=== PATIENT | male | born 1945 | race African-American/Black ===

== ENCOUNTER 2017-09-28 21:26 | Inpatient (IN) | payer MEDICARE, OTHER ==
[~2017-09-28] VITALS: Ht 193 cm; Wt 150.1 kg
[2017-09-28] MEDS ORDERED: Cefepime HCl 1 GM in NS 55 ML IV SCH (21:30)
[2017-09-28] MEDS ORDERED: Vancomycin 1.5gm/D5W 250ml 250 ML IVPB ONE (21:30)
[2017-09-28 21:35] VITALS: BP 224/117
--- NOTE | 2017-09-28 21:35 | Emergency Room Report ---
History of Present Illness General Chief Complaint: Edema Source: Patient, EMS Present Illness HPI This a 71-year-old male who is a [place] . He has a history of diabetes and high blood pressure for which he has not taking any medication for years. He also smokes marijuana mixed with cocaine. He presents with chief complaint of left leg pain and swelling for last 2 weeks. Sexually longer but he said he really noticed it 2 weeks ago. Also been draining. He's also very swollen on the way up to his abdomen. Denies any fever chills but denies any nausea vomiting. Worse with movement or exertion. Better with rest. Denies any chest pain. Allergies: Coded Allergies: No Known Allergies (Unverified , 09/28/17) Patient History Past Medical History: see triage record, old chart reviewed, DM, HTN Past Surgical History: other Pertinent Family History: none Social History: Reports: smoking, drug use - cocaine Immunizations: other Reviewed Nursing Documentation: PMH: Agreed; PSxH: Agreed Nursing Documentation-PMH Hx Hypertension: Yes Hx Diabetes: Yes Review of Systems Eye: Denies: eye pain, blurred vision ENT: Denies: ear pain, nose congestion, throat swelling Respiratory: Denies: cough, shortness of breath Cardiovascular: Denies: chest pain, palpitations Gastrointestinal: Denies: abdominal pain, diarrhea, nausea, vomiting Musculoskeletal: Reports: joint pain, muscle pain, muscle stiffness; Denies: back pain Skin: Denies: rash Neurological: Denies: headache, numbness Endocrine: Denies: increased thirst, increased urine Hematologic/Lymphatic: Denies: easy bruising All Other Systems: negative except mentioned in HPI Physical Exam Vital Signs Date Time Temp Pulse Resp B/P (MAP) Pulse Ox O2 Delivery O2 Flow Rate FiO2 09/28/17 21:21 98.2 97 14 231/134 96 Room Air 98.2 vitals with severe hypertension Sp02 EP Interpretation: reviewed, normal General Appearance: well appearing, no apparent distress, alert, obese Head: normocephalic, atraumatic Eyes: bilateral eye PERRL, bilateral eye EOMI ENT: hearing grossly normal, normal pharynx Neck: full range of motion, supple, no meningismus Respiratory: chest non-tender, decreased breath sounds, rhonchi Cardiovascular #1: regular rate, rhythm, no murmur Gastrointestinal: normal bowel sounds, non tender, no mass, no organomegaly, no bruit, non-distended Genitourinary: other - Scrotal and penile edema Musculoskeletal: back normal, other - He has diffuse 4+ edema to the lower extremities all the way up to the lower abdomen area. Left tib-fib area with large ulceration and weeping purulent drainage. The ulceration extends from foot to the proximal tibia area. There are maggots in his wound. Unable to palpate a pulse. Tender to palpation. Neurologic: alert, oriented x3 Psychiatric: mood/affect normal Skin: warm/dry Procedures Critical Care Time Critical Care Time Critical care is mandated in this patient who presented with malignant hypertension and gangrenous left leg. Patient require my urgent intervention to attenuate the risks of metabolic collapse and possible limb which may lead to cardiovascular collapse and . Critical care time is 35 minutes excluding any reportable procedure. Critical care time included evaluation, multiple reevaluation, looking at old charts, interpreting laboratory and diagnostic data, discussing case with patient and family and consultants, and charting. Medical Decision Making Diagnostic Impression: Primary Impression: Gangrene of lower extremity Additional Impressions: CHF exacerbation Qualified Codes: I50.9 - Heart failure, unspecified Malignant hypertension Anasarca CKD (chronic kidney disease) Qualified Codes: N18.9 - Chronic kidney disease, unspecified Hyperglycemia due to type 2 diabetes mellitus Qualified Codes: E11.65 - Type 2 diabetes mellitus with hyperglycemia Cocaine abuse Noncompliance Obesity (BMI 30.0-34.9) ACS (acute coronary syndrome) ER Course Patient presents with multiple issues. All of this is secondary to noncompliance with his diet in medication. Also secondary to drug abuse. He has uncontrolled hypertension. Blood pressure slowly coming down with IV and oral meds. He also has gangrene of his lower extremity obvious from a diabetic ulcer. Most likely will need a BKA versus in AKA. We'll get surgical/ orthopedic consultation. IV antibiotic started. He has anasarca always from uncontrolled CHF from his high blood pressure. Lasix given without much success. Will admit versus transfer to the CT for admission. Patient will be admitted here. I discussed the case with Dr. Moore who will be admitting and Dr. Gipson for orders. Lab Results Impression labs with elevated glucose, creatinine, BNP. EKG Diagnostic Results Rate: normal Rhythm: NSR ST Segments: other - NSST changes Rhythm Strip Diag. Results Rhythm Strip Time: 22:38 EP Interpretation: yes Rate: 80 Rhythm: NSR, no PVC's, no ectopy Chest X-Ray Diagnostic Results Chest X-Ray Diagnostic Results : Chest X-Ray Ordered: Yes # of Views/Limited/Complete: 1 View Indication: Shortness of Breath EP Interpretation: Yes Interpretation: no pneumothorax, other - pleural effusion with vasc congestion Impression: Other - chf and pleural effusion Other X-Ray Diagnostic Results Other X-Ray Diagnostic Results : X-Ray ordered: Left Tib/fib xrays Indication: Pain EP Interpretation: Yes Interpretation: no dislocation, no fractures, other - STS. gas in soft tissue Impression: Other - Soft tissue gas Electronically Signed by: Cullen Magaña MD Last Vital Signs Date Time Temp Pulse Resp B/P (MAP) Pulse Ox O2 Delivery O2 Flow Rate FiO2 09/28/17 21:21 98.2 97 14 231/134 96 Room Air 98.2 Status: improved Disposition: ADMITTED INPATIENT Condition: Serious Scripts No Active Prescriptions or Reported Meds CULLEN MAGAÑA M.D. September 28, 2017 21:35
[2017-09-28 21:59] LABS: BASOPHILS % (AUTO) 1.3 % (0.0-2.0); HEMATOCRIT 43.9 % (42.0-52.0); HEMOGLOBIN 13.4 G/DL (14.2-18.0); LYMPHOCYTES % (AUTO) 12.7 % (20.0-45.0); MEAN CORPUSCULAR VOLUME 88 FL (80-99); MONOCYTES % (AUTO) 8.9 % (1.0-10.0); NEUTROPHILS % (AUTO) 76.1 % (45.0-75.0); PLATELET COUNT 159 K/UL (150-450); RED BLOOD COUNT 4.97 M/UL (4.70-6.10); RED CELL DISTRIBUTION WIDTH 14.8 % (11.6-14.8); WHITE BLOOD COUNT 7.8 K/UL (4.8-10.8)
[2017-09-28 22:09] LABS: ANION GAP 5 mmol/L (5-15); BLOOD UREA NITROGEN 18 mg/dL (7-18); CALCIUM 8.1 MG/DL (8.5-10.1); CARBON DIOXIDE 31 MMOL/L (21-32); CHLORIDE 104 MMOL/L (98-107); CREATININE 1.7 MG/DL (0.55-1.30); POTASSIUM 3.9 MMOL/L (3.5-5.1); SODIUM 140 MMOL/L (136-145)
[2017-09-28 22:11] LABS: INR 1.2 (0.9-1.1)
[2017-09-28 22:22] LABS: ALANINE AMINOTRANSFERASE 18 U/L (12-78); ALBUMIN 2.3 G/DL (3.4-5.0); ALBUMIN/GLOBULIN RATIO 0.4 (1.0-2.7); ALKALINE PHOSPHATASE 70 U/L (46-116); ASPARTATE AMINO TRANSFERASE 15 U/L (15-37); BILIRUBIN,TOTAL 0.6 MG/DL (0.2-1.0); CKMB 1.1 NG/ML (0.0-3.6); CREATINE KINASE 47 U/L (26-308)
--- NOTE | 2017-09-28 22:22 | Diagnostic Imaging Report ---
EXAM: XR Chest, 1 View CLINICAL HISTORY: PAIN TECHNIQUE: Frontal view of the chest. COMPARISON: No relevant prior studies available. FINDINGS: Lungs: See below. Pleural space: Right pleural effusion with adjacent consolidation. No pneumothorax. Heart: Unremarkable. No cardiomegaly. Mediastinum: Unremarkable. Bones/joints: Unremarkable. IMPRESSION: Right pleural effusion with adjacent consolidation.
--- NOTE | 2017-09-28 22:25 | Diagnostic Imaging Report ---
EXAM: XR Left Tibia and Fibula, 2 Views CLINICAL HISTORY: PAIN TECHNIQUE: Frontal and lateral views of the left tibia and fibula. COMPARISON: No relevant prior studies available. FINDINGS: Bones/joints: Unremarkable. No acute fracture. No dislocation. Soft tissues: There is gas in the soft tissues. No radiopaque foreign body. IMPRESSION: There is gas in the soft tissues. This can be traumatic, iatrogenic, or infectious. No acute fracture or suspicious osseous erosions.
[2017-09-28] MEDS ORDERED: Enoxaparin 60mg Inj SUBQ ONE (22:30)
[2017-09-28] MEDS ORDERED: Enoxaparin 120 mg inj SUBQ ONE (22:30)
[2017-09-28 22:40] VITALS: BP 200/90
[2017-09-28 22:46] LABS: APPEARANCE,URINE SLIGHTLY CLOUDY; BILIRUBIN, URINE NEGATIVE (NEGATIVE); GLUCOSE, URINE (UA) 1+ (NEGATIVE); KETONES,URINE NEGATIVE (NEGATIVE); LEUKOCYTE ESTERASE ,URINE 1+ (NEGATIVE); NITRITE,URINE NEGATIVE (NEGATIVE); PH,URINE 6 (4.5-8.0); PROTEIN,URINE 3+ (NEGATIVE); UROBILINOGEN,URINE 1 MG/DL (0.0-1.0)
[2017-09-28 22:56] LABS: COLOR,URINE YELLOW
[2017-09-28 23:40] VITALS: BP 190/97
[2017-09-28] MEDS ORDERED: Albuterol/Ipratropium 3ml neb HHN PRN (23:45)
[2017-09-28] MEDS ORDERED: Miralax 17gm pkt ORAL PRN (23:45)
[2017-09-28] MEDS ORDERED: Nitroglycerin Subl 0.4mg tab SL PRN (23:45)
[2017-09-28] MEDS ORDERED: Labetalol 5mg/ml 20ml vial IV PRN (23:45)
[2017-09-28] MEDS ORDERED: Enalaprilat 2.5mg/2ml Inj IV PRN (23:45)
[2017-09-29 00:40] VITALS: BP 158/87
[2017-09-29] MEDS: Cefepime HCl 2 GM in D5W 110 ML IV SCH ×2 (03:47→15:25)
[2017-09-29 04:00] VITALS: BP 173/90
[2017-09-29] MEDS: NovoLOG Insulin Flexpen SUBQ SCH ×5 (07:22→21:00)
[2017-09-29 08:00] VITALS: BP 153/83
[2017-09-29] MEDS: Heparin 5000 units/ml inj SUBQ SCH ×2 (09:14→22:29)
[2017-09-29 09:27] LABS: HEMATOCRIT 40.9 % (42.0-52.0); HEMOGLOBIN 12.6 G/DL (14.2-18.0); MEAN CORPUSCULAR VOLUME 89 FL (80-99); PLATELET COUNT 145 K/UL (150-450); RED BLOOD COUNT 4.61 M/UL (4.70-6.10); RED CELL DISTRIBUTION WIDTH 14.8 % (11.6-14.8); WHITE BLOOD COUNT 10.9 K/UL (4.8-10.8)
[2017-09-29 09:58] LABS: ALANINE AMINOTRANSFERASE 18 U/L (12-78); ALBUMIN 2.2 G/DL (3.4-5.0); ALBUMIN/GLOBULIN RATIO 0.4 (1.0-2.7); ALKALINE PHOSPHATASE 64 U/L (46-116); ANION GAP 4 mmol/L (5-15); ASPARTATE AMINO TRANSFERASE 13 U/L (15-37); BLOOD UREA NITROGEN 19 mg/dL (7-18); CALCIUM 8.1 MG/DL (8.5-10.1); CARBON DIOXIDE 30 MMOL/L (21-32); CHLORIDE 104 MMOL/L (98-107); CREATININE 1.5 MG/DL (0.55-1.30); POTASSIUM 3.7 MMOL/L (3.5-5.1); SODIUM 138 MMOL/L (136-145)
--- NOTE | 2017-09-29 10:06 | Consultation ---
Consult Note Consult Note asked to eval for high Cr This a 71-year-old male who is a [place] . He has a history of diabetes and high blood pressure for which he has not taking any medication for years. He also smokes marijuana mixed with cocaine. He presents with chief complaint of left leg pain and swelling for last 2 weeks. Sexually longer but he said he really noticed it 2 weeks ago. Also been draining. He's also very swollen on the way up to his abdomen. Denies any fever chills but denies any nausea vomiting. Worse with movement or exertion. Better with rest. Denies any chest pain. Social History: Reports: smoking, drug use - cocaine Hx Hypertension: Yes Hx Diabetes: Yes data reviewed- Examined- Assessment/Plan Diabetic Nephropathy Gangrene of lower extremity CHF exacerbation Malignant hypertension Cocaine abuse Obesity (BMI 30.0-34.9) ACS (acute coronary syndrome) Adjust BP meds- PRNs for BP 2D echo monitor renal parameters OMER YOU September 29, 2017 10:06
[2017-09-29] MEDS ORDERED: Tamsulosin 0.4mg cap ORAL SCH (11:00)
--- NOTE | 2017-09-29 11:05 | Consultation ---
History of Present Illness General Date patient seen: September 29, 2017 Chief Complaint: Edema Reason for Consultation: left leg cellulitis Present Illness HPI 71 year old male presented with worsening left leg cellulitis. states that a few months back he injured his left leg when he walked into something. does not recall what. Since has developed worsening cellulitis. states that he has been managing it for some time now on his own and has not seen medical physician for assistance. states he has been using alcohol and hydrogen peroxide to keep wound clean but has noted that swelling has been consistently worsening. initially had edema/cellulitis around around site on anterior mid tibia but since has developed edema in foot, leg, thing, up to groin area. surgery called to evaluate. patient seen, chart reviewed, patient examined, plain films reviewed. Allergies: Coded Allergies: No Known Allergies (Unverified , 09/28/17) Medication History No Active Prescriptions or Reported Meds Patient History History Provided By: Patient, Medical Record, PMD Healthcare decision maker Resuscitation status Full Code Advanced Directive on File No Past Medical/Surgical History Past Medical/Surgical History: (1) Malignant hypertension (2) Anasarca (3) Cocaine abuse (4) ACS (acute coronary syndrome) (5) CKD (chronic kidney disease) (6) CHF exacerbation (7) Noncompliance (8) Hyperglycemia due to type 2 diabetes mellitus (9) Obesity (BMI 30.0-34.9) (10) Gangrene of lower extremity (11) Edema Review of Systems All Other Systems: negative except mentioned in HPI Physical Exam General Appearance: no apparent distress, alert Lines, tubes and drains: peripheral HEENT: normocephalic, mucous membranes moist Neck: supple Respiratory/Chest: lungs clear, normal breath sounds, no respiratory distress, no accessory muscle use Cardiovascular/Chest: normal rate Abdomen: normal bowel sounds, non tender, soft, no organomegaly, no mass Extremities: inflammation, slow capillary refill, moderate edema, other - see wound care photos for details of size and wounds. left anterior mid leg with large area of eschar and some gangrene, cellulitis, edema from foot to thigh. can palpate faint pulses through edema Neurologic: alert, oriented x 3, responsive Last 24 Hour Vital Signs Date Time Temp Pulse Resp B/P (MAP) Pulse Ox O2 Delivery O2 Flow Rate FiO2 09/29/17 07:22 173/90 09/29/17 04:00 99.8 82 19 173/90 100 99.8 09/29/17 03:47 201/108 09/29/17 01:15 98.0 86 18 158/87 97 Nasal Cannula 2.0 96 98.0 09/29/17 00:40 98.0 86 18 158/87 97 Nasal Cannula 2.0 96 98.0 09/29/17 00:02 190/97 09/28/17 23:40 98.0 88 20 190/97 97 Nasal Cannula 2.0 96 98.0 09/28/17 22:40 98.0 90 18 200/90 97 Nasal Cannula 2.0 96 98.0 09/28/17 22:25 90 227/106 09/28/17 22:25 227/106 09/28/17 22:24 227/106 09/28/17 21:35 98.2 92 16 224/117 96 Room Air 98.2 09/28/17 21:35 95 16 Room Air 96 09/28/17 21:21 98.2 97 14 231/134 96 Room Air 98.2 Intake and Output 09/28/17 09/29/17 19:00 07:00 Intake Total 55 ml Output Total 1720 ml Balance -1665 ml IV Total 55 ml Output Urine Total 1720 ml # Voids 4 Laboratory Tests Test 09/28/17 21:30 09/28/17 22:30 09/29/17 08:43 White Blood Count 7.8 K/UL (4.8-10.8) 10.9 K/UL (4.8-10.8) H Red Blood Count 4.97 M/UL (4.70-6.10) 4.61 M/UL (4.70-6.10) L Hemoglobin 13.4 G/DL (14.2-18.0) L 12.6 G/DL (14.2-18.0) L Hematocrit 43.9 % (42.0-52.0) 40.9 % (42.0-52.0) L Mean Corpuscular Volume 88 FL (80-99) 89 FL (80-99) Mean Corpuscular Hemoglobin 27.0 PG (27.0-31.0) 27.4 PG (27.0-31.0) Mean Corpuscular Hemoglobin Concent 30.6 G/DL (32.0-36.0) L 30.9 G/DL (32.0-36.0) L Red Cell Distribution Width 14.8 % (11.6-14.8) 14.8 % (11.6-14.8) Platelet Count 159 K/UL (150-450) 145 K/UL (150-450) L Mean Platelet Volume 9.0 FL (6.5-10.1) 8.5 FL (6.5-10.1) Neutrophils (%) (Auto) 76.1 % (45.0-75.0) H % (45.0-75.0) Lymphocytes (%) (Auto) 12.7 % (20.0-45.0) L % (20.0-45.0) Monocytes (%) (Auto) 8.9 % (1.0-10.0) % (1.0-10.0) Eosinophils (%) (Auto) 1.0 % (0.0-3.0) % (0.0-3.0) Basophils (%) (Auto) 1.3 % (0.0-2.0) % (0.0-2.0) Prothrombin Time 12.2 SEC (9.30-11.50) H Prothromb Time International Ratio 1.2 (0.9-1.1) H Activated Partial Thromboplast Time 24 SEC (23-33) Sodium Level 140 MMOL/L (136-145) 138 MMOL/L (136-145) Potassium Level 3.9 MMOL/L (3.5-5.1) 3.7 MMOL/L (3.5-5.1) Chloride Level 104 MMOL/L (98-107) 104 MMOL/L (98-107) Carbon Dioxide Level 31 MMOL/L (21-32) 30 MMOL/L (21-32) Anion Gap 5 mmol/L (5-15) 4 mmol/L (5-15) L Blood Urea Nitrogen 18 mg/dL (7-18) 19 mg/dL (7-18) H Creatinine 1.7 MG/DL (0.55-1.30) H 1.5 MG/DL (0.55-1.30) H Estimat Glomerular Filtration Rate mL/min (>60) mL/min (>60) Glucose Level 265 MG/DL (74-106) H 246 MG/DL (74-106) H Lactic Acid Level 1.80 mmol/L (0.66-2.22) Calcium Level 8.1 MG/DL (8.5-10.1) L 8.1 MG/DL (8.5-10.1) L Total Bilirubin 0.6 MG/DL (0.2-1.0) 1.0 MG/DL (0.2-1.0) Aspartate Amino Transf (AST/SGOT) 15 U/L (15-37) 13 U/L (15-37) L Alanine Aminotransferase (ALT/SGPT) 18 U/L (12-78) 18 U/L (12-78) Alkaline Phosphatase 70 U/L (46-116) 64 U/L (46-116) Total Creatine Kinase 47 U/L (26-308) Creatine Kinase MB 1.1 NG/ML (0.0-3.6) Creatine Kinase MB Relative Index 2.3 Troponin I 0.057 ng/mL (0.000-0.056) Pro-B-Type Natriuretic Peptide 9614 pg/mL (0-125) H Total Protein 7.5 G/DL (6.4-8.2) 7.4 G/DL (6.4-8.2) Albumin 2.3 G/DL (3.4-5.0) L 2.2 G/DL (3.4-5.0) L Globulin 5.2 g/dL 5.2 g/dL Albumin/Globulin Ratio 0.4 (1.0-2.7) L 0.4 (1.0-2.7) L Urine Color Yellow Urine Appearance Slightly cloudy Urine pH 6 (4.5-8.0) Urine Specific [place] 1.015 (1.005-1.035) Urine Protein 3+ (NEGATIVE) H Urine Glucose (UA) 1+ (NEGATIVE) H Urine Ketones Negative (NEGATIVE) Urine Occult Blood 2+ (NEGATIVE) H Urine Nitrite Negative (NEGATIVE) Urine Bilirubin Negative (NEGATIVE) Urine Urobilinogen 1 MG/DL (0.0-1.0) H Urine Leukocyte Esterase 1+ (NEGATIVE) H Urine RBC 2-4 /HPF (0 - 0) H Urine WBC 5-10 /HPF (0 - 0) H Urine Squamous Epithelial Cells Few /LPF (NONE/OCC) Urine Bacteria Few /HPF (NONE) Urine Coarse Granular Casts 0-2 /LPF (NONE) H Urine Opiates Screen Negative (NEGATIVE) Urine Barbiturates Screen Negative (NEGATIVE) Phencyclidine (PCP) Screen Negative (NEGATIVE) Urine Amphetamines Screen Negative (NEGATIVE) Urine Benzodiazepines Screen Negative (NEGATIVE) Urine Cocaine Screen Positive (NEGATIVE) H Urine Marijuana (THC) Screen Positive (NEGATIVE) H Differential Total Cells Counted 100 Neutrophils % (Manual) 88 % (45-75) H Lymphocytes % (Manual) 4 % (20-45) L Monocytes % (Manual) 8 % (1-10) Eosinophils % (Manual) 0 % (0-3) Basophils % (Manual) 0 % (0-2) Band Neutrophils 0 % (0-8) Platelet Estimate Decreased L Platelet Morphology Normal Anisocytosis 1+ C-Reactive Protein, Quantitative Pending Height (Feet): 6 Height (Inches): 4.00 Weight (Pounds): 270 Medications Current Medications Medications (Trade) Dose Ordered Sig/Lito Route PRN Reason Start Time Stop Time Status Last Admin Dose Admin Acetaminophen (Tylenol) 650 mg Q4H PRN ORAL fever 09/28/17 23:45 10/28/17 23:44 Albuterol/ Ipratropium (Albuterol/ Ipratropium) 3 ml EVERY 4 HOURS PRN HHN Shortness of Breath 09/28/17 23:45 10/03/17 23:44 Cefepime HCl 2 gm/ Dextrose 110 ml @ 220 mls/hr 0200,1400 IV 09/29/17 02:00 10/06/17 01:59 09/29/17 03:47 Clonidine HCl (Catapres Tab) 0.1 mg EVERY 8 HOURS ORAL 09/29/17 14:00 10/29/17 13:59 Clonidine HCl (Catapres Tab) 0.1 mg ONCE ORAL 09/29/17 11:00 09/29/17 12:00 Dextrose (Dextrose 50%) STAT PRN IV Hypoglycemia 09/28/17 23:45 10/28/17 23:44 Docusate Sodium (Colace) 100 mg THREE TIMES A DAY ORAL 09/29/17 13:00 10/29/17 12:59 Heparin Sodium (Porcine) (Heparin 5000 units/ml) 5,000 units EVERY 12 HOURS SUBQ 09/29/17 09:00 10/29/17 08:59 09/29/17 09:14 Hydralazine HCl (Apresoline) 25 mg Q4H PRN ORAL bp over 160 syst 09/29/17 10:15 10/29/17 10:14 Insulin Aspart (NovoLOG) BEFORE MEALS AND HS SUBQ 09/29/17 06:30 10/29/17 06:29 09/29/17 07:22 Lansoprazole (Prevacid) 30 mg BID ORAL 09/29/17 18:00 10/29/17 17:59 Lansoprazole (Prevacid) 30 mg ONCE ORAL 09/29/17 11:00 09/29/17 12:00 Nitroglycerin (Ntg) 0.4 mg Q5M PRN SL Prn Chest Pain 09/28/17 23:45 10/28/17 23:44 Ondansetron HCl (Zofran) 4 mg Q6H PRN IVP Nausea & Vomiting 09/28/17 23:45 10/28/17 23:44 Polyethylene Glycol (Miralax) 17 gm DAILYPRN PRN ORAL Constipation 09/28/17 23:45 10/28/17 23:44 Tamsulosin HCl (Flomax) 0.4 mg BID ORAL 09/29/17 18:00 10/29/17 17:59 Tamsulosin HCl (Flomax) 0.4 mg ONCE ORAL 09/29/17 11:00 09/29/17 12:00 Temazepam (Restoril) 15 mg HSPRN PRN ORAL Insomnia 09/28/17 23:45 10/05/17 23:44 Vancomycin HCl (Vanco rx to dose) 1 ea DAILY PRN MISC PER RX PROTOCOL 09/29/17 06:30 10/29/17 06:29 Vancomycin HCl 1.5 gm/Dextrose 275 ml @ 183.3 mls/ hr Q24H IVPB 09/29/17 21:30 10/04/17 21:29 Assessment/Plan Problem List: (1) Gangrene of lower extremity Assessment & Plan: 71M left lower extremity cellulitis/wound which is chronic after injury a "few months ago". has been managing wound on his own since but has been worsening. now has cellulitis around left and edema from foot to thigh. large area of skin loss on anterior mid leg. small incision noted and underlying tissue with edema but does bleed and potentially viable. areas of skin loss with bleeding once manipulated but some areas without. -my potentially need excisional debridement of wounds but will manage conservatively for now. -keep lower extremity elevated -IV Abx for cellulitis -honey gel, gauze, wrap wound daily. -will monitor for improvement. if not significant improvement will discuss surgical intervention with patient. thank you for this consultation. will follow with you ICD Codes: I96 - Gangrene, not elsewhere classified SNOMED: [id number], [id number] Status: unchanged CarlitosMannie poon September 29, 2017 11:05
[2017-09-29 12:00] VITALS: BP 182/96
[2017-09-29] MEDS: Docusate 100mg cap ORAL SCH ×2 (13:37→17:46)
[2017-09-29] MEDS: Vancomycin 1gm/D5W 275ml IVPB SCH ×2 (13:37)
[2017-09-29] MEDS ORDERED: NS Irrig 1000ml ONE (13:47)
[2017-09-29] MEDS ORDERED: NS 275ml ONE (13:47)
--- NOTE | 2017-09-29 13:50 | Consultation ---
History of Present Illness General Date patient seen: September 29, 2017 Chief Complaint: Edema Reason for Consultation: left leg cellulitis Present Illness HPI 71 y/o M with hx of Dm2 w/ nephropathy, CHF, Obesity, HTN, marihuana and cocaine use, non compliance presents to ED on 09/28 with 2 weeks of L leg pain, swelling and drainage. Swelling extending up to abdomen. He refers that few months ago he injured his left leg after walking into something. Celluliitis has spread from anterior mid tibia to foot, leg, thigh and up to groin area. Patient was evaluate by surgery, Dr Macedo. Noted to have large area of skin loss on anterior mid leg, small incision was done and noted underlying tissue with edema, but bleeding and potentially viable. Plan for conservative care at the moment with potential I+D if worsening or not significantly improved. Denies f/c, n/v, CP Afebrile mild leukocytosis on IV Vanco and Cefepime Allergies: Coded Allergies: No Known Allergies (Unverified , 09/28/17) Medication History No Active Prescriptions or Reported Meds Patient History Healthcare decision maker Resuscitation status Full Code Advanced Directive on File No Patient History Narrative Pmhx: as above Shx:Reports: smoking, drug use - cocaine, Arnett Fhx: non contributory Review of Systems All Other Systems: negative except mentioned in HPI Physical Exam Physical Exam Narrative General Appearance: no apparent distress, alert Lines, tubes and drains: peripheral HEENT: normocephalic, mucous membranes moist Neck: supple Respiratory/Chest: lungs clear, normal breath sounds, no respiratory distress, no accessory muscle use Cardiovascular/Chest: normal rate Abdomen: normal bowel sounds, non tender, soft, no organomegaly, no mass Extremities: inflammation, slow capillary refill, moderate edema, other - see wound care photos for details of size and wounds. left anterior mid leg with large area of eschar and some gangrene, cellulitis, edema from foot to thigh. can palpate faint pulses through edema Neurologic: alert, oriented x 3, responsive Last 24 Hour Vital Signs Date Time Temp Pulse Resp B/P (MAP) Pulse Ox O2 Delivery O2 Flow Rate FiO2 09/29/17 12:14 145/83 09/29/17 07:22 173/90 09/29/17 04:00 99.8 82 19 173/90 100 99.8 09/29/17 03:47 201/108 09/29/17 01:15 98.0 86 18 158/87 97 Nasal Cannula 2.0 96 98.0 09/29/17 00:40 98.0 86 18 158/87 97 Nasal Cannula 2.0 96 98.0 09/29/17 00:02 190/97 09/28/17 23:40 98.0 88 20 190/97 97 Nasal Cannula 2.0 96 98.0 09/28/17 22:40 98.0 90 18 200/90 97 Nasal Cannula 2.0 96 98.0 09/28/17 22:25 90 227/106 09/28/17 22:25 227/106 09/28/17 22:24 227/106 09/28/17 21:35 98.2 92 16 224/117 96 Room Air 98.2 09/28/17 21:35 95 16 Room Air 96 09/28/17 21:21 98.2 97 14 231/134 96 Room Air 98.2 Intake and Output 09/28/17 09/29/17 19:00 07:00 Intake Total 55 ml Output Total 1720 ml Balance -1665 ml IV Total 55 ml Output Urine Total 1720 ml # Voids 4 Laboratory Tests Test 09/28/17 21:30 09/28/17 22:30 09/29/17 08:43 White Blood Count 7.8 K/UL (4.8-10.8) 10.9 K/UL (4.8-10.8) H Red Blood Count 4.97 M/UL (4.70-6.10) 4.61 M/UL (4.70-6.10) L Hemoglobin 13.4 G/DL (14.2-18.0) L 12.6 G/DL (14.2-18.0) L Hematocrit 43.9 % (42.0-52.0) 40.9 % (42.0-52.0) L Mean Corpuscular Volume 88 FL (80-99) 89 FL (80-99) Mean Corpuscular Hemoglobin 27.0 PG (27.0-31.0) 27.4 PG (27.0-31.0) Mean Corpuscular Hemoglobin Concent 30.6 G/DL (32.0-36.0) L 30.9 G/DL (32.0-36.0) L Red Cell Distribution Width 14.8 % (11.6-14.8) 14.8 % (11.6-14.8) Platelet Count 159 K/UL (150-450) 145 K/UL (150-450) L Mean Platelet Volume 9.0 FL (6.5-10.1) 8.5 FL (6.5-10.1) Neutrophils (%) (Auto) 76.1 % (45.0-75.0) H % (45.0-75.0) Lymphocytes (%) (Auto) 12.7 % (20.0-45.0) L % (20.0-45.0) Monocytes (%) (Auto) 8.9 % (1.0-10.0) % (1.0-10.0) Eosinophils (%) (Auto) 1.0 % (0.0-3.0) % (0.0-3.0) Basophils (%) (Auto) 1.3 % (0.0-2.0) % (0.0-2.0) Prothrombin Time 12.2 SEC (9.30-11.50) H Prothromb Time International Ratio 1.2 (0.9-1.1) H Activated Partial Thromboplast Time 24 SEC (23-33) Sodium Level 140 MMOL/L (136-145) 138 MMOL/L (136-145) Potassium Level 3.9 MMOL/L (3.5-5.1) 3.7 MMOL/L (3.5-5.1) Chloride Level 104 MMOL/L (98-107) 104 MMOL/L (98-107) Carbon Dioxide Level 31 MMOL/L (21-32) 30 MMOL/L (21-32) Anion Gap 5 mmol/L (5-15) 4 mmol/L (5-15) L Blood Urea Nitrogen 18 mg/dL (7-18) 19 mg/dL (7-18) H Creatinine 1.7 MG/DL (0.55-1.30) H 1.5 MG/DL (0.55-1.30) H Estimat Glomerular Filtration Rate mL/min (>60) mL/min (>60) Glucose Level 265 MG/DL (74-106) H 246 MG/DL (74-106) H Lactic Acid Level 1.80 mmol/L (0.66-2.22) Calcium Level 8.1 MG/DL (8.5-10.1) L 8.1 MG/DL (8.5-10.1) L Total Bilirubin 0.6 MG/DL (0.2-1.0) 1.0 MG/DL (0.2-1.0) Aspartate Amino Transf (AST/SGOT) 15 U/L (15-37) 13 U/L (15-37) L Alanine Aminotransferase (ALT/SGPT) 18 U/L (12-78) 18 U/L (12-78) Alkaline Phosphatase 70 U/L (46-116) 64 U/L (46-116) Total Creatine Kinase 47 U/L (26-308) Creatine Kinase MB 1.1 NG/ML (0.0-3.6) Creatine Kinase MB Relative Index 2.3 Troponin I 0.057 ng/mL (0.000-0.056) Pro-B-Type Natriuretic Peptide 9614 pg/mL (0-125) H Total Protein 7.5 G/DL (6.4-8.2) 7.4 G/DL (6.4-8.2) Albumin 2.3 G/DL (3.4-5.0) L 2.2 G/DL (3.4-5.0) L Globulin 5.2 g/dL 5.2 g/dL Albumin/Globulin Ratio 0.4 (1.0-2.7) L 0.4 (1.0-2.7) L Urine Color Yellow Urine Appearance Slightly cloudy Urine pH 6 (4.5-8.0) Urine Specific [place] 1.015 (1.005-1.035) Urine Protein 3+ (NEGATIVE) H Urine Glucose (UA) 1+ (NEGATIVE) H Urine Ketones Negative (NEGATIVE) Urine Occult Blood 2+ (NEGATIVE) H Urine Nitrite Negative (NEGATIVE) Urine Bilirubin Negative (NEGATIVE) Urine Urobilinogen 1 MG/DL (0.0-1.0) H Urine Leukocyte Esterase 1+ (NEGATIVE) H Urine RBC 2-4 /HPF (0 - 0) H Urine WBC 5-10 /HPF (0 - 0) H Urine Squamous Epithelial Cells Few /LPF (NONE/OCC) Urine Bacteria Few /HPF (NONE) Urine Coarse Granular Casts 0-2 /LPF (NONE) H Urine Opiates Screen Negative (NEGATIVE) Urine Barbiturates Screen Negative (NEGATIVE) Phencyclidine (PCP) Screen Negative (NEGATIVE) Urine Amphetamines Screen Negative (NEGATIVE) Urine Benzodiazepines Screen Negative (NEGATIVE) Urine Cocaine Screen Positive (NEGATIVE) H Urine Marijuana (THC) Screen Positive (NEGATIVE) H Differential Total Cells Counted 100 Neutrophils % (Manual) 88 % (45-75) H Lymphocytes % (Manual) 4 % (20-45) L Monocytes % (Manual) 8 % (1-10) Eosinophils % (Manual) 0 % (0-3) Basophils % (Manual) 0 % (0-2) Band Neutrophils 0 % (0-8) Platelet Estimate Decreased L Platelet Morphology Normal Anisocytosis 1+ C-Reactive Protein, Quantitative 3.7 mg/dL (0.00-0.90) H Height (Feet): 6 Height (Inches): 4.00 Weight (Pounds): 270 Medications Current Medications Medications (Trade) Dose Ordered Sig/Lito Route PRN Reason Start Time Stop Time Status Last Admin Dose Admin Acetaminophen (Tylenol) 650 mg Q4H PRN ORAL fever 09/28/17 23:45 10/28/17 23:44 Albuterol/ Ipratropium (Albuterol/ Ipratropium) 3 ml EVERY 4 HOURS PRN HHN Shortness of Breath 09/28/17 23:45 10/03/17 23:44 Cefepime HCl 2 gm/ Dextrose 110 ml @ 220 mls/hr 0200,1400 IV 09/29/17 02:00 10/06/17 01:59 09/29/17 03:47 Clonidine HCl (Catapres Tab) 0.1 mg EVERY 8 HOURS ORAL 09/29/17 14:00 10/29/17 13:59 Dextrose (Dextrose 50%) STAT PRN IV Hypoglycemia 09/28/17 23:45 10/28/17 23:44 Docusate Sodium (Colace) 100 mg THREE TIMES A DAY ORAL 09/29/17 13:00 10/29/17 12:59 Heparin Sodium (Porcine) (Heparin 5000 units/ml) 5,000 units EVERY 12 HOURS SUBQ 09/29/17 09:00 10/29/17 08:59 09/29/17 09:14 Hydralazine HCl (Apresoline) 25 mg Q4H PRN ORAL bp over 160 syst 09/29/17 10:15 10/29/17 10:14 Insulin Aspart (NovoLOG) BEFORE MEALS AND HS SUBQ 09/29/17 06:30 10/29/17 06:29 09/29/17 12:25 Lansoprazole (Prevacid) 30 mg BID ORAL 09/29/17 18:00 10/29/17 17:59 Nitroglycerin (Ntg) 0.4 mg Q5M PRN SL Prn Chest Pain 09/28/17 23:45 10/28/17 23:44 Ondansetron HCl (Zofran) 4 mg Q6H PRN IVP Nausea & Vomiting 09/28/17 23:45 10/28/17 23:44 Polyethylene Glycol (Miralax) 17 gm DAILYPRN PRN ORAL Constipation 09/28/17 23:45 10/28/17 23:44 Tamsulosin HCl (Flomax) 0.4 mg BID ORAL 09/29/17 18:00 10/29/17 17:59 Temazepam (Restoril) 15 mg HSPRN PRN ORAL Insomnia 09/28/17 23:45 10/05/17 23:44 Vancomycin HCl (Vanco rx to dose) 1 ea DAILY PRN MISC PER RX PROTOCOL 09/29/17 06:30 10/29/17 06:29 Vancomycin HCl 1 gm/Dextrose 275 ml @ 183.708 mls/hr Q12HR@0000,1200 IVPB 09/29/17 12:00 10/04/17 11:59 Assessment/Plan Assessment/Plan Abx: IV Vanco 09/28- Cefepime 09/28- Assessment: L anterior leg chronic wound and surrounding cellulitis -xray tibia/fibula: There is gas in the soft tissues. This can be traumatic , iatrogenic, or infectious. No acute fracture or suspicious osseous erosions. ; gas likely from incision made in ED- tissue seemed viable upon superificial exploration per ED physician and surgeon. Afebrile Mild leukocytosis -u/a wbc 10-15, nit neg, leuk +1 Hypertensive urgency, improving TK, improving Dm2 w/ nephropathy CHF Obesity HTN marihuana and cocaine use non compliance Plan: -Continue empiric IV Vanco and Cefepime and add flagyl for anaerobic coverage -f/u cx -Monitor CBC/BMP, temperatures -wound care -surgery f/u Thank you for this consultation. Will continue to follow along with you. Discussed with RN and Dr macedo. Consuelo Baeza M.D. September 29, 2017 13:50
[2017-09-29] MEDS ORDERED: Promethazine/Codeine 5ml UD ORAL PRN (14:45)
[2017-09-29] MEDS ORDERED: metroNIDAZOLE 500mg tab ORAL SCH (15:00)
--- NOTE | 2017-09-29 15:17 | Consultation ---
History of Present Illness General Date patient seen: September 29, 2017 Chief Complaint: Edema Reason for Consultation: right effusion Present Illness HPI 71-year-old male with a history of diabetes and high blood pressure, smokes marijuana mixed with cocaine presented to ER with chief complaint of left leg pain and swelling for last 2 weeks. which been draining. He's also very swollen on the way up to his abdomen. Denies any fever chills but denies any nausea vomiting. His CXR showed cardiomegaly and right pleural effusion. He is admitted to telemetry for further treatment. Allergies: Coded Allergies: No Known Allergies (Unverified , 09/28/17) Medication History No Active Prescriptions or Reported Meds Patient History Healthcare decision maker Resuscitation status Full Code Advanced Directive on File No Past Medical/Surgical History Past Medical/Surgical History: (1) Diabetes mellitus (2) Malignant hypertension (3) Cocaine abuse (4) Noncompliance Review of Systems Constitutional: Reports: sweats, malaise Musculoskeletal: Reports: joint pain, muscle pain, muscle stiffness Physical Exam General Appearance: WD/WN Lines, tubes and drains: peripheral, central line HEENT: normocephalic, atraumatic Neck: normal alignment, supple Cardiovascular/Chest: normal peripheral pulses, normal rate Abdomen: normal bowel sounds, non tender Extremities: inflammation, severe edema, pitting Neurologic: internal consultant II-XII grossly normal Last 24 Hour Vital Signs Date Time Temp Pulse Resp B/P (MAP) Pulse Ox O2 Delivery O2 Flow Rate FiO2 09/29/17 13:37 145/83 09/29/17 12:14 145/83 09/29/17 07:22 173/90 09/29/17 04:00 99.8 82 19 173/90 100 99.8 09/29/17 03:47 201/108 09/29/17 01:15 98.0 86 18 158/87 97 Nasal Cannula 2.0 96 98.0 09/29/17 00:40 98.0 86 18 158/87 97 Nasal Cannula 2.0 96 98.0 09/29/17 00:02 190/97 09/28/17 23:40 98.0 88 20 190/97 97 Nasal Cannula 2.0 96 98.0 09/28/17 22:40 98.0 90 18 200/90 97 Nasal Cannula 2.0 96 98.0 09/28/17 22:25 90 227/106 09/28/17 22:25 227/106 09/28/17 22:24 227/106 09/28/17 21:35 98.2 92 16 224/117 96 Room Air 98.2 09/28/17 21:35 95 16 Room Air 96 09/28/17 21:21 98.2 97 14 231/134 96 Room Air 98.2 Intake and Output 09/28/17 09/29/17 19:00 07:00 Intake Total 55 ml Output Total 1720 ml Balance -1665 ml IV Total 55 ml Output Urine Total 1720 ml # Voids 4 Laboratory Tests Test 09/28/17 21:30 09/28/17 22:30 09/29/17 08:43 White Blood Count 7.8 K/UL (4.8-10.8) 10.9 K/UL (4.8-10.8) H Red Blood Count 4.97 M/UL (4.70-6.10) 4.61 M/UL (4.70-6.10) L Hemoglobin 13.4 G/DL (14.2-18.0) L 12.6 G/DL (14.2-18.0) L Hematocrit 43.9 % (42.0-52.0) 40.9 % (42.0-52.0) L Mean Corpuscular Volume 88 FL (80-99) 89 FL (80-99) Mean Corpuscular Hemoglobin 27.0 PG (27.0-31.0) 27.4 PG (27.0-31.0) Mean Corpuscular Hemoglobin Concent 30.6 G/DL (32.0-36.0) L 30.9 G/DL (32.0-36.0) L Red Cell Distribution Width 14.8 % (11.6-14.8) 14.8 % (11.6-14.8) Platelet Count 159 K/UL (150-450) 145 K/UL (150-450) L Mean Platelet Volume 9.0 FL (6.5-10.1) 8.5 FL (6.5-10.1) Neutrophils (%) (Auto) 76.1 % (45.0-75.0) H % (45.0-75.0) Lymphocytes (%) (Auto) 12.7 % (20.0-45.0) L % (20.0-45.0) Monocytes (%) (Auto) 8.9 % (1.0-10.0) % (1.0-10.0) Eosinophils (%) (Auto) 1.0 % (0.0-3.0) % (0.0-3.0) Basophils (%) (Auto) 1.3 % (0.0-2.0) % (0.0-2.0) Prothrombin Time 12.2 SEC (9.30-11.50) H Prothromb Time International Ratio 1.2 (0.9-1.1) H Activated Partial Thromboplast Time 24 SEC (23-33) Sodium Level 140 MMOL/L (136-145) 138 MMOL/L (136-145) Potassium Level 3.9 MMOL/L (3.5-5.1) 3.7 MMOL/L (3.5-5.1) Chloride Level 104 MMOL/L (98-107) 104 MMOL/L (98-107) Carbon Dioxide Level 31 MMOL/L (21-32) 30 MMOL/L (21-32) Anion Gap 5 mmol/L (5-15) 4 mmol/L (5-15) L Blood Urea Nitrogen 18 mg/dL (7-18) 19 mg/dL (7-18) H Creatinine 1.7 MG/DL (0.55-1.30) H 1.5 MG/DL (0.55-1.30) H Estimat Glomerular Filtration Rate mL/min (>60) mL/min (>60) Glucose Level 265 MG/DL (74-106) H 246 MG/DL (74-106) H Lactic Acid Level 1.80 mmol/L (0.66-2.22) Calcium Level 8.1 MG/DL (8.5-10.1) L 8.1 MG/DL (8.5-10.1) L Total Bilirubin 0.6 MG/DL (0.2-1.0) 1.0 MG/DL (0.2-1.0) Aspartate Amino Transf (AST/SGOT) 15 U/L (15-37) 13 U/L (15-37) L Alanine Aminotransferase (ALT/SGPT) 18 U/L (12-78) 18 U/L (12-78) Alkaline Phosphatase 70 U/L (46-116) 64 U/L (46-116) Total Creatine Kinase 47 U/L (26-308) Creatine Kinase MB 1.1 NG/ML (0.0-3.6) Creatine Kinase MB Relative Index 2.3 Troponin I 0.057 ng/mL (0.000-0.056) Pro-B-Type Natriuretic Peptide 9614 pg/mL (0-125) H Total Protein 7.5 G/DL (6.4-8.2) 7.4 G/DL (6.4-8.2) Albumin 2.3 G/DL (3.4-5.0) L 2.2 G/DL (3.4-5.0) L Globulin 5.2 g/dL 5.2 g/dL Albumin/Globulin Ratio 0.4 (1.0-2.7) L 0.4 (1.0-2.7) L Urine Color Yellow Urine Appearance Slightly cloudy Urine pH 6 (4.5-8.0) Urine Specific [place] 1.015 (1.005-1.035) Urine Protein 3+ (NEGATIVE) H Urine Glucose (UA) 1+ (NEGATIVE) H Urine Ketones Negative (NEGATIVE) Urine Occult Blood 2+ (NEGATIVE) H Urine Nitrite Negative (NEGATIVE) Urine Bilirubin Negative (NEGATIVE) Urine Urobilinogen 1 MG/DL (0.0-1.0) H Urine Leukocyte Esterase 1+ (NEGATIVE) H Urine RBC 2-4 /HPF (0 - 0) H Urine WBC 5-10 /HPF (0 - 0) H Urine Squamous Epithelial Cells Few /LPF (NONE/OCC) Urine Bacteria Few /HPF (NONE) Urine Coarse Granular Casts 0-2 /LPF (NONE) H Urine Opiates Screen Negative (NEGATIVE) Urine Barbiturates Screen Negative (NEGATIVE) Phencyclidine (PCP) Screen Negative (NEGATIVE) Urine Amphetamines Screen Negative (NEGATIVE) Urine Benzodiazepines Screen Negative (NEGATIVE) Urine Cocaine Screen Positive (NEGATIVE) H Urine Marijuana (THC) Screen Positive (NEGATIVE) H Differential Total Cells Counted 100 Neutrophils % (Manual) 88 % (45-75) H Lymphocytes % (Manual) 4 % (20-45) L Monocytes % (Manual) 8 % (1-10) Eosinophils % (Manual) 0 % (0-3) Basophils % (Manual) 0 % (0-2) Band Neutrophils 0 % (0-8) Platelet Estimate Decreased L Platelet Morphology Normal Anisocytosis 1+ C-Reactive Protein, Quantitative 3.7 mg/dL (0.00-0.90) H Height (Feet): 6 Height (Inches): 4.00 Weight (Pounds): 270 Medications Current Medications Medications (Trade) Dose Ordered Sig/Lito Route PRN Reason Start Time Stop Time Status Last Admin Dose Admin Acetaminophen (Tylenol) 650 mg Q4H PRN ORAL fever 09/28/17 23:45 10/28/17 23:44 Albuterol/ Ipratropium (Albuterol/ Ipratropium) 3 ml EVERY 4 HOURS PRN HHN Shortness of Breath 09/28/17 23:45 10/03/17 23:44 Albuterol/ Ipratropium (Albuterol/ Ipratropium) 3 ml Q6HRT HHN 09/29/17 19:00 10/04/17 18:59 UNV Cefepime HCl 2 gm/ Dextrose 110 ml @ 220 mls/hr 0200,1400 IV 09/29/17 02:00 10/06/17 01:59 09/29/17 03:47 Clonidine HCl (Catapres Tab) 0.1 mg EVERY 8 HOURS ORAL 09/29/17 14:00 10/29/17 13:59 09/29/17 13:37 Dextrose (Dextrose 50%) STAT PRN IV Hypoglycemia 09/28/17 23:45 10/28/17 23:44 Docusate Sodium (Colace) 100 mg THREE TIMES A DAY ORAL 09/29/17 13:00 10/29/17 12:59 09/29/17 13:37 Heparin Sodium (Porcine) (Heparin 5000 units/ml) 5,000 units EVERY 12 HOURS SUBQ 09/29/17 09:00 10/29/17 08:59 09/29/17 09:14 Hydralazine HCl (Apresoline) 25 mg Q4H PRN ORAL bp over 160 syst 09/29/17 10:15 10/29/17 10:14 Insulin Aspart (NovoLOG) BEFORE MEALS AND HS SUBQ 09/29/17 06:30 10/29/17 06:29 09/29/17 12:25 Lansoprazole (Prevacid) 30 mg BID ORAL 09/29/17 18:00 10/29/17 17:59 Levalbuterol HCl (Xopenex) 1.25 mg TIDRT HHN 09/29/17 19:00 10/04/17 18:59 UNV Metronidazole (Flagyl) 500 mg ONCE ORAL 09/29/17 15:00 09/29/17 16:00 Metronidazole (Flagyl) 500 mg Q8HR ORAL 09/29/17 22:00 10/06/17 21:59 Nitroglycerin (Ntg) 0.4 mg Q5M PRN SL Prn Chest Pain 09/28/17 23:45 10/28/17 23:44 Ondansetron HCl (Zofran) 4 mg Q6H PRN IVP Nausea & Vomiting 09/28/17 23:45 10/28/17 23:44 Polyethylene Glycol (Miralax) 17 gm DAILYPRN PRN ORAL Constipation 09/28/17 23:45 10/28/17 23:44 Promethazine HCl/ Codeine (Phenergan with Codeine) 5 ml Q4H PRN ORAL For Cough 09/29/17 14:45 10/29/17 14:44 Tamsulosin HCl (Flomax) 0.4 mg BID ORAL 09/29/17 18:00 10/29/17 17:59 Temazepam (Restoril) 15 mg HSPRN PRN ORAL Insomnia 09/28/17 23:45 10/05/17 23:44 Theophylline (Mark-Dur) 100 mg EVERY 12 HOURS ORAL 09/29/17 21:00 10/29/17 20:59 Vancomycin HCl (Vanco rx to dose) 1 ea DAILY PRN MISC PER RX PROTOCOL 09/29/17 06:30 10/29/17 06:29 Vancomycin HCl 1 gm/Dextrose 275 ml @ 183.708 mls/hr Q12HR@0000,1200 IVPB 09/29/17 12:00 10/04/17 11:59 09/29/17 13:37 Assessment/Plan Problem List: (1) Pleural effusion ICD Codes: J90 - Pleural effusion, not elsewhere classified SNOMED: 24468947 (2) Cardiomegaly ICD Codes: I51.7 - Cardiomegaly SNOMED: 3543300 (3) Cellulitis ICD Codes: L03.90 - Cellulitis, unspecified SNOMED: 706973764 (4) Hypoalbuminemia ICD Codes: E88.09 - Other disorders of plasma-protein metabolism, not elsewhere classified SNOMED: 455699287 (5) ATN (acute tubular necrosis) ICD Codes: N17.0 - Acute kidney failure with tubular necrosis SNOMED: 30998830 (6) Diabetes mellitus ICD Codes: E11.9 - Type 2 diabetes mellitus without complications SNOMED: 31080375 (7) Obesity (BMI 30.0-34.9) ICD Codes: E66.9 - Obesity, unspecified SNOMED: 992866420, 16874445 (8) Noncompliance ICD Codes: Z91.19 - Patient's noncompliance with other medical treatment and regimen SNOMED: 4192302 (9) Anasarca ICD Codes: R60.1 - Generalized edema SNOMED: 946638675, 508779675 (10) Cocaine abuse ICD Codes: F14.10 - Cocaine abuse, uncomplicated SNOMED: 89516612, 364524498 Assessment/Plan surgical and ID evaluation reviewed pt need thoracentesis to evaluate large right pleural effusion pt has low albumin and increased INR c/w liver disease like cirrhosis echocardiogram to evaluate EF, venous doppler of legs debridement of the malodorous wound social service consult. Hoang Gipson MD September 29, 2017 15:17
--- NOTE | 2017-09-29 15:18 | History & Physical ---
History and Physical History & Physicial Dictated for Int Med-Dr Moore no. [id number]. Adilson Stephen MD September 29, 2017 15:18
[2017-09-29 15:33] LABS: INR 1.2 (0.9-1.1)
[2017-09-29 15:36] VITALS: BP 167/83
[2017-09-29] MEDS: HydrALAZINE 25mg tab ORAL PRN (15:38)
[2017-09-29] MEDS ORDERED: Ipratropium 0.02% Inh Soln 2.5ml UD HHN PRN (16:15)
[2017-09-29] MEDS: Tamsulosin 0.4mg cap ORAL SCH (17:47)
[2017-09-29] MEDS: Ipratropium 0.02% Inh Soln 2.5ml UD HHN SCH (19:00)
[2017-09-29] MEDS: Levalbuterol Inh UD 1.25mg/0.5ml HHN SCH (19:00)
[2017-09-29 20:36] VITALS: BP 153/83
[2017-09-29] MEDS ORDERED: Vancomycin 1.5 GM in D5W 275 ML IVPB SCH (21:30)
--- NOTE | 2017-09-29 22:22 | Consultation ---
History of Present Illness General Date patient seen: September 29, 2017 Time patient seen: 20:12 Chief Complaint: Edema Reason for Consultation: right effusion Present Illness HPI Patient with CHF, CKD, HTN, admitted for worsening LE edema. Allergies: Coded Allergies: No Known Allergies (Unverified , 09/28/17) Medication History No Active Prescriptions or Reported Meds Patient History History Provided By: Patient, Medical Record Healthcare decision maker Resuscitation status Full Code Advanced Directive on File No Review of Systems Constitutional: Reports: no symptoms Eye: Reports: no symptoms ENT: Reports: no symptoms Cardiovascular: Reports: no symptoms Gastrointestinal: Reports: no symptoms Musculoskeletal: Reports: no symptoms Skin: Reports: no symptoms Psychiatric: Reports: no symptoms Neurological: Reports: no symptoms Endocrine: Reports: no symptoms Hematologic/Lymphatic: Reports: no symptoms Physical Exam General Appearance: WD/WN, no apparent distress Lines, tubes and drains: peripheral HEENT: normocephalic, atraumatic, anicteric Neck: non-tender Respiratory/Chest: chest wall non-tender, rhonchi - right Cardiovascular/Chest: normal peripheral pulses, regular rhythm, JVD, gallop/S4 Abdomen: normal bowel sounds Extremities: severe edema, pitting Skin Exam: normal pigmentation Neurologic: washer cutter II-XII grossly normal Last 24 Hour Vital Signs Date Time Temp Pulse Resp B/P (MAP) Pulse Ox O2 Delivery O2 Flow Rate FiO2 09/29/17 20:36 99.1 70 20 153/83 Nasal Cannula 2.0 99.1 09/29/17 17:10 101.0 09/29/17 16:09 101.0 09/29/17 16:00 73 09/29/17 15:38 167/83 09/29/17 15:36 101.0 86 20 167/83 100 101.0 09/29/17 13:37 145/83 09/29/17 12:14 145/83 09/29/17 12:00 97.8 85 18 182/96 100 97.8 09/29/17 12:00 75 09/29/17 08:00 97.8 78 18 153/83 100 97.8 09/29/17 07:22 173/90 09/29/17 04:00 99.8 82 19 173/90 100 99.8 09/29/17 03:47 201/108 09/29/17 01:15 98.0 86 18 158/87 97 Nasal Cannula 2.0 96 98.0 09/29/17 00:40 98.0 86 18 158/87 97 Nasal Cannula 2.0 96 98.0 09/29/17 00:02 190/97 09/28/17 23:40 98.0 88 20 190/97 97 Nasal Cannula 2.0 96 98.0 09/28/17 22:40 98.0 90 18 200/90 97 Nasal Cannula 2.0 96 98.0 09/28/17 22:25 90 227/106 09/28/17 22:25 227/106 09/28/17 22:24 227/106 Intake and Output 09/28/17 09/29/17 19:00 07:00 Intake Total 55 ml Output Total 1720 ml Balance -1665 ml IV Total 55 ml Output Urine Total 1720 ml # Voids 4 Laboratory Tests Test 09/28/17 22:30 09/29/17 08:43 09/29/17 14:55 Urine Color Yellow Urine Appearance Slightly cloudy Urine pH 6 (4.5-8.0) Urine Specific [place] 1.015 (1.005-1.035) Urine Protein 3+ (NEGATIVE) H Urine Glucose (UA) 1+ (NEGATIVE) H Urine Ketones Negative (NEGATIVE) Urine Occult Blood 2+ (NEGATIVE) H Urine Nitrite Negative (NEGATIVE) Urine Bilirubin Negative (NEGATIVE) Urine Urobilinogen 1 MG/DL (0.0-1.0) H Urine Leukocyte Esterase 1+ (NEGATIVE) H Urine RBC 2-4 /HPF (0 - 0) H Urine WBC 5-10 /HPF (0 - 0) H Urine Squamous Epithelial Cells Few /LPF (NONE/OCC) Urine Bacteria Few /HPF (NONE) Urine Coarse Granular Casts 0-2 /LPF (NONE) H Urine Opiates Screen Negative (NEGATIVE) Urine Barbiturates Screen Negative (NEGATIVE) Phencyclidine (PCP) Screen Negative (NEGATIVE) Urine Amphetamines Screen Negative (NEGATIVE) Urine Benzodiazepines Screen Negative (NEGATIVE) Urine Cocaine Screen Positive (NEGATIVE) H Urine Marijuana (THC) Screen Positive (NEGATIVE) H White Blood Count 10.9 K/UL (4.8-10.8) H Red Blood Count 4.61 M/UL (4.70-6.10) L Hemoglobin 12.6 G/DL (14.2-18.0) L Hematocrit 40.9 % (42.0-52.0) L Mean Corpuscular Volume 89 FL (80-99) Mean Corpuscular Hemoglobin 27.4 PG (27.0-31.0) Mean Corpuscular Hemoglobin Concent 30.9 G/DL (32.0-36.0) L Red Cell Distribution Width 14.8 % (11.6-14.8) Platelet Count 145 K/UL (150-450) L Mean Platelet Volume 8.5 FL (6.5-10.1) Neutrophils (%) (Auto) % (45.0-75.0) Lymphocytes (%) (Auto) % (20.0-45.0) Monocytes (%) (Auto) % (1.0-10.0) Eosinophils (%) (Auto) % (0.0-3.0) Basophils (%) (Auto) % (0.0-2.0) Differential Total Cells Counted 100 Neutrophils % (Manual) 88 % (45-75) H Lymphocytes % (Manual) 4 % (20-45) L Monocytes % (Manual) 8 % (1-10) Eosinophils % (Manual) 0 % (0-3) Basophils % (Manual) 0 % (0-2) Band Neutrophils 0 % (0-8) Platelet Estimate Decreased L Platelet Morphology Normal Anisocytosis 1+ Sodium Level 138 MMOL/L (136-145) Potassium Level 3.7 MMOL/L (3.5-5.1) Chloride Level 104 MMOL/L (98-107) Carbon Dioxide Level 30 MMOL/L (21-32) Anion Gap 4 mmol/L (5-15) L Blood Urea Nitrogen 19 mg/dL (7-18) H Creatinine 1.5 MG/DL (0.55-1.30) H Estimat Glomerular Filtration Rate mL/min (>60) Glucose Level 246 MG/DL (74-106) H Calcium Level 8.1 MG/DL (8.5-10.1) L Total Bilirubin 1.0 MG/DL (0.2-1.0) Aspartate Amino Transf (AST/SGOT) 13 U/L (15-37) L Alanine Aminotransferase (ALT/SGPT) 18 U/L (12-78) Alkaline Phosphatase 64 U/L (46-116) C-Reactive Protein, Quantitative 3.7 mg/dL (0.00-0.90) H Total Protein 7.4 G/DL (6.4-8.2) Albumin 2.2 G/DL (3.4-5.0) L Globulin 5.2 g/dL Albumin/Globulin Ratio 0.4 (1.0-2.7) L Prothrombin Time 13.0 SEC (9.30-11.50) H Prothromb Time International Ratio 1.2 (0.9-1.1) H Activated Partial Thromboplast Time 31 SEC (23-33) Height (Feet): 6 Height (Inches): 4.00 Weight (Pounds): 299 Medications Current Medications Medications (Trade) Dose Ordered Sig/Lito Route PRN Reason Start Time Stop Time Status Last Admin Dose Admin Acetaminophen (Tylenol) 650 mg Q4H PRN ORAL fever 09/28/17 23:45 10/28/17 23:44 09/29/17 16:09 Cefepime HCl 2 gm/ Dextrose 110 ml @ 220 mls/hr 0200,1400 IV 09/29/17 02:00 10/06/17 01:59 09/29/17 15:25 Clonidine HCl (Catapres Tab) 0.1 mg EVERY 8 HOURS ORAL 09/29/17 14:00 10/29/17 13:59 09/29/17 13:37 Dextrose (Dextrose 50%) STAT PRN IV Hypoglycemia 09/28/17 23:45 10/28/17 23:44 Docusate Sodium (Colace) 100 mg THREE TIMES A DAY ORAL 09/29/17 13:00 10/29/17 12:59 09/29/17 17:46 Heparin Sodium (Porcine) (Heparin 5000 units/ml) 5,000 units EVERY 12 HOURS SUBQ 09/29/17 09:00 10/29/17 08:59 09/29/17 09:14 Hydralazine HCl (Apresoline) 25 mg Q4H PRN ORAL bp over 160 syst 09/29/17 10:15 10/29/17 10:14 09/29/17 15:38 Insulin Aspart (NovoLOG) BEFORE MEALS AND HS SUBQ 09/29/17 06:30 10/29/17 06:29 09/29/17 17:36 Ipratropium [place] (Atrovent) 500 mcg Q4H PRN HHN Shortness of Breath 5/27/18 16:15 10/03/17 23:44 Ipratropium [place] (Atrovent) 500 mcg Q6HRT HHN 09/29/17 19:00 10/04/17 18:59 Lansoprazole (Prevacid) 30 mg BID ORAL 09/29/17 18:00 10/29/17 17:59 09/29/17 17:48 Levalbuterol HCl (Xopenex) 1.25 mg TIDRT HHN 09/29/17 19:00 10/04/17 18:59 Metronidazole (Flagyl) 500 mg Q8HR ORAL 09/29/17 22:00 10/06/17 21:59 Nitroglycerin (Ntg) 0.4 mg Q5M PRN SL Prn Chest Pain 09/28/17 23:45 10/28/17 23:44 Ondansetron HCl (Zofran) 4 mg Q6H PRN IVP Nausea & Vomiting 09/28/17 23:45 10/28/17 23:44 Polyethylene Glycol (Miralax) 17 gm DAILYPRN PRN ORAL Constipation 09/28/17 23:45 10/28/17 23:44 Promethazine HCl/ Codeine (Phenergan with Codeine) 5 ml Q4H PRN ORAL For Cough 09/29/17 14:45 10/29/17 14:44 Tamsulosin HCl (Flomax) 0.4 mg BID ORAL 09/29/17 18:00 10/29/17 17:59 09/29/17 17:47 Temazepam (Restoril) 15 mg HSPRN PRN ORAL Insomnia 09/28/17 23:45 10/05/17 23:44 Theophylline (Mark-Dur) 100 mg EVERY 12 HOURS ORAL 09/29/17 21:00 10/29/17 20:59 Vancomycin HCl (Vanco rx to dose) 1 ea DAILY PRN MISC PER RX PROTOCOL 09/29/17 06:30 10/29/17 06:29 Vancomycin HCl 1 gm/Dextrose 275 ml @ 183.708 mls/hr Q12HR@0000,1200 IVPB 09/29/17 12:00 10/04/17 11:59 09/29/17 13:37 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 (11) Edema 1) Blood pressure control 2) Echocardiogram to evaluate filling pressures 3) lasix to reduce lower extremity edema 4) serial troponin and BNP - not clinically impressive for ACS 5) Ensure medication compliance 6) Discussed cocaine and THC cessation 7) Serial CXR to monitor right effusion Kranthi Herrera M.D. September 29, 2017 22:22
[2017-09-29] MEDS: metroNIDAZOLE 500mg tab ORAL SCH (22:25)
[2017-09-29] MEDS: Theophylline ER 100mg ORAL SCH (22:25)
--- NOTE | 2017-09-29 22:54 | Consultation ---
History of Present Illness General Chief Complaint: Edema Reason for Consultation: right effusion Present Illness HPI 71-year-old male with a history of diabetes and high blood pressure, smokes marijuana mixed with cocaine presented to ER with chief complaint of left leg pain and swelling. the pt stated that he was depressed and low energy. he was explained that this could be due to using cocaine. no si/hi Allergies: Coded Allergies: No Known Allergies (Unverified , 09/28/17) Medication History No Active Prescriptions or Reported Meds Patient History History Provided By: Patient, Medical Record, PMD Healthcare decision maker Resuscitation status Full Code Advanced Directive on File No Past Medical/Surgical History Past Medical/Surgical History: (1) Malignant hypertension (2) Anasarca (3) Cocaine abuse (4) ACS (acute coronary syndrome) (5) CKD (chronic kidney disease) (6) CHF exacerbation (7) Noncompliance (8) Hyperglycemia due to type 2 diabetes mellitus (9) Obesity (BMI 30.0-34.9) (10) Edema (11) Gangrene of lower extremity (12) Diabetes mellitus (13) Cardiomegaly (14) Pleural effusion (15) ATN (acute tubular necrosis) (16) Cellulitis (17) Hypoalbuminemia (18) CHF (congestive heart failure) (19) Ascites (20) Renal failure (21) Obesities, morbid (22) Diabetes mellitus type II, uncontrolled (23) Pleural effusion, right (24) Cellulitis of left leg (25) Leukocytosis (26) Gram-negative bacteremia Review of Systems Psychiatric: Reports: anxiety, depressed feelings, emotional problems Physical Exam General Appearance: no apparent distress, alert Neurologic: oriented x 3, responsive, depressed affect Last 24 Hour Vital Signs Date Time Temp Pulse Resp B/P (MAP) Pulse Ox O2 Delivery O2 Flow Rate FiO2 09/29/17 22:26 153/83 09/29/17 20:36 99.1 70 20 153/83 Nasal Cannula 2.0 99.1 09/29/17 17:10 101.0 09/29/17 16:09 101.0 09/29/17 16:00 73 09/29/17 15:38 167/83 09/29/17 15:36 101.0 86 20 167/83 100 101.0 09/29/17 13:37 145/83 09/29/17 12:14 145/83 09/29/17 12:00 97.8 85 18 182/96 100 97.8 09/29/17 12:00 75 09/29/17 08:00 97.8 78 18 153/83 100 97.8 09/29/17 07:22 173/90 09/29/17 04:00 99.8 82 19 173/90 100 99.8 09/29/17 03:47 201/108 09/29/17 01:15 98.0 86 18 158/87 97 Nasal Cannula 2.0 96 98.0 09/29/17 00:40 98.0 86 18 158/87 97 Nasal Cannula 2.0 96 98.0 09/29/17 00:02 190/97 09/28/17 23:40 98.0 88 20 190/97 97 Nasal Cannula 2.0 96 98.0 Intake and Output 09/28/17 09/29/17 19:00 07:00 Intake Total 55 ml Output Total 1720 ml Balance -1665 ml IV Total 55 ml Output Urine Total 1720 ml # Voids 4 Laboratory Tests Test 09/29/17 08:43 09/29/17 14:55 White Blood Count 10.9 K/UL (4.8-10.8) H Red Blood Count 4.61 M/UL (4.70-6.10) L Hemoglobin 12.6 G/DL (14.2-18.0) L Hematocrit 40.9 % (42.0-52.0) L Mean Corpuscular Volume 89 FL (80-99) Mean Corpuscular Hemoglobin 27.4 PG (27.0-31.0) Mean Corpuscular Hemoglobin Concent 30.9 G/DL (32.0-36.0) L Red Cell Distribution Width 14.8 % (11.6-14.8) Platelet Count 145 K/UL (150-450) L Mean Platelet Volume 8.5 FL (6.5-10.1) Neutrophils (%) (Auto) % (45.0-75.0) Lymphocytes (%) (Auto) % (20.0-45.0) Monocytes (%) (Auto) % (1.0-10.0) Eosinophils (%) (Auto) % (0.0-3.0) Basophils (%) (Auto) % (0.0-2.0) Differential Total Cells Counted 100 Neutrophils % (Manual) 88 % (45-75) H Lymphocytes % (Manual) 4 % (20-45) L Monocytes % (Manual) 8 % (1-10) Eosinophils % (Manual) 0 % (0-3) Basophils % (Manual) 0 % (0-2) Band Neutrophils 0 % (0-8) Platelet Estimate Decreased L Platelet Morphology Normal Anisocytosis 1+ Sodium Level 138 MMOL/L (136-145) Potassium Level 3.7 MMOL/L (3.5-5.1) Chloride Level 104 MMOL/L (98-107) Carbon Dioxide Level 30 MMOL/L (21-32) Anion Gap 4 mmol/L (5-15) L Blood Urea Nitrogen 19 mg/dL (7-18) H Creatinine 1.5 MG/DL (0.55-1.30) H Estimat Glomerular Filtration Rate mL/min (>60) Glucose Level 246 MG/DL (74-106) H Calcium Level 8.1 MG/DL (8.5-10.1) L Total Bilirubin 1.0 MG/DL (0.2-1.0) Aspartate Amino Transf (AST/SGOT) 13 U/L (15-37) L Alanine Aminotransferase (ALT/SGPT) 18 U/L (12-78) Alkaline Phosphatase 64 U/L (46-116) C-Reactive Protein, Quantitative 3.7 mg/dL (0.00-0.90) H Total Protein 7.4 G/DL (6.4-8.2) Albumin 2.2 G/DL (3.4-5.0) L Globulin 5.2 g/dL Albumin/Globulin Ratio 0.4 (1.0-2.7) L Prothrombin Time 13.0 SEC (9.30-11.50) H Prothromb Time International Ratio 1.2 (0.9-1.1) H Activated Partial Thromboplast Time 31 SEC (23-33) Height (Feet): 6 Height (Inches): 4.00 Weight (Pounds): 299 Medications Current Medications Medications (Trade) Dose Ordered Sig/Lito Route PRN Reason Start Time Stop Time Status Last Admin Dose Admin Acetaminophen (Tylenol) 650 mg Q4H PRN ORAL fever 09/28/17 23:45 10/28/17 23:44 09/29/17 22:46 Cefepime HCl 2 gm/ Dextrose 110 ml @ 220 mls/hr 0200,1400 IV 09/29/17 02:00 10/06/17 01:59 09/29/17 15:25 Clonidine HCl (Catapres Tab) 0.1 mg EVERY 8 HOURS ORAL 09/29/17 14:00 10/29/17 13:59 09/29/17 22:26 Dextrose (Dextrose 50%) STAT PRN IV Hypoglycemia 09/28/17 23:45 10/28/17 23:44 Docusate Sodium (Colace) 100 mg THREE TIMES A DAY ORAL 09/29/17 13:00 10/29/17 12:59 09/29/17 17:46 Heparin Sodium (Porcine) (Heparin 5000 units/ml) 5,000 units EVERY 12 HOURS SUBQ 09/29/17 09:00 10/29/17 08:59 09/29/17 22:29 Hydralazine HCl (Apresoline) 25 mg Q4H PRN ORAL bp over 160 syst 09/29/17 10:15 10/29/17 10:14 09/29/17 15:38 Insulin Aspart (NovoLOG) BEFORE MEALS AND HS SUBQ 09/29/17 06:30 10/29/17 06:29 09/29/17 17:36 Ipratropium [place] (Atrovent) 500 mcg Q4H PRN HHN Shortness of Breath 09/29/17 16:15 10/03/17 23:44 Ipratropium [place] (Atrovent) 500 mcg Q6HRT HHN 09/29/17 19:00 10/04/17 18:59 Lansoprazole (Prevacid) 30 mg BID ORAL 09/29/17 18:00 10/29/17 17:59 09/29/17 17:48 Levalbuterol HCl (Xopenex) 1.25 mg TIDRT HHN 09/29/17 19:00 10/04/17 18:59 Metronidazole (Flagyl) 500 mg Q8HR ORAL 09/29/17 22:00 10/06/17 21:59 09/29/17 22:25 Nitroglycerin (Ntg) 0.4 mg Q5M PRN SL Prn Chest Pain 09/28/17 23:45 10/28/17 23:44 Ondansetron HCl (Zofran) 4 mg Q6H PRN IVP Nausea & Vomiting 09/28/17 23:45 10/28/17 23:44 Polyethylene Glycol (Miralax) 17 gm DAILYPRN PRN ORAL Constipation 09/28/17 23:45 10/28/17 23:44 Promethazine HCl/ Codeine (Phenergan with Codeine) 5 ml Q4H PRN ORAL For Cough 09/29/17 14:45 10/29/17 14:44 Tamsulosin HCl (Flomax) 0.4 mg BID ORAL 09/29/17 18:00 10/29/17 17:59 09/29/17 17:47 Temazepam (Restoril) 15 mg HSPRN PRN ORAL Insomnia 09/28/17 23:45 10/05/17 23:44 Theophylline (Mark-Dur) 100 mg EVERY 12 HOURS ORAL 09/29/17 21:00 10/29/17 20:59 09/29/17 22:25 Vancomycin HCl (Vanco rx to dose) 1 ea DAILY PRN MISC PER RX PROTOCOL 09/29/17 06:30 10/29/17 06:29 Vancomycin HCl 1 gm/Dextrose 275 ml @ 183.708 mls/hr Q12HR@0000,1200 IVPB 09/29/17 12:00 10/04/17 11:59 09/29/17 13:37 Assessment/Plan Assessment/Plan cocaine abuse depression lexapro 10mg qam provided herlinda/Nadiya Blanco M.D. September 29, 2017 22:54
[2017-09-30] VITALS: BP 183/98
[2017-09-30] MEDS: Ipratropium 0.02% Inh Soln 2.5ml UD HHN SCH ×4 (01:00→19:00)
[2017-09-30] MEDS: Vancomycin 1gm/D5W 275ml IVPB SCH ×6 (01:05→23:36)
[2017-09-30] MEDS: Cefepime HCl 2 GM in D5W 110 ML IV SCH (02:42)
[2017-09-30 04:00] VITALS: BP 178/100
[2017-09-30] MEDS: metroNIDAZOLE 500mg tab ORAL SCH ×3 (06:13→22:16)
[2017-09-30] MEDS: NovoLOG Insulin Flexpen SUBQ SCH ×4 (06:30→21:18)
[2017-09-30] MEDS: Levalbuterol Inh UD 1.25mg/0.5ml HHN SCH ×3 (07:00→19:00)
[2017-09-30 07:29] LABS: BASOPHILS % (AUTO) 0.7 % (0.0-2.0); EOSINOPHILS % (AUTO) 0.2 % (0.0-3.0); HEMOGLOBIN 11.8 G/DL (14.2-18.0); LYMPHOCYTES % (AUTO) 6.2 % (20.0-45.0); MEAN CORPUSCULAR VOLUME 89 FL (80-99); MONOCYTES % (AUTO) 10.7 % (1.0-10.0); NEUTROPHILS % (AUTO) 82.2 % (45.0-75.0); PLATELET COUNT 146 K/UL (150-450); RED BLOOD COUNT 4.28 M/UL (4.70-6.10); WHITE BLOOD COUNT 14.1 K/UL (4.8-10.8)
[2017-09-30 07:55] LABS: INR 1.3 (0.9-1.1)
[2017-09-30 08:00] VITALS: BP 183/98
[2017-09-30 08:00] LABS: AMMONIA 43 umol/L (11-32)
[2017-09-30 08:11] LABS: ALANINE AMINOTRANSFERASE 11 U/L (12-78); ALBUMIN/GLOBULIN RATIO 0.4 (1.0-2.7); ALKALINE PHOSPHATASE 57 U/L (46-116); ANION GAP 4 mmol/L (5-15); ASPARTATE AMINO TRANSFERASE 10 U/L (15-37); BILIRUBIN,TOTAL 1.4 MG/DL (0.2-1.0); BLOOD UREA NITROGEN 19 mg/dL (7-18); CALCIUM 8.3 MG/DL (8.5-10.1); CARBON DIOXIDE 32 MMOL/L (21-32); CHLORIDE 103 MMOL/L (98-107); CHOLESTEROL 115 MG/DL (< 200); CREATININE 1.7 MG/DL (0.55-1.30); FERRITIN 138 NG/ML (8-388); GAMMA GLUTAMYL TRANSPEPTIDASE 63 U/L (5-85); HDL CHOLESTEROL 35 MG/DL (40-60); PHOSPHORUS 2.8 MG/DL (2.5-4.9); POTASSIUM 4.3 MMOL/L (3.5-5.1); SODIUM 139 MMOL/L (136-145); TRIGLYCERIDES 31 MG/DL (30-150)
[2017-09-30 08:12] LABS: BILIRUBIN,DIRECT 0.5 MG/DL (0.0-0.3)
[2017-09-30 08:29] LABS: % IRON SATURATION 7 % (15-50); IRON 12 ug/dL (50-175); TOTAL IRON BINDING CAPACITY 179 ug/dL (250-450)
[2017-09-30] MEDS: Docusate 100mg cap ORAL SCH ×3 (10:15→18:18)
[2017-09-30] MEDS: Theophylline ER 100mg ORAL SCH ×2 (10:15→20:49)
[2017-09-30] MEDS: Tamsulosin 0.4mg cap ORAL SCH ×2 (10:16→18:18)
[2017-09-30] MEDS: Heparin 5000 units/ml inj SUBQ SCH ×2 (10:17→20:50)
--- NOTE | 2017-09-30 10:43 | Pulmonology Progress Note ---
Assessment/Plan Problems: (1) Pleural effusion (2) Cardiomegaly (3) Cellulitis (4) Hypoalbuminemia (5) ATN (acute tubular necrosis) (6) Diabetes mellitus (7) Obesity (BMI 30.0-34.9) (8) Noncompliance (9) Anasarca (10) Cocaine abuse Assessment/Plan all consults reviewed Echo: EF 50% continue abx check cultures wound care check US of abdomen and US of chest for thoracentesis optimize cardiac meds Subjective ROS Limited/Unobtainable: No Interval Events: feeling better Allergies: Coded Allergies: No Known Allergies (Unverified , 09/28/17) Objective Last 24 Hour Vital Signs Date Time Temp Pulse Resp B/P (MAP) Pulse Ox O2 Delivery O2 Flow Rate FiO2 09/30/17 09:57 2.0 28 09/30/17 09:56 97 2.0 09/30/17 08:58 Nasal Cannula 2.0 09/30/17 08:57 Nasal Cannula 2.0 09/30/17 06:14 178/100 09/30/17 04:00 99.0 72 20 178/100 Nasal Cannula 2.0 99.0 09/30/17 03:51 85 09/30/17 01:03 Nasal Cannula 2.0 28 09/30/17 01:03 Nasal Cannula 2.0 28 09/30/17 00:00 85 09/30/17 00:00 98.1 85 20 183/98 Nasal Cannula 2.0 98.1 09/29/17 22:26 153/83 09/29/17 20:36 99.1 70 20 153/83 Nasal Cannula 2.0 99.1 09/29/17 17:10 101.0 09/29/17 16:09 101.0 09/29/17 16:00 73 09/29/17 15:38 167/83 09/29/17 15:36 101.0 86 20 167/83 100 101.0 09/29/17 13:37 145/83 09/29/17 12:14 145/83 09/29/17 12:00 97.8 85 18 182/96 100 97.8 09/29/17 12:00 75 Intake and Output 09/29/17 09/30/17 19:00 07:00 Intake Total 960 ml 450 ml Output Total 500 ml 750 ml Balance 460 ml -300 ml Intake Oral 960 ml 100 ml Other 350 ml Output Urine Total 500 ml 750 ml # Voids 3 General Appearance: WD/WN HEENT: normocephalic, atraumatic Respiratory/Chest: chest wall non-tender Cardiovascular: normal peripheral pulses, normal rate Abdomen: normal bowel sounds, soft, non tender Genitourinary: normal external genitalia Extremities: no cyanosis Skin: rash, lesions Neurologic/Psychiatric: signalman II-XII grossly normal Microbiology Date/Time Source Procedure Growth Status 09/28/17 21:30 Blood Blood Culture - Preliminary NO GROWTH AFTER 24 HOURS Resulted 09/28/17 21:15 Blood Blood Culture - Preliminary NO GROWTH AFTER 24 HOURS Resulted Laboratory Tests 09/29/17 14:55: Prothrombin Time 13.0H, Prothromb Time International Ratio 1.2H, Activated Partial Thromboplast Time 31 09/30/17 04:50: Prothrombin Time 13.3H, Prothromb Time International Ratio 1.3H, Activated Partial Thromboplast Time 30, White Blood Count 14.1H, Red Blood Count 4.28L, Hemoglobin 11.8L, Hematocrit 38.0L, Mean Corpuscular Volume 89, Mean Corpuscular Hemoglobin 27.6, Mean Corpuscular Hemoglobin Concent 31.1L, Red Cell Distribution Width 15.0H, Platelet Count 146L, Mean Platelet Volume 10.3H, Neutrophils (%) (Auto) 82.2H, Lymphocytes (%) (Auto) 6.2L, Monocytes (%) (Auto) 10.7H, Eosinophils (%) (Auto) 0.2, Basophils (%) (Auto) 0.7, Differential Total Cells Counted 100, Neutrophils % (Manual) 83H, Lymphocytes % (Manual) 6L, Monocytes % (Manual) 11H, Eosinophils % (Manual) 0, Basophils % (Manual) 0, Band Neutrophils 0, Platelet Estimate DecreasedL, Platelet Morphology Normal, Hypochromasia 1+, Anisocytosis 1+, Erythrocyte Sedimentation Rate 28H, Reticulocyte Count 0.8, Sodium Level 139, Potassium Level 4.3, Chloride Level 103, Carbon Dioxide Level 32, Anion Gap 4L, Blood Urea Nitrogen 19H, Creatinine 1.7H, Estimat Glomerular Filtration Rate , Glucose Level 175H, Hemoglobin A1c 8.8H, Uric Acid 5.4, Calcium Level 8.3L, Phosphorus Level 2.8, Magnesium Level 1.9, Iron Level 12L, Total Iron Binding Capacity 179L, Percent Iron Saturation 7L, Unsaturated Iron Binding 167, Ferritin 138, Total Bilirubin 1.4H, Direct Bilirubin 0.5H, Gamma Glutamyl Transpeptidase 63, Aspartate Amino Transf (AST/ SGOT) 10L, Alanine Aminotransferase (ALT/SGPT) 11L, Alkaline Phosphatase 57, Ammonia 43H, Lactate Dehydrogenase 188, Troponin I 0.088H, Pro-B-Type Natriuretic Peptide 6215H, Total Protein 7.0, Albumin 2.0L, Globulin 5.0, Albumin/Globulin Ratio 0.4L, Triglycerides Level 31, Cholesterol Level 115, LDL Cholesterol 74, HDL Cholesterol 35L, Cholesterol/HDL Ratio 3.3, Carcinoembryonic Antigen [Pending], Vitamin B12 Level 852, Folate 5.0L, Thyroid Stimulating Hormone (TSH) 1.085 Current Medications Medications (Trade) Dose Ordered Sig/Lito Route PRN Reason Start Time Stop Time Status Last Admin Dose Admin Acetaminophen (Tylenol) 650 mg Q4H PRN ORAL fever 09/28/17 23:45 10/28/17 23:44 09/29/17 22:46 Cefepime HCl 2 gm/ Dextrose 110 ml @ 220 mls/hr 0200,1400 IV 09/29/17 02:00 10/06/17 01:59 09/30/17 02:42 Clonidine HCl (Catapres Tab) 0.1 mg EVERY 8 HOURS ORAL 09/29/17 14:00 10/29/17 13:59 09/30/17 06:14 Dextrose (Dextrose 50%) STAT PRN IV Hypoglycemia 09/28/17 23:45 10/28/17 23:44 Docusate Sodium (Colace) 100 mg THREE TIMES A DAY ORAL 09/29/17 13:00 10/29/17 12:59 09/30/17 10:15 Heparin Sodium (Porcine) (Heparin 5000 units/ml) 5,000 units EVERY 12 HOURS SUBQ 09/29/17 09:00 10/29/17 08:59 09/30/17 10:17 Hydralazine HCl (Apresoline) 25 mg Q4H PRN ORAL bp over 160 syst 09/29/17 10:15 10/29/17 10:14 09/29/17 15:38 Insulin Aspart (NovoLOG) BEFORE MEALS AND HS SUBQ 09/29/17 06:30 10/29/17 06:29 09/29/17 17:36 Ipratropium [place] (Atrovent) 500 mcg Q4H PRN HHN Shortness of Breath 09/29/17 16:15 10/03/17 23:44 Ipratropium [place] (Atrovent) 500 mcg Q6HRT HHN 09/29/17 19:00 10/04/17 18:59 Lansoprazole (Prevacid) 30 mg BID ORAL 09/29/17 18:00 10/29/17 17:59 09/30/17 10:15 Levalbuterol HCl (Xopenex) 1.25 mg TIDRT HHN 09/29/17 19:00 10/04/17 18:59 Metronidazole (Flagyl) 500 mg Q8HR ORAL 09/29/17 22:00 10/06/17 21:59 09/30/17 06:13 Nitroglycerin (Ntg) 0.4 mg Q5M PRN SL Prn Chest Pain 09/28/17 23:45 10/28/17 23:44 Ondansetron HCl (Zofran) 4 mg Q6H PRN IVP Nausea & Vomiting 09/28/17 23:45 10/28/17 23:44 Polyethylene Glycol (Miralax) 17 gm DAILYPRN PRN ORAL Constipation 09/28/17 23:45 10/28/17 23:44 Promethazine HCl/ Codeine (Phenergan with Codeine) 5 ml Q4H PRN ORAL For Cough 09/29/17 14:45 10/29/17 14:44 Tamsulosin HCl (Flomax) 0.4 mg BID ORAL 09/29/17 18:00 10/29/17 17:59 09/30/17 10:16 Temazepam (Restoril) 15 mg HSPRN PRN ORAL Insomnia 09/28/17 23:45 10/05/17 23:44 Theophylline (Mark-Dur) 100 mg EVERY 12 HOURS ORAL 09/29/17 21:00 10/29/17 20:59 09/30/17 10:15 Vancomycin HCl (Vanco rx to dose) 1 ea DAILY PRN MISC PER RX PROTOCOL 09/29/17 06:30 10/29/17 06:29 Vancomycin HCl 1 gm/Dextrose 275 ml @ 183.708 mls/hr Q12HR@0000,1200 IVPB 09/29/17 12:00 10/04/17 11:59 09/30/17 01:05 Hoang Gipson MD September 30, 2017 10:43
--- NOTE | 2017-09-30 11:11 | Diagnostic Imaging Report ---
Indication: Reason For Exam: MASS Technique: Ultrasound of the abdomen. Comparison: None Findings: Liver: The liver is normal in size and echogenicity. No focal abnormalities are noted. Gallbladder: The bladder is contracted. No gross stones are visualized. Common bile duct: Well-imaged but not grossly dilated. Pancreas: The visualized portion of pancreas is normal in echogenicity. There are no masses. Kidneys: Right kidney is normal. Left kidney is not visualized. Patient could not turn well and access to the region of the left kidney is limited. Spleen: The spleen is normal in size and echogenicity. Aorta: Mostly obscured. Visualized portion is normal. IVC: The demonstrated portion of the inferior vena cava is normal. There is ascites. There is also right pleural effusion. Impression: Ascites. Right pleural effusion. Left kidney not identified. Access to the area is limited. It is uncertain whether this is technical or whether there is an absent or small left kidney. CT may be helpful for better evaluation of this. Gallbladder contracted but otherwise grossly unremarkable. Otherwise negative within the limits noted above.
[2017-09-30 12:00] VITALS: BP 178/100
--- NOTE | 2017-09-30 14:14 | General Surgery Progress Note ---
General Surgery-Progress Note Subjective Additional Comments doing well. states pain and swelling in left leg improved. leukocytosis worse Objective Last 24 Hour Vital Signs Date Time Temp Pulse Resp B/P (MAP) Pulse Ox O2 Delivery O2 Flow Rate FiO2 09/30/17 14:01 178/100 09/30/17 13:43 Nasal Cannula 2.0 09/30/17 13:43 2.0 09/30/17 13:43 2.0 09/30/17 13:42 Nasal Cannula 2.0 09/30/17 12:00 97.9 75 24 178/100 97 Nasal Cannula 2.0 97.9 09/30/17 09:57 2.0 09/30/17 09:56 97 2.0 09/30/17 08:58 Nasal Cannula 2.0 09/30/17 08:57 Nasal Cannula 2.0 09/30/17 08:00 98.5 71 20 183/98 98 Nasal Cannula 2.0 98.5 09/30/17 07:56 70 09/30/17 06:14 178/100 09/30/17 04:00 99.0 72 20 178/100 Nasal Cannula 2.0 99.0 09/30/17 03:51 85 09/30/17 01:03 Nasal Cannula 2.0 09/30/17 01:03 Nasal Cannula 2.0 09/30/17 00:00 85 09/30/17 00:00 98.1 85 20 183/98 Nasal Cannula 2.0 98.1 09/29/17 22:26 153/83 09/29/17 20:36 99.1 70 20 153/83 Nasal Cannula 2.0 99.1 09/29/17 17:10 101.0 09/29/17 16:09 101.0 09/29/17 16:00 73 09/29/17 15:38 167/83 09/29/17 15:36 101.0 86 20 167/83 100 101.0 I&O Intake and Output 09/29/17 09/30/17 19:00 07:00 Intake Total 960 ml 450 ml Output Total 500 ml 750 ml Balance 460 ml -300 ml Intake Oral 960 ml 100 ml Other 350 ml Output Urine Total 500 ml 750 ml # Voids 3 Dressing: saturated Wound: clean Drains: none Cardiovascular: RSR Respiratory: clear Abdomen: soft, non-tender, present bowel sounds Extremities: edema, tenderness, cyanosis Laboratory Tests Test 09/29/17 14:55 09/30/17 04:50 Prothrombin Time 13.0 SEC (9.30-11.50) H 13.3 SEC (9.30-11.50) H Prothromb Time International Ratio 1.2 (0.9-1.1) H 1.3 (0.9-1.1) H Activated Partial Thromboplast Time 31 SEC (23-33) 30 SEC (23-33) White Blood Count 14.1 K/UL (4.8-10.8) H Red Blood Count 4.28 M/UL (4.70-6.10) L Hemoglobin 11.8 G/DL (14.2-18.0) L Hematocrit 38.0 % (42.0-52.0) L Mean Corpuscular Volume 89 FL (80-99) Mean Corpuscular Hemoglobin 27.6 PG (27.0-31.0) Mean Corpuscular Hemoglobin Concent 31.1 G/DL (32.0-36.0) L Red Cell Distribution Width 15.0 % (11.6-14.8) H Platelet Count 146 K/UL (150-450) L Mean Platelet Volume 10.3 FL (6.5-10.1) H Neutrophils (%) (Auto) 82.2 % (45.0-75.0) H Lymphocytes (%) (Auto) 6.2 % (20.0-45.0) L Monocytes (%) (Auto) 10.7 % (1.0-10.0) H Eosinophils (%) (Auto) 0.2 % (0.0-3.0) Basophils (%) (Auto) 0.7 % (0.0-2.0) Differential Total Cells Counted 100 Neutrophils % (Manual) 83 % (45-75) H Lymphocytes % (Manual) 6 % (20-45) L Monocytes % (Manual) 11 % (1-10) H Eosinophils % (Manual) 0 % (0-3) Basophils % (Manual) 0 % (0-2) Band Neutrophils 0 % (0-8) Platelet Estimate Decreased L Platelet Morphology Normal Hypochromasia 1+ Anisocytosis 1+ Erythrocyte Sedimentation Rate 28 MM/HR (0-20) H Reticulocyte Count 0.8 % (0.0-2.0) Sodium Level 139 MMOL/L (136-145) Potassium Level 4.3 MMOL/L (3.5-5.1) Chloride Level 103 MMOL/L (98-107) Carbon Dioxide Level 32 MMOL/L (21-32) Anion Gap 4 mmol/L (5-15) L Blood Urea Nitrogen 19 mg/dL (7-18) H Creatinine 1.7 MG/DL (0.55-1.30) H Estimat Glomerular Filtration Rate mL/min (>60) Glucose Level 175 MG/DL (74-106) H Hemoglobin A1c 8.8 % (4.3-6.0) H Uric Acid 5.4 MG/DL (2.6-7.2) Calcium Level 8.3 MG/DL (8.5-10.1) L Phosphorus Level 2.8 MG/DL (2.5-4.9) Magnesium Level 1.9 MG/DL (1.8-2.4) Iron Level 12 ug/dL (50-175) L Total Iron Binding Capacity 179 ug/dL (250-450) L Percent Iron Saturation 7 % (15-50) L Unsaturated Iron Binding 167 ug/dL (112-346) Ferritin 138 NG/ML (8-388) Total Bilirubin 1.4 MG/DL (0.2-1.0) H Direct Bilirubin 0.5 MG/DL (0.0-0.3) H Gamma Glutamyl Transpeptidase 63 U/L (5-85) Aspartate Amino Transf (AST/SGOT) 10 U/L (15-37) L Alanine Aminotransferase (ALT/SGPT) 11 U/L (12-78) L Alkaline Phosphatase 57 U/L (46-116) Ammonia 43 umol/L (11-32) H Lactate Dehydrogenase 188 U/L (81-234) Troponin I 0.088 ng/mL (0.000-0.056) Pro-B-Type Natriuretic Peptide 6215 pg/mL (0-125) H Total Protein 7.0 G/DL (6.4-8.2) Albumin 2.0 G/DL (3.4-5.0) L Globulin 5.0 g/dL Albumin/Globulin Ratio 0.4 (1.0-2.7) L Triglycerides Level 31 MG/DL (30-150) Cholesterol Level 115 MG/DL (< 200) LDL Cholesterol 74 mg/dL (<100) HDL Cholesterol 35 MG/DL (40-60) L Cholesterol/HDL Ratio 3.3 (3.3-4.4) Carcinoembryonic Antigen Pending Vitamin B12 Level 852 PG/ML (193-986) Folate 5.0 NG/ML (8.6-58.9) L Thyroid Stimulating Hormone (TSH) 1.085 uiU/mL (0.358-3.740) Plan Problems: (1) Gangrene of lower extremity Assessment & Plan: 71M left lower extremity cellulitis/wound which is chronic after injury a "few months ago". has been managing wound on his own since but has been worsening. now has cellulitis around left and edema from foot to thigh. large area of skin loss on anterior mid leg. small incision noted and underlying tissue with edema but does bleed and potentially viable. areas of skin loss with bleeding once manipulated but some areas without. edema improved today. leukocytosis 14k now. wound stable -CT left leg. evaluate extent of edema. -my potentially need excisional debridement of wounds but will manage conservatively for now. -keep lower extremity elevated -IV Abx for cellulitis -honey gel, gauze, wrap wound daily. -will monitor for improvement. if not significant improvement will discuss surgical intervention with patient. thank you for this consultation. will follow with you Mannie Macedo September 30, 2017 14:14
--- NOTE | 2017-09-30 15:33 | Nephrology Progress Note ---
Assessment/Plan Problem List: (1) Malignant hypertension (2) Cocaine abuse (3) CKD (chronic kidney disease) (4) CHF exacerbation Assessment Diabetic Nephropathy Gangrene of lower extremity CHF exacerbation Malignant hypertension Cocaine abuse Obesity (BMI 30.0-34.9) ACS (acute coronary syndrome) Plan Adjust BP meds- add norvasc asa and nitro PRNs for BP 2D echo pending monitor renal parameters Objective Objective Last 24 Hour Vital Signs Date Time Temp Pulse Resp B/P (MAP) Pulse Ox O2 Delivery O2 Flow Rate FiO2 09/30/17 14:01 178/100 09/30/17 13:43 Nasal Cannula 2.0 09/30/17 13:43 2.0 28 09/30/17 13:43 2.0 09/30/17 13:42 Nasal Cannula 2.0 09/30/17 12:13 71 09/30/17 12:00 97.9 75 24 178/100 97 Nasal Cannula 2.0 97.9 09/30/17 09:57 2.0 09/30/17 09:56 97 2.0 09/30/17 08:58 Nasal Cannula 2.0 09/30/17 08:57 Nasal Cannula 2.0 09/30/17 08:00 98.5 71 20 183/98 98 Nasal Cannula 2.0 98.5 09/30/17 07:56 70 09/30/17 06:14 178/100 09/30/17 04:00 99.0 72 20 178/100 Nasal Cannula 2.0 99.0 09/30/17 03:51 85 09/30/17 01:03 Nasal Cannula 2.0 09/30/17 01:03 Nasal Cannula 2.0 28 09/30/17 00:00 85 09/30/17 00:00 98.1 85 20 183/98 Nasal Cannula 2.0 98.1 09/29/17 22:26 153/83 09/29/17 20:36 99.1 70 20 153/83 Nasal Cannula 2.0 99.1 09/29/17 17:10 101.0 09/29/17 16:09 101.0 09/29/17 16:00 73 09/29/17 15:38 167/83 09/29/17 15:36 101.0 86 20 167/83 100 101.0 Intake and Output 09/29/17 09/30/17 19:00 07:00 Intake Total 960 ml 450 ml Output Total 500 ml 750 ml Balance 460 ml -300 ml Intake Oral 960 ml 100 ml Other 350 ml Output Urine Total 500 ml 750 ml # Voids 3 Laboratory Tests 09/30/17 04:50: White Blood Count 14.1H, Red Blood Count 4.28L, Hemoglobin 11.8L, Hematocrit 38.0L, Mean Corpuscular Volume 89, Mean Corpuscular Hemoglobin 27.6, Mean Corpuscular Hemoglobin Concent 31.1L, Red Cell Distribution Width 15.0H, Platelet Count 146L, Mean Platelet Volume 10.3H, Neutrophils (%) (Auto) 82.2H, Lymphocytes (%) (Auto) 6.2L, Monocytes (%) (Auto) 10.7H, Eosinophils (%) (Auto) 0.2, Basophils (%) (Auto) 0.7, Differential Total Cells Counted 100, Neutrophils % (Manual) 83H, Lymphocytes % (Manual) 6L, Monocytes % (Manual) 11H , Eosinophils % (Manual) 0, Basophils % (Manual) 0, Band Neutrophils 0, Platelet Estimate DecreasedL, Platelet Morphology Normal, Hypochromasia 1+, Anisocytosis 1+, Erythrocyte Sedimentation Rate 28H, Reticulocyte Count 0.8, Prothrombin Time 13.3H, Prothromb Time International Ratio 1.3H, Activated Partial Thromboplast Time 30, Sodium Level 139, Potassium Level 4.3, Chloride Level 103, Carbon Dioxide Level 32, Anion Gap 4L, Blood Urea Nitrogen 19H, Creatinine 1.7H, Estimat Glomerular Filtration Rate , Glucose Level 175H, Hemoglobin A1c 8.8H, Uric Acid 5.4, Calcium Level 8.3L, Phosphorus Level 2.8, Magnesium Level 1.9, Iron Level 12L, Total Iron Binding Capacity 179L, Percent Iron Saturation 7L, Unsaturated Iron Binding 167, Ferritin 138, Total Bilirubin 1.4H, Direct Bilirubin 0.5H, Gamma Glutamyl Transpeptidase 63, Aspartate Amino Transf (AST/SGOT) 10L, Alanine Aminotransferase (ALT/SGPT) 11L, Alkaline Phosphatase 57, Ammonia 43H, Lactate Dehydrogenase 188, Troponin I 0.088H, Pro-B -Type Natriuretic Peptide 6215H, Total Protein 7.0, Albumin 2.0L, Globulin 5.0, Albumin/Globulin Ratio 0.4L, Triglycerides Level 31, Cholesterol Level 115, LDL Cholesterol 74, HDL Cholesterol 35L, Cholesterol/HDL Ratio 3.3, Carcinoembryonic Antigen [Pending], Vitamin B12 Level 852, Folate 5.0L, Thyroid Stimulating Hormone (TSH) 1.085 Height (Feet): 6 Height (Inches): 4.00 Weight (Pounds): 312 OMER YOU September 30, 2017 15:33
[2017-09-30] MEDS: Nitroglycerin Patch 0.4mg TDERMAL SCH (15:38)
--- NOTE | 2017-09-30 15:50 | Internal Med Progress Note ---
Subjective Date of Service: September 30, 2017 Physician Name Adilson Stephen Attending Physician Hal Moore MD Current Medications Medications (Trade) Dose Ordered Sig/Lito Route PRN Reason Start Time Stop Time Status Last Admin Dose Admin Acetaminophen (Tylenol) 650 mg Q4H PRN ORAL fever 09/28/17 23:45 10/28/17 23:44 09/29/17 22:46 Amlodipine Besylate (Norvasc) 10 mg DAILY ORAL 10/01/17 09:00 10/31/17 08:59 Amlodipine Besylate (Norvasc) 10 mg ONCE ORAL 09/30/17 15:15 09/30/17 16:15 09/30/17 15:38 Aspirin (ASA) 162 mg DAILY ORAL 09/30/17 15:45 10/30/17 15:44 UNV Cefepime HCl 2 gm/ Dextrose 110 ml @ 220 mls/hr Q24H IV 10/01/17 02:00 10/08/17 01:59 Clonidine HCl (Catapres Tab) 0.1 mg EVERY 8 HOURS ORAL 09/29/17 14:00 10/29/17 13:59 09/30/17 14:01 Dextrose (Dextrose 50%) STAT PRN IV Hypoglycemia 09/28/17 23:45 10/28/17 23:44 Docusate Sodium (Colace) 100 mg THREE TIMES A DAY ORAL 09/29/17 13:00 10/29/17 12:59 09/30/17 14:01 Heparin Sodium (Porcine) (Heparin 5000 units/ml) 5,000 units EVERY 12 HOURS SUBQ 09/29/17 09:00 10/29/17 08:59 09/30/17 10:17 Hydralazine HCl (Apresoline) 25 mg Q4H PRN ORAL bp over 160 syst 09/29/17 10:15 10/29/17 10:14 09/29/17 15:38 Insulin Aspart (NovoLOG) BEFORE MEALS AND HS SUBQ 09/29/17 06:30 10/29/17 06:29 09/30/17 12:28 Ipratropium [place] (Atrovent) 500 mcg Q4H PRN HHN Shortness of Breath 09/29/17 16:15 10/03/17 23:44 Ipratropium [place] (Atrovent) 500 mcg Q6HRT HHN 09/29/17 19:00 10/04/17 18:59 Lansoprazole (Prevacid) 30 mg BID ORAL 09/29/17 18:00 10/29/17 17:59 09/30/17 10:15 Levalbuterol HCl (Xopenex) 1.25 mg TIDRT HHN 09/29/17 19:00 10/04/17 18:59 Metronidazole (Flagyl) 500 mg Q8HR ORAL 09/29/17 22:00 10/06/17 21:59 09/30/17 14:01 Nitroglycerin (Ntg) 0.4 mg Q5M PRN SL Prn Chest Pain 09/28/17 23:45 10/28/17 23:44 Nitroglycerin (Ntg) 1 patch Q24H TDERMAL 09/30/17 16:00 10/30/17 15:59 09/30/17 15:38 Ondansetron HCl (Zofran) 4 mg Q6H PRN IVP Nausea & Vomiting 09/28/17 23:45 10/28/17 23:44 Polyethylene Glycol (Miralax) 17 gm DAILYPRN PRN ORAL Constipation 09/28/17 23:45 10/28/17 23:44 Promethazine HCl/ Codeine (Phenergan with Codeine) 5 ml Q4H PRN ORAL For Cough 09/29/17 14:45 10/29/17 14:44 Tamsulosin HCl (Flomax) 0.4 mg BID ORAL 09/29/17 18:00 10/29/17 17:59 09/30/17 10:16 Temazepam (Restoril) 15 mg HSPRN PRN ORAL Insomnia 09/28/17 23:45 10/05/17 23:44 Theophylline (Mark-Dur) 100 mg EVERY 12 HOURS ORAL 09/29/17 21:00 10/29/17 20:59 09/30/17 10:15 Vancomycin HCl (Vanco rx to dose) 1 ea DAILY PRN MISC PER RX PROTOCOL 09/29/17 06:30 10/29/17 06:29 Vancomycin HCl 1 gm/Dextrose 275 ml @ 183.708 mls/hr Q12HR@0000,1200 IVPB 09/29/17 12:00 10/04/17 11:59 09/30/17 12:23 Allergies: Coded Allergies: No Known Allergies (Unverified , 09/28/17) ROS Limited/Unobtainable: No Constitutional: Reports: no symptoms HEENT: Reports: no symptoms Cardiovascular: Reports: no symptoms Respiratory: Reports: no symptoms Gastrointestinal/Abdominal: Reports: no symptoms Genitourinary: Reports: no symptoms Neurologic/Psychiatric: Reports: no symptoms Subjective 71 YO M admitted with left leg pain. Now cellulitis left leg and right pleural effusion. Cover for Int Med-Dr Moore. Await CT left leg and thoracentesis Objective Last Vital Signs Date Time Temp Pulse Resp B/P (MAP) Pulse Ox O2 Delivery O2 Flow Rate FiO2 09/30/17 15:38 178/100 09/30/17 15:38 71 09/30/17 13:43 Nasal Cannula 2.0 09/30/17 12:00 97.9 24 97 97.9 General Appearance: WD/WN, no apparent distress, alert EENT: PERRL/EOMI, normal ENT inspection, TMs normal Neck: non-tender, normal alignment, supple, normal inspection Cardiovascular: normal peripheral pulses, normal rate, regular rhythm, no gallop/murmur, no JVD Respiratory/Chest: decreased breath sounds, crackles/rales, rhonchi - bilaterally, expiratory wheezing Abdomen: normal bowel sounds, non tender, soft, no organomegaly, no mass Extremities: normal range of motion, non-tender 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, no motor/sensory deficits Skin: normal pigmentation, warm/dry Laboratory Tests Test 09/30/17 04:50 White Blood Count 14.1 K/UL (4.8-10.8) H Red Blood Count 4.28 M/UL (4.70-6.10) L Hemoglobin 11.8 G/DL (14.2-18.0) L Hematocrit 38.0 % (42.0-52.0) L Mean Corpuscular Volume 89 FL (80-99) Mean Corpuscular Hemoglobin 27.6 PG (27.0-31.0) Mean Corpuscular Hemoglobin Concent 31.1 G/DL (32.0-36.0) L Red Cell Distribution Width 15.0 % (11.6-14.8) H Platelet Count 146 K/UL (150-450) L Mean Platelet Volume 10.3 FL (6.5-10.1) H Neutrophils (%) (Auto) 82.2 % (45.0-75.0) H Lymphocytes (%) (Auto) 6.2 % (20.0-45.0) L Monocytes (%) (Auto) 10.7 % (1.0-10.0) H Eosinophils (%) (Auto) 0.2 % (0.0-3.0) Basophils (%) (Auto) 0.7 % (0.0-2.0) Differential Total Cells Counted 100 Neutrophils % (Manual) 83 % (45-75) H Lymphocytes % (Manual) 6 % (20-45) L Monocytes % (Manual) 11 % (1-10) H Eosinophils % (Manual) 0 % (0-3) Basophils % (Manual) 0 % (0-2) Band Neutrophils 0 % (0-8) Platelet Estimate Decreased L Platelet Morphology Normal Hypochromasia 1+ Anisocytosis 1+ Erythrocyte Sedimentation Rate 28 MM/HR (0-20) H Reticulocyte Count 0.8 % (0.0-2.0) Prothrombin Time 13.3 SEC (9.30-11.50) H Prothromb Time International Ratio 1.3 (0.9-1.1) H Activated Partial Thromboplast Time 30 SEC (23-33) Sodium Level 139 MMOL/L (136-145) Potassium Level 4.3 MMOL/L (3.5-5.1) Chloride Level 103 MMOL/L (98-107) Carbon Dioxide Level 32 MMOL/L (21-32) Anion Gap 4 mmol/L (5-15) L Blood Urea Nitrogen 19 mg/dL (7-18) H Creatinine 1.7 MG/DL (0.55-1.30) H Estimat Glomerular Filtration Rate mL/min (>60) Glucose Level 175 MG/DL (74-106) H Hemoglobin A1c 8.8 % (4.3-6.0) H Uric Acid 5.4 MG/DL (2.6-7.2) Calcium Level 8.3 MG/DL (8.5-10.1) L Phosphorus Level 2.8 MG/DL (2.5-4.9) Magnesium Level 1.9 MG/DL (1.8-2.4) Iron Level 12 ug/dL (50-175) L Total Iron Binding Capacity 179 ug/dL (250-450) L Percent Iron Saturation 7 % (15-50) L Unsaturated Iron Binding 167 ug/dL (112-346) Ferritin 138 NG/ML (8-388) Total Bilirubin 1.4 MG/DL (0.2-1.0) H Direct Bilirubin 0.5 MG/DL (0.0-0.3) H Gamma Glutamyl Transpeptidase 63 U/L (5-85) Aspartate Amino Transf (AST/SGOT) 10 U/L (15-37) L Alanine Aminotransferase (ALT/SGPT) 11 U/L (12-78) L Alkaline Phosphatase 57 U/L (46-116) Ammonia 43 umol/L (11-32) H Lactate Dehydrogenase 188 U/L (81-234) Troponin I 0.088 ng/mL (0.000-0.056) Pro-B-Type Natriuretic Peptide 6215 pg/mL (0-125) H Total Protein 7.0 G/DL (6.4-8.2) Albumin 2.0 G/DL (3.4-5.0) L Globulin 5.0 g/dL Albumin/Globulin Ratio 0.4 (1.0-2.7) L Triglycerides Level 31 MG/DL (30-150) Cholesterol Level 115 MG/DL (< 200) LDL Cholesterol 74 mg/dL (<100) HDL Cholesterol 35 MG/DL (40-60) L Cholesterol/HDL Ratio 3.3 (3.3-4.4) Carcinoembryonic Antigen Pending Vitamin B12 Level 852 PG/ML (193-986) Folate 5.0 NG/ML (8.6-58.9) L Thyroid Stimulating Hormone (TSH) 1.085 uiU/mL (0.358-3.740) Microbiology Date/Time Source Procedure Growth Status 09/28/17 21:30 Blood Blood Culture - Preliminary NO GROWTH AFTER 24 HOURS Resulted 09/28/17 21:15 Blood Blood Culture - Preliminary Resulted 09/29/17 03:00 Wound Gram Stain - Final Resulted 09/29/17 03:00 Wound Culture - Preliminary Gram Negative Bacillus 1 Gram Negative Bacillus 2 Gram Positive Cocci Resulted 09/28/17 21:30 Other Gram Stain - Final Resulted 09/28/17 21:30 Wound Culture - Preliminary Gram Negative Bacillus 1 Resulted Intake and Output 09/29/17 09/30/17 19:00 07:00 Intake Total 960 ml 450 ml Output Total 500 ml 750 ml Balance 460 ml -300 ml Intake Oral 960 ml 100 ml Other 350 ml Output Urine Total 500 ml 750 ml # Voids 3 Assessment/Plan Problem List: (1) Pleural effusion, right Assessment & Plan: See pulmonary note. Await thoracentesis (2) Ascites (3) Cellulitis of left leg Assessment & Plan: see surgery and ID note. Continue vanco and cefepime (4) Renal failure Assessment & Plan: See nephrology note. (5) Diabetes mellitus type II, uncontrolled Assessment & Plan: Cont novolog sliding scale. (6) Obesities, morbid (7) Malignant hypertension Assessment & Plan: Continue norvasc and clonidine (8) CHF exacerbation Assessment & Plan: See cardiology note. (9) Leukocytosis Assessment & Plan: Conitnue vanco and cefepime per ID Status: not improved Adilson Stephen MD September 30, 2017 15:50
[2017-09-30 16:00] VITALS: BP 175/96
[2017-09-30] MEDS: Aspirin Baby 81mg ORAL SCH (16:51)
--- NOTE | 2017-09-30 17:02 | Infectious Diseases Prog Note ---
Assessment/Plan Assessment/Plan Assessment: SEpsis 2ry to L wound infection, Gram neg bacteremia L anterior leg chronic wound and surrounding cellulitis -xray tibia/fibula: There is gas in the soft tissues. This can be traumatic , iatrogenic, or infectious. No acute fracture or suspicious osseous erosions. ; gas likely from incision made in ED- tissue seemed viable upon superificial exploration per ED physician and surgeon. -wound cx: GNRs; 2nd wound cx: GNRs #1 and #2, GPC Gram neg bacteremia- 2ry to above -Abd US: Ascites. Right pleural effusion. Left kidney not identified. Access to the area is limited. It is uncertain whether this is technical or whether there is an absent or small left kidney. Gallbladder contracted but otherwise grossly unremarkable.Otherwise negative within the limits noted above. Fever, improving Leukocytosis; increased -u/a wbc 10-15, nit neg, leuk +1 Hypertensive urgency, improving TK, improving Dm2 w/ nephropathy CHF Obesity HTN marihuana and cocaine use non compliance Plan: -Continue empiric IV Vanco and Cefepime #3 and PO flagyl #2 for anaerobic coverage -Agree with CT L leg --surgery f/u, possible debridement -2 sets of Bcx -f/u cx -Monitor CBC/BMP, temperatures -wound care Thank you for this consultation. Will continue to follow along with you. Discussed with RN and Dr howard. Subjective Allergies: Coded Allergies: No Known Allergies (Unverified , 09/28/17) Subjective Tm 101, afebrile in 24hrs leukocytosis increased bacteremic GNRs Objective Vital Signs Last 24 Hour Vital Signs Date Time Temp Pulse Resp B/P (MAP) Pulse Ox O2 Delivery O2 Flow Rate FiO2 09/30/17 15:38 178/100 09/30/17 15:38 71 178/100 09/30/17 14:01 178/100 09/30/17 13:43 Nasal Cannula 2.0 28 09/30/17 13:43 2.0 28 09/30/17 13:43 2.0 28 09/30/17 13:42 Nasal Cannula 2.0 28 09/30/17 12:13 71 09/30/17 12:00 97.9 75 24 178/100 97 Nasal Cannula 2.0 97.9 09/30/17 09:57 2.0 28 09/30/17 09:56 97 2.0 28 09/30/17 08:58 Nasal Cannula 2.0 28 09/30/17 08:57 Nasal Cannula 2.0 28 09/30/17 08:00 98.5 71 20 183/98 98 Nasal Cannula 2.0 98.5 09/30/17 07:56 70 09/30/17 06:14 178/100 09/30/17 04:00 99.0 72 20 178/100 Nasal Cannula 2.0 99.0 09/30/17 03:51 85 09/30/17 01:03 Nasal Cannula 2.0 09/30/17 01:03 Nasal Cannula 2.0 28 09/30/17 00:00 85 09/30/17 00:00 98.1 85 20 183/98 Nasal Cannula 2.0 98.1 09/29/17 22:26 153/83 09/29/17 20:36 99.1 70 20 153/83 Nasal Cannula 2.0 99.1 09/29/17 17:10 101.0 Height (Feet): 6 Height (Inches): 4.00 Weight (Pounds): 312 Objective General Appearance: no apparent distress, alert Lines, tubes and drains: peripheral HEENT: normocephalic, mucous membranes moist Neck: supple Respiratory/Chest: lungs clear, normal breath sounds, no respiratory distress, no accessory muscle use Cardiovascular/Chest: normal rate Abdomen: normal bowel sounds, non tender, soft, no organomegaly, no mass Extremities: inflammation, slow capillary refill, moderate edema, other - see wound care photos for details of size and wounds. left anterior mid leg with large area of eschar and some gangrene, cellulitis, edema from foot to thigh. can palpate faint pulses through edema Neurologic: alert, oriented x 3, responsive Microbiology Date/Time Source Procedure Growth Status 09/28/17 21:30 Blood Blood Culture - Preliminary NO GROWTH AFTER 24 HOURS Resulted 09/28/17 21:15 Blood Blood Culture - Preliminary Resulted 09/29/17 03:00 Wound Gram Stain - Final Resulted 09/29/17 03:00 Wound Culture - Preliminary Gram Negative Bacillus 1 Gram Negative Bacillus 2 Gram Positive Cocci Resulted 09/28/17 21:30 Other Gram Stain - Final Resulted 09/28/17 21:30 Wound Culture - Preliminary Gram Negative Bacillus 1 Resulted Laboratory Tests Test 09/30/17 04:50 White Blood Count 14.1 K/UL (4.8-10.8) H Red Blood Count 4.28 M/UL (4.70-6.10) L Hemoglobin 11.8 G/DL (14.2-18.0) L Hematocrit 38.0 % (42.0-52.0) L Mean Corpuscular Volume 89 FL (80-99) Mean Corpuscular Hemoglobin 27.6 PG (27.0-31.0) Mean Corpuscular Hemoglobin Concent 31.1 G/DL (32.0-36.0) L Red Cell Distribution Width 15.0 % (11.6-14.8) H Platelet Count 146 K/UL (150-450) L Mean Platelet Volume 10.3 FL (6.5-10.1) H Neutrophils (%) (Auto) 82.2 % (45.0-75.0) H Lymphocytes (%) (Auto) 6.2 % (20.0-45.0) L Monocytes (%) (Auto) 10.7 % (1.0-10.0) H Eosinophils (%) (Auto) 0.2 % (0.0-3.0) Basophils (%) (Auto) 0.7 % (0.0-2.0) Differential Total Cells Counted 100 Neutrophils % (Manual) 83 % (45-75) H Lymphocytes % (Manual) 6 % (20-45) L Monocytes % (Manual) 11 % (1-10) H Eosinophils % (Manual) 0 % (0-3) Basophils % (Manual) 0 % (0-2) Band Neutrophils 0 % (0-8) Platelet Estimate Decreased L Platelet Morphology Normal Hypochromasia 1+ Anisocytosis 1+ Erythrocyte Sedimentation Rate 28 MM/HR (0-20) H Reticulocyte Count 0.8 % (0.0-2.0) Prothrombin Time 13.3 SEC (9.30-11.50) H Prothromb Time International Ratio 1.3 (0.9-1.1) H Activated Partial Thromboplast Time 30 SEC (23-33) Sodium Level 139 MMOL/L (136-145) Potassium Level 4.3 MMOL/L (3.5-5.1) Chloride Level 103 MMOL/L (98-107) Carbon Dioxide Level 32 MMOL/L (21-32) Anion Gap 4 mmol/L (5-15) L Blood Urea Nitrogen 19 mg/dL (7-18) H Creatinine 1.7 MG/DL (0.55-1.30) H Estimat Glomerular Filtration Rate mL/min (>60) Glucose Level 175 MG/DL (74-106) H Hemoglobin A1c 8.8 % (4.3-6.0) H Uric Acid 5.4 MG/DL (2.6-7.2) Calcium Level 8.3 MG/DL (8.5-10.1) L Phosphorus Level 2.8 MG/DL (2.5-4.9) Magnesium Level 1.9 MG/DL (1.8-2.4) Iron Level 12 ug/dL (50-175) L Total Iron Binding Capacity 179 ug/dL (250-450) L Percent Iron Saturation 7 % (15-50) L Unsaturated Iron Binding 167 ug/dL (112-346) Ferritin 138 NG/ML (8-388) Total Bilirubin 1.4 MG/DL (0.2-1.0) H Direct Bilirubin 0.5 MG/DL (0.0-0.3) H Gamma Glutamyl Transpeptidase 63 U/L (5-85) Aspartate Amino Transf (AST/SGOT) 10 U/L (15-37) L Alanine Aminotransferase (ALT/SGPT) 11 U/L (12-78) L Alkaline Phosphatase 57 U/L (46-116) Ammonia 43 umol/L (11-32) H Lactate Dehydrogenase 188 U/L (81-234) Troponin I 0.088 ng/mL (0.000-0.056) Pro-B-Type Natriuretic Peptide 6215 pg/mL (0-125) H Total Protein 7.0 G/DL (6.4-8.2) Albumin 2.0 G/DL (3.4-5.0) L Globulin 5.0 g/dL Albumin/Globulin Ratio 0.4 (1.0-2.7) L Triglycerides Level 31 MG/DL (30-150) Cholesterol Level 115 MG/DL (< 200) LDL Cholesterol 74 mg/dL (<100) HDL Cholesterol 35 MG/DL (40-60) L Cholesterol/HDL Ratio 3.3 (3.3-4.4) Carcinoembryonic Antigen Pending Vitamin B12 Level 852 PG/ML (193-986) Folate 5.0 NG/ML (8.6-58.9) L Thyroid Stimulating Hormone (TSH) 1.085 uiU/mL (0.358-3.740) Current Medications Medications (Trade) Dose Ordered Sig/Lito Route PRN Reason Start Time Stop Time Status Last Admin Dose Admin Acetaminophen (Tylenol) 650 mg Q4H PRN ORAL fever 09/28/17 23:45 10/28/17 23:44 09/29/17 22:46 Amlodipine Besylate (Norvasc) 10 mg DAILY ORAL 10/01/17 09:00 10/31/17 08:59 Aspirin (ASA) 162 mg DAILY ORAL 09/30/17 15:45 10/30/17 15:44 09/30/17 16:51 Cefepime HCl 2 gm/ Dextrose 110 ml @ 220 mls/hr Q24H IV 10/01/17 02:00 10/08/17 01:59 Clonidine HCl (Catapres Tab) 0.1 mg EVERY 8 HOURS ORAL 09/29/17 14:00 10/29/17 13:59 09/30/17 14:01 Dextrose (Dextrose 50%) STAT PRN IV Hypoglycemia 09/28/17 23:45 10/28/17 23:44 Docusate Sodium (Colace) 100 mg THREE TIMES A DAY ORAL 09/29/17 13:00 10/29/17 12:59 09/30/17 14:01 Heparin Sodium (Porcine) (Heparin 5000 units/ml) 5,000 units EVERY 12 HOURS SUBQ 09/29/17 09:00 10/29/17 08:59 09/30/17 10:17 Hydralazine HCl (Apresoline) 25 mg Q4H PRN ORAL bp over 160 syst 09/29/17 10:15 10/29/17 10:14 09/29/17 15:38 Insulin Aspart (NovoLOG) BEFORE MEALS AND HS SUBQ 09/29/17 06:30 10/29/17 06:29 09/30/17 16:52 Ipratropium Gilbert (Atrovent) 500 mcg Q4H PRN HHN Shortness of Breath 09/29/17 16:15 10/03/17 23:44 Ipratropium Gilbert (Atrovent) 500 mcg Q6HRT HHN 09/29/17 19:00 6/1/18 18:59 Lansoprazole (Prevacid) 30 mg BID ORAL 09/29/17 18:00 10/29/17 17:59 09/30/17 10:15 Levalbuterol HCl (Xopenex) 1.25 mg TIDRT HHN 09/29/17 19:00 10/04/17 18:59 Metronidazole (Flagyl) 500 mg Q8HR ORAL 09/29/17 22:00 10/06/17 21:59 09/30/17 14:01 Nitroglycerin (Ntg) 0.4 mg Q5M PRN SL Prn Chest Pain 09/28/17 23:45 10/28/17 23:44 Nitroglycerin (Ntg) 1 patch Q24H TDERMAL 09/30/17 16:00 10/30/17 15:59 09/30/17 15:38 Ondansetron HCl (Zofran) 4 mg Q6H PRN IVP Nausea & Vomiting 09/28/17 23:45 10/28/17 23:44 Polyethylene Glycol (Miralax) 17 gm DAILYPRN PRN ORAL Constipation 09/28/17 23:45 10/28/17 23:44 Promethazine HCl/ Codeine (Phenergan with Codeine) 5 ml Q4H PRN ORAL For Cough 09/29/17 14:45 10/29/17 14:44 Tamsulosin HCl (Flomax) 0.4 mg BID ORAL 09/29/17 18:00 10/29/17 17:59 09/30/17 10:16 Temazepam (Restoril) 15 mg HSPRN PRN ORAL Insomnia 09/28/17 23:45 10/05/17 23:44 Theophylline (Mark-Dur) 100 mg EVERY 12 HOURS ORAL 09/29/17 21:00 10/29/17 20:59 09/30/17 10:15 Vancomycin HCl (Vanco rx to dose) 1 ea DAILY PRN MISC PER RX PROTOCOL 09/29/17 06:30 10/29/17 06:29 Vancomycin HCl 1 gm/Dextrose 275 ml @ 183.708 mls/hr Q12HR@0000,1200 IVPB 09/29/17 12:00 10/04/17 11:59 09/30/17 12:23 Consuelo Baeza M.D. September 30, 2017 17:02
--- NOTE | 2017-09-30 17:45 | History and Physical Report ---
DATE OF ADMISSION: 09/28/2017 NOTE: POOR AUDIO . . SOCIAL HISTORY: The patient denies alcohol use. PHYSICAL EXAMINATION: VITAL SIGNS: Temperature CARDIOVASCULAR: S1 and S2 normal without murmurs, rubs, or gallops. ABDOMEN: Soft, nontender, and nondistended. Positive bowel sounds. No evidence of hepatosplenomegaly. Currently no rebound or guarding noted. LABORATORY AND DIAGNOSTIC DATA: initial x-rays revealed gas in soft tissues. The patient will need MRI to rule out osteomyelitis versus gangrene. ASSESSMENT AND PLAN: 1. Uncontrolled hypertension. The patient . Consultation has been obtained with . 2. Acute on chronic renal failure. A Nephrology consultation has been obtained with Dr. Nugent. We will follow recommendations of Nephrology. 3. . The patient has been placed . Adilson Stephen M.D. DR: AVELINO JOB#: [id number] CC:
[2017-09-30 20:00] VITALS: BP 155/81
--- NOTE | 2017-09-30 20:08 | General Progress Note ---
Assessment/Plan Assessment/Plan cocaine abuse depression lexapro 10mg qam provided ro/st Subjective Date patient seen: September 30, 2017 Neurologic/Psychiatric: Reports: anxiety, depressed, emotional problems Allergies: Coded Allergies: No Known Allergies (Unverified , 09/28/17) Objective Last 24 Hour Vital Signs Date Time Temp Pulse Resp B/P (MAP) Pulse Ox O2 Delivery O2 Flow Rate FiO2 09/30/17 16:00 98.2 70 24 175/96 97 Nasal Cannula 2.0 98.2 09/30/17 15:38 178/100 09/30/17 15:38 71 178/100 09/30/17 15:29 79 09/30/17 14:01 178/100 09/30/17 13:43 Nasal Cannula 2.0 09/30/17 13:43 2.0 28 09/30/17 13:43 2.0 28 09/30/17 13:42 Nasal Cannula 2.0 09/30/17 12:13 71 09/30/17 12:00 97.9 75 24 178/100 97 Nasal Cannula 2.0 97.9 09/30/17 09:57 2.0 28 09/30/17 09:56 97 2.0 28 09/30/17 08:58 Nasal Cannula 2.0 09/30/17 08:57 Nasal Cannula 2.0 09/30/17 08:00 98.5 71 20 183/98 98 Nasal Cannula 2.0 98.5 09/30/17 07:56 70 09/30/17 06:14 178/100 09/30/17 04:00 99.0 72 20 178/100 Nasal Cannula 2.0 99.0 09/30/17 03:51 85 09/30/17 01:03 Nasal Cannula 2.0 09/30/17 01:03 Nasal Cannula 2.0 28 09/30/17 00:00 85 09/30/17 00:00 98.1 85 20 183/98 Nasal Cannula 2.0 98.1 09/29/17 22:26 153/83 09/29/17 20:36 99.1 70 20 153/83 Nasal Cannula 2.0 99.1 Intake and Output 09/29/17 09/30/17 19:00 07:00 Intake Total 960 ml 450 ml Output Total 500 ml 750 ml Balance 460 ml -300 ml Intake Oral 960 ml 100 ml Other 350 ml Output Urine Total 500 ml 750 ml # Voids 3 Laboratory Tests 09/30/17 04:50: White Blood Count 14.1H, Red Blood Count 4.28L, Hemoglobin 11.8L, Hematocrit 38.0L, Mean Corpuscular Volume 89, Mean Corpuscular Hemoglobin 27.6, Mean Corpuscular Hemoglobin Concent 31.1L, Red Cell Distribution Width 15.0H, Platelet Count 146L, Mean Platelet Volume 10.3H, Neutrophils (%) (Auto) 82.2H, Lymphocytes (%) (Auto) 6.2L, Monocytes (%) (Auto) 10.7H, Eosinophils (%) (Auto) 0.2, Basophils (%) (Auto) 0.7, Differential Total Cells Counted 100, Neutrophils % (Manual) 83H, Lymphocytes % (Manual) 6L, Monocytes % (Manual) 11H , Eosinophils % (Manual) 0, Basophils % (Manual) 0, Band Neutrophils 0, Platelet Estimate DecreasedL, Platelet Morphology Normal, Hypochromasia 1+, Anisocytosis 1+, Erythrocyte Sedimentation Rate 28H, Reticulocyte Count 0.8, Prothrombin Time 13.3H, Prothromb Time International Ratio 1.3H, Activated Partial Thromboplast Time 30, Sodium Level 139, Potassium Level 4.3, Chloride Level 103, Carbon Dioxide Level 32, Anion Gap 4L, Blood Urea Nitrogen 19H, Creatinine 1.7H, Estimat Glomerular Filtration Rate , Glucose Level 175H, Hemoglobin A1c 8.8H, Uric Acid 5.4, Calcium Level 8.3L, Phosphorus Level 2.8, Magnesium Level 1.9, Iron Level 12L, Total Iron Binding Capacity 179L, Percent Iron Saturation 7L, Unsaturated Iron Binding 167, Ferritin 138, Total Bilirubin 1.4H, Direct Bilirubin 0.5H, Gamma Glutamyl Transpeptidase 63, Aspartate Amino Transf (AST/SGOT) 10L, Alanine Aminotransferase (ALT/SGPT) 11L, Alkaline Phosphatase 57, Ammonia 43H, Lactate Dehydrogenase 188, Troponin I 0.088H, Pro-B -Type Natriuretic Peptide 6215H, Total Protein 7.0, Albumin 2.0L, Globulin 5.0, Albumin/Globulin Ratio 0.4L, Triglycerides Level 31, Cholesterol Level 115, LDL Cholesterol 74, HDL Cholesterol 35L, Cholesterol/HDL Ratio 3.3, Carcinoembryonic Antigen [Pending], Vitamin B12 Level 852, Folate 5.0L, Thyroid Stimulating Hormone (TSH) 1.085 Height (Feet): 6 Height (Inches): 4.00 Weight (Pounds): 312 General Appearance: WD/WN, no apparent distress, alert Neurologic: oriented x 3, responsive, depressed affect Nadiya Currie M.D. September 30, 2017 20:08
--- NOTE | 2017-09-30 23:15 | Cardiology Report ---
APPROVED REPORT EKG Measurement Heart [id number] Normal sinus rhythm Possible Left atrial enlargement Rightward axis LVH with repolarization abn. Prolonged QT Abnormal ECG
--- NOTE | 2017-09-30 23:19 | Cardiology Progress Note ---
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 (11) Edema 1) Blood pressure control: Clonidine, Norvasc 2) Echocardiogram reviewed - heart failure preserved ejection fraction ACC stage C NYHA class II 3) lasix to reduce lower extremity edema and filling pressures 4) serial troponin and BNP - not clinically impressive for ACS 5) Ensure medication compliance 6) Discussed cocaine and THC cessation 7) Serial CXR to monitor right effusion 8) Wound care, possible I/D 9) Continue antibiotics, WBC elevated Subjective ROS Limited/Unobtainable: Yes Cardiovascular: Reports: no symptoms Respiratory: Reports: no symptoms Gastrointestinal/Abdominal: Reports: no symptoms Genitourinary: Reports: no symptoms Subjective WBC elevated, no complaints, no SOB, on oxygen, IV abx, BP not controlled, LV function 50% with diasotlic dysfunction Objective Last 24 Hour Vital Signs Date Time Temp Pulse Resp B/P (MAP) Pulse Ox O2 Delivery O2 Flow Rate FiO2 09/30/17 22:16 155/81 09/30/17 20:00 68 09/30/17 20:00 99.3 68 20 155/81 100 Nasal Cannula 2.0 99.3 09/30/17 19:02 Nasal Cannula 2.0 09/30/17 19:02 Nasal Cannula 2.0 09/30/17 19:02 Nasal Cannula 2.0 09/30/17 19:02 Nasal Cannula 2.0 28 09/30/17 16:00 98.2 70 24 175/96 97 Nasal Cannula 2.0 98.2 09/30/17 15:38 178/100 09/30/17 15:38 71 178/100 09/30/17 15:29 79 09/30/17 14:01 178/100 09/30/17 13:43 Nasal Cannula 2.0 09/30/17 13:43 2.0 28 09/30/17 13:43 2.0 09/30/17 13:42 Nasal Cannula 2.0 09/30/17 12:13 71 09/30/17 12:00 97.9 75 24 178/100 97 Nasal Cannula 2.0 97.9 09/30/17 09:57 2.0 28 09/30/17 09:56 97 2.0 28 09/30/17 08:58 Nasal Cannula 2.0 28 09/30/17 08:57 Nasal Cannula 2.0 28 09/30/17 08:00 98.5 71 20 183/98 98 Nasal Cannula 2.0 98.5 09/30/17 07:56 70 09/30/17 06:14 178/100 09/30/17 04:00 99.0 72 20 178/100 Nasal Cannula 2.0 99.0 09/30/17 03:51 85 09/30/17 01:03 Nasal Cannula 2.0 09/30/17 01:03 Nasal Cannula 2.0 28 09/30/17 00:00 85 09/30/17 00:00 98.1 85 20 183/98 Nasal Cannula 2.0 98.1 General Appearance: no apparent distress EENT: PERRL/EOMI Neck: non-tender, JVD Rhythm: NSR Cardiovascular: normal peripheral pulses, normal rate, regular rhythm, gallop/ S4 Respiratory/Chest: decreased breath sounds Abdomen: normal bowel sounds Extremities: severe edema Intake and Output 09/29/17 09/30/17 19:00 07:00 Intake Total 960 ml 450 ml Output Total 500 ml 750 ml Balance 460 ml -300 ml Intake Oral 960 ml 100 ml Other 350 ml Output Urine Total 500 ml 750 ml # Voids 3 Laboratory Tests Test 09/30/17 04:50 09/30/17 22:45 White Blood Count 14.1 K/UL (4.8-10.8) H Red Blood Count 4.28 M/UL (4.70-6.10) L Hemoglobin 11.8 G/DL (14.2-18.0) L Hematocrit 38.0 % (42.0-52.0) L Mean Corpuscular Volume 89 FL (80-99) Mean Corpuscular Hemoglobin 27.6 PG (27.0-31.0) Mean Corpuscular Hemoglobin Concent 31.1 G/DL (32.0-36.0) L Red Cell Distribution Width 15.0 % (11.6-14.8) H Platelet Count 146 K/UL (150-450) L Mean Platelet Volume 10.3 FL (6.5-10.1) H Neutrophils (%) (Auto) 82.2 % (45.0-75.0) H Lymphocytes (%) (Auto) 6.2 % (20.0-45.0) L Monocytes (%) (Auto) 10.7 % (1.0-10.0) H Eosinophils (%) (Auto) 0.2 % (0.0-3.0) Basophils (%) (Auto) 0.7 % (0.0-2.0) Differential Total Cells Counted 100 Neutrophils % (Manual) 83 % (45-75) H Lymphocytes % (Manual) 6 % (20-45) L Monocytes % (Manual) 11 % (1-10) H Eosinophils % (Manual) 0 % (0-3) Basophils % (Manual) 0 % (0-2) Band Neutrophils 0 % (0-8) Platelet Estimate Decreased L Platelet Morphology Normal Hypochromasia 1+ Anisocytosis 1+ Erythrocyte Sedimentation Rate 28 MM/HR (0-20) H Reticulocyte Count 0.8 % (0.0-2.0) Prothrombin Time 13.3 SEC (9.30-11.50) H Prothromb Time International Ratio 1.3 (0.9-1.1) H Activated Partial Thromboplast Time 30 SEC (23-33) Sodium Level 139 MMOL/L (136-145) Potassium Level 4.3 MMOL/L (3.5-5.1) Chloride Level 103 MMOL/L (98-107) Carbon Dioxide Level 32 MMOL/L (21-32) Anion Gap 4 mmol/L (5-15) L Blood Urea Nitrogen 19 mg/dL (7-18) H Creatinine 1.7 MG/DL (0.55-1.30) H Estimat Glomerular Filtration Rate mL/min (>60) Glucose Level 175 MG/DL (74-106) H Hemoglobin A1c 8.8 % (4.3-6.0) H Uric Acid 5.4 MG/DL (2.6-7.2) Calcium Level 8.3 MG/DL (8.5-10.1) L Phosphorus Level 2.8 MG/DL (2.5-4.9) Magnesium Level 1.9 MG/DL (1.8-2.4) Iron Level 12 ug/dL (50-175) L Total Iron Binding Capacity 179 ug/dL (250-450) L Percent Iron Saturation 7 % (15-50) L Unsaturated Iron Binding 167 ug/dL (112-346) Ferritin 138 NG/ML (8-388) Total Bilirubin 1.4 MG/DL (0.2-1.0) H Direct Bilirubin 0.5 MG/DL (0.0-0.3) H Gamma Glutamyl Transpeptidase 63 U/L (5-85) Aspartate Amino Transf (AST/SGOT) 10 U/L (15-37) L Alanine Aminotransferase (ALT/SGPT) 11 U/L (12-78) L Alkaline Phosphatase 57 U/L (46-116) Ammonia 43 umol/L (11-32) H Lactate Dehydrogenase 188 U/L (81-234) Troponin I 0.088 ng/mL (0.000-0.056) Pro-B-Type Natriuretic Peptide 6215 pg/mL (0-125) H Total Protein 7.0 G/DL (6.4-8.2) Albumin 2.0 G/DL (3.4-5.0) L Globulin 5.0 g/dL Albumin/Globulin Ratio 0.4 (1.0-2.7) L Triglycerides Level 31 MG/DL (30-150) Cholesterol Level 115 MG/DL (< 200) LDL Cholesterol 74 mg/dL (<100) HDL Cholesterol 35 MG/DL (40-60) L Cholesterol/HDL Ratio 3.3 (3.3-4.4) Carcinoembryonic Antigen Pending Vitamin B12 Level 852 PG/ML (193-986) Folate 5.0 NG/ML (8.6-58.9) L Thyroid Stimulating Hormone (TSH) 1.085 uiU/mL (0.358-3.740) Vancomycin Level Trough Pending Microbiology Date/Time Source Procedure Growth Status 09/28/17 21:30 Blood Blood Culture - Preliminary NO GROWTH AFTER 24 HOURS Resulted 09/28/17 21:15 Blood Blood Culture - Preliminary Resulted 09/29/17 03:00 Wound Gram Stain - Final Resulted 09/29/17 03:00 Wound Culture - Preliminary Gram Negative Bacillus 1 Gram Negative Bacillus 2 Gram Positive Cocci Resulted 09/28/17 21:30 Other Gram Stain - Final Resulted 09/28/17 21:30 Wound Culture - Preliminary Gram Negative Bacillus 1 Resulted Kranthi Herrera M.D. September 30, 2017 23:19
[2017-10-01] VITALS: BP 157/76
[2017-10-01] MEDS: Ipratropium 0.02% Inh Soln 2.5ml UD HHN SCH ×4 (00:35→19:00)
[2017-10-01] MEDS: Cefepime HCl 2 GM in D5W 110 ML IV SCH (01:31)
[2017-10-01 04:00] VITALS: BP 146/82
[2017-10-01] MEDS: metroNIDAZOLE 500mg tab ORAL SCH (05:32)
[2017-10-01] MEDS: NovoLOG Insulin Flexpen SUBQ SCH ×4 (06:07→21:00)
[2017-10-01] MEDS: Levalbuterol Inh UD 1.25mg/0.5ml HHN SCH ×3 (07:50→19:00)
[2017-10-01 08:00] VITALS: BP 148/73
[2017-10-01 08:40] LABS: BASOPHILS % (AUTO) 0.7 % (0.0-2.0); EOSINOPHILS % (AUTO) 0.5 % (0.0-3.0); HEMATOCRIT 37.4 % (42.0-52.0); HEMOGLOBIN 11.5 G/DL (14.2-18.0); LYMPHOCYTES % (AUTO) 7.1 % (20.0-45.0); MEAN CORPUSCULAR VOLUME 89 FL (80-99); MONOCYTES % (AUTO) 9.7 % (1.0-10.0); NEUTROPHILS % (AUTO) 81.9 % (45.0-75.0); PLATELET COUNT 137 K/UL (150-450); RED BLOOD COUNT 4.22 M/UL (4.70-6.10); RED CELL DISTRIBUTION WIDTH 14.4 % (11.6-14.8); WHITE BLOOD COUNT 11.2 K/UL (4.8-10.8)
[2017-10-01] MEDS: Heparin 5000 units/ml inj SUBQ SCH ×3 (09:00→21:30)
[2017-10-01 09:05] LABS: ALANINE AMINOTRANSFERASE 8 U/L (12-78); ALBUMIN 1.8 G/DL (3.4-5.0); ALBUMIN/GLOBULIN RATIO 0.4 (1.0-2.7); ALKALINE PHOSPHATASE 58 U/L (46-116); ANION GAP 3 mmol/L (5-15); ASPARTATE AMINO TRANSFERASE 7 U/L (15-37); BILIRUBIN,TOTAL 1.1 MG/DL (0.2-1.0); BLOOD UREA NITROGEN 22 mg/dL (7-18); CALCIUM 7.9 MG/DL (8.5-10.1); CARBON DIOXIDE 32 MMOL/L (21-32); CHLORIDE 102 MMOL/L (98-107); CREATININE 1.5 MG/DL (0.55-1.30); POTASSIUM 4.1 MMOL/L (3.5-5.1); SODIUM 137 MMOL/L (136-145)
[2017-10-01 09:08] LABS: BILIRUBIN,DIRECT 0.4 MG/DL (0.0-0.3)
[2017-10-01] MEDS: Docusate 100mg cap ORAL SCH ×3 (09:10→17:34)
[2017-10-01] MEDS: Theophylline ER 100mg ORAL SCH ×2 (09:11→21:28)
[2017-10-01] MEDS: Aspirin Baby 81mg ORAL SCH (09:11)
[2017-10-01] MEDS: Tamsulosin 0.4mg cap ORAL SCH ×2 (09:11→17:32)
--- NOTE | 2017-10-01 10:11 | Cardiology Report ---
APPROVED REPORT EXAM: Two-dimensional and M-mode echocardiogram with Doppler and color Doppler. INDICATION LV FUNCION M-Mode DIMENSIONS IVSd2.2 (0.7-1.1cm)Left Atrium (MM)5.0 (1.6-4.0cm) LVDd3.8 (3.5-5.6cm)Aortic Root3.0 (2.0-3.7cm) PWd1.9 (0.7-1.1cm)Aortic Cusp Exc.1.9 (1.5-2.0cm) IVSs2.4 cm LVDs3.2 (2.5-4.0cm) PWs2.3 cm Technically difficult study due to pt's position. Normal left ventricular chamber size. Mild global left ventricular hypokinesis . Worse in septum. Left ventricular ejection fraction to be slightly reduced - estimated 45%. Moderate left ventricular hypertrophy by 2-D. Trace posteriror pericardial effusion. Mild bi-atrial enlargements. Right ventricular chamber sizes are within normal limits. Focal aortic valve sclerosis with adequate cusp excursion. Moderatly Thickened mitral valve leaflets with normal excursion. Moderatly Mitral annulus and aortic root calcification. Pulmonic valve not well visualized. Normal tricuspid valve structure. IVC dilated at 3.4cm without physiologic collapse suggestive of increased RA pressure. A color flow and spectral Doppler study was performed and revealed: Trace to mild aortic regurgitation. Normal left ventricular diastolic function . Moderate tricuspid regurgitation. Tricuspid systolic velocities suggests peak right ventricular systolic pressure of 29mmHg. Trace Pulmonic regurgitation present.
--- NOTE | 2017-10-01 10:22 | Diagnostic Imaging Report ---
Indication: Extensive left leg cellulitis with the skin ulceration, swelling and gangrene Technique: Continuous helical imaging of the left leg was performed in the transaxial plane. Coronal 2-D reformatted images were also generated. Study obtained in a Siemens Sensation [address] total DLP: 527 mGycm CTD/vol: 0.15, 0.15, 7.85 mGy Comparison: None Findings: Pretibial soft tissue gas is fairly extensive in degree but confined to the subcutaneous space. This is intermixed with the subcutaneous edema which is fairly severe with the extension of the subcutaneous space within the leg. There is no erosion of the adjacent tibia or fibula. Difficulty completely exclude intramuscular edema. No obvious fluid collections are identified within the anterior or posterior compartment. Study was done without contrast material. IMPRESSION: Cellulitis and ulceration in the pretibial aspect of the left lower extremity. The presence of gas likely associated with the presence of a large ulceration in this location. Gas-forming organism is the obvious concern and not excludable. No drainable abscess identified. Study as obtained without contrast material limited for evaluation of the intramuscular compartments and compartment syndrome specifically. No obvious intramuscular fascial thickening or fluid accumulation. The CT scanner at [facility] is accredited by the [employer] and the scans are performed using dose optimization techniques as appropriate to a performed exam including Automatic Exposure control.
--- NOTE | 2017-10-01 10:34 | Nephrology Progress Note ---
Assessment/Plan Problem List: (1) Malignant hypertension (2) Cocaine abuse (3) CKD (chronic kidney disease) (4) CHF exacerbation Assessment Diabetic Nephropathy Gangrene of lower extremity CHF exacerbation Malignant hypertension Cocaine abuse Obesity (BMI 30.0-34.9) ACS (acute coronary syndrome) Plan Adjust BP meds- add norvasc asa and nitro PRNs for BP 2D echo pending monitor renal parameters Subjective ROS Limited/Unobtainable: No Constitutional: Reports: malaise Objective Objective Last 24 Hour Vital Signs Date Time Temp Pulse Resp B/P (MAP) Pulse Ox O2 Delivery O2 Flow Rate FiO2 10/01/17 09:13 73 148/73 10/01/17 08:00 97.5 73 20 148/73 95 Room Air 97.5 10/01/17 08:00 69 10/01/17 07:50 Nasal Cannula 2.0 10/01/17 07:50 80 16 99 Nasal Cannula 2.0 10/01/17 07:50 Nasal Cannula 2.0 10/01/17 07:50 Nasal Cannula 2.0 10/01/17 05:32 156/85 10/01/17 04:00 98.2 62 20 146/82 100 Nasal Cannula 2.0 98.2 10/01/17 04:00 62 10/01/17 00:35 Nasal Cannula 2.0 10/01/17 00:35 Nasal Cannula 2.0 28 10/01/17 00:00 98.5 65 20 157/76 100 Nasal Cannula 2.0 98.5 10/01/17 00:00 65 09/30/17 22:16 155/81 09/30/17 20:00 68 09/30/17 20:00 99.3 68 20 155/81 100 Nasal Cannula 2.0 99.3 09/30/17 19:02 Nasal Cannula 2.0 28 09/30/17 19:02 Nasal Cannula 2.0 28 09/30/17 19:02 Nasal Cannula 2.0 28 09/30/17 19:02 Nasal Cannula 2.0 28 09/30/17 16:00 98.2 70 24 175/96 97 Nasal Cannula 2.0 98.2 09/30/17 15:38 178/100 09/30/17 15:38 71 178/100 09/30/17 15:29 79 09/30/17 14:01 178/100 5/28/18 13:43 Nasal Cannula 2.0 09/30/17 13:43 2.0 09/30/17 13:43 2.0 09/30/17 13:42 Nasal Cannula 2.0 09/30/17 12:13 71 09/30/17 12:00 97.9 75 24 178/100 97 Nasal Cannula 2.0 97.9 Intake and Output 09/30/17 10/01/17 19:00 07:00 Intake Total 500 ml 385 ml Output Total 200 ml Balance 300 ml 385 ml Intake Oral 500 ml IV Total 385 ml Output Urine Total 200 ml # Voids 5 Laboratory Tests 09/30/17 22:45: Vancomycin Level Trough 14.8H 10/01/17 08:10: White Blood Count 11.2H, Red Blood Count 4.22L, Hemoglobin 11.5L, Hematocrit 37.4L, Mean Corpuscular Volume 89, Mean Corpuscular Hemoglobin 27.3, Mean Corpuscular Hemoglobin Concent 30.8L, Red Cell Distribution Width 14.4, Platelet Count 137L, Mean Platelet Volume 8.9, Neutrophils (%) (Auto) 81.9H, Lymphocytes (%) (Auto) 7.1L, Monocytes (%) (Auto) 9.7, Eosinophils (%) (Auto) 0.5, Basophils (%) (Auto) 0.7, Sodium Level 137, Potassium Level 4.1, Chloride Level 102, Carbon Dioxide Level 32, Anion Gap 3L, Blood Urea Nitrogen 22H, Creatinine 1.5H, Estimat Glomerular Filtration Rate , Glucose Level 159H, Calcium Level 7.9L, Total Bilirubin 1.1H, Direct Bilirubin 0.4H, Aspartate Amino Transf (AST/SGOT) 7L, Alanine Aminotransferase (ALT/SGPT) 8L, Alkaline Phosphatase 58, Total Protein 6.9, Albumin 1.8L, Globulin 5.1, Albumin/Globulin Ratio 0.4L Height (Feet): 6 Height (Inches): 4.00 Weight (Pounds): 319 General Appearance: no apparent distress Cardiovascular: normal rate Respiratory/Chest: decreased breath sounds Abdomen: soft OMER YOU October 01, 2017 10:34
--- NOTE | 2017-10-01 10:38 | Infectious Diseases Prog Note ---
Assessment/Plan Assessment/Plan Assessment: SEpsis 2ry to L wound infection, Gram neg bacteremia; improving -09/28 Bcx 1/4 GNRs; 09/30 p L anterior leg chronic wound and surrounding cellulitis -CT L tibia/fibula: Cellulitis and ulceration in the pretibial aspect of the left lower extremity. The presence of gas likely associated with the presence of a large ulceration in this location. Gas-forming organism is the obvious concern and not excludable. No drainable abscess identified. No obvious intramuscular fascial thickening or fluid accumulation. -xray tibia/fibula: There is gas in the soft tissues. This can be traumatic , iatrogenic, or infectious. No acute fracture or suspicious osseous erosions. ; gas likely from incision made in ED- tissue seemed viable upon superificial exploration per ED physician and surgeon. -wound cx: GNRs, E. fecalis (maldonado S); 2nd wound cx: GNRs #1 and #2, E. fecalis (maldonado S) Gram neg bacteremia- 2ry to above -Abd US: Ascites. Right pleural effusion. Left kidney not identified. Access to the area is limited. It is uncertain whether this is technical or whether there is an absent or small left kidney. Gallbladder contracted but otherwise grossly unremarkable.Otherwise negative within the limits noted above. Fever, improving Leukocytosis; improving -u/a wbc 10-15, nit neg, leuk +1 Hypertensive urgency, improving TK, improving Dm2 w/ nephropathy CHF Obesity HTN marihuana and cocaine use non compliance Plan: -Continue empiric IV Vanco and Cefepime #4 and PO flagyl #3 for anaerobic coverage --surgery f/u, possible debridement -f/u repeat 2 sets of Bcx -f/u cx -Monitor CBC/BMP, temperatures -wound care Thank you for this consultation. Will continue to follow along with you. Discussed with RN and Dr howard. Subjective Allergies: Coded Allergies: No Known Allergies (Unverified , 09/28/17) Subjective afebrile in 36hrs leukocytosis improving repeat Bcx p CT no abscess Objective Vital Signs Last 24 Hour Vital Signs Date Time Temp Pulse Resp B/P (MAP) Pulse Ox O2 Delivery O2 Flow Rate FiO2 10/01/17 09:13 73 148/73 10/01/17 08:00 97.5 73 20 148/73 95 Room Air 97.5 10/01/17 08:00 69 10/01/17 07:50 Nasal Cannula 2.0 10/01/17 07:50 80 16 99 Nasal Cannula 2.0 10/01/17 07:50 Nasal Cannula 2.0 10/01/17 07:50 Nasal Cannula 2.0 10/01/17 05:32 156/85 10/01/17 04:00 98.2 62 20 146/82 100 Nasal Cannula 2.0 98.2 10/01/17 04:00 62 10/01/17 00:35 Nasal Cannula 2.0 10/01/17 00:35 Nasal Cannula 2.0 10/01/17 00:00 98.5 65 20 157/76 100 Nasal Cannula 2.0 98.5 10/01/17 00:00 65 09/30/17 22:16 155/81 09/30/17 20:00 68 09/30/17 20:00 99.3 68 20 155/81 100 Nasal Cannula 2.0 99.3 09/30/17 19:02 Nasal Cannula 2.0 09/30/17 19:02 Nasal Cannula 2.0 09/30/17 19:02 Nasal Cannula 2.0 09/30/17 19:02 Nasal Cannula 2.0 09/30/17 16:00 98.2 70 24 175/96 97 Nasal Cannula 2.0 98.2 09/30/17 15:38 178/100 09/30/17 15:38 71 178/100 09/30/17 15:29 79 09/30/17 14:01 178/100 09/30/17 13:43 Nasal Cannula 2.0 09/30/17 13:43 2.0 09/30/17 13:43 2.0 09/30/17 13:42 Nasal Cannula 2.0 09/30/17 12:13 71 09/30/17 12:00 97.9 75 24 178/100 97 Nasal Cannula 2.0 97.9 Height (Feet): 6 Height (Inches): 4.00 Weight (Pounds): 319 Objective General Appearance: no apparent distress, alert Lines, tubes and drains: peripheral HEENT: normocephalic, mucous membranes moist Neck: supple Respiratory/Chest: lungs clear, normal breath sounds, no respiratory distress, no accessory muscle use Cardiovascular/Chest: normal rate Abdomen: normal bowel sounds, non tender, soft, no organomegaly, no mass Extremities: inflammation, slow capillary refill, moderate edema, other - see wound care photos for details of size and wounds. left anterior mid leg with large area of eschar and some gangrene, cellulitis, edema from foot to thigh. can palpate faint pulses through edema Neurologic: alert, oriented x 3, responsive Microbiology Date/Time Source Procedure Growth Status 09/28/17 21:30 Blood Blood Culture - Preliminary NO GROWTH AFTER 48 HOURS Resulted 09/28/17 21:15 Blood Blood Culture - Preliminary Gram Negative Bacillus 1 Resulted 09/29/17 03:00 Wound Gram Stain - Final Resulted 09/29/17 03:00 Wound Culture - Preliminary Gram Negative Bacillus 1 Gram Negative Bacillus 2 Enterococcus Faecalis Resulted 09/28/17 21:30 Other Gram Stain - Final Resulted 09/28/17 21:30 Wound Culture - Preliminary Gram Negative Bacillus 1 Gram Negative Bacillus 2 Enterococcus Faecalis Resulted Laboratory Tests Test 09/30/17 22:45 10/01/17 08:10 Vancomycin Level Trough 14.8 ug/mL (5.0-12.0) H White Blood Count 11.2 K/UL (4.8-10.8) H Red Blood Count 4.22 M/UL (4.70-6.10) L Hemoglobin 11.5 G/DL (14.2-18.0) L Hematocrit 37.4 % (42.0-52.0) L Mean Corpuscular Volume 89 FL (80-99) Mean Corpuscular Hemoglobin 27.3 PG (27.0-31.0) Mean Corpuscular Hemoglobin Concent 30.8 G/DL (32.0-36.0) L Red Cell Distribution Width 14.4 % (11.6-14.8) Platelet Count 137 K/UL (150-450) L Mean Platelet Volume 8.9 FL (6.5-10.1) Neutrophils (%) (Auto) 81.9 % (45.0-75.0) H Lymphocytes (%) (Auto) 7.1 % (20.0-45.0) L Monocytes (%) (Auto) 9.7 % (1.0-10.0) Eosinophils (%) (Auto) 0.5 % (0.0-3.0) Basophils (%) (Auto) 0.7 % (0.0-2.0) Sodium Level 137 MMOL/L (136-145) Potassium Level 4.1 MMOL/L (3.5-5.1) Chloride Level 102 MMOL/L (98-107) Carbon Dioxide Level 32 MMOL/L (21-32) Anion Gap 3 mmol/L (5-15) L Blood Urea Nitrogen 22 mg/dL (7-18) H Creatinine 1.5 MG/DL (0.55-1.30) H Estimat Glomerular Filtration Rate mL/min (>60) Glucose Level 159 MG/DL (74-106) H Calcium Level 7.9 MG/DL (8.5-10.1) L Total Bilirubin 1.1 MG/DL (0.2-1.0) H Direct Bilirubin 0.4 MG/DL (0.0-0.3) H Aspartate Amino Transf (AST/SGOT) 7 U/L (15-37) L Alanine Aminotransferase (ALT/SGPT) 8 U/L (12-78) L Alkaline Phosphatase 58 U/L (46-116) Total Protein 6.9 G/DL (6.4-8.2) Albumin 1.8 G/DL (3.4-5.0) L Globulin 5.1 g/dL Albumin/Globulin Ratio 0.4 (1.0-2.7) L Current Medications Medications (Trade) Dose Ordered Sig/Lito Route PRN Reason Start Time Stop Time Status Last Admin Dose Admin Acetaminophen (Tylenol) 650 mg Q4H PRN ORAL fever 09/28/17 23:45 10/28/17 23:44 09/29/17 22:46 Amlodipine Besylate (Norvasc) 10 mg DAILY ORAL 10/01/17 09:00 10/31/17 08:59 10/01/17 09:13 Aspirin (ASA) 162 mg DAILY ORAL 09/30/17 15:45 10/30/17 15:44 10/01/17 09:11 Cefepime HCl 2 gm/ Dextrose 110 ml @ 220 mls/hr Q24H IV 10/01/17 02:00 10/08/17 01:59 10/01/17 01:31 Clonidine HCl (Catapres Tab) 0.1 mg EVERY 8 HOURS ORAL 09/29/17 14:00 10/29/17 13:59 10/01/17 05:32 Dextrose (Dextrose 50%) STAT PRN IV Hypoglycemia 09/28/17 23:45 10/28/17 23:44 Docusate Sodium (Colace) 100 mg THREE TIMES A DAY ORAL 09/29/17 13:00 10/29/17 12:59 10/01/17 09:10 Heparin Sodium (Porcine) (Heparin 5000 units/ml) 5,000 units EVERY 12 HOURS SUBQ 09/29/17 09:00 10/29/17 08:59 09/30/17 20:50 Hydralazine HCl (Apresoline) 25 mg Q4H PRN ORAL bp over 160 syst 09/29/17 10:15 10/29/17 10:14 09/29/17 15:38 Insulin Aspart (NovoLOG) BEFORE MEALS AND HS SUBQ 09/29/17 06:30 10/29/17 06:29 10/01/17 06:07 Ipratropium Williams (Atrovent) 500 mcg Q4H PRN HHN Shortness of Breath 09/29/17 16:15 10/03/17 23:44 Ipratropium Williams (Atrovent) 500 mcg Q6HRT HHN 09/29/17 19:00 10/04/17 18:59 Lansoprazole (Prevacid) 30 mg BID ORAL 09/29/17 18:00 10/29/17 17:59 10/01/17 09:11 Levalbuterol HCl (Xopenex) 1.25 mg TIDRT HHN 09/29/17 19:00 10/04/17 18:59 Metronidazole (Flagyl) 500 mg Q8HR ORAL 09/29/17 22:00 10/06/17 21:59 10/01/17 05:32 Nitroglycerin (Ntg) 0.4 mg Q5M PRN SL Prn Chest Pain 09/28/17 23:45 10/28/17 23:44 Nitroglycerin (Ntg) 1 patch Q24H TDERMAL 09/30/17 16:00 10/30/17 15:59 09/30/17 15:38 Ondansetron HCl (Zofran) 4 mg Q6H PRN IVP Nausea & Vomiting 09/28/17 23:45 10/28/17 23:44 Polyethylene Glycol (Miralax) 17 gm DAILYPRN PRN ORAL Constipation 09/28/17 23:45 10/28/17 23:44 Promethazine HCl/ Codeine (Phenergan with Codeine) 5 ml Q4H PRN ORAL For Cough 09/29/17 14:45 10/29/17 14:44 Tamsulosin HCl (Flomax) 0.4 mg BID ORAL 09/29/17 18:00 10/29/17 17:59 10/01/17 09:11 Temazepam (Restoril) 15 mg HSPRN PRN ORAL Insomnia 09/28/17 23:45 10/05/17 23:44 Theophylline (Mark-Dur) 100 mg EVERY 12 HOURS ORAL 09/29/17 21:00 10/29/17 20:59 10/01/17 09:11 Vancomycin HCl (Vanco rx to dose) 1 ea DAILY PRN MISC PER RX PROTOCOL 09/29/17 06:30 10/29/17 06:29 Vancomycin HCl 1 gm/Dextrose 275 ml @ 183.708 mls/hr Q12HR@0000,1200 IVPB 09/29/17 12:00 10/04/17 11:59 09/30/17 23:36 Consuelo Baeza M.D. October 01, 2017 10:38
--- NOTE | 2017-10-01 11:38 | Pulmonology Progress Note ---
Assessment/Plan Problems: (1) Gram-negative bacteremia (2) Pleural effusion (3) Cardiomegaly (4) Cellulitis (5) Hypoalbuminemia (6) ATN (acute tubular necrosis) (7) Diabetes mellitus (8) Obesity (BMI 30.0-34.9) (9) Noncompliance (10) Anasarca (11) Cocaine abuse Assessment/Plan thoracentesis for today afebrile GNB on abx all consults reviewed Echo: EF 50% continue abx check cultures wound care optimize cardiac meds Subjective ROS Limited/Unobtainable: No Interval Events: no new complains Allergies: Coded Allergies: No Known Allergies (Unverified , 09/28/17) Objective Last 24 Hour Vital Signs Date Time Temp Pulse Resp B/P (MAP) Pulse Ox O2 Delivery O2 Flow Rate FiO2 10/01/17 09:13 73 148/73 10/01/17 08:00 97.5 73 20 148/73 95 Room Air 97.5 10/01/17 08:00 69 10/01/17 07:50 Nasal Cannula 2.0 10/01/17 07:50 80 16 99 Nasal Cannula 2.0 28 10/01/17 07:50 Nasal Cannula 2.0 10/01/17 07:50 Nasal Cannula 2.0 10/01/17 05:32 156/85 10/01/17 04:00 98.2 62 20 146/82 100 Nasal Cannula 2.0 98.2 10/01/17 04:00 62 10/01/17 00:35 Nasal Cannula 2.0 10/01/17 00:35 Nasal Cannula 2.0 28 10/01/17 00:00 98.5 65 20 157/76 100 Nasal Cannula 2.0 98.5 10/01/17 00:00 65 09/30/17 22:16 155/81 09/30/17 20:00 68 09/30/17 20:00 99.3 68 20 155/81 100 Nasal Cannula 2.0 99.3 09/30/17 19:02 Nasal Cannula 2.0 28 09/30/17 19:02 Nasal Cannula 2.0 28 09/30/17 19:02 Nasal Cannula 2.0 28 09/30/17 19:02 Nasal Cannula 2.0 28 09/30/17 16:00 98.2 70 24 175/96 97 Nasal Cannula 2.0 98.2 09/30/17 15:38 178/100 09/30/17 15:38 71 178/100 09/30/17 15:29 79 09/30/17 14:01 178/100 09/30/17 13:43 Nasal Cannula 2.0 28 09/30/17 13:43 2.0 28 09/30/17 13:43 2.0 28 09/30/17 13:42 Nasal Cannula 2.0 09/30/17 12:13 71 09/30/17 12:00 97.9 75 24 178/100 97 Nasal Cannula 2.0 97.9 Intake and Output 09/30/17 10/01/17 19:00 07:00 Intake Total 500 ml 385 ml Output Total 200 ml Balance 300 ml 385 ml Intake Oral 500 ml IV Total 385 ml Output Urine Total 200 ml # Voids 5 General Appearance: WD/WN HEENT: normocephalic, atraumatic Respiratory/Chest: chest wall non-tender, lungs clear Cardiovascular: normal peripheral pulses, normal rate Abdomen: normal bowel sounds, soft, non tender Genitourinary: normal external genitalia Skin: no rash Neurologic/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: 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 grossly normal Lymphatic: no neck adenopathy Microbiology Date/Time Source Procedure Growth Status 09/28/17 21:30 Blood Blood Culture - Preliminary NO GROWTH AFTER 48 HOURS Resulted 09/28/17 21:15 Blood Blood Culture - Preliminary Gram Negative Bacillus 1 Resulted 09/29/17 03:00 Wound Gram Stain - Final Resulted 09/29/17 03:00 Wound Culture - Preliminary Gram Negative Bacillus 1 Gram Negative Bacillus 2 Enterococcus Faecalis Resulted 09/28/17 21:30 Other Gram Stain - Final Resulted 09/28/17 21:30 Wound Culture - Preliminary Gram Negative Bacillus 1 Gram Negative Bacillus 2 Enterococcus Faecalis Resulted Laboratory Tests 09/30/17 22:45: Vancomycin Level Trough 14.8H 10/01/17 08:10: White Blood Count 11.2H, Red Blood Count 4.22L, Hemoglobin 11.5L, Hematocrit 37.4L, Mean Corpuscular Volume 89, Mean Corpuscular Hemoglobin 27.3, Mean Corpuscular Hemoglobin Concent 30.8L, Red Cell Distribution Width 14.4, Platelet Count 137L, Mean Platelet Volume 8.9, Neutrophils (%) (Auto) 81.9H, Lymphocytes (%) (Auto) 7.1L, Monocytes (%) (Auto) 9.7, Eosinophils (%) (Auto) 0.5, Basophils (%) (Auto) 0.7, Sodium Level 137, Potassium Level 4.1, Chloride Level 102, Carbon Dioxide Level 32, Anion Gap 3L, Blood Urea Nitrogen 22H, Creatinine 1.5H, Estimat Glomerular Filtration Rate , Glucose Level 159H, Calcium Level 7.9L, Total Bilirubin 1.1H, Direct Bilirubin 0.4H, Aspartate Amino Transf (AST/SGOT) 7L, Alanine Aminotransferase (ALT/SGPT) 8L, Alkaline Phosphatase 58, Total Protein 6.9, Albumin 1.8L, Globulin 5.1, Albumin/Globulin Ratio 0.4L Current Medications Medications (Trade) Dose Ordered Sig/Lito Route PRN Reason Start Time Stop Time Status Last Admin Dose Admin Acetaminophen (Tylenol) 650 mg Q4H PRN ORAL fever 09/28/17 23:45 10/28/17 23:44 09/29/17 22:46 Amlodipine Besylate (Norvasc) 10 mg DAILY ORAL 10/01/17 09:00 10/31/17 08:59 10/01/17 09:13 Aspirin (ASA) 162 mg DAILY ORAL 09/30/17 15:45 10/30/17 15:44 10/01/17 09:11 Cefepime HCl 2 gm/ Dextrose 110 ml @ 220 mls/hr Q24H IV 10/01/17 02:00 10/08/17 01:59 10/01/17 01:31 Clonidine HCl (Catapres Tab) 0.1 mg EVERY 8 HOURS ORAL 09/29/17 14:00 10/29/17 13:59 10/01/17 05:32 Dextrose (Dextrose 50%) STAT PRN IV Hypoglycemia 09/28/17 23:45 10/28/17 23:44 Docusate Sodium (Colace) 100 mg THREE TIMES A DAY ORAL 09/29/17 13:00 10/29/17 12:59 10/01/17 09:10 Heparin Sodium (Porcine) (Heparin 5000 units/ml) 5,000 units EVERY 12 HOURS SUBQ 09/29/17 09:00 10/29/17 08:59 09/30/17 20:50 Hydralazine HCl (Apresoline) 25 mg Q4H PRN ORAL bp over 160 syst 09/29/17 10:15 10/29/17 10:14 09/29/17 15:38 Insulin Aspart (NovoLOG) BEFORE MEALS AND HS SUBQ 09/29/17 06:30 10/29/17 06:29 10/01/17 06:07 Ipratropium Scott[place] (Atrovent) 500 mcg Q4H PRN HHN Shortness of Breath 09/29/17 16:15 10/03/17 23:44 Ipratropium [place] (Atrovent) 500 mcg Q6HRT HHN 09/29/17 19:00 10/04/17 18:59 Lansoprazole (Prevacid) 30 mg BID ORAL 09/29/17 18:00 10/29/17 17:59 10/01/17 09:11 Levalbuterol HCl (Xopenex) 1.25 mg TIDRT HHN 09/29/17 19:00 10/04/17 18:59 Metronidazole (Flagyl) 500 mg Q8HR ORAL 09/29/17 22:00 10/06/17 21:59 10/01/17 05:32 Nitroglycerin (Ntg) 0.4 mg Q5M PRN SL Prn Chest Pain 09/28/17 23:45 10/28/17 23:44 Nitroglycerin (Ntg) 1 patch Q24H TDERMAL 09/30/17 16:00 10/30/17 15:59 09/30/17 15:38 Ondansetron HCl (Zofran) 4 mg Q6H PRN IVP Nausea & Vomiting 09/28/17 23:45 10/28/17 23:44 Polyethylene Glycol (Miralax) 17 gm DAILYPRN PRN ORAL Constipation 09/28/17 23:45 10/28/17 23:44 Promethazine HCl/ Codeine (Phenergan with Codeine) 5 ml Q4H PRN ORAL For Cough 09/29/17 14:45 10/29/17 14:44 Tamsulosin HCl (Flomax) 0.4 mg BID ORAL 09/29/17 18:00 10/29/17 17:59 10/01/17 09:11 Temazepam (Restoril) 15 mg HSPRN PRN ORAL Insomnia 09/28/17 23:45 10/05/17 23:44 Theophylline (Mark-Dur) 100 mg EVERY 12 HOURS ORAL 09/29/17 21:00 10/29/17 20:59 10/01/17 09:11 Vancomycin HCl (Vanco rx to dose) 1 ea DAILY PRN MISC PER RX PROTOCOL 09/29/17 06:30 10/29/17 06:29 Vancomycin HCl 1 gm/Dextrose 275 ml @ 183.708 mls/hr Q12HR@0000,1200 IVPB 09/29/17 12:00 10/04/17 11:59 09/30/17 23:36 Hoang Gipson MD October 01, 2017 11:38
[2017-10-01] MEDS ORDERED: Lidocaine 1% Plain 30 ml INJ PRN (11:45)
[2017-10-01 12:00] VITALS: BP 169/87
[2017-10-01] MEDS: Vancomycin 1gm/D5W 275ml IVPB SCH ×4 (13:15→23:20)
--- NOTE | 2017-10-01 13:19 | Cardiology Progress Note ---
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 (11) Edema 1) Blood pressure control: Clonidine, Norvasc 2) Echocardiogram reviewed - heart failure preserved ejection fraction ACC stage C NYHA class II 3) lasix to reduce lower extremity edema and filling pressures 4) serial troponin and BNP - not clinically impressive for ACS 5) Ensure medication compliance 6) Discussed cocaine and THC cessation 7) Serial CXR to monitor right effusion 8) Wound care, possible I/D 9) Continue antibiotics, WBC elevated 10) For thoracentesis Subjective Cardiovascular: Reports: no symptoms Respiratory: Reports: no symptoms Gastrointestinal/Abdominal: Reports: no symptoms Genitourinary: Reports: no symptoms Subjective WBC down from yesterday, no complaints, no SOB, on oxygen, IV abx, BP not controlled, LV function 50% with diasotlic dysfunction Objective Last 24 Hour Vital Signs Date Time Temp Pulse Resp B/P (MAP) Pulse Ox O2 Delivery O2 Flow Rate FiO2 10/01/17 12:00 98.2 69 18 169/87 94 Room Air 98.2 10/01/17 09:13 73 148/73 10/01/17 08:00 97.5 73 20 148/73 95 Room Air 97.5 10/01/17 08:00 69 10/01/17 07:50 Nasal Cannula 2.0 10/01/17 07:50 80 16 99 Nasal Cannula 2.0 28 10/01/17 07:50 Nasal Cannula 2.0 28 10/01/17 07:50 Nasal Cannula 2.0 10/01/17 05:32 156/85 10/01/17 04:00 98.2 62 20 146/82 100 Nasal Cannula 2.0 98.2 10/01/17 04:00 62 10/01/17 00:35 Nasal Cannula 2.0 28 10/01/17 00:35 Nasal Cannula 2.0 28 10/01/17 00:00 98.5 65 20 157/76 100 Nasal Cannula 2.0 98.5 5/29/18 00:00 65 09/30/17 22:16 155/81 09/30/17 20:00 68 09/30/17 20:00 99.3 68 20 155/81 100 Nasal Cannula 2.0 99.3 09/30/17 19:02 Nasal Cannula 2.0 28 09/30/17 19:02 Nasal Cannula 2.0 28 09/30/17 19:02 Nasal Cannula 2.0 28 09/30/17 19:02 Nasal Cannula 2.0 09/30/17 16:00 98.2 70 24 175/96 97 Nasal Cannula 2.0 98.2 09/30/17 15:38 178/100 09/30/17 15:38 71 178/100 09/30/17 15:29 79 09/30/17 14:01 178/100 09/30/17 13:43 Nasal Cannula 2.0 09/30/17 13:43 2.0 28 09/30/17 13:43 2.0 09/30/17 13:42 Nasal Cannula 2.0 28 General Appearance: WD/WN EENT: normal ENT inspection Neck: non-tender Rhythm: NSR Cardiovascular: normal peripheral pulses Respiratory/Chest: chest wall non-tender Abdomen: normal bowel sounds Neurologic: pinion 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0) L Red Cell Distribution Width 14.4 % (11.6-14.8) Platelet Count 137 K/UL (150-450) L Mean Platelet Volume 8.9 FL (6.5-10.1) Neutrophils (%) (Auto) 81.9 % (45.0-75.0) H Lymphocytes (%) (Auto) 7.1 % (20.0-45.0) L Monocytes (%) (Auto) 9.7 % (1.0-10.0) Eosinophils (%) (Auto) 0.5 % (0.0-3.0) Basophils (%) (Auto) 0.7 % (0.0-2.0) Sodium Level 137 MMOL/L (136-145) Potassium Level 4.1 MMOL/L (3.5-5.1) Chloride Level 102 MMOL/L (98-107) Carbon Dioxide Level 32 MMOL/L (21-32) Anion Gap 3 mmol/L (5-15) L Blood Urea Nitrogen 22 mg/dL (7-18) H Creatinine 1.5 MG/DL (0.55-1.30) H Estimat Glomerular Filtration Rate mL/min (>60) Glucose Level 159 MG/DL (74-106) H Calcium Level 7.9 MG/DL (8.5-10.1) L Total Bilirubin 1.1 MG/DL (0.2-1.0) H Direct Bilirubin 0.4 MG/DL (0.0-0.3) H Aspartate Amino Transf (AST/SGOT) 7 U/L (15-37) L Alanine Aminotransferase (ALT/SGPT) 8 U/L (12-78) L Alkaline Phosphatase 58 U/L (46-116) Total Protein 6.9 G/DL (6.4-8.2) Albumin 1.8 G/DL (3.4-5.0) L Globulin 5.1 g/dL Albumin/Globulin Ratio 0.4 (1.0-2.7) L Microbiology Date/Time Source Procedure Growth Status 09/28/17 21:30 Blood Blood Culture - Preliminary NO GROWTH AFTER 48 HOURS Resulted 09/28/17 21:15 Blood Blood Culture - Preliminary Gram Negative Bacillus 1 Resulted 09/29/17 03:00 Wound Gram Stain - Final Resulted 09/29/17 03:00 Wound Culture - Preliminary Gram Negative Bacillus 1 Gram Negative Bacillus 2 Enterococcus Faecalis Resulted 09/28/17 21:30 Other Gram Stain - Final Resulted 09/28/17 21:30 Wound Culture - Preliminary Gram Negative Bacillus 1 Gram Negative Bacillus 2 Enterococcus Faecalis Resulted Kranthi Herrera M.D. October 01, 2017 13:19
--- NOTE | 2017-10-01 14:22 | General Surgery Progress Note ---
General Surgery-Progress Note Subjective Additional Comments no acute events. doing well. comfortable. no n/v/f/c. leukocytosis improved. Objective Last 24 Hour Vital Signs Date Time Temp Pulse Resp B/P (MAP) Pulse Ox O2 Delivery O2 Flow Rate FiO2 10/01/17 13:26 Nasal Cannula 2.0 10/01/17 13:26 Nasal Cannula 2.0 10/01/17 13:26 Nasal Cannula 2.0 10/01/17 13:26 82 16 99 Nasal Cannula 2.0 10/01/17 12:00 98.2 69 18 169/87 94 Room Air 98.2 10/01/17 09:13 73 148/73 10/01/17 08:00 97.5 73 20 148/73 95 Room Air 97.5 10/01/17 08:00 69 10/01/17 07:50 Nasal Cannula 2.0 10/01/17 07:50 80 16 99 Nasal Cannula 2.0 10/01/17 07:50 Nasal Cannula 2.0 10/01/17 07:50 Nasal Cannula 2.0 10/01/17 05:32 156/85 10/01/17 04:00 98.2 62 20 146/82 100 Nasal Cannula 2.0 98.2 10/01/17 04:00 62 10/01/17 00:35 Nasal Cannula 2.0 10/01/17 00:35 Nasal Cannula 2.0 10/01/17 00:00 98.5 65 20 157/76 100 Nasal Cannula 2.0 98.5 10/01/17 00:00 65 09/30/17 22:16 155/81 09/30/17 20:00 68 09/30/17 20:00 99.3 68 20 155/81 100 Nasal Cannula 2.0 99.3 09/30/17 19:02 Nasal Cannula 2.0 09/30/17 19:02 Nasal Cannula 2.0 09/30/17 19:02 Nasal Cannula 2.0 09/30/17 19:02 Nasal Cannula 2.0 09/30/17 16:00 98.2 70 24 175/96 97 Nasal Cannula 2.0 98.2 09/30/17 15:38 178/100 09/30/17 15:38 71 178/100 09/30/17 15:29 79 I&O Intake and Output 09/30/17 10/01/17 19:00 07:00 Intake Total 500 ml 385 ml Output Total 200 ml Balance 300 ml 385 ml Intake Oral 500 ml IV Total 385 ml Output Urine Total 200 ml # Voids 5 Dressing: saturated Cardiovascular: RSR Respiratory: clear Abdomen: soft, flat Extremities: edema, tenderness Laboratory Tests Test 09/30/17 22:45 10/01/17 08:10 Vancomycin Level Trough 14.8 ug/mL (5.0-12.0) H White Blood Count 11.2 K/UL (4.8-10.8) H Red Blood Count 4.22 M/UL (4.70-6.10) L Hemoglobin 11.5 G/DL (14.2-18.0) L Hematocrit 37.4 % (42.0-52.0) L Mean Corpuscular Volume 89 FL (80-99) Mean Corpuscular Hemoglobin 27.3 PG (27.0-31.0) Mean Corpuscular Hemoglobin Concent 30.8 G/DL (32.0-36.0) L Red Cell Distribution Width 14.4 % (11.6-14.8) Platelet Count 137 K/UL (150-450) L Mean Platelet Volume 8.9 FL (6.5-10.1) Neutrophils (%) (Auto) 81.9 % (45.0-75.0) H Lymphocytes (%) (Auto) 7.1 % (20.0-45.0) L Monocytes (%) (Auto) 9.7 % (1.0-10.0) Eosinophils (%) (Auto) 0.5 % (0.0-3.0) Basophils (%) (Auto) 0.7 % (0.0-2.0) Sodium Level 137 MMOL/L (136-145) Potassium Level 4.1 MMOL/L (3.5-5.1) Chloride Level 102 MMOL/L (98-107) Carbon Dioxide Level 32 MMOL/L (21-32) Anion Gap 3 mmol/L (5-15) L Blood Urea Nitrogen 22 mg/dL (7-18) H Creatinine 1.5 MG/DL (0.55-1.30) H Estimat Glomerular Filtration Rate mL/min (>60) Glucose Level 159 MG/DL (74-106) H Calcium Level 7.9 MG/DL (8.5-10.1) L Total Bilirubin 1.1 MG/DL (0.2-1.0) H Direct Bilirubin 0.4 MG/DL (0.0-0.3) H Aspartate Amino Transf (AST/SGOT) 7 U/L (15-37) L Alanine Aminotransferase (ALT/SGPT) 8 U/L (12-78) L Alkaline Phosphatase 58 U/L (46-116) Total Protein 6.9 G/DL (6.4-8.2) Albumin 1.8 G/DL (3.4-5.0) L Globulin 5.1 g/dL Albumin/Globulin Ratio 0.4 (1.0-2.7) L Plan Problems: (1) Gangrene of lower extremity Assessment & Plan: 71M left lower extremity cellulitis/wound which is chronic after injury a "few months ago". has been managing wound on his own since but has been worsening. now has cellulitis around left and edema from foot to thigh. large area of skin loss on anterior mid leg. small incision noted and underlying tissue with edema but does bleed and potentially viable. areas of skin loss with bleeding once manipulated but some areas without. edema improved. leukocytosis improved. wound stable -CT left leg. Findings: Pretibial soft tissue gas is fairly extensive in degree but confined to the subcutaneous space. This is intermixed with the subcutaneous edema which is fairly severe with the extension of the subcutaneous space within the leg. There is no erosion of the adjacent tibia or fibula. Difficulty completely exclude intramuscular edema. No obvious fluid collections are identified within the anterior or posterior compartment. Study was done without contrast material. IMPRESSION: Cellulitis and ulceration in the pretibial aspect of the left lower extremity. The presence of gas likely associated with the presence of a large ulceration in this location. Gas-forming organism is the obvious concern and not excludable. No drainable abscess identified. -will need excisional debridement of wounds. concerning gas persistent underlying tissues. needs debridement for healing and wound improvement. unfortunately cannot perform at bedside given size of wound. -keep lower extremity elevated -IV Abx for cellulitis -honey gel, gauze, wrap wound daily. -OR tomorrow for debridement thank you for this consultation. will follow with you Mannie Macedo October 01, 2017 14:22
--- NOTE | 2017-10-01 14:24 | Pre-Procedure Note/Attestation ---
Pre-Procedure Note/Attestation Complete Prior to Procedure Planned Procedure: left Procedure Narrative: excisional debridement of left leg wounds and wound vac placement Indications for Procedure Pre-Operative Diagnosis: left leg wound with cellulitis, gangrene, and gas in subcutaneous tissues Attestation I attest that I discussed the nature of the procedure; its benefits; risks and complications; and alternatives (and the risks and benefits of such alternatives ), prior to the procedure, with the patient (or the patient's legal car sales representative). I attest that, if there was a reasonable possibility of needing a blood transfusion, the patient (or the patient's legal car sales representative) was given the [place] Department [employer] Services standardized written summary, pursuant to the [place] Blood Safety Act ([place] Health and Safety Code # 1645, as amended). I attest that I re-evaluated the patient just prior to the surgery and that there has been no change in the patient's H&P, except as documented below: Mannie Macedo October 01, 2017 14:24
[2017-10-01] MEDS: cloNIDine 0.2mg Tab ORAL SCH ×2 (14:49→21:29)
--- NOTE | 2017-10-01 15:18 | General Progress Note ---
Assessment/Plan Assessment/Plan cocaine abuse depression lexapro 10mg qam provided ro/st Subjective Date patient seen: October 01, 2017 Neurologic/Psychiatric: Reports: anxiety, depressed, emotional problems Allergies: Coded Allergies: No Known Allergies (Unverified , 09/28/17) Subjective the pt is resting in bed no behavioral issues Objective Last 24 Hour Vital Signs Date Time Temp Pulse Resp B/P (MAP) Pulse Ox O2 Delivery O2 Flow Rate FiO2 10/01/17 14:49 169/87 10/01/17 13:26 Nasal Cannula 2.0 10/01/17 13:26 Nasal Cannula 2.0 10/01/17 13:26 Nasal Cannula 2.0 10/01/17 13:26 82 16 99 Nasal Cannula 2.0 10/01/17 12:00 68 10/01/17 12:00 98.2 69 18 169/87 94 Room Air 98.2 10/01/17 09:13 73 148/73 10/01/17 08:00 97.5 73 20 148/73 95 Room Air 97.5 10/01/17 08:00 69 10/01/17 07:50 Nasal Cannula 2.0 10/01/17 07:50 80 16 99 Nasal Cannula 2.0 10/01/17 07:50 Nasal Cannula 2.0 10/01/17 07:50 Nasal Cannula 2.0 10/01/17 05:32 156/85 10/01/17 04:00 98.2 62 20 146/82 100 Nasal Cannula 2.0 98.2 10/01/17 04:00 62 10/01/17 00:35 Nasal Cannula 2.0 10/01/17 00:35 Nasal Cannula 2.0 10/01/17 00:00 98.5 65 20 157/76 100 Nasal Cannula 2.0 98.5 10/01/17 00:00 65 09/30/17 22:16 155/81 09/30/17 20:00 68 09/30/17 20:00 99.3 68 20 155/81 100 Nasal Cannula 2.0 99.3 09/30/17 19:02 Nasal Cannula 2.0 09/30/17 19:02 Nasal Cannula 2.0 09/30/17 19:02 Nasal Cannula 2.0 09/30/17 19:02 Nasal Cannula 2.0 28 09/30/18 16:00 98.2 70 24 175/96 97 Nasal Cannula 2.0 98.2 09/30/17 15:38 178/100 09/30/17 15:38 71 178/100 09/30/17 15:29 79 Intake and Output 09/30/17 10/01/17 19:00 07:00 Intake Total 500 ml 385 ml Output Total 200 ml Balance 300 ml 385 ml Intake Oral 500 ml IV Total 385 ml Output Urine Total 200 ml # Voids 5 Laboratory Tests 09/30/17 22:45: Vancomycin Level Trough 14.8H 10/01/17 08:10: White Blood Count 11.2H, Red Blood Count 4.22L, Hemoglobin 11.5L, Hematocrit 37.4L, Mean Corpuscular Volume 89, Mean Corpuscular Hemoglobin 27.3, Mean Corpuscular Hemoglobin Concent 30.8L, Red Cell Distribution Width 14.4, Platelet Count 137L, Mean Platelet Volume 8.9, Neutrophils (%) (Auto) 81.9H, Lymphocytes (%) (Auto) 7.1L, Monocytes (%) (Auto) 9.7, Eosinophils (%) (Auto) 0.5, Basophils (%) (Auto) 0.7, Sodium Level 137, Potassium Level 4.1, Chloride Level 102, Carbon Dioxide Level 32, Anion Gap 3L, Blood Urea Nitrogen 22H, Creatinine 1.5H, Estimat Glomerular Filtration Rate , Glucose Level 159H, Calcium Level 7.9L, Total Bilirubin 1.1H, Direct Bilirubin 0.4H, Aspartate Amino Transf (AST/SGOT) 7L, Alanine Aminotransferase (ALT/SGPT) 8L, Alkaline Phosphatase 58, Total Protein 6.9, Albumin 1.8L, Globulin 5.1, Albumin/Globulin Ratio 0.4L Height (Feet): 6 Height (Inches): 4.00 Weight (Pounds): 319 General Appearance: WD/WN, no apparent distress, alert Neurologic: oriented x 3, responsive, depressed affect Nadiya Currie M.D. October 01, 2017 15:18
[2017-10-01 16:00] VITALS: BP 166/87
[2017-10-01] MEDS: Nitroglycerin Patch 0.4mg TDERMAL SCH (17:34)
--- NOTE | 2017-10-01 17:39 | Internal Med Progress Note ---
Subjective Date of Service: October 01, 2017 Physician Name Adilson Stephen Attending Physician Hal Moore MD Current Medications Medications (Trade) Dose Ordered Sig/Lito Route PRN Reason Start Time Stop Time Status Last Admin Dose Admin Acetaminophen (Tylenol) 650 mg Q4H PRN ORAL fever 09/28/17 23:45 10/28/17 23:44 09/29/17 22:46 Amlodipine Besylate (Norvasc) 10 mg DAILY ORAL 10/01/17 09:00 10/31/17 08:59 10/01/17 09:13 Aspirin (ASA) 162 mg DAILY ORAL 09/30/17 15:45 10/30/17 15:44 10/01/17 09:11 Cefepime HCl 2 gm/ Dextrose 110 ml @ 220 mls/hr Q24H IV 10/01/17 02:00 10/08/17 01:59 10/01/17 01:31 Clonidine HCl (Catapres tab) 0.2 mg EVERY 8 HOURS ORAL 10/01/17 14:00 10/31/17 13:59 10/01/17 14:49 Dextrose (Dextrose 50%) STAT PRN IV Hypoglycemia 09/28/17 23:45 10/28/17 23:44 Docusate Sodium (Colace) 100 mg THREE TIMES A DAY ORAL 09/29/17 13:00 10/29/17 12:59 10/01/17 13:16 Heparin Sodium (Porcine) (Heparin 5000 units/ml) 5,000 units EVERY 12 HOURS SUBQ 09/29/17 09:00 10/29/17 08:59 09/30/17 20:50 Hydralazine HCl (Apresoline) 25 mg Q4H PRN ORAL bp over 160 syst 09/29/17 10:15 10/29/17 10:14 09/29/17 15:38 Insulin Aspart (NovoLOG) BEFORE MEALS AND HS SUBQ 09/29/17 06:30 10/29/17 06:29 10/01/17 13:[address] (Atrovent) 500 mcg Q4H PRN HHN Shortness of Breath 09/29/17 16:15 10/03/17 23:[address] (Atrovent) 500 mcg Q6HRT HHN 09/29/17 19:00 10/04/17 18:59 Lansoprazole (Prevacid) 30 mg BID ORAL 09/29/17 18:00 10/29/17 17:59 10/01/17 09:11 Levalbuterol HCl (Xopenex) 1.25 mg TIDRT HHN 09/29/17 19:00 10/04/17 18:59 Lidocaine HCl (Xylocaine 1% 30ml) 10 ml ONCE PRN INJ For thoracentesis 10/01/17 11:45 10/01/17 23:59 Nitroglycerin (Ntg) 0.4 mg Q5M PRN SL Prn Chest Pain 09/28/17 23:45 10/28/17 23:44 Nitroglycerin (Ntg) 1 patch Q24H TDERMAL 09/30/17 16:00 10/30/17 15:59 09/30/17 15:38 Ondansetron HCl (Zofran) 4 mg Q6H PRN IVP Nausea & Vomiting 09/28/17 23:45 10/28/17 23:44 Polyethylene Glycol (Miralax) 17 gm DAILYPRN PRN ORAL Constipation 09/28/17 23:45 10/28/17 23:44 Promethazine HCl/ Codeine (Phenergan with Codeine) 5 ml Q4H PRN ORAL For Cough 09/29/17 14:45 10/29/17 14:44 Tamsulosin HCl (Flomax) 0.4 mg BID ORAL 09/29/17 18:00 10/29/17 17:59 10/01/17 09:11 Temazepam (Restoril) 15 mg HSPRN PRN ORAL Insomnia 09/28/17 23:45 10/05/17 23:44 Theophylline (Mark-Dur) 100 mg EVERY 12 HOURS ORAL 09/29/17 21:00 10/29/17 20:59 10/01/17 09:11 Vancomycin HCl (Vanco rx to dose) 1 ea DAILY PRN MISC PER RX PROTOCOL 09/29/17 06:30 10/29/17 06:29 Vancomycin HCl 1 gm/Dextrose 275 ml @ 183.708 mls/hr Q12HR@0000,1200 IVPB 09/29/17 12:00 10/04/17 11:59 10/01/17 13:15 Allergies: Coded Allergies: No Known Allergies (Unverified , 09/28/17) ROS Limited/Unobtainable: No Constitutional: Reports: no symptoms HEENT: Reports: no symptoms Cardiovascular: Reports: no symptoms Respiratory: Reports: no symptoms Gastrointestinal/Abdominal: Reports: no symptoms Genitourinary: Reports: no symptoms Neurologic/Psychiatric: Reports: no symptoms Subjective 71 YO M admitted with left leg pain. Now cellulitis left leg and right pleural effusion. Cover for Int Jaspreet-Dr Moore. Await thoracentesis. Scheduled for debridement of left leg on Sat10/02/17. Objective Last Vital Signs Date Time Temp Pulse Resp B/P (MAP) Pulse Ox O2 Delivery O2 Flow Rate FiO2 10/01/17 16:00 72 10/01/17 16:00 98.2 18 166/87 95 Room Air 98.2 10/01/17 13:26 2.0 28 Laboratory Tests Test 09/30/17 22:45 10/01/17 08:10 Vancomycin Level Trough 14.8 ug/mL (5.0-12.0) H White Blood Count 11.2 K/UL (4.8-10.8) H Red Blood Count 4.22 M/UL (4.70-6.10) L Hemoglobin 11.5 G/DL (14.2-18.0) L Hematocrit 37.4 % (42.0-52.0) L Mean Corpuscular Volume 89 FL (80-99) Mean Corpuscular Hemoglobin 27.3 PG (27.0-31.0) Mean Corpuscular Hemoglobin Concent 30.8 G/DL (32.0-36.0) L Red Cell Distribution Width 14.4 % (11.6-14.8) Platelet Count 137 K/UL (150-450) L Mean Platelet Volume 8.9 FL (6.5-10.1) Neutrophils (%) (Auto) 81.9 % (45.0-75.0) H Lymphocytes (%) (Auto) 7.1 % (20.0-45.0) L Monocytes (%) (Auto) 9.7 % (1.0-10.0) Eosinophils (%) (Auto) 0.5 % (0.0-3.0) Basophils (%) (Auto) 0.7 % (0.0-2.0) Sodium Level 137 MMOL/L (136-145) Potassium Level 4.1 MMOL/L (3.5-5.1) Chloride Level 102 MMOL/L (98-107) Carbon Dioxide Level 32 MMOL/L (21-32) Anion Gap 3 mmol/L (5-15) L Blood Urea Nitrogen 22 mg/dL (7-18) H Creatinine 1.5 MG/DL (0.55-1.30) H Estimat Glomerular Filtration Rate mL/min (>60) Glucose Level 159 MG/DL (74-106) H Calcium Level 7.9 MG/DL (8.5-10.1) L Total Bilirubin 1.1 MG/DL (0.2-1.0) H Direct Bilirubin 0.4 MG/DL (0.0-0.3) H Aspartate Amino Transf (AST/SGOT) 7 U/L (15-37) L Alanine Aminotransferase (ALT/SGPT) 8 U/L (12-78) L Alkaline Phosphatase 58 U/L (46-116) Total Protein 6.9 G/DL (6.4-8.2) Albumin 1.8 G/DL (3.4-5.0) L Globulin 5.1 g/dL Albumin/Globulin Ratio 0.4 (1.0-2.7) L Microbiology Date/Time Source Procedure Growth Status 09/28/17 21:30 Blood Blood Culture - Preliminary NO GROWTH AFTER 48 HOURS Resulted 09/28/17 21:15 Blood Blood Culture - Preliminary Gram Negative Bacillus 1 Resulted 09/29/17 03:00 Wound Gram Stain - Final Resulted 09/29/17 03:00 Wound Culture - Preliminary Gram Negative Bacillus 1 Gram Negative Bacillus 2 Enterococcus Faecalis Resulted 09/28/17 21:30 Other Gram Stain - Final Resulted 09/28/17 21:30 Wound Culture - Preliminary Gram Negative Bacillus 1 Gram Negative Bacillus 2 Enterococcus Faecalis Resulted Intake and Output 09/30/17 10/01/17 19:00 07:00 Intake Total 500 ml 385 ml Output Total 200 ml Balance 300 ml 385 ml Intake Oral 500 ml IV Total 385 ml Output Urine Total 200 ml # Voids 5 Objective General Appearance: WD/WN, no apparent distress, alert EENT: PERRL/EOMI, normal ENT inspection, TMs normal Neck: non-tender, normal alignment, supple, normal inspection Cardiovascular: normal peripheral pulses, normal rate, regular rhythm, no gallop/murmur, no JVD Respiratory/Chest: decreased breath sounds, crackles/rales, rhonchi - bilaterally, expiratory wheezing Abdomen: normal bowel sounds, non tender, soft, no organomegaly, no mass Extremities: normal range of motion, non-tender Neurologic: sonography technologist II-XII grossly normal, no motor/sensory deficits Skin: normal pigmentation, warm/dry Assessment/Plan Problem List: (1) Pleural effusion, right Assessment & Plan: See pulmonary note. Await thoracentesis (2) Ascites (3) Cellulitis of left leg Assessment & Plan: see surgery and ID note. Continue vanco and cefepime. Debridement in OR 10/02/17-see surgery note. (4) Renal failure Assessment & Plan: See nephrology note. (5) Diabetes mellitus type II, uncontrolled Assessment & Plan: Cont novolog sliding scale. (6) Obesities, morbid (7) Malignant hypertension Assessment & Plan: Continue norvasc and clonidine (8) CHF exacerbation Assessment & Plan: See cardiology note. (9) Leukocytosis Assessment & Plan: Conitnue vanco and cefepime per ID Status: progressing Adilson Stephen MD October 01, 2017 17:39
[2017-10-01 20:00] VITALS: BP 175/85
[2017-10-02] VITALS (14 sets, daily range): BP systolic 130–180; BP diastolic 78–102
[2017-10-02] MEDS: Ipratropium 0.02% Inh Soln 2.5ml UD HHN SCH ×4 (01:00→19:00)
[2017-10-02] MEDS: Cefepime HCl 2 GM in D5W 110 ML IV SCH (01:52)
[2017-10-02] MEDS: NovoLOG Insulin Flexpen SUBQ SCH ×4 (06:30→20:05)
[2017-10-02] MEDS: cloNIDine 0.2mg Tab ORAL SCH (07:12)
[2017-10-02] MEDS: Levalbuterol Inh UD 1.25mg/0.5ml HHN SCH ×3 (07:30→19:00)
[2017-10-02 07:56] LABS: BASOPHILS % (AUTO) 1.1 % (0.0-2.0); EOSINOPHILS % (AUTO) 1.1 % (0.0-3.0); HEMATOCRIT 38.6 % (42.0-52.0); HEMOGLOBIN 11.5 G/DL (14.2-18.0); MEAN CORPUSCULAR VOLUME 90 FL (80-99); MONOCYTES % (AUTO) 12.4 % (1.0-10.0); NEUTROPHILS % (AUTO) 76.4 % (45.0-75.0); PLATELET COUNT 140 K/UL (150-450); RED BLOOD COUNT 4.31 M/UL (4.70-6.10); RED CELL DISTRIBUTION WIDTH 14.7 % (11.6-14.8); WHITE BLOOD COUNT 7.9 K/UL (4.8-10.8)
[2017-10-02 08:57] LABS: ALANINE AMINOTRANSFERASE 12 U/L (12-78); ALBUMIN 1.8 G/DL (3.4-5.0); ALBUMIN/GLOBULIN RATIO 0.3 (1.0-2.7); ALKALINE PHOSPHATASE 58 U/L (46-116); ANION GAP 3 mmol/L (5-15); ASPARTATE AMINO TRANSFERASE 9 U/L (15-37); BILIRUBIN,TOTAL 0.9 MG/DL (0.2-1.0); BLOOD UREA NITROGEN 24 mg/dL (7-18); CALCIUM 8.1 MG/DL (8.5-10.1); CARBON DIOXIDE 34 MMOL/L (21-32); CHLORIDE 103 MMOL/L (98-107); CREATININE 1.7 MG/DL (0.55-1.30); GAMMA GLUTAMYL TRANSPEPTIDASE 62 U/L (5-85); POTASSIUM 4.8 MMOL/L (3.5-5.1); SODIUM 139 MMOL/L (136-145)
[2017-10-02] MEDS ORDERED: NeoSporin Gu Irrig 1ml Amp IRRIG ONE (08:58)
[2017-10-02] MEDS ORDERED: Bacitracin 50000 Units Vial ONE (08:58)
[2017-10-02] MEDS ORDERED: Lidocaine 1% 10mg/ml/Epi 0.005mg/ml 30ml vial INJ ONE (08:58)
[2017-10-02] MEDS: Docusate 100mg cap ORAL SCH ×3 (09:00→17:23)
[2017-10-02] MEDS: Tamsulosin 0.4mg cap ORAL SCH ×2 (09:00→17:23)
[2017-10-02] MEDS: Theophylline ER 100mg ORAL SCH ×2 (09:00→20:13)
[2017-10-02] MEDS: Aspirin Baby 81mg ORAL SCH (09:00)
[2017-10-02] MEDS: Heparin 5000 units/ml inj SUBQ SCH ×2 (09:00→20:05)
--- NOTE | 2017-10-02 09:34 | Diagnostic Imaging Report ---
APPROVED REPORT CPT Code: 54158 Present Symptoms Comments: BILATERAL LEGS PAIN. BILATERAL: Imaging reveals a patent deep venous system bilaterally. There is no evidence of thrombus within the femoral, popliteal or tibial segments. The greater saphenous veins are also within normal limits. Doppler indicates normal spontaneous flow within these segments. Distal left tibial segments not imaged due to the bandage.
[2017-10-02] MEDS ORDERED: fentaNYL 100 mcg/2 mL IV ONE (09:41)
[2017-10-02] MEDS ORDERED: LR 1000ml ONE (10:00)
[2017-10-02] MEDS ORDERED: NS Irrig 1000ml IRRIG ONE (10:00)
[2017-10-02] MEDS ORDERED: Sterile Water Irrig 1000ml IRRIG ONE (10:00)
[2017-10-02] MEDS ORDERED: Metoclopramide 10mg/2ml Inj ONE (10:00)
--- NOTE | 2017-10-02 10:06 | Cardiology Progress Note ---
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 (11) Edema 1) Blood pressure control: Clonidine, Norvasc - increase doses 2) Echocardiogram reviewed - heart failure preserved ejection fraction ACC stage C NYHA class II 3) lasix to reduce lower extremity edema and filling pressures 4) serial troponin and BNP - not clinically impressive for ACS 5) Ensure medication compliance 6) Discussed cocaine and THC cessation 7) Serial CXR to monitor right effusion 8) Wound care 9) Continue antibiotics, WBC elevated 10) For thoracentesis 11) I/D by surgery today Subjective Cardiovascular: Reports: no symptoms Respiratory: Reports: no symptoms Gastrointestinal/Abdominal: Reports: no symptoms Genitourinary: Reports: no symptoms Subjective No acute events, plan for surgery today, WBC normal, no fevers, no shortness of breath Objective Last 24 Hour Vital Signs Date Time Temp Pulse Resp B/P (MAP) Pulse Ox O2 Delivery O2 Flow Rate FiO2 10/02/17 08:51 82 180/102 10/02/17 07:30 Nasal Cannula 2.0 28 10/02/17 07:30 Nasal Cannula 2.0 28 10/02/17 07:30 80 16 99 Nasal Cannula 2.0 28 10/02/17 07:30 Nasal Cannula 2.0 28 10/02/17 07:12 145/78 10/02/17 04:00 64 10/02/17 04:00 98.1 70 20 165/91 94 Room Air 98.1 10/02/17 02:00 Nasal Cannula 2.0 28 10/02/17 02:00 Nasal Cannula 2.0 28 10/02/17 00:00 97.7 70 20 145/78 94 Room Air 97.7 10/02/17 00:00 66 10/01/17 21:29 166/87 10/01/17 20:00 98.4 70 20 175/85 94 Room Air 98.4 10/01/17 20:00 73 10/01/17 19:30 Nasal Cannula 2.0 28 10/01/17 19:30 Nasal Cannula 2.0 28 /29/18 19:30 Nasal Cannula 2.0 10/01/17 19:30 Nasal Cannula 2.0 10/01/17 17:34 166/87 10/01/17 16:00 72 10/01/17 16:00 98.2 70 18 166/87 95 Room Air 98.2 10/01/17 14:49 169/87 10/01/17 13:26 Nasal Cannula 2.0 10/01/17 13:26 Nasal Cannula 2.0 10/01/17 13:26 Nasal Cannula 2.0 10/01/17 13:26 82 16 99 Nasal Cannula 2.0 10/01/17 12:00 68 10/01/17 12:00 98.2 69 18 169/87 94 Room Air 98.2 General Appearance: no apparent distress EENT: normal ENT inspection Neck: non-tender Rhythm: NSR Cardiovascular: normal rate Respiratory/Chest: chest wall non-tender, lungs clear Abdomen: normal bowel sounds Extremities: normal range of motion, moderate edema Intake and Output 10/01/17 10/02/17 19:00 07:00 Intake Total 360 ml Output Total 650 ml Balance -290 ml Intake Oral 360 ml Output Urine Total 650 ml # Voids 3 Laboratory Tests Test 10/02/17 07:09 White Blood Count 7.9 K/UL (4.8-10.8) Red Blood Count 4.31 M/UL (4.70-6.10) L Hemoglobin 11.5 G/DL (14.2-18.0) L Hematocrit 38.6 % (42.0-52.0) L Mean Corpuscular Volume 90 FL (80-99) Mean Corpuscular Hemoglobin 26.8 PG (27.0-31.0) L Mean Corpuscular Hemoglobin Concent 29.9 G/DL (32.0-36.0) L Red Cell Distribution Width 14.7 % (11.6-14.8) Platelet Count 140 K/UL (150-450) L Mean Platelet Volume 9.1 FL (6.5-10.1) Neutrophils (%) (Auto) 76.4 % (45.0-75.0) H Lymphocytes (%) (Auto) 9.0 % (20.0-45.0) L Monocytes (%) (Auto) 12.4 % (1.0-10.0) H Eosinophils (%) (Auto) 1.1 % (0.0-3.0) Basophils (%) (Auto) 1.1 % (0.0-2.0) Sodium Level 139 MMOL/L (136-145) Potassium Level 4.8 MMOL/L (3.5-5.1) Chloride Level 103 MMOL/L (98-107) Carbon Dioxide Level 34 MMOL/L (21-32) H Anion Gap 3 mmol/L (5-15) L Blood Urea Nitrogen 24 mg/dL (7-18) H Creatinine 1.7 MG/DL (0.55-1.30) H Estimat Glomerular Filtration Rate mL/min (>60) Glucose Level 179 MG/DL (74-106) H Calcium Level 8.1 MG/DL (8.5-10.1) L Phosphorus Level 3.0 MG/DL (2.5-4.9) Magnesium Level 2.0 MG/DL (1.8-2.4) Total Bilirubin 0.9 MG/DL (0.2-1.0) Gamma Glutamyl Transpeptidase 62 U/L (5-85) Aspartate Amino Transf (AST/SGOT) 9 U/L (15-37) L Alanine Aminotransferase (ALT/SGPT) 12 U/L (12-78) Alkaline Phosphatase 58 U/L (46-116) Troponin I 0.065 ng/mL (0.000-0.056) Total Protein 7.0 G/DL (6.4-8.2) Albumin 1.8 G/DL (3.4-5.0) L Globulin 5.2 g/dL Albumin/Globulin Ratio 0.3 (1.0-2.7) L Microbiology Date/Time Source Procedure Growth Status 09/30/17 17:32 Blood Blood Culture - Preliminary NO GROWTH AFTER 24 HOURS Resulted Kranthi Herrera M.D. October 02, 2017 10:06
[2017-10-02] MEDS ORDERED: Lidocaine 1% MPF 10mg/ml 5ml ONE (10:08)
[2017-10-02] MEDS ORDERED: Propofol 200mg/20ml IV ONE (10:08)
--- NOTE | 2017-10-02 10:11 | Nephrology Progress Note ---
Assessment/Plan Problem List: (1) Malignant hypertension (2) Cocaine abuse (3) CKD (chronic kidney disease) (4) CHF exacerbation Assessment Diabetic Nephropathy Gangrene of lower extremity CHF exacerbation Malignant hypertension Cocaine abuse Obesity (BMI 30.0-34.9) ACS (acute coronary syndrome) Plan due debridement today Adjust BP meds- add norvasc asa and nitro PRNs for BP 2D echo pending monitor renal parameters Subjective ROS Limited/Unobtainable: No Constitutional: Reports: malaise Objective Objective Last 24 Hour Vital Signs Date Time Temp Pulse Resp B/P (MAP) Pulse Ox O2 Delivery O2 Flow Rate FiO2 10/02/17 08:51 82 180/102 10/02/17 07:30 Nasal Cannula 2.0 28 10/02/17 07:30 Nasal Cannula 2.0 28 10/02/17 07:30 80 16 99 Nasal Cannula 2.0 28 10/02/17 07:30 Nasal Cannula 2.0 28 10/02/17 07:12 145/78 10/02/17 04:00 64 10/02/17 04:00 98.1 70 20 165/91 94 Room Air 98.1 10/02/17 02:00 Nasal Cannula 2.0 28 10/02/17 02:00 Nasal Cannula 2.0 28 10/02/17 00:00 97.7 70 20 145/78 94 Room Air 97.7 10/02/17 00:00 66 10/01/17 21:29 166/87 10/01/17 20:00 98.4 70 20 175/85 94 Room Air 98.4 10/01/17 20:00 73 10/01/17 19:30 Nasal Cannula 2.0 10/01/17 19:30 Nasal Cannula 2.0 28 10/01/17 19:30 Nasal Cannula 2.0 28 10/01/17 19:30 Nasal Cannula 2.0 28 10/01/17 17:34 166/87 10/01/17 16:00 72 10/01/17 16:00 98.2 70 18 166/87 95 Room Air 98.2 10/01/17 14:49 169/87 10/01/17 13:26 Nasal Cannula 2.0 28 10/01/17 13:26 Nasal Cannula 2.0 28 10/01/17 13:26 Nasal Cannula 2.0 28 10/01/17 13:26 82 16 99 Nasal Cannula 2.0 28 10/01/17 12:00 68 10/01/17 12:00 98.2 69 18 169/87 94 Room Air 98.2 Intake and Output 10/01/17 10/02/17 19:00 07:00 Intake Total 360 ml Output Total 650 ml Balance -290 ml Intake Oral 360 ml Output Urine Total 650 ml # Voids 3 Laboratory Tests 10/02/17 07:09: White Blood Count 7.9, Red Blood Count 4.31L, Hemoglobin 11.5L, Hematocrit 38.6L , Mean Corpuscular Volume 90, Mean Corpuscular Hemoglobin 26.8L, Mean Corpuscular Hemoglobin Concent 29.9L, Red Cell Distribution Width 14.7, Platelet Count 140L, Mean Platelet Volume 9.1, Neutrophils (%) (Auto) 76.4H, Lymphocytes (%) (Auto) 9.0L, Monocytes (%) (Auto) 12.4H, Eosinophils (%) (Auto) 1.1, Basophils (%) (Auto) 1.1, Sodium Level 139, Potassium Level 4.8, Chloride Level 103, Carbon Dioxide Level 34H, Anion Gap 3L, Blood Urea Nitrogen 24H, Creatinine 1.7H, Estimat Glomerular Filtration Rate , Glucose Level 179H, Calcium Level 8.1L, Phosphorus Level 3.0, Magnesium Level 2.0, Total Bilirubin 0.9, Gamma Glutamyl Transpeptidase 62, Aspartate Amino Transf (AST/SGOT) 9L, Alanine Aminotransferase (ALT/SGPT) 12, Alkaline Phosphatase 58, Troponin I 0.065H, Total Protein 7.0, Albumin 1.8L, Globulin 5.2, Albumin/Globulin Ratio 0.3L Height (Feet): 6 Height (Inches): 4.00 Weight (Pounds): 321 General Appearance: no apparent distress Objective PE not changed OMER YOU October 02, 2017 10:11
--- NOTE | 2017-10-02 10:46 | Immediate Post-Op Evaluation ---
Immediate Post-Op Evalulation Immediate Post-Op Evalulation Procedure: left leg debridement Date of Evaluation: October 02, 2017 Time of Evaluation: 10:45 IV Fluids: 500 Blood Pressure Systolic: 170 Blood Pressure Diastolic: 80 Pulse Rate: 74 Respiratory Rate: 14 O2 Sat by Pulse Oximetry: 100 Temperature (Fahrenheit): 97.4 Nausea: No Vomiting: No Complications none Patient Status: awake, reacts, patent Hydration Status: adequate Drug: none Yessy Bell CRNA October 02, 2017 10:45
[2017-10-02] MEDS: fentaNYL 100 mcg/2 mL IV PRN ×2 (11:00→11:30)
[2017-10-02] MEDS: Vancomycin 1gm/D5W 275ml IVPB SCH ×2 (12:18)
--- NOTE | 2017-10-02 12:36 | Pulmonology Progress Note ---
Assessment/Plan Problems: (1) Gram-negative bacteremia (2) Pleural effusion (3) Cardiomegaly (4) Cellulitis (5) Hypoalbuminemia (6) ATN (acute tubular necrosis) (7) Diabetes mellitus (8) Obesity (BMI 30.0-34.9) (9) Noncompliance (10) Anasarca (11) Cocaine abuse Assessment/Plan s/p debridement afebrile GNB, Klebsiella on abx, cefepime all consults reviewed Echo: EF 50% check cultures wound care optimize cardiac meds Subjective ROS Limited/Unobtainable: No HEENT: Repors: no symptoms Respiratory: Reports: no symptoms Allergies: Coded Allergies: No Known Allergies (Unverified , 09/28/17) Objective Last 24 Hour Vital Signs Date Time Temp Pulse Resp B/P (MAP) Pulse Ox O2 Delivery O2 Flow Rate FiO2 10/02/17 11:36 97.6 65 15 172/91 96 Nasal Cannula 3.0 97.6 10/02/17 11:30 67 16 175/89 96 Nasal Cannula 3.0 10/02/17 11:30 97.6 10/02/17 11:15 69 13 163/89 95 Nasal Cannula 63.0 10/02/17 11:00 70 14 175/91 96 Nasal Cannula 63.0 10/02/17 11:00 97.6 10/02/17 10:50 73 15 172/88 98 Nasal Cannula 3.0 10/02/17 10:46 207.3 74 14 100 10/02/17 10:40 77 16 175/85 98 Nasal Cannula 3.0 10/02/17 10:35 74 18 171/88 98 Simple Mask 6.0 10/02/17 10:30 97.6 73 14 130/86 98 Simple Mask 6.0 97.6 10/02/17 08:51 82 180/102 10/02/17 08:00 97.2 66 20 180/102 99 Nasal Cannula 2.0 97.2 10/02/17 07:30 Nasal Cannula 2.0 28 10/02/17 07:30 Nasal Cannula 2.0 28 10/02/17 07:30 80 16 99 Nasal Cannula 2.0 28 10/02/17 07:30 Nasal Cannula 2.0 28 10/02/17 07:12 145/78 10/02/17 04:00 64 10/02/17 04:00 98.1 70 20 165/91 94 Room Air 98.1 10/02/17 02:00 Nasal Cannula 2.0 28 10/02/17 02:00 Nasal Cannula 2.0 28 10/02/17 00:00 97.7 70 20 145/78 94 Room Air 97.7 10/02/17 00:00 66 10/01/17 21:29 166/87 10/01/17 20:00 98.4 70 20 175/85 94 Room Air 98.4 10/01/17 20:00 73 10/01/17 19:30 Nasal Cannula 2.0 28 10/01/17 19:30 Nasal Cannula 2.0 28 10/01/17 19:30 Nasal Cannula 2.0 28 10/01/17 19:30 Nasal Cannula 2.0 28 10/01/17 17:34 166/87 10/01/17 16:00 72 10/01/17 16:00 98.2 70 18 166/87 95 Room Air 98.2 10/01/17 14:49 169/87 10/01/17 13:26 Nasal Cannula 2.0 28 10/01/17 13:26 Nasal Cannula 2.0 28 10/01/17 13:26 Nasal Cannula 2.0 28 10/01/17 13:26 82 16 99 Nasal Cannula 2.0 28 Intake and Output 10/01/17 10/02/17 19:00 07:00 Intake Total 360 ml Output Total 650 ml Balance -290 ml Intake Oral 360 ml Output Urine Total 650 ml # Voids 3 General Appearance: WD/WN HEENT: normocephalic, atraumatic Respiratory/Chest: chest wall non-tender, lungs clear, crackles/rales Cardiovascular: normal peripheral pulses, normal rate Abdomen: normal bowel sounds, soft, non tender Genitourinary: normal external genitalia Extremities: no cyanosis 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, no motor/sensory deficits Microbiology Date/Time Source Procedure Growth Status 09/30/17 17:32 Blood Blood Culture - Preliminary NO GROWTH AFTER 24 HOURS Resulted Laboratory Tests 10/02/17 07:09: White Blood Count 7.9, Red Blood Count 4.31L, Hemoglobin 11.5L, Hematocrit 38.6L , Mean Corpuscular Volume 90, Mean Corpuscular Hemoglobin 26.8L, Mean Corpuscular Hemoglobin Concent 29.9L, Red Cell Distribution Width 14.7, Platelet Count 140L, Mean Platelet Volume 9.1, Neutrophils (%) (Auto) 76.4H, Lymphocytes (%) (Auto) 9.0L, Monocytes (%) (Auto) 12.4H, Eosinophils (%) (Auto) 1.1, Basophils (%) (Auto) 1.1, Sodium Level 139, Potassium Level 4.8, Chloride Level 103, Carbon Dioxide Level 34H, Anion Gap 3L, Blood Urea Nitrogen 24H, Creatinine 1.7H, Estimat Glomerular Filtration Rate , Glucose Level 179H, Calcium Level 8.1L, Phosphorus Level 3.0, Magnesium Level 2.0, Total Bilirubin 0.9, Gamma Glutamyl Transpeptidase 62, Aspartate Amino Transf (AST/SGOT) 9L, Alanine Aminotransferase (ALT/SGPT) 12, Alkaline Phosphatase 58, Troponin I 0.065H, Total Protein 7.0, Albumin 1.8L, Globulin 5.2, Albumin/Globulin Ratio 0.3L Current Medications Medications (Trade) Dose Ordered Sig/Lito Route PRN Reason Start Time Stop Time Status Last Admin Dose Admin Acetaminophen (Tylenol) 650 mg Q4H PRN ORAL fever 09/28/17 23:45 10/28/17 23:44 09/29/17 22:46 Amlodipine Besylate (Norvasc) 10 mg DAILY ORAL 10/01/17 09:00 10/31/17 08:59 10/02/17 08:51 Aspirin (ASA) 162 mg DAILY ORAL 09/30/17 15:45 10/30/17 15:44 10/01/17 09:11 Cefepime HCl 2 gm/ Dextrose 110 ml @ 220 mls/hr Q24H IV 10/01/17 02:00 10/08/17 01:59 10/02/17 01:52 Clonidine HCl (Catapres Tab) 0.3 mg EVERY 8 HOURS ORAL 10/02/17 22:00 11/01/17 21:59 Dextrose (Dextrose 50%) STAT PRN IV Hypoglycemia 09/28/17 23:45 10/28/17 23:44 Docusate Sodium (Colace) 100 mg THREE TIMES A DAY ORAL 09/29/17 13:00 10/29/17 12:59 10/01/17 17:34 Fentanyl Citrate (Sublimaze 100 mcg/2 mL) 25 mcg Q10M PRN IV Moderate Pain (Pain Scale 4-6) 10/02/17 10:45 10/02/17 23:59 10/02/17 11:30 Heparin Sodium (Porcine) (Heparin 5000 units/ml) 5,000 units EVERY 12 HOURS SUBQ 09/29/17 09:00 10/29/17 08:59 10/01/17 21:30 Hydralazine HCl (Apresoline) 25 mg Q4H PRN ORAL bp over 160 syst 09/29/17 10:15 10/29/17 10:14 09/29/17 15:38 Insulin Aspart (NovoLOG) BEFORE MEALS AND HS SUBQ 09/29/17 06:30 10/29/17 06:29 10/01/17 21:00 Ipratropium Collins (Atrovent) 500 mcg Q4H PRN HHN Shortness of Breath 09/29/17 16:15 10/03/17 23:44 Ipratropium Collins (Atrovent) 500 mcg Q6HRT HHN 09/29/17 19:00 10/04/17 18:59 Lansoprazole (Prevacid) 30 mg BID ORAL 09/29/17 18:00 10/29/17 17:59 10/01/17 17:34 Levalbuterol HCl (Xopenex) 1.25 mg TIDRT HHN 09/29/17 19:00 10/04/17 18:59 Nitroglycerin (Ntg) 0.4 mg Q5M PRN SL Prn Chest Pain 09/28/17 23:45 10/28/17 23:44 Nitroglycerin (Ntg) 1 patch Q24H TDERMAL 09/30/17 16:00 10/30/17 15:59 10/01/17 17:34 Ondansetron HCl (Zofran) 4 mg Q1H PRN IVP Nausea & Vomiting 10/02/17 10:45 10/02/17 23:59 Ondansetron HCl (Zofran) 4 mg Q6H PRN IVP Nausea & Vomiting 09/28/17 23:45 10/28/17 23:44 Polyethylene Glycol (Miralax) 17 gm DAILYPRN PRN ORAL Constipation 09/28/17 23:45 10/28/17 23:44 Promethazine HCl/ Codeine (Phenergan with Codeine) 5 ml Q4H PRN ORAL For Cough 09/29/17 14:45 10/29/17 14:44 Tamsulosin HCl (Flomax) 0.4 mg BID ORAL 09/29/17 18:00 10/29/17 17:59 10/01/17 17:32 Temazepam (Restoril) 15 mg HSPRN PRN ORAL Insomnia 09/28/17 23:45 10/05/17 23:44 Theophylline (Mark-Dur) 100 mg EVERY 12 HOURS ORAL 09/29/17 21:00 10/29/17 20:59 10/01/17 21:28 Vancomycin HCl (Vanco rx to dose) 1 ea DAILY PRN MISC PER RX PROTOCOL 09/29/17 06:30 10/29/17 06:29 Vancomycin HCl 1 gm/Dextrose 275 ml @ 183.708 mls/hr Q12HR@0000,1200 IVPB 09/29/17 12:00 10/04/17 11:59 10/02/17 12:18 Hoang Gipson MD October 02, 2017 12:36
--- NOTE | 2017-10-02 14:31 | Brief Operative Note ---
Immediate Post Operative Note Operative Note Pre-op Diagnosis: left leg wound with cellulitis, gangrene, and gas in subcutaneous tissues Procedure: excisional debridement of left lower extremity Post-op Diagnosis: same as pre-op Surgeon: anita Anesthesiologist: Yessy Bell Anesthesia: general Specimen: yes Complications: none Condition: stable Fluids: see records Estimated Blood Loss: volume - 25 Drains: wound vac Implant(s) used?: No Mannie Macedo October 02, 2017 14:31
--- NOTE | 2017-10-02 14:34 | 48 Hour Post Anesthesia Eval ---
Post Anesthesia Evaluation Procedure: left leg debridement Date of Evaluation: October 02, 2017 Time of Evaluation: 14:33 Blood Pressure Systolic: 178 0: 96 Pulse Rate: 71 Respiratory Rate: 14 Temperature (Fahrenheit): 97.4 O2 Sat by Pulse Oximetry: 98 Airway: patent Nausea: No Vomiting: No Hydration Status: adequate Cardiopulmonary Status: stable Mental Status/LOC: patient returned to baseline Follow-up Care/Observations: na Post-Anesthesia Complications: none Follow-up care needed: N/A Yessy Blel CRNA October 02, 2017 14:34
--- NOTE | 2017-10-02 14:37 | Anethesia Preoperative Eval ---
Anesthesia Pre-op PMH/ROS General Date of Evaluation: October 02, 2017 Time of Evaluation: 09:40 Anesthesiologist: delia ASA Score: ASA 3 Mallampati Score Class I : Soft palate, uvula, fauces, pillars visible Class II: Soft palate, uvula, fauces visible Class III: Soft palate, base of uvula visible Class IV: Only hard plate visible Mallampati Classification: Class III Surgeon: Tigist Diagnosis: gangrene Surgical Procedure: wound debridment Anesthesia History: none Family History: no anesthesia problems Allergies: Coded Allergies: No Known Allergies (Unverified , 09/28/17) Medications: see eMAR Past Medical History Cardiovascular: Reports: HTN, CAD, other - chf Pulmonary: Reports: DANK, other - pleural effusiion; Denies: asthma, COPD Gastrointestinal/Genitourinary: Reports: CRI Neurologic/Psychiatric: Denies: dementia, CVA, depression/anxiety, TIA, other Endocrine: Reports: DM; Denies: hypothyroidism, steroids, other HEENT: Denies: cataract (L), cataract (R), glaucoma, UTE (L), UTE (R), other Hematology/Immune: Reports: anemia; Denies: DVT, bleeding disorder, other Musculoskeletal/Integumentary: Denies: OA, RA, DJD, DDD, edema, other Other: obesity PMH Narrative: (1) Gram-negative bacteremia (2) Pleural effusion (3) Cardiomegaly (4) Cellulitis (5) Hypoalbuminemia (6) ATN (acute tubular necrosis) (7) Diabetes mellitus (8) Obesity (BMI 30.0-34.9) (9) Noncompliance (10) Anasarca (11) Cocaine abuse Anesthesia Pre-op Phys. Exam Physician Exam Last Vital Signs Date Time Temp Pulse Resp B/P (MAP) Pulse Ox O2 Delivery O2 Flow Rate FiO2 10/02/17 14:15 97.6 10/02/17 13:25 Nasal Cannula 2.0 28 10/02/17 13:00 71 15 178/96 98 Constitutional: NAD Neurologic: CN 2-12 intact Cardiovascular: RRR Respiratory: CTA Gastrointestinal: S/NT/ND Airway Exam Mallampati Classification 3 Mallampati Score: Class III MO: limited Neck: thick TMD: 1fb ROM: limited Teeth: missing, broken, loose Dentures: no upper, no lower Anesthesia Pre-op A/P Labs Hematology Test 10/02/17 07:09 White Blood Count 7.9 K/UL (4.8-10.8) Red Blood Count 4.31 M/UL (4.70-6.10) L Hemoglobin 11.5 G/DL (14.2-18.0) L Hematocrit 38.6 % (42.0-52.0) L Mean Corpuscular Volume 90 FL (80-99) Mean Corpuscular Hemoglobin 26.8 PG (27.0-31.0) L Mean Corpuscular Hemoglobin Concent 29.9 G/DL (32.0-36.0) L Red Cell Distribution Width 14.7 % (11.6-14.8) Platelet Count 140 K/UL (150-450) L Mean Platelet Volume 9.1 FL (6.5-10.1) Neutrophils (%) (Auto) 76.4 % (45.0-75.0) H Lymphocytes (%) (Auto) 9.0 % (20.0-45.0) L Monocytes (%) (Auto) 12.4 % (1.0-10.0) H Eosinophils (%) (Auto) 1.1 % (0.0-3.0) Basophils (%) (Auto) 1.1 % (0.0-2.0) Chemistry Test 10/02/17 07:09 Sodium Level 139 MMOL/L (136-145) Potassium Level 4.8 MMOL/L (3.5-5.1) Chloride Level 103 MMOL/L (98-107) Carbon Dioxide Level 34 MMOL/L (21-32) H Anion Gap 3 mmol/L (5-15) L Blood Urea Nitrogen 24 mg/dL (7-18) H Creatinine 1.7 MG/DL (0.55-1.30) H Estimat Glomerular Filtration Rate mL/min (>60) Glucose Level 179 MG/DL (74-106) H Calcium Level 8.1 MG/DL (8.5-10.1) L Phosphorus Level 3.0 MG/DL (2.5-4.9) Magnesium Level 2.0 MG/DL (1.8-2.4) Total Bilirubin 0.9 MG/DL (0.2-1.0) Gamma Glutamyl Transpeptidase 62 U/L (5-85) Aspartate Amino Transf (AST/SGOT) 9 U/L (15-37) L Alanine Aminotransferase (ALT/SGPT) 12 U/L (12-78) Alkaline Phosphatase 58 U/L (46-116) Troponin I 0.065 ng/mL (0.000-0.056) Total Protein 7.0 G/DL (6.4-8.2) Albumin 1.8 G/DL (3.4-5.0) L Globulin 5.2 g/dL Albumin/Globulin Ratio 0.3 (1.0-2.7) L Studies Pre-op Studies: EKG - r Risk Assessment & Plan Plan: general Status Change Before Surgery: No Pre-Antibiotics Drug: Yessy Fitzgerald CRNA October 02, 2017 14:37
--- NOTE | 2017-10-02 14:53 | Infectious Diseases Prog Note ---
Assessment/Plan Assessment/Plan Assessment: SEpsis (SP) 2ry to L wound infection, Gram neg bacteremia -09/28 Bcx 1/4 K. oxytoca (R amp, otherwise S); 09/30 NTD x2 L anterior leg chronic wound and surrounding cellulitis -s/p I+D 10/02 and wound vac placement -no infection tracking beyond subcutaneous tissue -CT L tibia/fibula: Cellulitis and ulceration in the pretibial aspect of the left lower extremity. The presence of gas likely associated with the presence of a large ulceration in this location. Gas-forming organism is the obvious concern and not excludable. No drainable abscess identified. No obvious intramuscular fascial thickening or fluid accumulation. -xray tibia/fibula: There is gas in the soft tissues. This can be traumatic , iatrogenic, or infectious. No acute fracture or suspicious osseous erosions. ; gas likely from incision made in ED- tissue seemed viable upon superificial exploration per ED physician and surgeon. -wound cx: K. pneumonia (R amp, otherwise S), E. fecalis (maldonado S); 2nd wound cx : K. pna (R amp, otherwise S) #1 and #2 PsA (maldonado S), E. fecalis (maldonado S) K, oxytoca bacteremia- 2ry to above -Abd US: Ascites. Right pleural effusion. Left kidney not identified. Access to the area is limited. It is uncertain whether this is technical or whether there is an absent or small left kidney. Gallbladder contracted but otherwise grossly unremarkable.Otherwise negative within the limits noted above. Fever, resolved Leukocytosis; resolved -u/a wbc 10-15, nit neg, leuk +1 Hypertensive urgency,SP TK, improving Dm2 w/ nephropathy CHF Obesity HTN marihuana and cocaine use non compliance Plan: -D/c empiric IV Vanco #5 -Switch Cefepime #5 and PO flagyl #4 to Zosyn to simplify abx coverage for PsA, Klebsiella and enterococcus -will treat for 2 weeks; upon discharge, can be transitioned to PO Cipro and Augmentin (renally dose) -f/u repeat 2 sets of Bcx -f/u OR cx -Monitor CBC/BMP, temperatures -wound care Thank you for this consultation. Will continue to follow along with you. Discussed with RN and Dr howard. Subjective Allergies: Coded Allergies: No Known Allergies (Unverified , 09/28/17) Subjective afebrile in >48 hrs leukocytosis resolved repeat Bcx NTD s/p I+D today Objective Vital Signs Last 24 Hour Vital Signs Date Time Temp Pulse Resp B/P (MAP) Pulse Ox O2 Delivery O2 Flow Rate FiO2 10/02/17 14:34 207.3 71 14 98 10/02/17 14:15 97.6 10/02/17 13:25 Nasal Cannula 2.0 28 10/02/17 13:25 Nasal Cannula 2.0 28 10/02/17 13:25 Nasal Cannula 2.0 28 10/02/17 13:25 Nasal Cannula 2.0 28 10/02/17 13:16 97.6 10/02/17 13:00 97.7 71 15 178/96 98 Room Air 97.7 10/02/17 12:00 75 10/02/17 11:36 97.6 65 15 172/91 96 Nasal Cannula 3.0 97.6 10/02/17 11:30 67 16 175/89 96 Nasal Cannula 3.0 10/02/17 11:30 97.6 10/02/17 11:15 69 13 163/89 95 Nasal Cannula 63.0 10/02/17 11:00 70 14 175/91 96 Nasal Cannula 63.0 10/02/17 11:00 97.6 10/02/17 10:50 73 15 172/88 98 Nasal Cannula 3.0 10/02/17 10:46 207.3 74 14 100 10/02/17 10:40 77 16 175/85 98 Nasal Cannula 3.0 10/02/17 10:35 74 18 171/88 98 Simple Mask 6.0 10/02/17 10:30 97.6 73 14 130/86 98 Simple Mask 6.0 97.6 10/02/17 08:51 82 180/102 10/02/17 08:00 97.2 66 20 180/102 99 Nasal Cannula 2.0 97.2 10/02/17 07:30 Nasal Cannula 2.0 10/02/17 07:30 Nasal Cannula 2.0 28 10/02/17 07:30 80 16 99 Nasal Cannula 2.0 28 10/02/17 07:30 Nasal Cannula 2.0 28 10/02/17 07:12 145/78 10/02/17 04:00 64 10/02/17 04:00 98.1 70 20 165/91 94 Room Air 98.1 10/02/17 02:00 Nasal Cannula 2.0 28 10/02/17 02:00 Nasal Cannula 2.0 28 10/02/17 00:00 97.7 70 20 145/78 94 Room Air 97.7 10/02/17 00:00 66 10/01/17 21:29 166/87 10/01/17 20:00 98.4 70 20 175/85 94 Room Air 98.4 10/01/17 20:00 73 10/01/17 19:30 Nasal Cannula 2.0 28 10/01/17 19:30 Nasal Cannula 2.0 28 10/01/17 19:30 Nasal Cannula 2.0 28 10/01/17 19:30 Nasal Cannula 2.0 28 10/01/17 17:34 166/87 10/01/17 16:00 72 10/01/17 16:00 98.2 70 18 166/87 95 Room Air 98.2 10/01/17 14:49 169/87 Height (Feet): 6 Height (Inches): 4.00 Weight (Pounds): 321 Objective General Appearance: no apparent distress, alert Lines, tubes and drains: peripheral HEENT: normocephalic, mucous membranes moist Neck: supple Respiratory/Chest: lungs clear, normal breath sounds, no respiratory distress, no accessory muscle use Cardiovascular/Chest: normal rate Abdomen: normal bowel sounds, non tender, soft, no organomegaly, no mass Extremities: inflammation, slow capillary refill, moderate edema, other - see wound care photos for details of size and wounds. left anterior mid leg with large area of eschar and some gangrene, cellulitis, edema from foot to thigh. can palpate faint pulses through edema Neurologic: alert, oriented x 3, responsive Microbiology Date/Time Source Procedure Growth Status 09/30/17 17:32 Blood Blood Culture - Preliminary NO GROWTH AFTER 24 HOURS Resulted Laboratory Tests Test 10/02/17 07:09 White Blood Count 7.9 K/UL (4.8-10.8) Red Blood Count 4.31 M/UL (4.70-6.10) L Hemoglobin 11.5 G/DL (14.2-18.0) L Hematocrit 38.6 % (42.0-52.0) L Mean Corpuscular Volume 90 FL (80-99) Mean Corpuscular Hemoglobin 26.8 PG (27.0-31.0) L Mean Corpuscular Hemoglobin Concent 29.9 G/DL (32.0-36.0) L Red Cell Distribution Width 14.7 % (11.6-14.8) Platelet Count 140 K/UL (150-450) L Mean Platelet Volume 9.1 FL (6.5-10.1) Neutrophils (%) (Auto) 76.4 % (45.0-75.0) H Lymphocytes (%) (Auto) 9.0 % (20.0-45.0) L Monocytes (%) (Auto) 12.4 % (1.0-10.0) H Eosinophils (%) (Auto) 1.1 % (0.0-3.0) Basophils (%) (Auto) 1.1 % (0.0-2.0) Sodium Level 139 MMOL/L (136-145) Potassium Level 4.8 MMOL/L (3.5-5.1) Chloride Level 103 MMOL/L (98-107) Carbon Dioxide Level 34 MMOL/L (21-32) H Anion Gap 3 mmol/L (5-15) L Blood Urea Nitrogen 24 mg/dL (7-18) H Creatinine 1.7 MG/DL (0.55-1.30) H Estimat Glomerular Filtration Rate mL/min (>60) Glucose Level 179 MG/DL (74-106) H Calcium Level 8.1 MG/DL (8.5-10.1) L Phosphorus Level 3.0 MG/DL (2.5-4.9) Magnesium Level 2.0 MG/DL (1.8-2.4) Total Bilirubin 0.9 MG/DL (0.2-1.0) Gamma Glutamyl Transpeptidase 62 U/L (5-85) Aspartate Amino Transf (AST/SGOT) 9 U/L (15-37) L Alanine Aminotransferase (ALT/SGPT) 12 U/L (12-78) Alkaline Phosphatase 58 U/L (46-116) Troponin I 0.065 ng/mL (0.000-0.056) Total Protein 7.0 G/DL (6.4-8.2) Albumin 1.8 G/DL (3.4-5.0) L Globulin 5.2 g/dL Albumin/Globulin Ratio 0.3 (1.0-2.7) L Current Medications Medications (Trade) Dose Ordered Sig/Lito Route PRN Reason Start Time Stop Time Status Last Admin Dose Admin Acetaminophen (Tylenol) 650 mg Q4H PRN ORAL fever 09/28/17 23:45 10/28/17 23:44 10/02/17 13:16 Amlodipine Besylate (Norvasc) 10 mg DAILY ORAL 10/01/17 09:00 10/31/17 08:59 10/02/17 08:51 Aspirin (ASA) 162 mg DAILY ORAL 09/30/17 15:45 10/30/17 15:44 10/01/17 09:11 Cefepime HCl 2 gm/ Dextrose 110 ml @ 220 mls/hr Q24H IV 10/01/17 02:00 10/08/17 01:59 10/02/17 01:52 Clonidine HCl (Catapres Tab) 0.3 mg EVERY 8 HOURS ORAL 10/02/17 22:00 11/01/17 21:59 Dextrose (Dextrose 50%) STAT PRN IV Hypoglycemia 09/28/17 23:45 10/28/17 23:44 Docusate Sodium (Colace) 100 mg THREE TIMES A DAY ORAL 09/29/17 13:00 10/29/17 12:59 10/01/17 17:34 Fentanyl Citrate (Sublimaze 100 mcg/2 mL) 25 mcg Q10M PRN IV Moderate Pain (Pain Scale 4-6) 10/02/17 10:45 10/02/17 23:59 10/02/17 11:30 Heparin Sodium (Porcine) (Heparin 5000 units/ml) 5,000 units EVERY 12 HOURS SUBQ 09/29/17 09:00 10/29/17 08:59 10/01/17 21:30 Hydralazine HCl (Apresoline) 25 mg Q4H PRN ORAL bp over 160 syst 09/29/17 10:15 10/29/17 10:14 09/29/17 15:38 Insulin Aspart (NovoLOG) BEFORE MEALS AND HS SUBQ 09/29/17 06:30 10/29/17 06:29 10/01/17 21:00 Ipratropium [place] (Atrovent) 500 mcg Q4H PRN HHN Shortness of Breath 09/29/17 16:15 10/03/17 23:44 Ipratropium [place]ou (Atrovent) 500 mcg Q6HRT HHN 09/29/17 19:00 10/04/17 18:59 Lansoprazole (Prevacid) 30 mg BID ORAL 09/29/17 18:00 10/29/17 17:59 10/01/17 17:34 Levalbuterol HCl (Xopenex) 1.25 mg TIDRT HHN 09/29/17 19:00 10/04/17 18:59 Nitroglycerin (Ntg) 0.4 mg Q5M PRN SL Prn Chest Pain 09/28/17 23:45 10/28/17 23:44 Nitroglycerin (Ntg) 1 patch Q24H TDERMAL 09/30/17 16:00 10/30/17 15:59 10/01/17 17:34 Ondansetron HCl (Zofran) 4 mg Q1H PRN IVP Nausea & Vomiting 10/02/17 10:45 10/02/17 23:59 Ondansetron HCl (Zofran) 4 mg Q6H PRN IVP Nausea & Vomiting 09/28/17 23:45 10/28/17 23:44 Polyethylene Glycol (Miralax) 17 gm DAILYPRN PRN ORAL Constipation 09/28/17 23:45 10/28/17 23:44 Promethazine HCl/ Codeine (Phenergan with Codeine) 5 ml Q4H PRN ORAL For Cough 09/29/17 14:45 10/29/17 14:44 Tamsulosin HCl (Flomax) 0.4 mg BID ORAL 09/29/17 18:00 10/29/17 17:59 10/01/17 17:32 Temazepam (Restoril) 15 mg HSPRN PRN ORAL Insomnia 09/28/17 23:45 10/05/17 23:44 Theophylline (Mark-Dur) 100 mg EVERY 12 HOURS ORAL 09/29/17 21:00 10/29/17 20:59 10/01/17 21:28 Vancomycin HCl (Vanco rx to dose) 1 ea DAILY PRN MISC PER RX PROTOCOL 09/29/17 06:30 10/29/17 06:29 Vancomycin HCl 1 gm/Dextrose 275 ml @ 183.708 mls/hr Q12HR@0000,1200 IVPB 09/29/17 12:00 10/04/17 11:59 10/02/17 12:18 Consuelo Baeza M.D. October 02, 2017 14:53
[2017-10-02] MEDS: Nitroglycerin Patch 0.4mg TDERMAL SCH (15:03)
[2017-10-02] MEDS: Morphine Sulfate 4mg/ml Inj IVP PRN ×2 (15:04→20:03)
[2017-10-02] MEDS: HydrALAZINE 25mg tab ORAL PRN (17:23)
--- NOTE | 2017-10-02 19:54 | Internal Med Progress Note ---
Subjective Date of Service: October 02, 2017 Physician Name Adilson Stephen Attending Physician Hal Moore MD Current Medications Medications (Trade) Dose Ordered Sig/Lito Route PRN Reason Start Time Stop Time Status Last Admin Dose Admin Acetaminophen (Tylenol) 650 mg Q4H PRN ORAL fever 09/28/17 23:45 10/28/17 23:44 10/02/17 13:16 Amlodipine Besylate (Norvasc) 10 mg DAILY ORAL 10/01/17 09:00 10/31/17 08:59 10/02/17 08:51 Aspirin (ASA) 162 mg DAILY ORAL 09/30/17 15:45 10/30/17 15:44 10/01/17 09:11 Clonidine HCl (Catapres Tab) 0.3 mg EVERY 8 HOURS ORAL 10/02/17 22:00 11/01/17 21:59 Dextrose (Dextrose 50%) STAT PRN IV Hypoglycemia 09/28/17 23:45 10/28/17 23:44 Docusate Sodium (Colace) 100 mg THREE TIMES A DAY ORAL 09/29/17 13:00 10/29/17 12:59 10/02/17 17:23 Fentanyl Citrate (Sublimaze 100 mcg/2 mL) 25 mcg Q10M PRN IV Moderate Pain (Pain Scale 4-6) 10/02/17 10:45 10/02/17 23:59 10/02/17 11:30 Heparin Sodium (Porcine) (Heparin 5000 units/ml) 5,000 units EVERY 12 HOURS SUBQ 09/29/17 09:00 10/29/17 08:59 10/01/17 21:30 Hydralazine HCl (Apresoline) 25 mg Q4H PRN ORAL bp over 160 syst 09/29/17 10:15 10/29/17 10:14 10/02/17 17:23 Insulin Aspart (NovoLOG) BEFORE MEALS AND HS SUBQ 09/29/17 06:30 10/29/17 06:29 10/02/17 16:04 Ipratropium Kelly (Atrovent) 500 mcg Q4H PRN HHN Shortness of Breath 09/29/17 16:15 10/03/17 23:44 Ipratropium Kelly (Atrovent) 500 mcg Q6HRT HHN 09/29/17 19:00 10/04/17 18:59 Lansoprazole (Prevacid) 30 mg BID ORAL 09/29/17 18:00 10/29/17 17:59 10/02/17 17:23 Levalbuterol HCl (Xopenex) 1.25 mg TIDRT HHN 09/29/17 19:00 10/04/17 18:59 Morphine Sulfate (Morphine Sulfate) 4 mg Q4H PRN IVP For Pain 10/02/17 14:45 10/09/17 14:44 10/02/17 15:04 Nitroglycerin (Ntg) 0.4 mg Q5M PRN SL Prn Chest Pain 09/28/17 23:45 10/28/17 23:44 Nitroglycerin (Ntg) 1 patch Q24H TDERMAL 09/30/17 16:00 10/30/17 15:59 10/02/17 15:03 Ondansetron HCl (Zofran) 4 mg Q1H PRN IVP Nausea & Vomiting 10/02/17 10:45 10/02/17 23:59 Ondansetron HCl (Zofran) 4 mg Q6H PRN IVP Nausea & Vomiting 09/28/17 23:45 10/28/17 23:44 Piperacillin Sod/ Tazobactam Sod 3.375 gm/Sodium Chloride 110 ml @ 27.5 mls/hr EVERY 8 HOURS IVPB 10/02/17 22:00 10/07/17 21:59 Polyethylene Glycol (Miralax) 17 gm DAILYPRN PRN ORAL Constipation 09/28/17 23:45 10/28/17 23:44 Promethazine HCl/ Codeine (Phenergan with Codeine) 5 ml Q4H PRN ORAL For Cough 09/29/17 14:45 10/29/17 14:44 Tamsulosin HCl (Flomax) 0.4 mg BID ORAL 09/29/17 18:00 10/29/17 17:59 10/02/17 17:23 Temazepam (Restoril) 15 mg HSPRN PRN ORAL Insomnia 09/28/17 23:45 10/05/17 23:44 Theophylline (Mark-Dur) 100 mg EVERY 12 HOURS ORAL 09/29/17 21:00 10/29/17 20:59 10/01/17 21:28 Allergies: Coded Allergies: No Known Allergies (Unverified , 09/28/17) ROS Limited/Unobtainable: No Constitutional: Reports: no symptoms HEENT: Reports: no symptoms Cardiovascular: Reports: no symptoms Respiratory: Reports: no symptoms Gastrointestinal/Abdominal: Reports: no symptoms Genitourinary: Reports: no symptoms Neurologic/Psychiatric: Reports: no symptoms Subjective 71 YO M admitted with left leg pain. Now cellulitis left leg and right pleural effusion. Cover for Int Jaspreet-Dr Moore. Await thoracentesis. S/P debridement of left leg on Sat10/02/17. Objective Last Vital Signs Date Time Temp Pulse Resp B/P (MAP) Pulse Ox O2 Delivery O2 Flow Rate FiO2 10/02/17 17:23 173/88 10/02/17 16:00 72 10/02/17 16:00 98.0 20 98 Nasal Cannula 2.0 98.0 10/02/17 13:25 28 Laboratory Tests Test 10/02/17 07:09 White Blood Count 7.9 K/UL (4.8-10.8) Red Blood Count 4.31 M/UL (4.70-6.10) L Hemoglobin 11.5 G/DL (14.2-18.0) L Hematocrit 38.6 % (42.0-52.0) L Mean Corpuscular Volume 90 FL (80-99) Mean Corpuscular Hemoglobin 26.8 PG (27.0-31.0) L Mean Corpuscular Hemoglobin Concent 29.9 G/DL (32.0-36.0) L Red Cell Distribution Width 14.7 % (11.6-14.8) Platelet Count 140 K/UL (150-450) L Mean Platelet Volume 9.1 FL (6.5-10.1) Neutrophils (%) (Auto) 76.4 % (45.0-75.0) H Lymphocytes (%) (Auto) 9.0 % (20.0-45.0) L Monocytes (%) (Auto) 12.4 % (1.0-10.0) H Eosinophils (%) (Auto) 1.1 % (0.0-3.0) Basophils (%) (Auto) 1.1 % (0.0-2.0) Sodium Level 139 MMOL/L (136-145) Potassium Level 4.8 MMOL/L (3.5-5.1) Chloride Level 103 MMOL/L (98-107) Carbon Dioxide Level 34 MMOL/L (21-32) H Anion Gap 3 mmol/L (5-15) L Blood Urea Nitrogen 24 mg/dL (7-18) H Creatinine 1.7 MG/DL (0.55-1.30) H Estimat Glomerular Filtration Rate mL/min (>60) Glucose Level 179 MG/DL (74-106) H Calcium Level 8.1 MG/DL (8.5-10.1) L Phosphorus Level 3.0 MG/DL (2.5-4.9) Magnesium Level 2.0 MG/DL (1.8-2.4) Total Bilirubin 0.9 MG/DL (0.2-1.0) Gamma Glutamyl Transpeptidase 62 U/L (5-85) Aspartate Amino Transf (AST/SGOT) 9 U/L (15-37) L Alanine Aminotransferase (ALT/SGPT) 12 U/L (12-78) Alkaline Phosphatase 58 U/L (46-116) Troponin I 0.065 ng/mL (0.000-0.056) Total Protein 7.0 G/DL (6.4-8.2) Albumin 1.8 G/DL (3.4-5.0) L Globulin 5.2 g/dL Albumin/Globulin Ratio 0.3 (1.0-2.7) L Microbiology Date/Time Source Procedure Growth Status 09/30/17 17:32 Blood Blood Culture - Preliminary NO GROWTH AFTER 24 HOURS Resulted Intake and Output 10/01/17 10/02/17 19:00 07:00 Intake Total 360 ml Output Total 650 ml Balance -290 ml Intake Oral 360 ml Output Urine Total 650 ml # Voids 3 Objective General Appearance: WD/WN, no apparent distress, alert EENT: PERRL/EOMI, normal ENT inspection, TMs normal Neck: non-tender, normal alignment, supple, normal inspection Cardiovascular: normal peripheral pulses, normal rate, regular rhythm, no gallop/murmur, no JVD Respiratory/Chest: decreased breath sounds, crackles/rales, rhonchi - bilaterally, expiratory wheezing Abdomen: normal bowel sounds, non tender, soft, no organomegaly, no mass Extremities: normal range of motion, non-tender Neurologic: overlocker II-XII grossly normal, no motor/sensory deficits Skin: normal pigmentation, warm/dry Assessment/Plan Problem List: (1) Pleural effusion, right Assessment & Plan: See pulmonary note. Await thoracentesis (2) Ascites (3) Cellulitis of left leg Assessment & Plan: see surgery and ID note. Continue zosyn. S/P Debridement in OR 10/02/17-see surgery note. (4) Renal failure Assessment & Plan: See nephrology note. (5) Diabetes mellitus type II, uncontrolled Assessment & Plan: Cont novolog sliding scale. (6) Obesities, morbid (7) Malignant hypertension Assessment & Plan: Continue norvasc and clonidine (8) CHF exacerbation Assessment & Plan: See cardiology note. (9) Leukocytosis Assessment & Plan: Sepsis; continue zosyn per ID (10) Sepsis Assessment & Plan: Klebsiella Oxytoca. Continue zosyn per ID Status: not improved Adilson Stephen MD October 02, 2017 19:54
[2017-10-02] MEDS ORDERED: Tubing IV Secondary IV ONE (19:59)
[2017-10-02] MEDS: Piperacillin/Tazobactam 3.375 GM in NS 110 ML IVPB SCH (21:00)
--- NOTE | 2017-10-02 22:41 | General Progress Note ---
Assessment/Plan Assessment/Plan cocaine abuse depression lexapro 10mg qam provided ro/st Subjective Date patient seen: October 02, 2017 Neurologic/Psychiatric: Reports: anxiety, depressed, emotional problems Allergies: Coded Allergies: No Known Allergies (Unverified , 09/28/17) Subjective the pt c/o fatigue and depressed mood Objective Last 24 Hour Vital Signs Date Time Temp Pulse Resp B/P (MAP) Pulse Ox O2 Delivery O2 Flow Rate FiO2 10/02/17 21:05 165/78 10/02/17 20:42 98 Nasal Cannula 2.0 28 10/02/17 20:42 Nasal Cannula 2.0 28 10/02/17 20:33 98.0 10/02/17 20:03 98.0 10/02/17 20:00 97.9 76 20 167/82 99 Nasal Cannula 2.0 97.9 10/02/17 20:00 72 10/02/17 20:00 Nasal Cannula 10/02/17 20:00 78 18 98 Nasal Cannula 2.0 28 10/02/17 17:23 173/88 10/02/17 16:00 72 10/02/17 16:00 98.0 69 20 173/88 98 Nasal Cannula 2.0 98.0 10/02/17 15:04 97.4 10/02/17 15:03 178/96 10/02/17 14:34 207.3 71 14 98 10/02/17 14:15 97.6 10/02/17 13:25 Nasal Cannula 2.0 28 10/02/17 13:25 Nasal Cannula 2.0 28 10/02/17 13:25 Nasal Cannula 2.0 28 10/02/17 13:25 Nasal Cannula 2.0 28 10/02/17 13:16 97.6 10/02/17 13:00 97.7 71 15 178/96 98 Room Air 97.7 10/02/17 12:00 75 10/02/17 11:36 97.6 65 15 172/91 96 Nasal Cannula 3.0 97.6 10/02/17 11:30 67 16 175/89 96 Nasal Cannula 3.0 10/02/17 11:30 97.6 10/02/17 11:15 69 13 163/89 95 Nasal Cannula 63.0 10/02/17 11:00 70 14 175/91 96 Nasal Cannula 63.0 10/02/17 11:00 97.6 10/02/17 10:50 73 15 172/88 98 Nasal Cannula 3.0 10/02/17 10:46 207.3 74 14 100 10/02/17 10:40 77 16 175/85 98 Nasal Cannula 3.0 10/02/17 10:35 74 18 171/88 98 Simple Mask 6.0 10/02/17 10:30 97.6 73 14 130/86 98 Simple Mask 6.0 97.6 10/02/17 08:51 82 180/102 10/02/17 08:00 97.2 66 20 180/102 99 Nasal Cannula 2.0 97.2 10/02/17 07:30 Nasal Cannula 2.0 28 10/02/17 07:30 Nasal Cannula 2.0 28 10/02/17 07:30 80 16 99 Nasal Cannula 2.0 28 10/02/17 07:30 Nasal Cannula 2.0 28 10/02/17 07:12 145/78 10/02/17 04:00 64 10/02/17 04:00 98.1 70 20 165/91 94 Room Air 98.1 10/02/17 02:00 Nasal Cannula 2.0 28 10/02/17 02:00 Nasal Cannula 2.0 28 10/02/17 00:00 97.7 70 20 145/78 94 Room Air 97.7 10/02/17 00:00 66 Intake and Output 10/01/17 10/02/17 19:00 07:00 Intake Total 360 ml Output Total 650 ml Balance -290 ml Intake Oral 360 ml Output Urine Total 650 ml # Voids 3 Laboratory Tests 10/02/17 07:09: White Blood Count 7.9, Red Blood Count 4.31L, Hemoglobin 11.5L, Hematocrit 38.6L , Mean Corpuscular Volume 90, Mean Corpuscular Hemoglobin 26.8L, Mean Corpuscular Hemoglobin Concent 29.9L, Red Cell Distribution Width 14.7, Platelet Count 140L, Mean Platelet Volume 9.1, Neutrophils (%) (Auto) 76.4H, Lymphocytes (%) (Auto) 9.0L, Monocytes (%) (Auto) 12.4H, Eosinophils (%) (Auto) 1.1, Basophils (%) (Auto) 1.1, Sodium Level 139, Potassium Level 4.8, Chloride Level 103, Carbon Dioxide Level 34H, Anion Gap 3L, Blood Urea Nitrogen 24H, Creatinine 1.7H, Estimat Glomerular Filtration Rate , Glucose Level 179H, Calcium Level 8.1L, Phosphorus Level 3.0, Magnesium Level 2.0, Total Bilirubin 0.9, Gamma Glutamyl Transpeptidase 62, Aspartate Amino Transf (AST/SGOT) 9L, Alanine Aminotransferase (ALT/SGPT) 12, Alkaline Phosphatase 58, Troponin I 0.065H, Total Protein 7.0, Albumin 1.8L, Globulin 5.2, Albumin/Globulin Ratio 0.3L Height (Feet): 6 Height (Inches): 4.00 Weight (Pounds): 321 Neurologic: alert, oriented x 3, responsive, depressed affect Nadiya Currie M.D. October 02, 2017 22:41
--- NOTE | 2017-10-02 23:45 | Operative Note - Dictated ---
DATE OF OPERATION: 10/02/2017 PREOPERATIVE DIAGNOSIS: Left lower extremity wound with cellulitis, gangrene, and gas in the subcutaneous tissue. POSTOPERATIVE DIAGNOSIS: Left lower extremity wound with cellulitis, gangrene, and gas in the subcutaneous tissue. OPERATION PERFORMED: Excisional debridement of left lower extremity wound 23 cm x 14 cm x 2 cm. ATTENDING SURGEON: Mannie Macedo M.D. FINISHING SUPERVISOR: None. ANESTHESIOLOGIST: Yessy Bell ANESTHESIA: General ICING AND GLAZE MAKER. SPECIMENS: Left lower extremity wound debridement. COMPLICATIONS: None. CONDITION: Stable. IV FLUIDS: Please see anesthesia records. ESTIMATED BLOOD LOSS: 25 mL. DRAINS: Wound VAC placed. INDICATIONS FOR PROCEDURE: This is a 71-year-old male who presents to [facility] complaining of worsening left lower extremity edema, pain, swelling, foul smell, and wound. The patient states that few months back he had trauma to his left lower extremity mid tibial anterior aspect and since has developed worsening cellulitis. He has tried taking care of it on his own for the past few months at home with hydrogen peroxide and alcohol, but wound has been worsening and condition has been declining since. He has developed a large area of eschar and necrosis with some gangrene and on initial evaluation noted to have potentially maggots and foul-smelling wound with exudate. A small incision was made in the emergency department for evaluation of the subcutaneous tissue and initially thought to be viable. A x-ray and CT scan was performed and identified gas in subcutaneous tissues. Initially wound care was initiated and the patient's edema of the lower extremity improved with elevation, but unfortunately the wound continued to progress and decision made to proceed with the operating room for excisional debridement and evaluation of subcutaneous fascial tissues as well. Risks, benefits and alternatives discussed with the patient in detail. Surgery was indicated and recommended and performed on 10/02/2017. OPERATIVE NOTE: The patient taken to the operating room and placed on the operating table in supine position with bilateral arms out. All bony prominences well padded. SCDs were placed. Preoperative time-out was taken identifying the patient, procedure, operative staff, and surgical staff. General anesthesia was induced and the patient is intubated with an LMA. The left lower extremity was prepped and draped in standard surgical fashion from the toes to the knee. Following this, the large area of necrosis and gangrene on the anterior mid leg was identified and measured to be 23 cm x 14 cm x approximately 2 cm deep. Excisional debridement of this tissue was performed using a fresh #15 scalpel and electrocautery as necessary. The area was excised until fresh bleeding tissue could be identified. It was down deep in the medial lateral aspect to the fascia and to the periosteum on the tibia as well. Once this area was debrided, the underlying subcutaneous tissue with edema, there were some pockets of fluid, which were evacuated. The wound did not track any further to the extent what was described above. The fascia was then opened in both the anterior lateral and posterior compartment and the underlying muscles were noted to be soft and viable. The fascia itself was otherwise viable. At this time, the wound was then irrigated with copious amounts of antibiotic solution. Following this, decision made to place a wound VAC for continued healing until placement of a skin graft or other alternative could be done at a later time. The wound was dried and a black foam was placed onto the wound and wound VAC was appropriately functioning with negative 125 mm of continuous suction. The patient tolerated the procedure well, was extubated and taken to the postanesthetic care unit in stable condition. Mannie Macedo M.D. DR: OLEG JOB#: [id number] CC: MARTÍN
[2017-10-03] VITALS: BP 155/84
[2017-10-03] MEDS: Ipratropium 0.02% Inh Soln 2.5ml UD HHN SCH ×3 (00:51→18:58)
[2017-10-03] MEDS: Morphine Sulfate 4mg/ml Inj IVP PRN ×3 (01:05→20:30)
[2017-10-03 04:00] VITALS: BP 167/82
[2017-10-03] MEDS: Piperacillin/Tazobactam 3.375 GM in NS 110 ML IVPB SCH ×3 (05:20→23:29)
[2017-10-03] MEDS: NovoLOG Insulin Flexpen SUBQ SCH ×4 (06:43→20:43)
[2017-10-03 07:56] LABS: BASOPHILS % (AUTO) 1.1 % (0.0-2.0); EOSINOPHILS % (AUTO) 1.3 % (0.0-3.0); HEMATOCRIT 36.3 % (42.0-52.0); HEMOGLOBIN 11.6 G/DL (14.2-18.0); LYMPHOCYTES % (AUTO) 7.5 % (20.0-45.0); MEAN CORPUSCULAR VOLUME 90 FL (80-99); NEUTROPHILS % (AUTO) 79.2 % (45.0-75.0); PLATELET COUNT 150 K/UL (150-450); RED BLOOD COUNT 4.04 M/UL (4.70-6.10); RED CELL DISTRIBUTION WIDTH 14.7 % (11.6-14.8); WHITE BLOOD COUNT 9.2 K/UL (4.8-10.8)
[2017-10-03] MEDS: Levalbuterol Inh UD 1.25mg/0.5ml HHN SCH ×2 (07:57→18:58)
[2017-10-03 08:00] VITALS: BP 167/79
[2017-10-03 08:25] LABS: ALANINE AMINOTRANSFERASE 11 U/L (12-78); ALBUMIN 1.8 G/DL (3.4-5.0); ALBUMIN/GLOBULIN RATIO 0.4 (1.0-2.7); ALKALINE PHOSPHATASE 55 U/L (46-116); ANION GAP 3 mmol/L (5-15); ASPARTATE AMINO TRANSFERASE 9 U/L (15-37); BILIRUBIN,TOTAL 0.9 MG/DL (0.2-1.0); BLOOD UREA NITROGEN 25 mg/dL (7-18); CALCIUM 7.9 MG/DL (8.5-10.1); CARBON DIOXIDE 32 MMOL/L (21-32); CHLORIDE 103 MMOL/L (98-107); CREATININE 1.7 MG/DL (0.55-1.30); POTASSIUM 4.8 MMOL/L (3.5-5.1); SODIUM 138 MMOL/L (136-145)
[2017-10-03] MEDS: Heparin 5000 units/ml inj SUBQ SCH ×2 (09:00→20:35)
--- NOTE | 2017-10-03 09:05 | General Surgery Progress Note ---
General Surgery-Progress Note Subjective Procedure Performed excisional debridement of left lower extremity Symptoms: improved Additional Comments doing well. edema in left leg improved. labs reviewed. no n/v/f/c. pain controlled Objective Last 24 Hour Vital Signs Date Time Temp Pulse Resp B/P (MAP) Pulse Ox O2 Delivery O2 Flow Rate FiO2 10/03/17 08:00 98.5 68 20 167/79 98 Nasal Cannula 2.0 98.5 10/03/17 05:20 167/82 10/03/17 04:00 97.9 76 20 167/82 100 Nasal Cannula 2.0 97.9 10/03/17 04:00 64 10/03/17 01:35 97.3 10/03/17 01:05 97.3 10/03/17 01:00 Nasal Cannula 10/03/17 01:00 Nasal Cannula 10/03/17 00:00 97.3 66 20 155/84 100 Nasal Cannula 2.0 97.3 10/03/17 00:00 67 10/02/17 21:05 165/78 10/02/17 20:42 98 Nasal Cannula 2.0 28 10/02/17 20:42 Nasal Cannula 2.0 28 10/02/17 20:03 98.0 10/02/17 20:00 97.9 76 20 167/82 99 Nasal Cannula 2.0 97.9 10/02/17 20:00 72 10/02/17 20:00 Nasal Cannula 10/02/17 20:00 78 18 98 Nasal Cannula 2.0 28 10/02/17 17:23 173/88 10/02/17 16:00 72 10/02/17 16:00 98.0 69 20 173/88 98 Nasal Cannula 2.0 98.0 10/02/17 15:04 97.4 10/02/17 15:03 178/96 10/02/17 14:34 207.3 71 14 98 10/02/17 14:15 97.6 10/02/17 13:25 Nasal Cannula 2.0 28 10/02/17 13:25 Nasal Cannula 2.0 28 10/02/17 13:25 Nasal Cannula 2.0 28 10/02/17 13:25 Nasal Cannula 2.0 28 10/02/17 13:16 97.6 10/02/17 13:00 97.7 71 15 178/96 98 Room Air 97.7 10/02/17 12:00 75 10/02/17 11:36 97.6 65 15 172/91 96 Nasal Cannula 3.0 97.6 10/02/17 11:30 67 16 175/89 96 Nasal Cannula 3.0 10/02/17 11:30 97.6 10/02/17 11:15 69 13 163/89 95 Nasal Cannula 63.0 10/02/17 11:00 70 14 175/91 96 Nasal Cannula 63.0 10/02/17 11:00 97.6 10/02/17 10:50 73 15 172/88 98 Nasal Cannula 3.0 10/02/17 10:46 207.3 74 14 100 10/02/17 10:40 77 16 175/85 98 Nasal Cannula 3.0 10/02/17 10:35 74 18 171/88 98 Simple Mask 6.0 10/02/17 10:30 97.6 73 14 130/86 98 Simple Mask 6.0 97.6 I&O Intake and Output 10/02/17 10/03/17 19:00 07:00 Intake Total 1075.000 ml 137.5 ml Output Total 720 ml Balance 355.000 ml 137.5 ml Intake Oral 300 ml IV Total 775.000 ml 137.5 ml Output Urine Total 700 ml Estimated Blood Loss 20 ml Dressing: dry Wound: clean Cardiovascular: RSR Respiratory: clear Abdomen: soft, flat, non-tender Extremities: edema, tenderness, no cyanosis Laboratory Tests Test 10/03/17 07:15 White Blood Count 9.2 K/UL (4.8-10.8) Red Blood Count 4.04 M/UL (4.70-6.10) L Hemoglobin 11.6 G/DL (14.2-18.0) L Hematocrit 36.3 % (42.0-52.0) L Mean Corpuscular Volume 90 FL (80-99) Mean Corpuscular Hemoglobin 28.6 PG (27.0-31.0) Mean Corpuscular Hemoglobin Concent 31.8 G/DL (32.0-36.0) L Red Cell Distribution Width 14.7 % (11.6-14.8) Platelet Count 150 K/UL (150-450) Mean Platelet Volume 8.7 FL (6.5-10.1) Neutrophils (%) (Auto) 79.2 % (45.0-75.0) H Lymphocytes (%) (Auto) 7.5 % (20.0-45.0) L Monocytes (%) (Auto) 11.0 % (1.0-10.0) H Eosinophils (%) (Auto) 1.3 % (0.0-3.0) Basophils (%) (Auto) 1.1 % (0.0-2.0) Sodium Level 138 MMOL/L (136-145) Potassium Level 4.8 MMOL/L (3.5-5.1) Chloride Level 103 MMOL/L (98-107) Carbon Dioxide Level 32 MMOL/L (21-32) Anion Gap 3 mmol/L (5-15) L Blood Urea Nitrogen 25 mg/dL (7-18) H Creatinine 1.7 MG/DL (0.55-1.30) H Estimat Glomerular Filtration Rate mL/min (>60) Glucose Level 184 MG/DL (74-106) H Calcium Level 7.9 MG/DL (8.5-10.1) L Total Bilirubin 0.9 MG/DL (0.2-1.0) Aspartate Amino Transf (AST/SGOT) 9 U/L (15-37) L Alanine Aminotransferase (ALT/SGPT) 11 U/L (12-78) L Alkaline Phosphatase 55 U/L (46-116) Pro-B-Type Natriuretic Peptide 3601 pg/mL (0-125) H Total Protein 6.9 G/DL (6.4-8.2) Albumin 1.8 G/DL (3.4-5.0) L Globulin 5.1 g/dL Albumin/Globulin Ratio 0.4 (1.0-2.7) L Plan Problems: (1) Gangrene of lower extremity Assessment & Plan: 71M left lower extremity cellulitis/wound which is chronic after injury a "few months ago". has been managing wound on his own since but has been worsening. now has cellulitis around left and edema from foot to thigh. large area of skin loss on anterior mid leg. small incision noted and underlying tissue with edema but does bleed and potentially viable. areas of skin loss with bleeding once manipulated but some areas without. POD #1 s/p excisional debridement with washout and wound vac placement -keep lower extremity elevated -IV Abx -Wound VAC thank you for this consultation. will follow with you Mannie Macedo October 03, 2017 09:05
[2017-10-03] MEDS: Docusate 100mg cap ORAL SCH ×3 (09:15→17:13)
[2017-10-03] MEDS: Tamsulosin 0.4mg cap ORAL SCH ×2 (09:15→17:13)
[2017-10-03] MEDS: Aspirin Baby 81mg ORAL SCH (09:15)
[2017-10-03] MEDS: Theophylline ER 100mg ORAL SCH ×2 (09:15→20:29)
[2017-10-03] MEDS: HydrALAZINE 25mg tab ORAL PRN (09:15)
--- NOTE | 2017-10-03 10:56 | Diagnostic Imaging Report ---
Indication: Dyspnea Comparison: 09/28/2017 A single view chest radiograph was obtained. Findings: There is evidence of a slightly worsening of pulmonary vascular congestion. There is evidence of a right pleural effusion. The heart remains enlarged. IMPRESSION: Slightly worsening CHF
--- NOTE | 2017-10-03 11:10 | 48 Hour Post Anesthesia Eval ---
Post Anesthesia Evaluation Procedure: left leg debridement Date of Evaluation: October 03, 2017 Time of Evaluation: 11:09 Blood Pressure Systolic: 164 0: 79 Pulse Rate: 72 Respiratory Rate: 22 Temperature (Fahrenheit): 97.6 O2 Sat by Pulse Oximetry: 97 Airway: other Nausea: No Vomiting: No Pain Intensity: 3 Hydration Status: adequate Cardiopulmonary Status: stable Mental Status/LOC: patient returned to baseline Follow-up Care/Observations: n/a Post-Anesthesia Complications: none Follow-up care needed: N/A Dave Kohler MD October 03, 2017 11:10
--- NOTE | 2017-10-03 11:29 | Cardiology Progress Note ---
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 (11) Edema 1) Blood pressure control: Clonidine, Norvasc - increase doses 2) Echocardiogram reviewed - heart failure preserved ejection fraction ACC stage C NYHA class II 3) lasix to reduce lower extremity edema and filling pressures 4) serial troponin and BNP - not clinically impressive for ACS 5) Ensure medication compliance 6) Discussed cocaine and THC cessation 7) Serial CXR to monitor right effusion 8) Wound care 9) Continue antibiotics, WBC elevated 10) For thoracentesis tomorrow 11) Wound vac management per surgery Subjective Cardiovascular: Reports: no symptoms Respiratory: Reports: no symptoms Gastrointestinal/Abdominal: Reports: no symptoms Genitourinary: Reports: no symptoms Subjective No acute events, wound vac in place, improvement in Leg edema, thoracentesis for tomorrow, vitals stable, no complaints Objective Last 24 Hour Vital Signs Date Time Temp Pulse Resp B/P (MAP) Pulse Ox O2 Delivery O2 Flow Rate FiO2 10/03/17 11:10 207.7 72 22 97 10/03/17 09:46 98.5 10/03/17 09:15 68 167/79 10/03/17 09:15 167/10/03/17 09:11 98.5 10/03/17 08:00 70 10/03/17 08:00 98.5 68 20 167/79 98 Nasal Cannula 2.0 98.5 10/03/17 07:57 Nasal Cannula 2.0 28 10/03/17 07:57 Nasal Cannula 2.0 28 10/03/17 07:57 98 Nasal Cannula 2.0 28 10/03/17 07:57 Nasal Cannula 2.0 28 10/03/17 05:20 167/82 10/03/17 04:00 97.9 76 20 100 Nasal Cannula 2.0 97.9 10/03/17 04:00 64 10/03/17 01:05 97.3 10/03/17 01:00 Nasal Cannula 10/03/17 01:00 Nasal Cannula 10/03/17 00:00 97.3 66 20 155/84 100 Nasal Cannula 2.0 97.3 10/03/17 00:00 67 10/02/17 21:05 165/78 10/02/17 20:42 98 Nasal Cannula 2.0 28 10/02/17 20:42 Nasal Cannula 2.0 28 10/02/17 20:03 98.0 10/02/17 20:00 97.9 76 20 167/82 99 Nasal Cannula 2.0 97.9 10/02/17 20:00 72 10/02/17 20:00 Nasal Cannula 10/02/17 20:00 78 18 98 Nasal Cannula 2.0 28 10/02/17 17:23 173/88 10/02/17 16:00 72 10/02/17 16:00 98.0 69 20 173/88 98 Nasal Cannula 2.0 98.0 10/02/17 15:04 97.4 10/02/17 15:03 178/96 10/02/17 14:34 207.3 71 14 98 10/02/17 14:15 97.6 10/02/17 13:25 Nasal Cannula 2.0 28 10/02/17 13:25 Nasal Cannula 2.0 28 10/02/17 13:25 Nasal Cannula 2.0 28 10/02/17 13:25 Nasal Cannula 2.0 28 10/02/17 13:16 97.6 10/02/17 13:00 97.7 71 15 178/96 98 Room Air 97.7 10/02/17 12:00 75 10/02/17 11:36 97.6 65 15 172/91 96 Nasal Cannula 3.0 97.6 10/02/17 11:30 67 16 175/89 96 Nasal Cannula 3.0 10/02/17 11:30 97.6 General Appearance: no apparent distress EENT: PERRL/EOMI Neck: non-tender Rhythm: NSR Cardiovascular: normal peripheral pulses Respiratory/Chest: chest wall non-tender Abdomen: normal bowel sounds Extremities: moderate edema Neurologic: consumer experience consultant II-XII grossly normal Intake and Output 10/02/17 10/03/17 19:00 07:00 Intake Total 1075.000 ml 137.5 ml Output Total 720 ml Balance 355.000 ml 137.5 ml Intake Oral 300 ml IV Total 775.000 ml 137.5 ml Output Urine Total 700 ml Estimated Blood Loss 20 ml Laboratory Tests Test 10/03/17 07:15 White Blood Count 9.2 K/UL (4.8-10.8) Red Blood Count 4.04 M/UL (4.70-6.10) L Hemoglobin 11.6 G/DL (14.2-18.0) L Hematocrit 36.3 % (42.0-52.0) L Mean Corpuscular Volume 90 FL (80-99) Mean Corpuscular Hemoglobin 28.6 PG (27.0-31.0) Mean Corpuscular Hemoglobin Concent 31.8 G/DL (32.0-36.0) L Red Cell Distribution Width 14.7 % (11.6-14.8) Platelet Count 150 K/UL (150-450) Mean Platelet Volume 8.7 FL (6.5-10.1) Neutrophils (%) (Auto) 79.2 % (45.0-75.0) H Lymphocytes (%) (Auto) 7.5 % (20.0-45.0) L Monocytes (%) (Auto) 11.0 % (1.0-10.0) H Eosinophils (%) (Auto) 1.3 % (0.0-3.0) Basophils (%) (Auto) 1.1 % (0.0-2.0) Sodium Level 138 MMOL/L (136-145) Potassium Level 4.8 MMOL/L (3.5-5.1) Chloride Level 103 MMOL/L (98-107) Carbon Dioxide Level 32 MMOL/L (21-32) Anion Gap 3 mmol/L (5-15) L Blood Urea Nitrogen 25 mg/dL (7-18) H Creatinine 1.7 MG/DL (0.55-1.30) H Estimat Glomerular Filtration Rate mL/min (>60) Glucose Level 184 MG/DL (74-106) H Calcium Level 7.9 MG/DL (8.5-10.1) L Total Bilirubin 0.9 MG/DL (0.2-1.0) Aspartate Amino Transf (AST/SGOT) 9 U/L (15-37) L Alanine Aminotransferase (ALT/SGPT) 11 U/L (12-78) L Alkaline Phosphatase 55 U/L (46-116) Pro-B-Type Natriuretic Peptide 3601 pg/mL (0-125) H Total Protein 6.9 G/DL (6.4-8.2) Albumin 1.8 G/DL (3.4-5.0) L Globulin 5.1 g/dL Albumin/Globulin Ratio 0.4 (1.0-2.7) L Microbiology Date/Time Source Procedure Growth Status 10/01/17 08:10 Blood Blood Culture - Preliminary NO GROWTH AFTER 24 HOURS Resulted 09/30/17 17:32 Blood Blood Culture - Preliminary NO GROWTH AFTER 48 HOURS Resulted 10/02/17 09:55 Leg Left Gram Stain - Final Resulted 10/02/17 09:55 Aerobic Culture - Preliminary Gram Negative Bacillus 1 Resulted 10/02/17 09:55 Leg Left Anaerobic Culture Pending Resulted Kranthi Herrera M.D. October 03, 2017 11:29
[2017-10-03 12:00] VITALS: BP 145/80
--- NOTE | 2017-10-03 12:00 | Pulmonology Progress Note ---
Assessment/Plan Problems: (1) Gram-negative bacteremia (2) Pleural effusion (3) Cardiomegaly (4) Cellulitis (5) Hypoalbuminemia (6) ATN (acute tubular necrosis) (7) Diabetes mellitus (8) Obesity (BMI 30.0-34.9) (9) Noncompliance (10) Anasarca (11) Cocaine abuse Assessment/Plan postponed thoracentesis again CXR reviewed, increasing pleural effusion s/p debridement afebrile GNB, Klebsiella on abx, cefepime all consults reviewed Echo: EF 45% check cultures wound care optimize cardiac meds Subjective ROS Limited/Unobtainable: No Constitutional: Reports: no symptoms HEENT: Repors: no symptoms Respiratory: Reports: no symptoms Cardiovascular: Reports: no symptoms Allergies: Coded Allergies: No Known Allergies (Unverified , 09/28/17) Objective Last 24 Hour Vital Signs Date Time Temp Pulse Resp B/P (MAP) Pulse Ox O2 Delivery O2 Flow Rate FiO2 10/03/17 11:10 207.7 72 22 97 10/03/17 09:46 98.5 10/03/17 09:15 68 167/79 10/03/17 09:15 167/79 10/03/17 09:11 98.5 10/03/17 08:00 70 10/03/17 08:00 98.5 68 20 167/79 98 Nasal Cannula 2.0 98.5 10/03/17 07:57 Nasal Cannula 2.0 28 10/03/17 07:57 Nasal Cannula 2.0 28 10/03/17 07:57 98 Nasal Cannula 2.0 28 10/03/17 07:57 Nasal Cannula 2.0 28 10/03/17 05:20 167/82 10/03/17 04:00 97.9 76 20 167/82 100 Nasal Cannula 2.0 97.9 10/03/17 04:00 64 10/03/17 01:05 97.3 10/03/17 01:00 Nasal Cannula 10/03/17 01:00 Nasal Cannula 10/03/17 00:00 97.3 66 20 155/84 100 Nasal Cannula 2.0 97.3 10/03/17 00:00 67 10/02/17 21:05 165/78 10/02/17 20:42 98 Nasal Cannula 2.0 28 10/02/17 20:42 Nasal Cannula 2.0 28 10/02/17 20:03 98.0 10/02/17 20:00 97.9 76 20 167/82 99 Nasal Cannula 2.0 97.9 10/02/17 20:00 72 10/02/17 20:00 Nasal Cannula 10/02/17 20:00 78 18 98 Nasal Cannula 2.0 28 10/02/17 17:23 173/88 10/02/17 16:00 72 10/02/17 16:00 98.0 69 20 173/88 98 Nasal Cannula 2.0 98.0 10/02/17 15:04 97.4 10/02/17 15:03 178/96 10/02/17 14:34 207.3 71 14 98 10/02/17 14:15 97.6 10/02/17 13:25 Nasal Cannula 2.0 28 10/02/17 13:25 Nasal Cannula 2.0 28 10/02/17 13:25 Nasal Cannula 2.0 28 10/02/17 13:25 Nasal Cannula 2.0 28 10/02/17 13:16 97.6 10/02/17 13:00 97.7 71 15 178/96 98 Room Air 97.7 10/02/17 12:00 75 Intake and Output 10/02/17 10/03/17 19:00 07:00 Intake Total 1075.000 ml 137.5 ml Output Total 720 ml Balance 355.000 ml 137.5 ml Intake Oral 300 ml IV Total 775.000 ml 137.5 ml Output Urine Total 700 ml Estimated Blood Loss 20 ml General Appearance: WD/WN HEENT: normocephalic, atraumatic Respiratory/Chest: chest wall non-tender, accessory muscle use, crackles/rales Cardiovascular: normal peripheral pulses, normal rate Abdomen: normal bowel sounds, soft, non tender Genitourinary: normal external genitalia Extremities: no clubbing Microbiology Date/Time Source Procedure Growth Status 10/01/17 08:10 Blood Blood Culture - Preliminary NO GROWTH AFTER 24 HOURS Resulted 09/30/17 17:32 Blood Blood Culture - Preliminary NO GROWTH AFTER 48 HOURS Resulted 10/02/17 09:55 Leg Left Gram Stain - Final Resulted 10/02/17 09:55 Aerobic Culture - Preliminary Gram Negative Bacillus 1 Resulted 10/02/17 09:55 Leg Left Anaerobic Culture Pending Resulted Laboratory Tests 10/03/17 07:15: White Blood Count 9.2, Red Blood Count 4.04L, Hemoglobin 11.6L, Hematocrit 36.3L , Mean Corpuscular Volume 90, Mean Corpuscular Hemoglobin 28.6, Mean Corpuscular Hemoglobin Concent 31.8L, Red Cell Distribution Width 14.7, Platelet Count 150, Mean Platelet Volume 8.7, Neutrophils (%) (Auto) 79.2H, Lymphocytes (%) (Auto) 7.5L, Monocytes (%) (Auto) 11.0H, Eosinophils (%) (Auto) 1.3, Basophils (%) (Auto) 1.1, Sodium Level 138, Potassium Level 4.8, Chloride Level 103, Carbon Dioxide Level 32, Anion Gap 3L, Blood Urea Nitrogen 25H, Creatinine 1.7H, Estimat Glomerular Filtration Rate , Glucose Level 184H, Calcium Level 7.9L, Total Bilirubin 0.9, Aspartate Amino Transf (AST/SGOT) 9L, Alanine Aminotransferase (ALT/SGPT) 11L, Alkaline Phosphatase 55, Pro-B-Type Natriuretic Peptide 3601H, Total Protein 6.9, Albumin 1.8L, Globulin 5.1, Albumin/Globulin Ratio 0.4L Current Medications Medications (Trade) Dose Ordered Sig/Lito Route PRN Reason Start Time Stop Time Status Last Admin Dose Admin Acetaminophen (Tylenol) 650 mg Q4H PRN ORAL fever 09/28/17 23:45 10/28/17 23:44 10/02/17 13:16 Aspirin (ASA) 162 mg DAILY ORAL 09/30/17 15:45 10/30/17 15:44 10/03/17 09:15 Clonidine HCl (Catapres Tab) 0.3 mg EVERY 8 HOURS ORAL 10/02/17 22:00 11/01/17 21:59 10/03/17 05:20 Dextrose (Dextrose 50%) STAT PRN IV Hypoglycemia 09/28/17 23:45 10/28/17 23:44 Docusate Sodium (Colace) 100 mg THREE TIMES A DAY ORAL 09/29/17 13:00 10/29/17 12:59 10/03/17 09:15 Heparin Sodium (Porcine) (Heparin 5000 units/ml) 5,000 units EVERY 12 HOURS SUBQ 09/29/17 09:00 10/29/17 08:59 10/01/17 21:30 Hydralazine HCl (Apresoline) 50 mg Q8HR ORAL 10/03/17 14:00 11/02/17 13:59 Insulin Aspart (NovoLOG) BEFORE MEALS AND HS SUBQ 09/29/17 06:30 10/29/17 06:29 10/03/17 06:43 Ipratropium [place] (Atrovent) 500 mcg Q4H PRN HHN Shortness of Breath 09/29/17 16:15 10/03/17 23:44 Ipratropium [place] (Atrovent) 500 mcg Q6HRT HHN 09/29/17 19:00 10/04/17 18:59 Lansoprazole (Prevacid) 30 mg BID ORAL 09/29/17 18:00 10/29/17 17:59 10/03/17 09:15 Levalbuterol HCl (Xopenex) 1.25 mg TIDRT HHN 09/29/17 19:00 10/04/17 18:59 Morphine Sulfate (Morphine Sulfate) 4 mg Q4H PRN IVP For Pain 10/02/17 14:45 10/09/17 14:44 10/03/17 09:11 Nitroglycerin (Ntg) 0.4 mg Q5M PRN SL Prn Chest Pain 09/28/17 23:45 10/28/17 23:44 Nitroglycerin (Ntg) 1 patch Q24H TDERMAL 09/30/17 16:00 10/30/17 15:59 10/02/17 15:03 Ondansetron HCl (Zofran) 4 mg Q6H PRN IVP Nausea & Vomiting 09/28/17 23:45 10/28/17 23:44 Piperacillin Sod/ Tazobactam Sod 3.375 gm/Sodium Chloride 110 ml @ 27.5 mls/hr EVERY 8 HOURS IVPB 10/02/17 22:00 10/07/17 21:59 10/03/17 05:20 Polyethylene Glycol (Miralax) 17 gm DAILYPRN PRN ORAL Constipation 09/28/17 23:45 10/28/17 23:44 Promethazine HCl/ Codeine (Phenergan with Codeine) 5 ml Q4H PRN ORAL For Cough 5/27/18 14:45 10/29/17 14:44 Tamsulosin HCl (Flomax) 0.4 mg BID ORAL 09/29/17 18:00 10/29/17 17:59 10/03/17 09:15 Temazepam (Restoril) 15 mg HSPRN PRN ORAL Insomnia 09/28/17 23:45 10/05/17 23:44 Theophylline (Mark-Dur) 100 mg EVERY 12 HOURS ORAL 09/29/17 21:00 10/29/17 20:59 10/03/17 09:15 Hoang Gipson MD October 03, 2017 12:00
--- NOTE | 2017-10-03 12:39 | Nephrology Progress Note ---
Assessment/Plan Problem List: (1) Malignant hypertension (2) Cocaine abuse (3) CKD (chronic kidney disease) (4) CHF exacerbation Assessment Diabetic Nephropathy Cr stable Gangrene of lower extremity CHF exacerbation Malignant hypertension Cocaine abuse Obesity (BMI 30.0-34.9) ACS (acute coronary syndrome) Plan debridement 10/02 Adjust BP meds- add norvasc asa and nitro PRNs for BP 2D echo Left ventricular ejection fraction to be slightly reduced - estimated 45 % monitor renal parameters Subjective ROS Limited/Unobtainable: No Constitutional: Reports: malaise Objective Objective Last 24 Hour Vital Signs Date Time Temp Pulse Resp B/P (MAP) Pulse Ox O2 Delivery O2 Flow Rate FiO2 10/03/17 11:10 207.7 72 22 97 10/03/17 09:46 98.5 10/03/17 09:15 68 167/79 10/03/17 09:15 167/79 10/03/17 09:11 98.5 10/03/17 08:00 70 10/03/17 08:00 98.5 68 20 167/79 98 Nasal Cannula 2.0 98.5 10/03/17 07:57 Nasal Cannula 2.0 28 10/03/17 07:57 Nasal Cannula 2.0 28 10/03/17 07:57 98 Nasal Cannula 2.0 28 10/03/17 07:57 Nasal Cannula 2.0 28 10/03/17 05:20 167/82 10/03/17 04:00 97.9 76 20 167/82 100 Nasal Cannula 2.0 97.9 10/03/17 04:00 64 10/03/17 01:05 97.3 10/03/17 01:00 Nasal Cannula 10/03/17 01:00 Nasal Cannula 10/03/17 00:00 97.3 66 20 155/84 100 Nasal Cannula 2.0 97.3 10/03/17 00:00 67 10/02/17 21:05 165/78 10/02/17 20:42 98 Nasal Cannula 2.0 28 10/02/17 20:42 Nasal Cannula 2.0 28 10/02/17 20:03 98.0 10/02/17 20:00 97.9 76 20 167/82 99 Nasal Cannula 2.0 97.9 10/02/17 20:00 72 10/02/17 20:00 Nasal Cannula 10/02/17 20:00 78 18 98 Nasal Cannula 2.0 28 10/02/17 17:23 173/88 10/02/17 16:00 72 10/02/17 16:00 98.0 69 20 173/88 98 Nasal Cannula 2.0 98.0 10/02/17 15:04 97.4 10/02/17 15:03 178/96 10/02/17 14:34 207.3 71 14 98 10/02/17 14:15 97.6 10/02/17 13:25 Nasal Cannula 2.0 28 10/02/17 13:25 Nasal Cannula 2.0 28 10/02/17 13:25 Nasal Cannula 2.0 28 10/02/17 13:25 Nasal Cannula 2.0 28 10/02/17 13:16 97.6 10/02/17 13:00 97.7 71 15 178/96 98 Room Air 97.7 Intake and Output 10/02/17 10/03/17 19:00 07:00 Intake Total 1075.000 ml 137.5 ml Output Total 720 ml Balance 355.000 ml 137.5 ml Intake Oral 300 ml IV Total 775.000 ml 137.5 ml Output Urine Total 700 ml Estimated Blood Loss 20 ml Laboratory Tests 10/03/17 07:15: White Blood Count 9.2, Red Blood Count 4.04L, Hemoglobin 11.6L, Hematocrit 36.3L , Mean Corpuscular Volume 90, Mean Corpuscular Hemoglobin 28.6, Mean Corpuscular Hemoglobin Concent 31.8L, Red Cell Distribution Width 14.7, Platelet Count 150, Mean Platelet Volume 8.7, Neutrophils (%) (Auto) 79.2H, Lymphocytes (%) (Auto) 7.5L, Monocytes (%) (Auto) 11.0H, Eosinophils (%) (Auto) 1.3, Basophils (%) (Auto) 1.1, Sodium Level 138, Potassium Level 4.8, Chloride Level 103, Carbon Dioxide Level 32, Anion Gap 3L, Blood Urea Nitrogen 25H, Creatinine 1.7H, Estimat Glomerular Filtration Rate , Glucose Level 184H, Calcium Level 7.9L, Total Bilirubin 0.9, Aspartate Amino Transf (AST/SGOT) 9L, Alanine Aminotransferase (ALT/SGPT) 11L, Alkaline Phosphatase 55, Pro-B-Type Natriuretic Peptide 3601H, Total Protein 6.9, Albumin 1.8L, Globulin 5.1, Albumin/Globulin Ratio 0.4L Height (Feet): 6 Height (Inches): 4.00 Weight (Pounds): 319 General Appearance: no apparent distress Objective PE not changed OMER YOU October 03, 2017 12:39
[2017-10-03] MEDS ORDERED: HydrALAZINE 50mg tab ORAL SCH (14:00)
[2017-10-03 16:00] VITALS: BP 138/91
[2017-10-03] MEDS: Nitroglycerin Patch 0.4mg TDERMAL SCH (16:10)
[2017-10-03] MEDS ORDERED: Nitroglycerin Subl 0.4mg tab SL PRN (16:45)
[2017-10-03] MEDS ORDERED: Ipratropium 0.02% Inh Soln 2.5ml UD HHN PRN (17:00)
[2017-10-03] MEDS ORDERED: Promethazine/Codeine 5ml UD ORAL PRN (17:00)
[2017-10-03] MEDS ORDERED: Miralax 17gm pkt ORAL PRN (17:00)
--- NOTE | 2017-10-03 17:27 | Infectious Diseases Prog Note ---
Assessment/Plan Assessment/Plan Assessment: SEpsis (SP) 2ry to L wound infection, Gram neg bacteremia -09/28 Bcx 05/09 K. oxytoca (R amp, otherwise S); 09/30 NTD x2 L anterior leg chronic wound and surrounding cellulitis -s/p I+D 10/02 and wound vac placement -OR findings: large area of necrosis and gangrene on the anterior mid leg; measured to be 23 cm x 14 cm x approximately 2 cm deep. The area was excised until fresh bleeding tissue could be identified. It was down deep in the medial lateral aspect to the fascia and to the periosteum on the tibia as well. The underlying subcutaneous tissue with edema, there were some pockets of fluid. Fascia and muscle viable. -OR cx GNRs -CT L tibia/fibula: Cellulitis and ulceration in the pretibial aspect of the left lower extremity. The presence of gas likely associated with the presence of a large ulceration in this location. Gas-forming organism is the obvious concern and not excludable. No drainable abscess identified. No obvious intramuscular fascial thickening or fluid accumulation. -xray tibia/fibula: There is gas in the soft tissues. This can be traumatic , iatrogenic, or infectious. No acute fracture or suspicious osseous erosions. ; gas likely from incision made in ED- tissue seemed viable upon superificial exploration per ED physician and surgeon. -wound cx: K. pneumonia (R amp, otherwise S), E. fecalis (maldonado S); 2nd wound cx : K. pna (R amp, otherwise S) #1 and #2 PsA (maldonado S), E. fecalis (maldonado S) K, oxytoca bacteremia- 2ry to above -Abd US: Ascites. Right pleural effusion. Left kidney not identified. Access to the area is limited. It is uncertain whether this is technical or whether there is an absent or small left kidney. Gallbladder contracted but otherwise grossly unremarkable.Otherwise negative within the limits noted above. Fever, resolved Leukocytosis; resolved -u/a wbc 10-15, nit neg, leuk +1 Hypertensive urgency,SP TK, improving Dm2 w/ nephropathy CHF Obesity HTN marihuana and cocaine use non compliance Plan: -Continue Zosyn #2 (abx d#10/17) to simplify abx coverage for PsA, Klebsiella and enterococcus of leg wound infection -will treat for 2 weeks; upon discharge, can be transitioned to PO Cipro and Augmentin (renally dose) -10/02 SP IV Vanco #5, CEfepime #5, Flagyl #5 -f/u repeat 2 sets of Bcx -f/u OR cx -Monitor CBC/BMP, temperatures -wound care/wound vac Thank you for this consultation. Will continue to follow along with you. Discussed with RN and Dr Macedo. Subjective Allergies: Coded Allergies: No Known Allergies (Unverified , 09/28/17) Subjective afebrile in >72 hrs no leukocytosi repeat Bcx NTD OR cx GNRs Objective Vital Signs Last 24 Hour Vital Signs Date Time Temp Pulse Resp B/P (MAP) Pulse Ox O2 Delivery O2 Flow Rate FiO2 10/03/17 16:10 145/80 10/03/17 16:00 98.2 69 20 138/91 97 Nasal Cannula 2.0 98.2 10/03/17 13:56 145/80 10/03/17 13:56 145/80 10/03/17 13:50 69 20 98 Nasal Cannula 2.0 28 10/03/17 13:50 Nasal Cannula 2.0 28 10/03/17 12:00 67 10/03/17 12:00 98.5 65 20 145/80 98 Nasal Cannula 2.0 98.5 10/03/17 11:10 207.7 72 22 97 10/03/17 09:46 98.5 10/03/17 09:15 68 167/79 10/03/17 09:15 167/79 10/03/17 09:11 98.5 10/03/17 08:00 70 10/03/17 08:00 98.5 68 20 167/79 98 Nasal Cannula 2.0 98.5 10/03/17 07:57 Nasal Cannula 2.0 28 10/03/17 07:57 Nasal Cannula 2.0 28 10/03/17 07:57 98 Nasal Cannula 2.0 28 10/03/17 07:57 Nasal Cannula 2.0 28 10/03/17 05:20 167/82 10/03/17 04:00 97.9 76 20 167/82 100 Nasal Cannula 2.0 97.9 10/03/17 04:00 64 10/03/17 01:05 97.3 10/03/17 01:00 Nasal Cannula 10/03/17 01:00 Nasal Cannula 10/03/17 00:00 97.3 66 20 155/84 100 Nasal Cannula 2.0 97.3 10/03/17 00:00 67 10/02/17 21:05 165/78 10/02/17 20:42 98 Nasal Cannula 2.0 28 10/02/17 20:42 Nasal Cannula 2.0 28 10/02/17 20:03 98.0 10/02/17 20:00 97.9 76 20 167/82 99 Nasal Cannula 2.0 97.9 10/02/17 20:00 72 10/02/17 20:00 Nasal Cannula 10/02/17 20:00 78 18 98 Nasal Cannula 2.0 28 10/02/17 17:23 173/88 Height (Feet): 6 Height (Inches): 4.00 Weight (Pounds): 319 Objective General Appearance: no apparent distress, alert Lines, tubes and drains: peripheral HEENT: normocephalic, mucous membranes moist Neck: supple Respiratory/Chest: lungs clear, normal breath sounds, no respiratory distress, no accessory muscle use Cardiovascular/Chest: normal rate Abdomen: normal bowel sounds, non tender, soft, no organomegaly, no mass Extremities: L leg wrapped and wound vac in place Neurologic: alert, oriented x 3, responsive Microbiology Date/Time Source Procedure Growth Status 10/01/17 08:10 Blood Blood Culture - Preliminary NO GROWTH AFTER 24 HOURS Resulted 09/30/17 17:32 Blood Blood Culture - Preliminary NO GROWTH AFTER 48 HOURS Resulted 10/02/17 09:55 Leg Left Gram Stain - Final Resulted 10/02/17 09:55 Aerobic Culture - Preliminary Gram Negative Bacillus 1 Resulted 10/02/17 09:55 Leg Left Anaerobic Culture Pending Resulted Laboratory Tests Test 10/03/17 07:15 White Blood Count 9.2 K/UL (4.8-10.8) Red Blood Count 4.04 M/UL (4.70-6.10) L Hemoglobin 11.6 G/DL (14.2-18.0) L Hematocrit 36.3 % (42.0-52.0) L Mean Corpuscular Volume 90 FL (80-99) Mean Corpuscular Hemoglobin 28.6 PG (27.0-31.0) Mean Corpuscular Hemoglobin Concent 31.8 G/DL (32.0-36.0) L Red Cell Distribution Width 14.7 % (11.6-14.8) Platelet Count 150 K/UL (150-450) Mean Platelet Volume 8.7 FL (6.5-10.1) Neutrophils (%) (Auto) 79.2 % (45.0-75.0) H Lymphocytes (%) (Auto) 7.5 % (20.0-45.0) L Monocytes (%) (Auto) 11.0 % (1.0-10.0) H Eosinophils (%) (Auto) 1.3 % (0.0-3.0) Basophils (%) (Auto) 1.1 % (0.0-2.0) Sodium Level 138 MMOL/L (136-145) Potassium Level 4.8 MMOL/L (3.5-5.1) Chloride Level 103 MMOL/L (98-107) Carbon Dioxide Level 32 MMOL/L (21-32) Anion Gap 3 mmol/L (5-15) L Blood Urea Nitrogen 25 mg/dL (7-18) H Creatinine 1.7 MG/DL (0.55-1.30) H Estimat Glomerular Filtration Rate mL/min (>60) Glucose Level 184 MG/DL (74-106) H Calcium Level 7.9 MG/DL (8.5-10.1) L Total Bilirubin 0.9 MG/DL (0.2-1.0) Aspartate Amino Transf (AST/SGOT) 9 U/L (15-37) L Alanine Aminotransferase (ALT/SGPT) 11 U/L (12-78) L Alkaline Phosphatase 55 U/L (46-116) Pro-B-Type Natriuretic Peptide 3601 pg/mL (0-125) H Total Protein 6.9 G/DL (6.4-8.2) Albumin 1.8 G/DL (3.4-5.0) L Globulin 5.1 g/dL Albumin/Globulin Ratio 0.4 (1.0-2.7) L Current Medications Medications (Trade) Dose Ordered Sig/Lito Route PRN Reason Start Time Stop Time Status Last Admin Dose Admin Acetaminophen (Tylenol) 650 mg Q4H PRN ORAL fever (temp>100.5F) 10/03/17 19:45 10/28/17 23:44 Aspirin (ASA) 162 mg DAILY ORAL 10/04/17 09:00 10/30/17 15:44 Clonidine HCl (Catapres Tab) 0.3 mg EVERY 8 HOURS ORAL 10/03/17 22:00 11/01/17 21:59 Dextrose (Dextrose 50%) STAT PRN IV Hypoglycemia 10/03/17 17:00 10/28/17 16:59 Docusate Sodium (Colace) 100 mg THREE TIMES A DAY ORAL 10/03/17 18:00 10/29/17 12:59 Heparin Sodium (Porcine) (Heparin 5000 units/ml) 5,000 units EVERY 12 HOURS SUBQ 10/03/17 21:00 10/29/17 08:59 Hydralazine HCl (Apresoline) 50 mg Q8HR ORAL 10/03/17 22:00 11/02/17 13:59 Insulin Aspart (NovoLOG) BEFORE MEALS AND HS SUBQ 10/03/17 21:00 10/29/17 06:29 Ipratropium [place] (Atrovent) 500 mcg Q6HRT HHN 10/03/17 19:00 10/04/17 18:59 Lansoprazole (Prevacid) 30 mg BID ORAL 10/03/17 18:00 10/29/17 17:59 Levalbuterol HCl (Xopenex) 1.25 mg TIDRT HHN 10/03/17 19:00 10/04/17 18:59 Morphine Sulfate (Morphine Sulfate) 4 mg Q4H PRN IVP For Pain 10/03/17 17:00 10/09/17 16:59 Nitroglycerin (Ntg) 0.4 mg Q5M PRN SL Prn Chest Pain 10/03/17 16:45 10/28/17 23:44 Nitroglycerin (Ntg) 1 patch Q24H TDERMAL 10/04/17 16:00 10/30/17 15:59 Ondansetron HCl (Zofran) 4 mg Q6H PRN IVP Nausea & Vomiting 10/03/17 17:00 10/28/17 16:59 Piperacillin Sod/ Tazobactam Sod 3.375 gm/Sodium Chloride 110 ml @ 27.5 mls/hr EVERY 8 HOURS IVPB 10/03/17 22:00 10/08/17 21:59 Polyethylene Glycol (Miralax) 17 gm DAILYPRN PRN ORAL Constipation 10/03/17 17:00 10/28/17 16:59 Promethazine HCl/ Codeine (Phenergan with Codeine) 5 ml Q4H PRN ORAL For Cough 10/03/17 17:00 10/29/17 16:59 Tamsulosin HCl (Flomax) 0.4 mg BID ORAL 10/03/17 18:00 10/29/17 17:59 Temazepam (Restoril) 15 mg HSPRN PRN ORAL Insomnia 10/03/17 17:00 10/05/17 16:59 Theophylline (Mark-Dur) 100 mg EVERY 12 HOURS ORAL 10/03/17 21:00 10/29/17 20:59 Consuelo Baeza M.D. October 03, 2017 17:27
--- NOTE | 2017-10-03 17:38 | General Progress Note ---
Assessment/Plan Assessment/Plan cocaine abuse depression lexapro 10mg qam provided ro/st Subjective Date patient seen: October 03, 2017 Neurologic/Psychiatric: Reports: anxiety, emotional problems Allergies: Coded Allergies: No Known Allergies (Unverified , 09/28/17) Subjective the pt c/o fatigue and depressed mood Objective Last 24 Hour Vital Signs Date Time Temp Pulse Resp B/P (MAP) Pulse Ox O2 Delivery O2 Flow Rate FiO2 10/03/17 16:10 145/80 10/03/17 16:00 98.2 69 20 138/91 97 Nasal Cannula 2.0 98.2 10/03/17 13:56 145/80 10/03/17 13:56 145/80 10/03/17 13:50 69 20 98 Nasal Cannula 2.0 28 10/03/17 13:50 Nasal Cannula 2.0 28 10/03/17 12:00 67 10/03/17 12:00 98.5 65 20 145/80 98 Nasal Cannula 2.0 98.5 10/03/17 11:10 207.7 72 22 97 10/03/17 09:46 98.5 10/03/17 09:15 68 167/79 10/03/17 09:15 167/79 10/03/17 09:11 98.5 10/03/17 08:00 70 10/03/17 08:00 98.5 68 20 167/79 98 Nasal Cannula 2.0 98.5 10/03/17 07:57 Nasal Cannula 2.0 28 10/03/17 07:57 Nasal Cannula 2.0 28 10/03/17 07:57 98 Nasal Cannula 2.0 28 10/03/17 07:57 Nasal Cannula 2.0 28 10/03/17 05:20 167/82 10/03/17 04:00 97.9 76 20 167/82 100 Nasal Cannula 2.0 97.9 10/03/17 04:00 64 10/03/17 01:05 97.3 10/03/17 01:00 Nasal Cannula 10/03/17 01:00 Nasal Cannula 10/03/17 00:00 97.3 66 20 155/84 100 Nasal Cannula 2.0 97.3 10/03/17 00:00 67 10/02/17 21:05 165/78 10/02/17 20:42 98 Nasal Cannula 2.0 28 10/02/17 20:42 Nasal Cannula 2.0 28 10/02/17 20:03 98.0 10/02/17 20:00 97.9 76 20 167/82 99 Nasal Cannula 2.0 97.9 10/02/17 20:00 72 10/02/17 20:00 Nasal Cannula 10/02/17 20:00 78 18 98 Nasal Cannula 2.0 28 Intake and Output 10/02/17 10/03/17 19:00 07:00 Intake Total 1075.000 ml 137.5 ml Output Total 720 ml Balance 355.000 ml 137.5 ml Intake Oral 300 ml IV Total 775.000 ml 137.5 ml Output Urine Total 700 ml Estimated Blood Loss 20 ml Laboratory Tests 10/03/17 07:15: White Blood Count 9.2, Red Blood Count 4.04L, Hemoglobin 11.6L, Hematocrit 36.3L , Mean Corpuscular Volume 90, Mean Corpuscular Hemoglobin 28.6, Mean Corpuscular Hemoglobin Concent 31.8L, Red Cell Distribution Width 14.7, Platelet Count 150, Mean Platelet Volume 8.7, Neutrophils (%) (Auto) 79.2H, Lymphocytes (%) (Auto) 7.5L, Monocytes (%) (Auto) 11.0H, Eosinophils (%) (Auto) 1.3, Basophils (%) (Auto) 1.1, Sodium Level 138, Potassium Level 4.8, Chloride Level 103, Carbon Dioxide Level 32, Anion Gap 3L, Blood Urea Nitrogen 25H, Creatinine 1.7H, Estimat Glomerular Filtration Rate , Glucose Level 184H, Calcium Level 7.9L, Total Bilirubin 0.9, Aspartate Amino Transf (AST/SGOT) 9L, Alanine Aminotransferase (ALT/SGPT) 11L, Alkaline Phosphatase 55, Pro-B-Type Natriuretic Peptide 3601H, Total Protein 6.9, Albumin 1.8L, Globulin 5.1, Albumin/Globulin Ratio 0.4L Height (Feet): 6 Height (Inches): 4.00 Weight (Pounds): 319 Nadiya Currie M.D. October 03, 2017 17:38
--- NOTE | 2017-10-03 18:11 | Internal Med Progress Note ---
Subjective Date of Service: October 03, 2017 Physician Name Adilson Stephen Attending Physician Hal Moore MD Current Medications Medications (Trade) Dose Ordered Sig/Ilto Route PRN Reason Start Time Stop Time Status Last Admin Dose Admin Acetaminophen (Tylenol) 650 mg Q4H PRN ORAL fever (temp>100.5F) 10/03/17 19:45 10/28/17 23:44 Aspirin (ASA) 162 mg DAILY ORAL 10/04/17 09:00 10/30/17 15:44 Clonidine HCl (Catapres Tab) 0.3 mg EVERY 8 HOURS ORAL 10/03/17 22:00 11/01/17 21:59 Dextrose (Dextrose 50%) STAT PRN IV Hypoglycemia 10/03/17 17:00 10/28/17 16:59 Docusate Sodium (Colace) 100 mg THREE TIMES A DAY ORAL 10/03/17 18:00 10/29/17 12:59 10/03/17 17:13 Heparin Sodium (Porcine) (Heparin 5000 units/ml) 5,000 units EVERY 12 HOURS SUBQ 10/03/17 21:00 10/29/17 08:59 Hydralazine HCl (Apresoline) 50 mg Q8HR ORAL 10/03/17 22:00 11/02/17 13:59 Insulin Aspart (NovoLOG) BEFORE MEALS AND HS SUBQ 10/03/17 21:00 10/29/17 06:29 Ipratropium [place] (Atrovent) 500 mcg Q6HRT HHN 10/03/17 19:00 10/04/17 18:59 Lansoprazole (Prevacid) 30 mg BID ORAL 10/03/17 18:00 10/29/17 17:59 10/03/17 17:13 Levalbuterol HCl (Xopenex) 1.25 mg TIDRT HHN 10/03/17 19:00 10/04/17 18:59 Morphine Sulfate (Morphine Sulfate) 4 mg Q4H PRN IVP For Pain 10/03/17 17:00 10/09/17 16:59 Nitroglycerin (Ntg) 0.4 mg Q5M PRN SL Prn Chest Pain 10/03/17 16:45 10/28/17 23:44 Nitroglycerin (Ntg) 1 patch Q24H TDERMAL 10/04/17 16:00 10/30/17 15:59 Ondansetron HCl (Zofran) 4 mg Q6H PRN IVP Nausea & Vomiting 10/03/17 17:00 10/28/17 16:59 Piperacillin Sod/ Tazobactam Sod 3.375 gm/Sodium Chloride 110 ml @ 27.5 mls/hr EVERY 8 HOURS IVPB 10/03/17 22:00 10/08/17 21:59 Polyethylene Glycol (Miralax) 17 gm DAILYPRN PRN ORAL Constipation 10/03/17 17:00 10/28/17 16:59 Promethazine HCl/ Codeine (Phenergan with Codeine) 5 ml Q4H PRN ORAL For Cough 10/03/17 17:00 10/29/17 16:59 Tamsulosin HCl (Flomax) 0.4 mg BID ORAL 10/03/17 18:00 10/29/17 17:59 10/03/17 17:13 Temazepam (Restoril) 15 mg HSPRN PRN ORAL Insomnia 10/03/17 17:00 10/05/17 16:59 Theophylline (Mark-Dur) 100 mg EVERY 12 HOURS ORAL 10/03/17 21:00 10/29/17 20:59 Allergies: Coded Allergies: No Known Allergies (Unverified , 09/28/17) ROS Limited/Unobtainable: No Constitutional: Reports: no symptoms HEENT: Reports: no symptoms Cardiovascular: Reports: no symptoms Respiratory: Reports: no symptoms Gastrointestinal/Abdominal: Reports: no symptoms Genitourinary: Reports: no symptoms Neurologic/Psychiatric: Reports: no symptoms Subjective 71 YO M admitted with left leg pain. Now cellulitis left leg and right pleural effusion. Cover for Int Med-Dr Moore. Await thoracentesis. S/P debridement of left leg on Sat10/02/17. Objective Last Vital Signs Date Time Temp Pulse Resp B/P (MAP) Pulse Ox O2 Delivery O2 Flow Rate FiO2 10/03/17 16:10 145/80 10/03/17 16:00 98.2 69 20 97 Nasal Cannula 2.0 98.2 10/03/17 13:50 28 Laboratory Tests Test 10/03/17 07:15 White Blood Count 9.2 K/UL (4.8-10.8) Red Blood Count 4.04 M/UL (4.70-6.10) L Hemoglobin 11.6 G/DL (14.2-18.0) L Hematocrit 36.3 % (42.0-52.0) L Mean Corpuscular Volume 90 FL (80-99) Mean Corpuscular Hemoglobin 28.6 PG (27.0-31.0) Mean Corpuscular Hemoglobin Concent 31.8 G/DL (32.0-36.0) L Red Cell Distribution Width 14.7 % (11.6-14.8) Platelet Count 150 K/UL (150-450) Mean Platelet Volume 8.7 FL (6.5-10.1) Neutrophils (%) (Auto) 79.2 % (45.0-75.0) H Lymphocytes (%) (Auto) 7.5 % (20.0-45.0) L Monocytes (%) (Auto) 11.0 % (1.0-10.0) H Eosinophils (%) (Auto) 1.3 % (0.0-3.0) Basophils (%) (Auto) 1.1 % (0.0-2.0) Sodium Level 138 MMOL/L (136-145) Potassium Level 4.8 MMOL/L (3.5-5.1) Chloride Level 103 MMOL/L (98-107) Carbon Dioxide Level 32 MMOL/L (21-32) Anion Gap 3 mmol/L (5-15) L Blood Urea Nitrogen 25 mg/dL (7-18) H Creatinine 1.7 MG/DL (0.55-1.30) H Estimat Glomerular Filtration Rate mL/min (>60) Glucose Level 184 MG/DL (74-106) H Calcium Level 7.9 MG/DL (8.5-10.1) L Total Bilirubin 0.9 MG/DL (0.2-1.0) Aspartate Amino Transf (AST/SGOT) 9 U/L (15-37) L Alanine Aminotransferase (ALT/SGPT) 11 U/L (12-78) L Alkaline Phosphatase 55 U/L (46-116) Pro-B-Type Natriuretic Peptide 3601 pg/mL (0-125) H Total Protein 6.9 G/DL (6.4-8.2) Albumin 1.8 G/DL (3.4-5.0) L Globulin 5.1 g/dL Albumin/Globulin Ratio 0.4 (1.0-2.7) L Microbiology Date/Time Source Procedure Growth Status 10/01/17 08:10 Blood Blood Culture - Preliminary NO GROWTH AFTER 24 HOURS Resulted 10/02/17 09:55 Leg Left Gram Stain - Final Resulted 10/02/17 09:55 Aerobic Culture - Preliminary Gram Negative Bacillus 1 Resulted 10/02/17 09:55 Leg Left Anaerobic Culture Pending Resulted Intake and Output 10/02/17 10/03/17 19:00 07:00 Intake Total 1075.000 ml 137.5 ml Output Total 720 ml Balance 355.000 ml 137.5 ml Intake Oral 300 ml IV Total 775.000 ml 137.5 ml Output Urine Total 700 ml Estimated Blood Loss 20 ml Objective General Appearance: WD/WN, no apparent distress, alert EENT: PERRL/EOMI, normal ENT inspection, TMs normal Neck: non-tender, normal alignment, supple, normal inspection Cardiovascular: normal peripheral pulses, normal rate, regular rhythm, no gallop/murmur, no JVD Respiratory/Chest: decreased breath sounds, crackles/rales, rhonchi - bilaterally, expiratory wheezing Abdomen: normal bowel sounds, non tender, soft, no organomegaly, no mass Extremities: normal range of motion, non-tender 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 Await thoracentesis (2) Ascites (3) Cellulitis of left leg Assessment & Plan: see surgery and ID note. Continue zosyn. S/P Debridement in OR 10/02/17-see surgery note. (4) Renal failure Assessment & Plan: See nephrology note. (5) Diabetes mellitus type II, uncontrolled Assessment & Plan: Cont novolog sliding scale. (6) Obesities, morbid (7) Malignant hypertension Assessment & Plan: Continue norvasc and clonidine (8) CHF exacerbation Assessment & Plan: See cardiology note. (9) Leukocytosis Assessment & Plan: Sepsis; continue zosyn per ID (10) Sepsis Assessment & Plan: Klebsiella Oxytoca. Continue zosyn per ID Status: progressing Adilson Stephen MD October 03, 2017 18:11
[2017-10-03 20:00] VITALS: BP 151/85
[2017-10-03] MEDS: HydrALAZINE 50mg tab ORAL SCH (23:27)
[2017-10-04] VITALS: BP 157/85
[2017-10-04] MEDS: Ipratropium 0.02% Inh Soln 2.5ml UD HHN SCH ×3 (01:00→13:00)
[2017-10-04 04:00] VITALS: BP 167/83
[2017-10-04] MEDS: Piperacillin/Tazobactam 3.375 GM in NS 110 ML IVPB SCH ×3 (06:10→21:21)
[2017-10-04] MEDS: HydrALAZINE 50mg tab ORAL SCH ×2 (06:11→21:20)
[2017-10-04] MEDS: NovoLOG Insulin Flexpen SUBQ SCH ×4 (06:16→22:29)
[2017-10-04] MEDS: Levalbuterol Inh UD 1.25mg/0.5ml HHN SCH ×2 (07:00→13:00)
[2017-10-04 08:00] VITALS: BP 151/67
[2017-10-04 08:18] LABS: BASOPHILS % (AUTO) 0.8 % (0.0-2.0); EOSINOPHILS % (AUTO) 1.9 % (0.0-3.0); HEMOGLOBIN 11.2 G/DL (14.2-18.0); LYMPHOCYTES % (AUTO) 7.3 % (20.0-45.0); MEAN CORPUSCULAR VOLUME 90 FL (80-99); MONOCYTES % (AUTO) 11.8 % (1.0-10.0); NEUTROPHILS % (AUTO) 78.2 % (45.0-75.0); PLATELET COUNT 160 K/UL (150-450); RED BLOOD COUNT 4.02 M/UL (4.70-6.10); RED CELL DISTRIBUTION WIDTH 14.3 % (11.6-14.8); WHITE BLOOD COUNT 8.8 K/UL (4.8-10.8)
[2017-10-04 08:33] LABS: ANION GAP 2 mmol/L (5-15); BLOOD UREA NITROGEN 26 mg/dL (7-18); CALCIUM 7.9 MG/DL (8.5-10.1); CARBON DIOXIDE 32 MMOL/L (21-32); CHLORIDE 104 MMOL/L (98-107); CREATININE 1.6 MG/DL (0.55-1.30); POTASSIUM 4.5 MMOL/L (3.5-5.1); SODIUM 138 MMOL/L (136-145)
[2017-10-04] MEDS: Aspirin Baby 81mg ORAL SCH (09:41)
[2017-10-04] MEDS: Theophylline ER 100mg ORAL SCH ×2 (09:41→21:20)
[2017-10-04] MEDS: Tamsulosin 0.4mg cap ORAL SCH ×2 (09:41→17:15)
[2017-10-04] MEDS: Docusate 100mg cap ORAL SCH ×3 (09:41→17:15)
[2017-10-04] MEDS: Heparin 5000 units/ml inj SUBQ SCH ×2 (09:46→20:14)
[2017-10-04] MEDS: Morphine Sulfate 4mg/ml Inj IVP PRN ×3 (11:17→23:51)
--- NOTE | 2017-10-04 11:34 | General Progress Note ---
Assessment/Plan Status: stable Assessment/Plan cocaine abuse depression lexapro 10mg qam provided ro/st Subjective Neurologic/Psychiatric: Reports: anxiety, depressed Allergies: Coded Allergies: No Known Allergies (Unverified , 09/28/17) Subjective the pt c/o fatigue and depressed mood Objective Last 24 Hour Vital Signs Date Time Temp Pulse Resp B/P (MAP) Pulse Ox O2 Delivery O2 Flow Rate FiO2 10/04/17 11:17 98.2 10/04/17 08:00 98.2 67 20 151/67 95 98.2 10/04/17 07:24 Nasal Cannula 2.0 28 10/04/17 07:23 Nasal Cannula 2.0 28 10/04/17 07:23 97 Nasal Cannula 2.0 28 10/04/17 07:23 74 20 97 Nasal Cannula 2.0 28 10/04/17 06:11 167/83 10/04/17 06:11 167/83 10/04/17 04:00 97.7 66 19 167/83 97 97.7 10/04/17 01:19 Nasal Cannula 10/04/17 01:18 Nasal Cannula 10/04/17 00:00 98.2 63 19 157/85 98 98.2 10/03/17 23:28 157/85 10/03/17 23:27 157/85 10/03/17 20:00 98.3 70 18 151/85 95 98.3 10/03/17 19:01 Nasal Cannula 2.0 28 10/03/17 19:00 67 18 97 Nasal Cannula 2.0 28 10/03/17 18:59 Nasal Cannula 2.0 28 10/03/17 18:59 97 Nasal Cannula 2.0 10/03/17 16:10 145/80 10/03/17 16:00 98.2 69 20 138/91 97 Nasal Cannula 2.0 98.2 10/03/17 13:56 145/80 10/03/17 13:56 145/80 10/03/17 13:50 69 20 98 Nasal Cannula 2.0 28 10/03/17 13:50 Nasal Cannula 2.0 28 10/03/17 12:00 67 10/03/17 12:00 98.5 65 20 145/80 98 Nasal Cannula 2.0 98.5 Intake and Output 10/03/17 10/04/17 19:00 07:00 Intake Total 322.5 ml 350.0 ml Output Total 540 ml 1130 ml Balance -217.5 ml -780.0 ml Intake Oral 240 ml 240 ml IV Total 82.5 ml 110.0 ml Output Urine Total 400 ml 1100 ml Drainage Total 140 ml 30 ml Laboratory Tests 10/04/17 07:07: White Blood Count 8.8, Red Blood Count 4.02L, Hemoglobin 11.2L, Hematocrit 36.0L , Mean Corpuscular Volume 90, Mean Corpuscular Hemoglobin 27.9, Mean Corpuscular Hemoglobin Concent 31.1L, Red Cell Distribution Width 14.3, Platelet Count 160, Mean Platelet Volume 9.5, Neutrophils (%) (Auto) 78.2H, Lymphocytes (%) (Auto) 7.3L, Monocytes (%) (Auto) 11.8H, Eosinophils (%) (Auto) 1.9, Basophils (%) (Auto) 0.8 10/04/17 08:00: Sodium Level 138, Potassium Level 4.5, Chloride Level 104, Carbon Dioxide Level 32, Anion Gap 2L, Blood Urea Nitrogen 26H, Creatinine 1.6H, Estimat Glomerular Filtration Rate , Glucose Level 211H, Calcium Level 7.9L Height (Feet): 6 Height (Inches): 4.00 Weight (Pounds): 333 General Appearance: no apparent distress, alert Neurologic: oriented x 3, responsive, depressed affect Nadiya Currie M.D. Oct 04, 2017 11:34
[2017-10-04 12:00] VITALS: BP 177/88
--- NOTE | 2017-10-04 12:31 | General Progress Note ---
Progress Note Progress Note Surgery: doing well. stable. wound vac removed. wound improved without signs of active infection. wound slowly rodrigue and less edema. good bleeding noted. new wound vac placed at bedside. next change saturday Mannie Macedo Oct 04, 2017 12:31
[2017-10-04] MEDS ORDERED: HydrALAZINE 50mg tab ORAL SCH ×2 (14:00→15:30)
--- NOTE | 2017-10-04 14:01 | Cardiology Progress Note ---
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 (11) Edema 1) Blood pressure control: Clonidine, hydralazine, nitro patch - 2) Echocardiogram reviewed - heart failure preserved ejection fraction ACC stage C NYHA class II 3) lasix to reduce lower extremity edema and filling pressures 4) serial troponin and BNP - not clinically impressive for ACS 5) Ensure medication compliance 6) Discussed cocaine and THC cessation 7) Serial CXR to monitor right effusion 8) Wound care 9) Continue antibiotics, WBC elevated 10) For thoracentesis 11) Wound vac management per surgery - next change out Saturday Subjective Cardiovascular: Reports: no symptoms Respiratory: Reports: no symptoms Gastrointestinal/Abdominal: Reports: no symptoms Genitourinary: Reports: no symptoms Subjective No acute events, wound vac in place, improvement in Leg edema, thoracentesis pending, vitals stable, no complaints BP not at goal, increase hydralazine Objective Last 24 Hour Vital Signs Date Time Temp Pulse Resp B/P (MAP) Pulse Ox O2 Delivery O2 Flow Rate FiO2 10/04/17 13:44 Nasal Cannula 2.0 28 10/04/17 13:44 72 20 96 Nasal Cannula 2.0 28 10/04/17 12:00 99.1 69 20 177/88 96 99.1 10/04/17 11:47 98.2 10/04/17 11:17 98.2 10/04/17 08:00 98.2 67 20 151/67 95 98.2 10/04/17 07:24 Nasal Cannula 2.0 28 10/04/17 07:23 Nasal Cannula 2.0 28 10/04/17 07:23 97 Nasal Cannula 2.0 28 10/04/17 07:23 74 20 97 Nasal Cannula 2.0 28 10/04/17 06:11 167/83 10/04/17 06:11 167/83 10/04/17 04:00 97.7 66 19 167/83 97 97.7 10/04/17 01:19 Nasal Cannula 10/04/17 01:18 Nasal Cannula 10/04/17 00:00 98.2 63 19 157/85 98 98.2 10/03/17 23:28 157/85 10/03/17 23:27 157/85 10/03/17 20:00 98.3 70 18 151/85 95 98.3 10/03/17 19:01 Nasal Cannula 2.0 28 10/03/17 19:00 67 18 97 Nasal Cannula 2.0 28 10/03/17 18:59 Nasal Cannula 2.0 28 10/03/17 18:59 97 Nasal Cannula 2.0 28 10/03/17 16:10 145/80 10/03/17 16:00 98.2 69 20 138/91 97 Nasal Cannula 2.0 98.2 General Appearance: no apparent distress EENT: PERRL/EOMI Neck: non-tender Rhythm: NSR Cardiovascular: normal peripheral pulses Respiratory/Chest: decreased breath sounds Abdomen: normal bowel sounds Extremities: normal range of motion, normal capillary refill, calf tenderness, moderate edema 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 Intake and Output 10/03/17 10/04/17 19:00 07:00 Intake Total 322.5 ml 350.0 ml Output Total 540 ml 1130 ml Balance -217.5 ml -780.0 ml Intake Oral 240 ml 240 ml IV Total 82.5 ml 110.0 ml Output Urine Total 400 ml 1100 ml Drainage Total 140 ml 30 ml Laboratory Tests Test 10/04/17 07:07 10/04/17 08:00 White Blood Count 8.8 K/UL (4.8-10.8) Red Blood Count 4.02 M/UL (4.70-6.10) L Hemoglobin 11.2 G/DL (14.2-18.0) L Hematocrit 36.0 % (42.0-52.0) L Mean Corpuscular Volume 90 FL (80-99) Mean Corpuscular Hemoglobin 27.9 PG (27.0-31.0) Mean Corpuscular Hemoglobin Concent 31.1 G/DL (32.0-36.0) L Red Cell Distribution Width 14.3 % (11.6-14.8) Platelet Count 160 K/UL (150-450) Mean Platelet Volume 9.5 FL (6.5-10.1) Neutrophils (%) (Auto) 78.2 % (45.0-75.0) H Lymphocytes (%) (Auto) 7.3 % (20.0-45.0) L Monocytes (%) (Auto) 11.8 % (1.0-10.0) H Eosinophils (%) (Auto) 1.9 % (0.0-3.0) Basophils (%) (Auto) 0.8 % (0.0-2.0) Sodium Level 138 MMOL/L (136-145) Potassium Level 4.5 MMOL/L (3.5-5.1) Chloride Level 104 MMOL/L (98-107) Carbon Dioxide Level 32 MMOL/L (21-32) Anion Gap 2 mmol/L (5-15) L Blood Urea Nitrogen 26 mg/dL (7-18) H Creatinine 1.6 MG/DL (0.55-1.30) H Estimat Glomerular Filtration Rate mL/min (>60) Glucose Level 211 MG/DL (74-106) H Calcium Level 7.9 MG/DL (8.5-10.1) L Microbiology Date/Time Source Procedure Growth Status 10/02/17 09:55 Leg Left Gram Stain - Final Resulted 10/02/17 09:55 Aerobic Culture - Preliminary Gram Negative Bacillus 1 Gram Negative Bacillus 2 Usual Skin Jane Resulted 10/02/17 09:55 Leg Left Anaerobic Culture - Preliminary Resulted Kranthi Herrera M.D. Oct 04, 2017 14:01
--- NOTE | 2017-10-04 14:46 | Nephrology Progress Note ---
Assessment/Plan Problem List: (1) Malignant hypertension (2) Cocaine abuse (3) CKD (chronic kidney disease) (4) CHF exacerbation Assessment Diabetic Nephropathy Cr stable Gangrene of lower extremity CHF exacerbation Malignant hypertension Cocaine abuse Obesity (BMI 30.0-34.9) ACS (acute coronary syndrome) Plan debridement 10/02 Adjust BP meds- add norvasc asa and nitro PRNs for BP 2D echo Left ventricular ejection fraction to be slightly reduced - estimated 45 % monitor renal parameters Subjective ROS Limited/Unobtainable: No Constitutional: Reports: malaise Objective Objective Last 24 Hour Vital Signs Date Time Temp Pulse Resp B/P (MAP) Pulse Ox O2 Delivery O2 Flow Rate FiO2 10/04/17 13:44 Nasal Cannula 2.0 28 10/04/17 13:44 72 20 96 Nasal Cannula 2.0 28 10/04/17 12:00 99.1 69 20 177/88 96 99.1 10/04/17 11:47 98.2 10/04/17 11:17 98.2 10/04/17 08:00 98.2 67 20 151/67 95 98.2 10/04/17 07:24 Nasal Cannula 2.0 28 10/04/17 07:23 Nasal Cannula 2.0 28 10/04/17 07:23 97 Nasal Cannula 2.0 28 10/04/17 07:23 74 20 97 Nasal Cannula 2.0 28 10/04/17 06:11 167/83 10/04/17 06:11 167/83 10/04/17 04:00 97.7 66 19 167/83 97 97.7 10/04/17 01:19 Nasal Cannula 10/04/17 01:18 Nasal Cannula 10/04/17 00:00 98.2 63 19 157/85 98 98.2 10/03/17 23:28 157/85 10/03/17 23:27 157/85 10/03/17 20:00 98.3 70 18 151/85 95 98.3 10/03/17 19:01 Nasal Cannula 2.0 28 10/03/17 19:00 67 18 97 Nasal Cannula 2.0 28 10/03/17 18:59 Nasal Cannula 2.0 28 10/03/17 18:59 97 Nasal Cannula 2.0 28 10/03/17 16:10 145/80 10/03/17 16:00 98.2 69 20 138/91 97 Nasal Cannula 2.0 98.2 Intake and Output 10/03/17 10/04/17 19:00 07:00 Intake Total 322.5 ml 350.0 ml Output Total 540 ml 1130 ml Balance -217.5 ml -780.0 ml Intake Oral 240 ml 240 ml IV Total 82.5 ml 110.0 ml Output Urine Total 400 ml 1100 ml Drainage Total 140 ml 30 ml Laboratory Tests 10/04/17 07:07: White Blood Count 8.8, Red Blood Count 4.02L, Hemoglobin 11.2L, Hematocrit 36.0L , Mean Corpuscular Volume 90, Mean Corpuscular Hemoglobin 27.9, Mean Corpuscular Hemoglobin Concent 31.1L, Red Cell Distribution Width 14.3, Platelet Count 160, Mean Platelet Volume 9.5, Neutrophils (%) (Auto) 78.2H, Lymphocytes (%) (Auto) 7.3L, Monocytes (%) (Auto) 11.8H, Eosinophils (%) (Auto) 1.9, Basophils (%) (Auto) 0.8 10/04/17 08:00: Sodium Level 138, Potassium Level 4.5, Chloride Level 104, Carbon Dioxide Level 32, Anion Gap 2L, Blood Urea Nitrogen 26H, Creatinine 1.6H, Estimat Glomerular Filtration Rate , Glucose Level 211H, Calcium Level 7.9L Height (Feet): 6 Height (Inches): 4.00 Weight (Pounds): 333 General Appearance: no apparent distress Cardiovascular: regular rhythm Respiratory/Chest: decreased breath sounds Abdomen: soft Objective PE not changed OMER YOU Oct 04, 2017 14:46
[2017-10-04] MEDS ORDERED: cloNIDine 0.2mg Tab ORAL SCH (15:00)
--- NOTE | 2017-10-04 15:48 | Infectious Diseases Prog Note ---
Assessment/Plan Assessment/Plan Assessment: SEpsis (SP) 2ry to L wound infection, Gram neg bacteremia -09/28 Bcx 05/09 K. oxytoca (R amp, otherwise S); 09/30 NTD x2 L anterior leg chronic wound and surrounding cellulitis -s/p I+D 10/02 and wound vac placement -OR findings: large area of necrosis and gangrene on the anterior mid leg; measured to be 23 cm x 14 cm x approximately 2 cm deep. The area was excised until fresh bleeding tissue could be identified. It was down deep in the medial lateral aspect to the fascia and to the periosteum on the tibia as well. The underlying subcutaneous tissue with edema, there were some pockets of fluid. Fascia and muscle viable. -OR cx GNRs (#1 and #2) -CT L tibia/fibula: Cellulitis and ulceration in the pretibial aspect of the left lower extremity. The presence of gas likely associated with the presence of a large ulceration in this location. Gas-forming organism is the obvious concern and not excludable. No drainable abscess identified. No obvious intramuscular fascial thickening or fluid accumulation. -xray tibia/fibula: There is gas in the soft tissues. This can be traumatic , iatrogenic, or infectious. No acute fracture or suspicious osseous erosions. ; gas likely from incision made in ED- tissue seemed viable upon superificial exploration per ED physician and surgeon. -wound cx: K. pneumonia (R amp, otherwise S), E. fecalis (maldonado S); 2nd wound cx : K. pna (R amp, otherwise S) #1 and #2 PsA (maldonado S), E. fecalis (maldonado S) K, oxytoca bacteremia- 2ry to above -Abd US: Ascites. Right pleural effusion. Left kidney not identified. Access to the area is limited. It is uncertain whether this is technical or whether there is an absent or small left kidney. Gallbladder contracted but otherwise grossly unremarkable.Otherwise negative within the limits noted above. Fever, resolved Leukocytosis; resolved -u/a wbc 10-15, nit neg, leuk +1 Hypertensive urgency,SP TK, improving Dm2 w/ nephropathy CHF Obesity HTN marihuana and cocaine use non compliance Plan: -Continue Zosyn #3 (abx d#11/16) to simplify abx coverage for PsA, Klebsiella and enterococcus of leg wound infection -will treat for 2 weeks; upon discharge, can be transitioned to PO Cipro and Augmentin (renally dose) -10/02 SP IV Vanco #5, CEfepime #5, Flagyl #5 -f/u repeat 2 sets of Bcx -f/u OR cx -Monitor CBC/BMP, temperatures -wound care/wound vac Thank you for this consultation. Will continue to follow along with you. Discussed with RN and Dr Macedo. Subjective Allergies: Coded Allergies: No Known Allergies (Unverified , 09/28/17) Subjective afebrile no leukocytosis repeat Bcx NTD OR cx GNRs wound vac changed; wound improving Objective Vital Signs Last 24 Hour Vital Signs Date Time Temp Pulse Resp B/P (MAP) Pulse Ox O2 Delivery O2 Flow Rate FiO2 10/04/17 15:29 72 177/88 10/04/17 15:05 177/88 10/04/17 15:04 177/88 10/04/17 13:44 Nasal Cannula 2.0 28 10/04/17 13:44 72 20 96 Nasal Cannula 2.0 28 10/04/17 12:00 99.1 69 20 177/88 96 99.1 10/04/17 11:47 98.2 10/04/17 11:17 98.2 10/04/17 08:00 98.2 67 20 151/67 95 98.2 10/04/17 07:24 Nasal Cannula 2.0 28 10/04/17 07:23 Nasal Cannula 2.0 28 10/04/17 07:23 97 Nasal Cannula 2.0 28 10/04/17 07:23 74 20 97 Nasal Cannula 2.0 28 10/04/17 06:11 167/83 10/04/17 06:11 167/83 10/04/17 04:00 97.7 66 19 167/83 97 97.7 10/04/17 01:19 Nasal Cannula 10/04/17 01:18 Nasal Cannula 10/04/17 00:00 98.2 63 19 157/85 98 98.2 10/03/17 23:28 157/85 10/03/17 23:27 157/85 10/03/17 20:00 98.3 70 18 151/85 95 98.3 10/03/17 19:01 Nasal Cannula 2.0 28 10/03/17 19:00 67 18 97 Nasal Cannula 2.0 28 10/03/17 18:59 Nasal Cannula 2.0 28 10/03/17 18:59 97 Nasal Cannula 2.0 28 10/03/17 16:10 145/80 10/03/17 16:00 98.2 69 20 138/91 97 Nasal Cannula 2.0 98.2 Height (Feet): 6 Height (Inches): 4.00 Weight (Pounds): 333 Objective General Appearance: no apparent distress, alert Lines, tubes and drains: peripheral HEENT: normocephalic, mucous membranes moist Neck: supple Respiratory/Chest: lungs clear, normal breath sounds, no respiratory distress, no accessory muscle use Cardiovascular/Chest: normal rate Abdomen: normal bowel sounds, non tender, soft, no organomegaly, no mass Extremities: L leg wrapped and wound vac in place Neurologic: alert, oriented x 3, responsive Microbiology Date/Time Source Procedure Growth Status 10/02/17 09:55 Leg Left Gram Stain - Final Resulted 10/02/17 09:55 Aerobic Culture - Preliminary Gram Negative Bacillus 1 Gram Negative Bacillus 2 Usual Skin Jane Resulted 10/02/17 09:55 Leg Left Anaerobic Culture - Preliminary Resulted Laboratory Tests Test 10/04/17 07:07 10/04/17 08:00 White Blood Count 8.8 K/UL (4.8-10.8) Red Blood Count 4.02 M/UL (4.70-6.10) L Hemoglobin 11.2 G/DL (14.2-18.0) L Hematocrit 36.0 % (42.0-52.0) L Mean Corpuscular Volume 90 FL (80-99) Mean Corpuscular Hemoglobin 27.9 PG (27.0-31.0) Mean Corpuscular Hemoglobin Concent 31.1 G/DL (32.0-36.0) L Red Cell Distribution Width 14.3 % (11.6-14.8) Platelet Count 160 K/UL (150-450) Mean Platelet Volume 9.5 FL (6.5-10.1) Neutrophils (%) (Auto) 78.2 % (45.0-75.0) H Lymphocytes (%) (Auto) 7.3 % (20.0-45.0) L Monocytes (%) (Auto) 11.8 % (1.0-10.0) H Eosinophils (%) (Auto) 1.9 % (0.0-3.0) Basophils (%) (Auto) 0.8 % (0.0-2.0) Sodium Level 138 MMOL/L (136-145) Potassium Level 4.5 MMOL/L (3.5-5.1) Chloride Level 104 MMOL/L (98-107) Carbon Dioxide Level 32 MMOL/L (21-32) Anion Gap 2 mmol/L (5-15) L Blood Urea Nitrogen 26 mg/dL (7-18) H Creatinine 1.6 MG/DL (0.55-1.30) H Estimat Glomerular Filtration Rate mL/min (>60) Glucose Level 211 MG/DL (74-106) H Calcium Level 7.9 MG/DL (8.5-10.1) L Current Medications Medications (Trade) Dose Ordered Sig/Lito Route PRN Reason Start Time Stop Time Status Last Admin Dose Admin Acetaminophen (Tylenol) 650 mg Q4H PRN ORAL fever (temp>100.5F) 10/03/17 19:45 10/28/17 23:44 Amlodipine Besylate (Norvasc) 10 mg DAILY ORAL 10/05/17 09:00 11/04/17 08:59 Amlodipine Besylate (Norvasc) 10 mg ONCE ORAL 10/04/17 15:00 10/04/17 16:00 10/04/17 15:29 Aspirin (ASA) 162 mg DAILY ORAL 10/04/17 09:00 10/30/17 15:44 10/04/17 09:41 Clonidine HCl (Catapres tab) 0.2 mg EVERY 8 HOURS ORAL 10/04/17 22:00 11/01/17 21:59 Clonidine HCl (Catapres tab) 0.2 mg ONCE ORAL 10/04/17 15:00 10/04/17 16:30 10/04/17 15:05 Dextrose (Dextrose 50%) STAT PRN IV Hypoglycemia 10/03/17 17:00 10/28/17 16:59 Docusate Sodium (Colace) 100 mg THREE TIMES A DAY ORAL 10/03/17 18:00 10/29/17 12:59 10/04/17 15:04 Heparin Sodium (Porcine) (Heparin 5000 units/ml) 5,000 units EVERY 12 HOURS SUBQ 10/03/17 21:00 10/29/17 08:59 10/04/17 09:46 Hydralazine HCl (Apresoline) 100 mg ONCE ORAL 10/04/17 15:30 10/04/17 17:00 10/04/17 15:04 Hydralazine HCl (Apresoline) 100 mg Q8H ORAL 10/04/17 22:00 11/03/17 21:59 Insulin Aspart (NovoLOG) BEFORE MEALS AND HS SUBQ 10/03/17 21:00 10/29/17 06:29 10/04/17 12:10 Ipratropium [place] (Atrovent) 500 mcg Q6HRT HHN 10/03/17 19:00 10/04/17 18:59 Lansoprazole (Prevacid) 30 mg BID ORAL 10/03/17 18:00 10/29/17 17:59 10/04/17 09:41 Levalbuterol HCl (Xopenex) 1.25 mg TIDRT HHN 10/03/17 19:00 10/04/17 18:59 Minoxidil (Loniten) 2.5 mg Q4H PRN ORAL bp over 160 syst 10/04/17 14:57 11/03/17 14:56 Morphine Sulfate (Morphine Sulfate) 4 mg Q4H PRN IVP For Pain 10/03/17 17:00 10/09/17 16:59 10/04/17 11:17 Nitroglycerin (Ntg) 0.4 mg Q5M PRN SL Prn Chest Pain 10/03/17 16:45 10/28/17 23:44 Nitroglycerin (Ntg) 1 patch Q24H TDERMAL 10/04/17 16:00 10/30/17 15:59 Ondansetron HCl (Zofran) 4 mg Q6H PRN IVP Nausea & Vomiting 10/03/17 17:00 10/28/17 16:59 Piperacillin Sod/ Tazobactam Sod 3.375 gm/Sodium Chloride 110 ml @ 27.5 mls/hr EVERY 8 HOURS IVPB 10/03/17 22:00 10/08/17 21:59 10/04/17 15:13 Polyethylene Glycol (Miralax) 17 gm DAILYPRN PRN ORAL Constipation 10/03/17 17:00 10/28/17 16:59 Promethazine HCl/ Codeine (Phenergan with Codeine) 5 ml Q4H PRN ORAL For Cough 10/03/17 17:00 10/29/17 16:59 Tamsulosin HCl (Flomax) 0.4 mg BID ORAL 10/03/17 18:00 10/29/17 17:59 10/04/17 09:41 Temazepam (Restoril) 15 mg HSPRN PRN ORAL Insomnia 10/03/17 17:00 10/05/17 16:59 Theophylline (Mark-Dur) 100 mg EVERY 12 HOURS ORAL 10/03/17 21:00 10/29/17 20:59 10/04/17 09:41 Consuelo Baeza M.D. Oct 04, 2017 15:48
[2017-10-04 16:00] VITALS: BP 188/86
[2017-10-04] MEDS: Nitroglycerin Patch 0.4mg TDERMAL SCH (16:57)
[2017-10-04] MEDS ORDERED: NS 275ml ONE (18:15)
[2017-10-04] MEDS ORDERED: Tubing IV Secondary IV ONE (18:15)
[2017-10-04] MEDS: Minoxidil 2.5mg tab ORAL PRN (18:47)
[2017-10-04 20:09] VITALS: BP 158/79
--- NOTE | 2017-10-04 20:11 | Pulmonology Progress Note ---
Assessment/Plan Problems: (1) Gram-negative bacteremia (2) Pleural effusion (3) Cardiomegaly (4) Cellulitis (5) Hypoalbuminemia (6) ATN (acute tubular necrosis) (7) Diabetes mellitus (8) Obesity (BMI 30.0-34.9) (9) Noncompliance (10) Anasarca (11) Cocaine abuse Assessment/Plan postponed thoracentesis again CXR reviewed, increasing pleural effusion s/p debridement afebrile GNB, Klebsiella on abx, cefepime all consults reviewed Echo: EF 45% check cultures wound care optimize cardiac meds Subjective ROS Limited/Unobtainable: No Constitutional: Reports: no symptoms HEENT: Repors: no symptoms Respiratory: Reports: no symptoms Allergies: Coded Allergies: No Known Allergies (Unverified , 09/28/17) Objective Last 24 Hour Vital Signs Date Time Temp Pulse Resp B/P (MAP) Pulse Ox O2 Delivery O2 Flow Rate FiO2 10/04/17 20:09 97.7 69 19 158/79 98 Nasal Cannula 2.0 97.7 10/04/17 19:48 Nasal Cannula 10/04/17 19:47 Nasal Cannula 2.0 28 10/04/17 19:47 Nasal Cannula 10/04/17 19:47 96 Nasal Cannula 2.0 28 10/04/17 19:47 Nasal Cannula 10/04/17 19:02 99.1 10/04/17 18:47 178/90 10/04/17 18:32 99.1 10/04/17 16:57 177/88 10/04/17 16:00 188/86 10/04/17 15:29 72 177/88 10/04/17 15:05 177/88 10/04/17 15:04 177/88 10/04/17 13:44 Nasal Cannula 2.0 28 10/04/17 13:44 72 20 96 Nasal Cannula 2.0 28 10/04/17 12:00 99.1 69 20 177/88 96 99.1 10/04/17 11:17 98.2 10/04/17 08:00 98.2 67 20 151/67 95 98.2 10/04/17 07:24 Nasal Cannula 2.0 28 10/04/17 07:23 Nasal Cannula 2.0 28 10/04/17 07:23 97 Nasal Cannula 2.0 28 10/04/17 07:23 74 20 97 Nasal Cannula 2.0 28 10/04/17 06:11 167/83 10/04/17 06:11 167/83 10/04/17 04:00 97.7 66 19 167/83 97 97.7 10/04/17 01:19 Nasal Cannula 10/04/17 01:18 Nasal Cannula 10/04/17 00:00 98.2 63 19 157/85 98 98.2 10/03/17 23:28 157/85 10/03/17 23:27 157/85 Intake and Output 10/03/17 10/04/17 19:00 07:00 Intake Total 322.5 ml 350.0 ml Output Total 540 ml 1130 ml Balance -217.5 ml -780.0 ml Intake Oral 240 ml 240 ml IV Total 82.5 ml 110.0 ml Output Urine Total 400 ml 1100 ml Drainage Total 140 ml 30 ml Objective General Appearance: WD/WN, no apparent distress, lethargic Lines, tubes and drains: peripheral HEENT: normocephalic, atraumatic, anicteric, mucous membranes moist Neck: non-tender, normal alignment, supple Respiratory/Chest: chest wall non-tender, lungs clear, normal breath sounds, no respiratory distress Breasts: no masses Cardiovascular/Chest: normal peripheral pulses, normal rate, regular rhythm, regularly irregular Abdomen: normal bowel sounds, non tender, soft, no organomegaly, no mass Genitourinary/Rectal: normal genital exam Extremities: normal range of motion, non-tender, normal inspection, no calf tenderness, normal capillary refill Skin Exam: normal pigmentation Neurologic: 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 II-XII grossly normal Physical Exam Narrative General Appearance: WD/WN HEENT: normocephalic, atraumatic Respiratory/Chest: chest wall non-tender, lungs clear Breasts: no masses Cardiovascular: normal peripheral pulses, normal rate Abdomen: normal bowel sounds, soft, non tender Genitourinary: normal external genitalia Extremities: no cyanosis, wound vac in place General Appearance: WD/WN Microbiology Date/Time Source Procedure Growth Status 10/02/17 09:55 Leg Left Gram Stain - Final Resulted 10/02/17 09:55 Aerobic Culture - Preliminary Gram Negative Bacillus 1 Gram Negative Bacillus 2 Usual Skin Jane Resulted 10/02/17 09:55 Leg Left Anaerobic Culture - Preliminary Resulted Laboratory Tests 10/04/17 07:07: White Blood Count 8.8, Red Blood Count 4.02L, Hemoglobin 11.2L, Hematocrit 36.0L , Mean Corpuscular Volume 90, Mean Corpuscular Hemoglobin 27.9, Mean Corpuscular Hemoglobin Concent 31.1L, Red Cell Distribution Width 14.3, Platelet Count 160, Mean Platelet Volume 9.5, Neutrophils (%) (Auto) 78.2H, Lymphocytes (%) (Auto) 7.3L, Monocytes (%) (Auto) 11.8H, Eosinophils (%) (Auto) 1.9, Basophils (%) (Auto) 0.8 10/04/17 08:00: Sodium Level 138, Potassium Level 4.5, Chloride Level 104, Carbon Dioxide Level 32, Anion Gap 2L, Blood Urea Nitrogen 26H, Creatinine 1.6H, Estimat Glomerular Filtration Rate , Glucose Level 211H, Calcium Level 7.9L Current Medications Medications (Trade) Dose Ordered Sig/Lito Route PRN Reason Start Time Stop Time Status Last Admin Dose Admin Acetaminophen (Tylenol) 650 mg Q4H PRN ORAL fever (temp>100.5F) 10/03/17 19:45 10/28/17 23:44 Amlodipine Besylate (Norvasc) 10 mg DAILY ORAL 10/05/17 09:00 11/04/17 08:59 Aspirin (ASA) 162 mg DAILY ORAL 10/04/17 09:00 10/30/17 15:44 10/04/17 09:41 Clonidine HCl (Catapres tab) 0.2 mg EVERY 8 HOURS ORAL 10/04/17 22:00 11/01/17 21:59 Dextrose (Dextrose 50%) STAT PRN IV Hypoglycemia 10/03/17 17:00 10/28/17 16:59 Docusate Sodium (Colace) 100 mg THREE TIMES A DAY ORAL 10/03/17 18:00 10/29/17 12:59 10/04/17 17:15 Heparin Sodium (Porcine) (Heparin 5000 units/ml) 5,000 units EVERY 12 HOURS SUBQ 10/03/17 21:00 10/29/17 08:59 10/04/17 09:46 Hydralazine HCl (Apresoline) 100 mg Q8H ORAL 10/04/17 22:00 11/03/17 21:59 Insulin Aspart (NovoLOG) BEFORE MEALS AND HS SUBQ 10/03/17 21:00 10/29/17 06:29 10/04/17 17:01 Lansoprazole (Prevacid) 30 mg BID ORAL 10/03/17 18:00 10/29/17 17:59 10/04/17 17:15 Minoxidil (Loniten) 2.5 mg Q4H PRN ORAL bp over 160 syst 10/04/17 14:57 11/03/17 14:56 10/04/17 18:47 Morphine Sulfate (Morphine Sulfate) 4 mg Q4H PRN IVP For Pain 10/03/17 17:00 10/09/17 16:59 10/04/17 18:32 Nitroglycerin (Ntg) 0.4 mg Q5M PRN SL Prn Chest Pain 10/03/17 16:45 10/28/17 23:44 Nitroglycerin (Ntg) 1 patch Q24H TDERMAL 10/04/17 16:00 10/30/17 15:59 10/04/17 16:57 Ondansetron HCl (Zofran) 4 mg Q6H PRN IVP Nausea & Vomiting 10/03/17 17:00 10/28/17 16:59 Piperacillin Sod/ Tazobactam Sod 3.375 gm/Sodium Chloride 110 ml @ 27.5 mls/hr EVERY 8 HOURS IVPB 10/03/17 22:00 10/08/17 21:59 10/04/17 15:13 Polyethylene Glycol (Miralax) 17 gm DAILYPRN PRN ORAL Constipation 10/03/17 17:00 10/28/17 16:59 Promethazine HCl/ Codeine (Phenergan with Codeine) 5 ml Q4H PRN ORAL For Cough 10/03/17 17:00 10/29/17 16:59 Tamsulosin HCl (Flomax) 0.4 mg BID ORAL 10/03/17 18:00 10/29/17 17:59 10/04/17 17:15 Temazepam (Restoril) 15 mg HSPRN PRN ORAL Insomnia 10/03/17 17:00 10/05/17 16:59 Theophylline (Mark-Dur) 100 mg EVERY 12 HOURS ORAL 10/03/17 21:00 10/29/17 20:59 10/04/17 09:41 Hoang Gipson MD Oct 04, 2017 20:11
[2017-10-04] MEDS: cloNIDine 0.2mg Tab ORAL SCH (21:20)
[2017-10-05] VITALS: BP 143/90
[2017-10-05 04:00] VITALS: BP 158/84
[2017-10-05] MEDS: HydrALAZINE 50mg tab ORAL SCH ×3 (05:15→21:38)
[2017-10-05] MEDS: cloNIDine 0.2mg Tab ORAL SCH ×3 (05:15→21:31)
[2017-10-05] MEDS: Piperacillin/Tazobactam 3.375 GM in NS 110 ML IVPB SCH ×3 (05:15→21:31)
[2017-10-05] MEDS: NovoLOG Insulin Flexpen SUBQ SCH ×4 (06:18→21:30)
[2017-10-05 08:00] VITALS: BP 132/65
[2017-10-05] MEDS: Docusate 100mg cap ORAL SCH ×3 (08:15→17:24)
[2017-10-05] MEDS: Theophylline ER 100mg ORAL SCH ×2 (08:15→20:35)
[2017-10-05] MEDS: Aspirin Baby 81mg ORAL SCH (08:15)
[2017-10-05] MEDS: Tamsulosin 0.4mg cap ORAL SCH ×2 (08:16→17:23)
--- NOTE | 2017-10-05 09:49 | Infectious Diseases Prog Note ---
Assessment/Plan Assessment/Plan Assessment: SEpsis (SP) 2ry to L wound infection, Gram neg bacteremia -09/28 Bcx 05/09 K. oxytoca (R amp, otherwise S); 09/30 NTD x2 L anterior leg chronic wound and surrounding cellulitis -s/p I+D 10/02 and wound vac placement -OR findings: large area of necrosis and gangrene on the anterior mid leg; measured to be 23 cm x 14 cm x approximately 2 cm deep. The area was excised until fresh bleeding tissue could be identified. It was down deep in the medial lateral aspect to the fascia and to the periosteum on the tibia as well. The underlying subcutaneous tissue with edema, there were some pockets of fluid. Fascia and muscle viable. -OR cx PsA (maldonado S), K. pna (R amp, otherwise S) -CT L tibia/fibula: Cellulitis and ulceration in the pretibial aspect of the left lower extremity. The presence of gas likely associated with the presence of a large ulceration in this location. Gas-forming organism is the obvious concern and not excludable. No drainable abscess identified. No obvious intramuscular fascial thickening or fluid accumulation. -xray tibia/fibula: There is gas in the soft tissues. This can be traumatic , iatrogenic, or infectious. No acute fracture or suspicious osseous erosions. ; gas likely from incision made in ED- tissue seemed viable upon superificial exploration per ED physician and surgeon. -wound cx: K. pneumonia (R amp, otherwise S), E. fecalis (maldonado S); 2nd wound cx : K. pna (R amp, otherwise S) #1 and #2 PsA (maldonado S), E. fecalis (maldonado S) K, oxytoca bacteremia- 2ry to above -Abd US: Ascites. Right pleural effusion. Left kidney not identified. Access to the area is limited. It is uncertain whether this is technical or whether there is an absent or small left kidney. Gallbladder contracted but otherwise grossly unremarkable.Otherwise negative within the limits noted above. Fever, resolved Leukocytosis; resolved -u/a wbc 10-15, nit neg, leuk +1 Hypertensive urgency,SP TK, improving Dm2 w/ nephropathy CHF Obesity HTN marihuana and cocaine use non compliance Plan: -Continue Zosyn #4 (abx d#12/17) to simplify abx coverage for PsA, Klebsiella and enterococcus of leg wound infection -will treat for 2 weeks; upon discharge, can be transitioned to PO Cipro and Augmentin (renally dose) -10/02 SP IV Vanco #5, CEfepime #5, Flagyl #5 -f/u repeat 2 sets of Bcx -f/u OR cx -Monitor CBC/BMP, temperatures -wound care/wound vac Thank you for this consultation. Will continue to follow along with you. Discussed with RN Subjective Allergies: Coded Allergies: No Known Allergies (Unverified , 09/28/17) Subjective afebrile no leukocytosis repeat Bcx NTD Objective Vital Signs Last 24 Hour Vital Signs Date Time Temp Pulse Resp B/P (MAP) Pulse Ox O2 Delivery O2 Flow Rate FiO2 10/05/17 08:17 69 132/65 10/05/17 08:00 97.6 69 20 132/65 98 Nasal Cannula 2.0 97.6 10/05/17 05:15 158/84 10/05/17 05:15 158/84 10/05/17 04:38 Nasal Cannula 2.0 10/05/17 04:00 98.2 75 18 158/84 98 98.2 10/05/17 00:21 97.7 10/05/17 00:00 98.4 66 18 143/90 95 98.4 10/05/17 00:00 Nasal Cannula 2.0 10/04/17 23:51 97.7 10/04/17 21:20 158/79 10/04/17 21:20 158/79 10/04/17 20:09 97.7 69 19 158/79 98 Nasal Cannula 2.0 97.7 10/04/17 19:48 Nasal Cannula 10/04/17 19:47 Nasal Cannula 2.0 28 10/04/17 19:47 Nasal Cannula 10/04/17 19:47 96 Nasal Cannula 2.0 28 10/04/17 19:47 Nasal Cannula 10/04/17 18:47 178/90 10/04/17 18:32 99.1 10/04/17 16:57 177/88 10/04/17 16:00 188/86 10/04/17 15:29 72 177/88 10/04/17 15:05 177/88 10/04/17 15:04 177/88 10/04/17 13:44 Nasal Cannula 2.0 28 10/04/17 13:44 72 20 96 Nasal Cannula 2.0 28 10/04/17 12:00 99.1 69 20 177/88 96 99.1 10/04/17 11:17 98.2 Height (Feet): 6 Height (Inches): 4.00 Weight (Pounds): 333 Objective General Appearance: no apparent distress, alert Lines, tubes and drains: peripheral HEENT: normocephalic, mucous membranes moist Neck: supple Respiratory/Chest: lungs clear, normal breath sounds, no respiratory distress, no accessory muscle use Cardiovascular/Chest: normal rate Abdomen: normal bowel sounds, non tender, soft, no organomegaly, no mass Extremities: L leg wrapped and wound vac in place Neurologic: alert, oriented x 3, responsive Microbiology Date/Time Source Procedure Growth Status 10/02/17 09:55 Leg Left Gram Stain - Final Resulted 10/02/17 09:55 Aerobic Culture - Final Pseudomonas Aeruginosa Klebsiella Pneumoniae Usual Skin Jane Resulted 10/02/17 09:55 Leg Left Anaerobic Culture - Preliminary Resulted Current Medications Medications (Trade) Dose Ordered Sig/Lito Route PRN Reason Start Time Stop Time Status Last Admin Dose Admin Acetaminophen (Tylenol) 650 mg Q4H PRN ORAL fever (temp>100.5F) 10/03/17 19:45 10/28/17 23:44 Amlodipine Besylate (Norvasc) 10 mg DAILY ORAL 10/05/17 09:00 11/04/17 08:59 10/05/17 08:17 Aspirin (ASA) 162 mg DAILY ORAL 10/04/17 09:00 10/30/17 15:44 10/05/17 08:15 Clonidine HCl (Catapres tab) 0.2 mg EVERY 8 HOURS ORAL 10/04/17 22:00 11/01/17 21:59 10/05/17 05:15 Dextrose (Dextrose 50%) STAT PRN IV Hypoglycemia 10/03/17 17:00 10/28/17 16:59 Docusate Sodium (Colace) 100 mg THREE TIMES A DAY ORAL 10/03/17 18:00 10/29/17 12:59 10/05/17 08:15 Heparin Sodium (Porcine) (Heparin 5000 units/ml) 5,000 units EVERY 12 HOURS SUBQ 10/03/17 21:00 10/29/17 08:59 10/04/17 09:46 Hydralazine HCl (Apresoline) 100 mg Q8H ORAL 10/04/17 22:00 11/03/17 21:59 10/05/17 05:15 Insulin Aspart (NovoLOG) BEFORE MEALS AND HS SUBQ 10/03/17 21:00 10/29/17 06:29 10/05/17 06:18 Lansoprazole (Prevacid) 30 mg BID ORAL 10/03/17 18:00 10/29/17 17:59 10/05/17 08:17 Minoxidil (Loniten) 2.5 mg Q4H PRN ORAL bp over 160 syst 10/04/17 14:57 11/03/17 14:56 10/04/17 18:47 Morphine Sulfate (Morphine Sulfate) 4 mg Q4H PRN IVP For Pain 10/03/17 17:00 10/09/17 16:59 10/04/17 23:51 Nitroglycerin (Ntg) 0.4 mg Q5M PRN SL Prn Chest Pain 10/03/17 16:45 10/28/17 23:44 Nitroglycerin (Ntg) 1 patch Q24H TDERMAL 10/04/17 16:00 10/30/17 15:59 10/04/17 16:57 Ondansetron HCl (Zofran) 4 mg Q6H PRN IVP Nausea & Vomiting 10/03/17 17:00 10/28/17 16:59 Piperacillin Sod/ Tazobactam Sod 3.375 gm/Sodium Chloride 110 ml @ 27.5 mls/hr EVERY 8 HOURS IVPB 10/03/17 22:00 10/08/17 21:59 10/05/17 05:15 Polyethylene Glycol (Miralax) 17 gm DAILYPRN PRN ORAL Constipation 10/03/17 17:00 10/28/17 16:59 Promethazine HCl/ Codeine (Phenergan with Codeine) 5 ml Q4H PRN ORAL For Cough 10/03/17 17:00 10/29/17 16:59 Tamsulosin HCl (Flomax) 0.4 mg BID ORAL 10/03/17 18:00 10/29/17 17:59 10/05/17 08:16 Temazepam (Restoril) 15 mg HSPRN PRN ORAL Insomnia 10/03/17 17:00 10/05/17 16:59 Theophylline (Mark-Dur) 100 mg EVERY 12 HOURS ORAL 10/03/17 21:00 10/29/17 20:59 10/05/17 08:15 Consuelo Baeza M.D. Oct 05, 2017 09:49
[2017-10-05] MEDS: Heparin 5000 units/ml inj SUBQ SCH ×2 (10:28→20:39)
[2017-10-05] MEDS: Morphine Sulfate 4mg/ml Inj IVP PRN ×3 (11:47→21:39)
[2017-10-05 12:00] VITALS: BP 115/76
--- NOTE | 2017-10-05 12:19 | Nephrology Progress Note ---
Assessment/Plan Problem List: (1) Malignant hypertension (2) Cocaine abuse (3) CKD (chronic kidney disease) (4) CHF exacerbation Assessment Diabetic Nephropathy Cr stable Gangrene of lower extremity CHF exacerbation Malignant hypertension Cocaine abuse Obesity (BMI 30.0-34.9) ACS (acute coronary syndrome) Plan debridement 10/02 Adjust BP meds- add norvasc asa and nitro PRNs for BP 2D echo Left ventricular ejection fraction to be slightly reduced - estimated 45 % monitor renal parameters Subjective ROS Limited/Unobtainable: No Objective Objective Last 24 Hour Vital Signs Date Time Temp Pulse Resp B/P (MAP) Pulse Ox O2 Delivery O2 Flow Rate FiO2 10/05/17 08:17 69 132/65 10/05/17 08:00 97.6 69 20 132/65 98 Nasal Cannula 2.0 97.6 10/05/17 05:15 158/84 10/05/17 05:15 158/84 10/05/17 04:38 Nasal Cannula 2.0 10/05/17 04:00 98.2 75 18 158/84 98 98.2 10/05/17 00:21 97.7 10/05/17 00:00 98.4 66 18 143/90 95 98.4 10/05/17 00:00 Nasal Cannula 2.0 10/04/17 23:51 97.7 10/04/17 21:20 158/79 10/04/17 21:20 158/79 10/04/17 20:09 97.7 69 19 158/79 98 Nasal Cannula 2.0 97.7 10/04/17 19:48 Nasal Cannula 10/04/17 19:47 Nasal Cannula 2.0 28 10/04/17 19:47 Nasal Cannula 10/04/17 19:47 96 Nasal Cannula 2.0 28 10/04/17 19:47 Nasal Cannula 10/04/17 18:47 178/90 10/04/17 18:32 99.1 10/04/17 16:57 177/88 10/04/17 16:00 188/86 10/04/17 15:29 72 177/88 10/04/17 15:05 177/88 10/04/17 15:04 177/88 10/04/17 13:44 Nasal Cannula 2.0 28 10/04/17 13:44 72 20 96 Nasal Cannula 2.0 28 Intake and Output 10/04/17 10/05/17 19:00 07:00 Intake Total 620 ml 322.5 ml Output Total 450 ml 560 ml Balance 170 ml -237.5 ml Intake Oral 620 ml 240 ml IV Total 82.5 ml Output Urine Total 450 ml 500 ml Drainage Total 60 ml Height (Feet): 6 Height (Inches): 4.00 Weight (Pounds): 332 General Appearance: no apparent distress Cardiovascular: normal rate Respiratory/Chest: decreased breath sounds Abdomen: soft Objective PE not changed OMER YOU Oct 05, 2017 12:19
--- NOTE | 2017-10-05 14:52 | Internal Med Progress Note ---
Subjective Date of Service: Oct 05, 2017 Physician Name Adilson Stephen Attending Physician Hal Moore MD Current Medications Medications (Trade) Dose Ordered Sig/Lito Route PRN Reason Start Time Stop Time Status Last Admin Dose Admin Acetaminophen (Tylenol) 650 mg Q4H PRN ORAL fever (temp>100.5F) 10/03/17 19:45 10/28/17 23:44 Amlodipine Besylate (Norvasc) 10 mg DAILY ORAL 10/05/17 09:00 11/04/17 08:59 10/05/17 08:17 Aspirin (ASA) 162 mg DAILY ORAL 10/04/17 09:00 10/30/17 15:44 10/05/17 08:15 Clonidine HCl (Catapres tab) 0.2 mg EVERY 8 HOURS ORAL 10/04/17 22:00 11/01/17 21:59 10/05/17 05:15 Dextrose (Dextrose 50%) STAT PRN IV Hypoglycemia 10/03/17 17:00 10/28/17 16:59 Docusate Sodium (Colace) 100 mg THREE TIMES A DAY ORAL 10/03/17 18:00 10/29/17 12:59 10/05/17 13:51 Heparin Sodium (Porcine) (Heparin 5000 units/ml) 5,000 units EVERY 12 HOURS SUBQ 10/03/17 21:00 10/29/17 08:59 10/05/17 10:28 Hydralazine HCl (Apresoline) 100 mg Q8H ORAL 10/04/17 22:00 11/03/17 21:59 10/05/17 05:15 Insulin Aspart (NovoLOG) BEFORE MEALS AND HS SUBQ 10/03/17 21:00 10/29/17 06:29 10/05/17 12:16 Lansoprazole (Prevacid) 30 mg BID ORAL 10/03/17 18:00 10/29/17 17:59 10/05/17 08:17 Minoxidil (Loniten) 2.5 mg Q4H PRN ORAL bp over 160 syst 10/04/17 14:57 11/03/17 14:56 10/04/17 18:47 Morphine Sulfate (Morphine Sulfate) 4 mg Q4H PRN IVP For Pain 10/03/17 17:00 10/09/17 16:59 10/05/17 11:47 Nitroglycerin (Ntg) 0.4 mg Q5M PRN SL Prn Chest Pain 10/03/17 16:45 10/28/17 23:44 Nitroglycerin (Ntg) 1 patch Q24H TDERMAL 10/04/17 16:00 10/30/17 15:59 10/04/17 16:57 Ondansetron HCl (Zofran) 4 mg Q6H PRN IVP Nausea & Vomiting 10/03/17 17:00 10/28/17 16:59 Piperacillin Sod/ Tazobactam Sod 3.375 gm/Sodium Chloride 110 ml @ 27.5 mls/hr EVERY 8 HOURS IVPB 10/03/17 22:00 10/08/17 21:59 10/05/17 13:52 Polyethylene Glycol (Miralax) 17 gm DAILYPRN PRN ORAL Constipation 10/03/17 17:00 10/28/17 16:59 Promethazine HCl/ Codeine (Phenergan with Codeine) 5 ml Q4H PRN ORAL For Cough 10/03/17 17:00 10/29/17 16:59 Tamsulosin HCl (Flomax) 0.4 mg BID ORAL 10/03/17 18:00 10/29/17 17:59 10/05/17 08:16 Temazepam (Restoril) 15 mg HSPRN PRN ORAL Insomnia 10/03/17 17:00 10/05/17 16:59 Theophylline (Mark-Dur) 100 mg EVERY 12 HOURS ORAL 10/03/17 21:00 10/29/17 20:59 10/05/17 08:15 Allergies: Coded Allergies: No Known Allergies (Unverified , 09/28/17) ROS Limited/Unobtainable: No Constitutional: Reports: no symptoms HEENT: Reports: no symptoms Cardiovascular: Reports: no symptoms Respiratory: Reports: no symptoms Gastrointestinal/Abdominal: Reports: no symptoms Genitourinary: Reports: no symptoms Neurologic/Psychiatric: Reports: no symptoms Subjective 71 YO M admitted with left leg pain. Now cellulitis left leg and right pleural effusion. Cover for Int Jaspreet-Dr Moore. Await thoracentesis. S/P debridement of left leg on 10/02/17. Objective Last Vital Signs Date Time Temp Pulse Resp B/P (MAP) Pulse Ox O2 Delivery O2 Flow Rate FiO2 10/05/17 13:50 115/76 10/05/17 12:00 98.2 62 18 100 98.2 10/05/17 08:00 Nasal Cannula 2.0 10/04/17 19:47 28 Intake and Output 10/04/17 10/05/17 19:00 07:00 Intake Total 620 ml 322.5 ml Output Total 450 ml 560 ml Balance 170 ml -237.5 ml Intake Oral 620 ml 240 ml IV Total 82.5 ml Output Urine Total 450 ml 500 ml Drainage Total 60 ml Objective General Appearance: WD/WN, no apparent distress, alert EENT: PERRL/EOMI, normal ENT inspection, TMs normal Neck: non-tender, normal alignment, supple, normal inspection Cardiovascular: normal peripheral pulses, normal rate, regular rhythm, no gallop/murmur, no JVD Respiratory/Chest: decreased breath sounds, crackles/rales, rhonchi - bilaterally, expiratory wheezing Abdomen: normal bowel sounds, non tender, soft, no organomegaly, no mass Extremities: normal range of motion, non-tender 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 Await thoracentesis (2) Ascites (3) Cellulitis of left leg Assessment & Plan: see surgery and ID note. Continue zosyn. S/P Debridement in OR 10/02/17-see surgery note. (4) Renal failure Assessment & Plan: See nephrology note. (5) Diabetes mellitus type II, uncontrolled Assessment & Plan: Cont novolog sliding scale. (6) Obesities, morbid (7) Malignant hypertension Assessment & Plan: Continue norvasc and clonidine (8) CHF exacerbation Assessment & Plan: See cardiology note. (9) Leukocytosis Assessment & Plan: Sepsis; continue zosyn per ID (10) Sepsis Assessment & Plan: Klebsiella Oxytoca. Continue zosyn per ID Status: not improved Adilson Stephen MD Oct 05, 2017 14:52
[2017-10-05 16:00] VITALS: BP 118/70
[2017-10-05] MEDS ORDERED: NS 275ml ONE (16:13)
[2017-10-05 16:19] LABS: BASOPHILS % (AUTO) 1.9 % (0.0-2.0); EOSINOPHILS % (AUTO) 2.2 % (0.0-3.0); HEMATOCRIT 36.6 % (42.0-52.0); HEMOGLOBIN 11.7 G/DL (14.2-18.0); LYMPHOCYTES % (AUTO) 8.4 % (20.0-45.0); MEAN CORPUSCULAR VOLUME 89 FL (80-99); NEUTROPHILS % (AUTO) 78.4 % (45.0-75.0); PLATELET COUNT 175 K/UL (150-450); RED BLOOD COUNT 4.09 M/UL (4.70-6.10); RED CELL DISTRIBUTION WIDTH 14.8 % (11.6-14.8); WHITE BLOOD COUNT 10.2 K/UL (4.8-10.8)
[2017-10-05 16:27] LABS: ANION GAP 3 mmol/L (5-15); BLOOD UREA NITROGEN 22 mg/dL (7-18); CARBON DIOXIDE 30 MMOL/L (21-32); CHLORIDE 104 MMOL/L (98-107); CREATININE 1.4 MG/DL (0.55-1.30); POTASSIUM 4.4 MMOL/L (3.5-5.1); SODIUM 136 MMOL/L (136-145)
[2017-10-05] MEDS: Nitroglycerin Patch 0.4mg TDERMAL SCH (16:40)
--- NOTE | 2017-10-05 16:51 | Pulmonology Progress Note ---
Assessment/Plan Problems: (1) Gram-negative bacteremia (2) Pleural effusion (3) Cardiomegaly (4) Cellulitis (5) Hypoalbuminemia (6) ATN (acute tubular necrosis) (7) Diabetes mellitus (8) Obesity (BMI 30.0-34.9) (9) Noncompliance (10) Anasarca (11) Cocaine abuse Assessment/Plan improving s/p debridement afebrile GNB, Klebsiella on abx, cefepime all consults reviewed Echo: EF 45% check cultures wound care optimize cardiac meds Subjective ROS Limited/Unobtainable: No Allergies: Coded Allergies: No Known Allergies (Unverified , 09/28/17) Objective Last 24 Hour Vital Signs Date Time Temp Pulse Resp B/P (MAP) Pulse Ox O2 Delivery O2 Flow Rate FiO2 10/05/17 16:00 97.6 68 19 118/70 99 97.6 10/05/17 13:50 115/76 10/05/17 13:50 115/76 10/05/17 12:00 98.2 62 18 115/76 100 98.2 10/05/17 08:17 69 132/65 10/05/17 08:00 97.6 69 20 132/65 98 Nasal Cannula 2.0 97.6 10/05/17 05:15 158/84 10/05/17 05:15 158/84 10/05/17 04:38 Nasal Cannula 2.0 10/05/17 04:00 98.2 75 18 158/84 98 98.2 10/05/17 00:21 97.7 10/05/17 00:00 98.4 66 18 143/90 95 98.4 10/05/17 00:00 Nasal Cannula 2.0 10/04/17 23:51 97.7 10/04/17 21:20 158/79 10/04/17 21:20 158/79 10/04/17 20:09 97.7 69 19 158/79 98 Nasal Cannula 2.0 97.7 10/04/17 19:48 Nasal Cannula 10/04/17 19:47 Nasal Cannula 2.0 28 10/04/17 19:47 Nasal Cannula 10/04/17 19:47 96 Nasal Cannula 2.0 28 10/04/17 19:47 Nasal Cannula 10/04/17 18:47 178/90 10/04/17 18:32 99.1 10/04/17 16:57 177/88 Intake and Output 10/04/17 10/05/17 19:00 07:00 Intake Total 620 ml 322.5 ml Output Total 450 ml 560 ml Balance 170 ml -237.5 ml Intake Oral 620 ml 240 ml IV Total 82.5 ml Output Urine Total 450 ml 500 ml Drainage Total 60 ml Objective General Appearance: WD/WN, no apparent distress, lethargic Lines, tubes and drains: peripheral HEENT: normocephalic, atraumatic, anicteric, mucous membranes moist Neck: non-tender, normal alignment, supple Respiratory/Chest: chest wall non-tender, lungs clear, normal breath sounds, no respiratory distress Breasts: no masses Cardiovascular/Chest: normal peripheral pulses, normal rate, regular rhythm, regularly irregular Abdomen: normal bowel sounds, non tender, soft, no organomegaly, no mass Genitourinary/Rectal: normal genital exam Extremities: normal range of motion, non-tender, normal inspection, no calf tenderness, normal capillary refill Skin Exam: normal pigmentation 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 normal Physical Exam Narrative General Appearance: WD/WN HEENT: normocephalic, atraumatic Respiratory/Chest: chest wall non-tender, lungs clear Breasts: no masses Cardiovascular: normal peripheral pulses, normal rate Abdomen: normal bowel sounds, soft, non tender Genitourinary: normal external genitalia Extremities: no cyanosis, wound vac in place Laboratory Tests 10/05/17 16:00: White Blood Count 10.2, Red Blood Count 4.09L, Hemoglobin 11.7L, Hematocrit 36.6L, Mean Corpuscular Volume 89, Mean Corpuscular Hemoglobin 28.6, Mean Corpuscular Hemoglobin Concent 31.9L, Red Cell Distribution Width 14.8, Platelet Count 175, Mean Platelet Volume 9.3, Neutrophils (%) (Auto) 78.4H, Lymphocytes (%) (Auto) 8.4L, Monocytes (%) (Auto) 9.0, Eosinophils (%) (Auto) 2.2, Basophils (%) (Auto) 1.9, Sodium Level 136, Potassium Level 4.4, Chloride Level 104, Carbon Dioxide Level 30, Anion Gap 3L, Blood Urea Nitrogen 22H, Creatinine 1.4H, Estimat Glomerular Filtration Rate , Glucose Level 189H, Calcium Level 8.0L Current Medications Medications (Trade) Dose Ordered Sig/Lito Route PRN Reason Start Time Stop Time Status Last Admin Dose Admin Acetaminophen (Tylenol) 650 mg Q4H PRN ORAL fever (temp>100.5F) 10/03/17 19:45 10/28/17 23:44 Amlodipine Besylate (Norvasc) 10 mg DAILY ORAL 10/05/17 09:00 11/04/17 08:59 10/05/17 08:17 Aspirin (ASA) 162 mg DAILY ORAL 10/04/17 09:00 10/30/17 15:44 10/05/17 08:15 Clonidine HCl (Catapres tab) 0.2 mg EVERY 8 HOURS ORAL 10/04/17 22:00 11/01/17 21:59 10/05/17 05:15 Dextrose (Dextrose 50%) STAT PRN IV Hypoglycemia 10/03/17 17:00 10/28/17 16:59 Docusate Sodium (Colace) 100 mg THREE TIMES A DAY ORAL 10/03/17 18:00 10/29/17 12:59 10/05/17 13:51 Heparin Sodium (Porcine) (Heparin 5000 units/ml) 5,000 units EVERY 12 HOURS SUBQ 10/03/17 21:00 10/29/17 08:59 10/05/17 10:28 Hydralazine HCl (Apresoline) 100 mg Q8H ORAL 10/04/17 22:00 11/03/17 21:59 10/05/17 05:15 Insulin Aspart (NovoLOG) BEFORE MEALS AND HS SUBQ 10/03/17 21:00 10/29/17 06:29 10/05/17 12:16 Lansoprazole (Prevacid) 30 mg BID ORAL 10/03/17 18:00 10/29/17 17:59 10/05/17 08:17 Minoxidil (Loniten) 2.5 mg Q4H PRN ORAL bp over 160 syst 10/04/17 14:57 11/03/17 14:56 10/04/17 18:47 Morphine Sulfate (Morphine Sulfate) 4 mg Q4H PRN IVP For Pain 10/03/17 17:00 10/09/17 16:59 10/05/17 15:34 Nitroglycerin (Ntg) 0.4 mg Q5M PRN SL Prn Chest Pain 10/03/17 16:45 10/28/17 23:44 Nitroglycerin (Ntg) 1 patch Q24H TDERMAL 10/04/17 16:00 10/30/17 15:59 10/04/17 16:57 Ondansetron HCl (Zofran) 4 mg Q6H PRN IVP Nausea & Vomiting 10/03/17 17:00 10/28/17 16:59 Piperacillin Sod/ Tazobactam Sod 3.375 gm/Sodium Chloride 110 ml @ 27.5 mls/hr EVERY 8 HOURS IVPB 10/03/17 22:00 10/08/17 21:59 10/05/17 13:52 Polyethylene Glycol (Miralax) 17 gm DAILYPRN PRN ORAL Constipation 10/03/17 17:00 10/28/17 16:59 Promethazine HCl/ Codeine (Phenergan with Codeine) 5 ml Q4H PRN ORAL For Cough 10/03/17 17:00 10/29/17 16:59 Tamsulosin HCl (Flomax) 0.4 mg BID ORAL 10/03/17 18:00 10/29/17 17:59 10/05/17 08:16 Temazepam (Restoril) 15 mg HSPRN PRN ORAL Insomnia 10/03/17 17:00 10/05/17 16:59 Theophylline (Mark-Dur) 100 mg EVERY 12 HOURS ORAL 10/03/17 21:00 10/29/17 20:59 10/05/17 08:15 Hoang Gipson MD Oct 05, 2017 16:51
--- NOTE | 2017-10-05 17:06 | Cardiology Progress Note ---
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 (11) Edema 1) Blood pressure control: Clonidine, hydralazine, nitro patch - 2) Echocardiogram reviewed - heart failure preserved ejection fraction ACC stage C NYHA class II 3) lasix to reduce lower extremity edema and filling pressures 4) serial troponin and BNP - not clinically impressive for ACS 5) Ensure medication compliance 6) Discussed cocaine and THC cessation 7) Serial CXR to monitor right effusion 8) Wound care 9) Continue antibiotics, WBC elevated 10) For thoracentesis 11) Wound vac management per surgery - next change out Saturday Subjective Cardiovascular: Reports: no symptoms Respiratory: Reports: no symptoms Gastrointestinal/Abdominal: Reports: no symptoms Genitourinary: Reports: no symptoms Subjective No acute events, wound vac in place, improvement in Leg edema, thoracentesis pending, vitals stable, no complaints, BP improved Objective Last 24 Hour Vital Signs Date Time Temp Pulse Resp B/P (MAP) Pulse Ox O2 Delivery O2 Flow Rate FiO2 10/05/17 16:40 118/70 10/05/17 16:00 97.6 68 19 118/70 99 97.6 10/05/17 13:50 115/76 10/05/17 13:50 115/76 10/05/17 12:00 98.2 62 18 115/76 100 98.2 10/05/17 08:17 69 132/65 10/05/17 08:00 97.6 69 20 132/65 98 Nasal Cannula 2.0 97.6 10/05/17 05:15 158/84 10/05/17 05:15 158/84 10/05/17 04:38 Nasal Cannula 2.0 10/05/17 04:00 98.2 75 18 158/84 98 98.2 10/05/17 00:21 97.7 10/05/17 00:00 98.4 66 18 143/90 95 98.4 10/05/17 00:00 Nasal Cannula 2.0 10/04/17 23:51 97.7 10/04/17 21:20 158/79 10/04/17 21:20 158/79 10/04/17 20:09 97.7 69 19 158/79 98 Nasal Cannula 2.0 97.7 10/04/17 19:48 Nasal Cannula 10/04/17 19:47 Nasal Cannula 2.0 28 10/04/17 19:47 Nasal Cannula 10/04/17 19:47 96 Nasal Cannula 2.0 28 10/04/17 19:47 Nasal Cannula 10/04/17 18:47 178/90 10/04/17 18:32 99.1 General Appearance: no apparent distress, alert EENT: PERRL/EOMI Neck: non-tender Rhythm: NSR Cardiovascular: normal peripheral pulses Respiratory/Chest: chest wall non-tender Abdomen: normal bowel sounds, non tender Extremities: normal range of motion, moderate edema 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: 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 II-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 grossly normal Intake and Output 10/04/17 10/05/17 19:00 07:00 Intake Total 620 ml 322.5 ml Output Total 450 ml 560 ml Balance 170 ml -237.5 ml Intake Oral 620 ml 240 ml IV Total 82.5 ml Output Urine Total 450 ml 500 ml Drainage Total 60 ml Laboratory Tests Test 10/05/17 16:00 White Blood Count 10.2 K/UL (4.8-10.8) Red Blood Count 4.09 M/UL (4.70-6.10) L Hemoglobin 11.7 G/DL (14.2-18.0) L Hematocrit 36.6 % (42.0-52.0) L Mean Corpuscular Volume 89 FL (80-99) Mean Corpuscular Hemoglobin 28.6 PG (27.0-31.0) Mean Corpuscular Hemoglobin Concent 31.9 G/DL (32.0-36.0) L Red Cell Distribution Width 14.8 % (11.6-14.8) Platelet Count 175 K/UL (150-450) Mean Platelet Volume 9.3 FL (6.5-10.1) Neutrophils (%) (Auto) 78.4 % (45.0-75.0) H Lymphocytes (%) (Auto) 8.4 % (20.0-45.0) L Monocytes (%) (Auto) 9.0 % (1.0-10.0) Eosinophils (%) (Auto) 2.2 % (0.0-3.0) Basophils (%) (Auto) 1.9 % (0.0-2.0) Sodium Level 136 MMOL/L (136-145) Potassium Level 4.4 MMOL/L (3.5-5.1) Chloride Level 104 MMOL/L (98-107) Carbon Dioxide Level 30 MMOL/L (21-32) Anion Gap 3 mmol/L (5-15) L Blood Urea Nitrogen 22 mg/dL (7-18) H Creatinine 1.4 MG/DL (0.55-1.30) H Estimat Glomerular Filtration Rate mL/min (>60) Glucose Level 189 MG/DL (74-106) H Calcium Level 8.0 MG/DL (8.5-10.1) L Kranthi Herrera M.D. Oct 05, 2017 17:06
[2017-10-05 20:13] VITALS: BP 161/72
--- NOTE | 2017-10-05 22:49 | General Progress Note ---
Assessment/Plan Assessment/Plan cocaine abuse depression lexapro 10mg qam provided ro/st Subjective Date patient seen: Oct 05, 2017 Neurologic/Psychiatric: Reports: anxiety, depressed, emotional problems Allergies: Coded Allergies: No Known Allergies (Unverified , 09/28/17) Subjective the pt c/o fatigue and depressed mood Objective Last 24 Hour Vital Signs Date Time Temp Pulse Resp B/P (MAP) Pulse Ox O2 Delivery O2 Flow Rate FiO2 10/05/17 21:38 153/84 10/05/17 21:31 153/84 10/05/17 20:13 99.0 18 161/72 95 Nasal Cannula 2.0 99.0 10/05/17 16:40 118/70 10/05/17 16:01 Nasal Cannula 1.5 10/05/17 16:00 97.6 68 19 118/70 99 97.6 10/05/17 13:50 115/76 10/05/17 13:50 115/76 10/05/17 12:00 98.2 62 18 115/76 100 98.2 10/05/17 08:17 69 132/65 10/05/17 08:00 97.6 69 20 132/65 98 Nasal Cannula 2.0 97.6 10/05/17 05:15 158/84 10/05/17 05:15 158/84 10/05/17 04:38 Nasal Cannula 2.0 10/05/17 04:00 98.2 75 18 158/84 98 98.2 10/05/17 00:21 97.7 10/05/17 00:00 98.4 66 18 143/90 95 98.4 10/05/17 00:00 Nasal Cannula 2.0 10/04/17 23:51 97.7 Intake and Output 10/04/17 10/05/17 19:00 07:00 Intake Total 620 ml 322.5 ml Output Total 450 ml 560 ml Balance 170 ml -237.5 ml Intake Oral 620 ml 240 ml IV Total 82.5 ml Output Urine Total 450 ml 500 ml Drainage Total 60 ml Laboratory Tests 10/05/17 16:00: White Blood Count 10.2, Red Blood Count 4.09L, Hemoglobin 11.7L, Hematocrit 36.6L, Mean Corpuscular Volume 89, Mean Corpuscular Hemoglobin 28.6, Mean Corpuscular Hemoglobin Concent 31.9L, Red Cell Distribution Width 14.8, Platelet Count 175, Mean Platelet Volume 9.3, Neutrophils (%) (Auto) 78.4H, Lymphocytes (%) (Auto) 8.4L, Monocytes (%) (Auto) 9.0, Eosinophils (%) (Auto) 2.2, Basophils (%) (Auto) 1.9, Sodium Level 136, Potassium Level 4.4, Chloride Level 104, Carbon Dioxide Level 30, Anion Gap 3L, Blood Urea Nitrogen 22H, Creatinine 1.4H, Estimat Glomerular Filtration Rate , Glucose Level 189H, Calcium Level 8.0L Height (Feet): 6 Height (Inches): 4.00 Weight (Pounds): 332 Nadiya Currie M.D. Oct 05, 2017 22:49
[2017-10-06] VITALS (9 sets, daily range): BP systolic 140–184; BP diastolic 70–82
[2017-10-06] MEDS: HydrALAZINE 50mg tab ORAL SCH ×3 (05:56→21:11)
[2017-10-06] MEDS: cloNIDine 0.2mg Tab ORAL SCH ×3 (05:56→21:45)
[2017-10-06] MEDS: Piperacillin/Tazobactam 3.375 GM in NS 110 ML IVPB SCH ×3 (05:57→21:10)
[2017-10-06] MEDS: NovoLOG Insulin Flexpen SUBQ SCH ×4 (06:09→20:42)
[2017-10-06] MEDS: Morphine Sulfate 4mg/ml Inj IVP PRN ×3 (06:30→23:45)
[2017-10-06] MEDS: Tamsulosin 0.4mg cap ORAL SCH ×2 (08:27→17:28)
[2017-10-06] MEDS: Aspirin Baby 81mg ORAL SCH (08:27)
[2017-10-06] MEDS: Theophylline ER 100mg ORAL SCH ×2 (08:27→20:40)
[2017-10-06] MEDS: Docusate 100mg cap ORAL SCH ×3 (08:28→17:28)
[2017-10-06] MEDS: Heparin 5000 units/ml inj SUBQ SCH ×2 (08:37→20:41)
[2017-10-06] MEDS: Minoxidil 2.5mg tab ORAL PRN (09:51)
--- NOTE | 2017-10-06 11:14 | Pulmonology Progress Note ---
Assessment/Plan Problems: (1) Gram-negative bacteremia (2) Pleural effusion (3) Cardiomegaly (4) Cellulitis (5) Hypoalbuminemia (6) ATN (acute tubular necrosis) (7) Diabetes mellitus (8) Obesity (BMI 30.0-34.9) (9) Noncompliance (10) Anasarca (11) Cocaine abuse Assessment/Plan improving s/p debridement afebrile GNB, Klebsiella on abx, cefepime all consults reviewed Echo: EF 45% check cultures wound care optimize cardiac meds Subjective ROS Limited/Unobtainable: Yes Allergies: Coded Allergies: No Known Allergies (Unverified , 09/28/17) Objective Last 24 Hour Vital Signs Date Time Temp Pulse Resp B/P (MAP) Pulse Ox O2 Delivery O2 Flow Rate FiO2 10/06/17 09:51 178/81 10/06/17 09:47 98.4 74 22 178/81 97 Nasal Cannula 2.0 98.4 10/06/17 08:28 74 176/82 10/06/17 08:00 97.0 74 20 176/82 97 Nasal Cannula 2.0 97.0 10/06/17 05:56 184/80 10/06/17 05:56 184/80 10/06/17 05:49 98.4 72 19 184/80 97 Nasal Cannula 2.0 98.4 10/06/17 00:10 98.2 70 19 148/70 97 Nasal Cannula 2.0 98.2 10/05/17 21:38 153/84 10/05/17 21:31 153/84 10/05/17 20:13 99.0 18 161/72 95 Nasal Cannula 2.0 99.0 10/05/17 19:02 Nasal Cannula 2.0 28 10/05/17 19:02 96 Nasal Cannula 2.0 28 10/05/17 16:40 118/70 10/05/17 16:01 Nasal Cannula 1.5 10/05/17 16:00 97.6 68 19 118/70 99 97.6 10/05/17 13:50 115/76 10/05/17 13:50 115/76 10/05/17 12:00 98.2 62 18 115/76 100 98.2 Intake and Output 10/05/17 10/06/17 19:00 07:00 Intake Total 165.0 ml 267.5 ml Output Total 50 ml 550 ml Balance 115.0 ml -282.5 ml Intake Oral 240 ml IV Total 165.0 ml 27.5 ml Output Urine Total 550 ml Drainage Total 50 ml Objective General Appearance: WD/WN, no apparent distress, lethargic Lines, tubes and drains: peripheral HEENT: normocephalic, atraumatic, anicteric, mucous membranes moist Neck: non-tender, normal alignment, supple Respiratory/Chest: chest wall non-tender, lungs clear, normal breath sounds, no respiratory distress Breasts: no masses Cardiovascular/Chest: normal peripheral pulses, normal rate, regular rhythm, regularly irregular Abdomen: normal bowel sounds, non tender, soft, no organomegaly, no mass Genitourinary/Rectal: normal genital exam Extremities: normal range of motion, non-tender, normal inspection, no calf tenderness, normal capillary refill Skin Exam: normal pigmentation 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 normal Physical Exam Narrative General Appearance: WD/WN HEENT: normocephalic, atraumatic Respiratory/Chest: chest wall non-tender, lungs clear Breasts: no masses Cardiovascular: normal peripheral pulses, normal rate Abdomen: normal bowel sounds, soft, non tender Genitourinary: normal external genitalia Extremities: no cyanosis, wound vac in place Laboratory Tests 10/05/17 16:00: White Blood Count 10.2, Red Blood Count 4.09L, Hemoglobin 11.7L, Hematocrit 36.6L, Mean Corpuscular Volume 89, Mean Corpuscular Hemoglobin 28.6, Mean Corpuscular Hemoglobin Concent 31.9L, Red Cell Distribution Width 14.8, Platelet Count 175, Mean Platelet Volume 9.3, Neutrophils (%) (Auto) 78.4H, Lymphocytes (%) (Auto) 8.4L, Monocytes (%) (Auto) 9.0, Eosinophils (%) (Auto) 2.2, Basophils (%) (Auto) 1.9, Sodium Level 136, Potassium Level 4.4, Chloride Level 104, Carbon Dioxide Level 30, Anion Gap 3L, Blood Urea Nitrogen 22H, Creatinine 1.4H, Estimat Glomerular Filtration Rate , Glucose Level 189H, Calcium Level 8.0L Current Medications Medications (Trade) Dose Ordered Sig/Lito Route PRN Reason Start Time Stop Time Status Last Admin Dose Admin Acetaminophen (Tylenol) 650 mg Q4H PRN ORAL fever (temp>100.5F) 10/03/17 19:45 10/28/17 23:44 Amlodipine Besylate (Norvasc) 10 mg DAILY ORAL 10/05/17 09:00 11/04/17 08:59 10/06/17 08:28 Aspirin (ASA) 162 mg DAILY ORAL 10/04/17 09:00 10/30/17 15:44 10/06/17 08:27 Clonidine HCl (Catapres tab) 0.2 mg EVERY 8 HOURS ORAL 10/04/17 22:00 11/01/17 21:59 10/06/17 05:56 Dextrose (Dextrose 50%) STAT PRN IV Hypoglycemia 10/03/17 17:00 10/28/17 16:59 Docusate Sodium (Colace) 100 mg THREE TIMES A DAY ORAL 10/03/17 18:00 10/29/17 12:59 10/06/17 08:28 Heparin Sodium (Porcine) (Heparin 5000 units/ml) 5,000 units EVERY 12 HOURS SUBQ 10/03/17 21:00 10/29/17 08:59 10/06/17 08:37 Hydralazine HCl (Apresoline) 100 mg Q8H ORAL 10/04/17 22:00 11/03/17 21:59 10/06/17 05:56 Insulin Aspart (NovoLOG) BEFORE MEALS AND HS SUBQ 10/03/17 21:00 10/29/17 06:29 10/06/17 06:09 Lansoprazole (Prevacid) 30 mg BID ORAL 10/03/17 18:00 10/29/17 17:59 10/06/17 08:28 Minoxidil (Loniten) 2.5 mg Q4H PRN ORAL bp over 160 syst 10/04/17 14:57 11/03/17 14:56 10/06/17 09:51 Morphine Sulfate (Morphine Sulfate) 4 mg Q4H PRN IVP For Pain 10/03/17 17:00 10/09/17 16:59 10/06/17 06:30 Nitroglycerin (Ntg) 0.4 mg Q5M PRN SL Prn Chest Pain 10/03/17 16:45 10/28/17 23:44 Nitroglycerin (Ntg) 1 patch Q24H TDERMAL 10/04/17 16:00 10/30/17 15:59 10/05/17 16:40 Ondansetron HCl (Zofran) 4 mg Q6H PRN IVP Nausea & Vomiting 10/03/17 17:00 10/28/17 16:59 Piperacillin Sod/ Tazobactam Sod 3.375 gm/Sodium Chloride 110 ml @ 27.5 mls/hr EVERY 8 HOURS IVPB 10/03/17 22:00 10/08/17 21:59 10/06/17 05:57 Polyethylene Glycol (Miralax) 17 gm DAILYPRN PRN ORAL Constipation 10/03/17 17:00 10/28/17 16:59 Promethazine HCl/ Codeine (Phenergan with Codeine) 5 ml Q4H PRN ORAL For Cough 10/03/17 17:00 10/29/17 16:59 Tamsulosin HCl (Flomax) 0.4 mg BID ORAL 10/03/17 18:00 10/29/17 17:59 10/06/17 08:27 Theophylline (Mark-Dur) 100 mg EVERY 12 HOURS ORAL 10/03/17 21:00 10/29/17 20:59 10/06/17 08:27 Hoang Gipson MD Oct 06, 2017 11:14
[2017-10-06 11:41] LABS: BASOPHILS % (AUTO) 1.3 % (0.0-2.0); EOSINOPHILS % (AUTO) 1.8 % (0.0-3.0); HEMATOCRIT 35.4 % (42.0-52.0); HEMOGLOBIN 11.1 G/DL (14.2-18.0); LYMPHOCYTES % (AUTO) 6.4 % (20.0-45.0); MEAN CORPUSCULAR VOLUME 90 FL (80-99); MONOCYTES % (AUTO) 12.3 % (1.0-10.0); NEUTROPHILS % (AUTO) 78.2 % (45.0-75.0); PLATELET COUNT 213 K/UL (150-450); RED BLOOD COUNT 3.94 M/UL (4.70-6.10); RED CELL DISTRIBUTION WIDTH 14.2 % (11.6-14.8); WHITE BLOOD COUNT 9.1 K/UL (4.8-10.8)
[2017-10-06 12:02] LABS: ANION GAP 2 mmol/L (5-15); BLOOD UREA NITROGEN 21 mg/dL (7-18); CARBON DIOXIDE 31 MMOL/L (21-32); CHLORIDE 104 MMOL/L (98-107); CREATININE 1.4 MG/DL (0.55-1.30); POTASSIUM 4.7 MMOL/L (3.5-5.1); SODIUM 137 MMOL/L (136-145)
--- NOTE | 2017-10-06 15:49 | Internal Med Progress Note ---
Subjective Date of Service: Oct 06, 2017 Physician Name Adilson Stephen Attending Physician Hal Moore MD Current Medications Medications (Trade) Dose Ordered Sig/Lito Route PRN Reason Start Time Stop Time Status Last Admin Dose Admin Acetaminophen (Tylenol) 650 mg Q4H PRN ORAL fever (temp>100.5F) 10/03/17 19:45 10/28/17 23:44 Amlodipine Besylate (Norvasc) 10 mg DAILY ORAL 10/05/17 09:00 11/04/17 08:59 10/06/17 08:28 Aspirin (ASA) 162 mg DAILY ORAL 10/04/17 09:00 10/30/17 15:44 10/06/17 08:27 Clonidine HCl (Catapres tab) 0.2 mg EVERY 8 HOURS ORAL 10/04/17 22:00 11/01/17 21:59 10/06/17 13:04 Dextrose (Dextrose 50%) STAT PRN IV Hypoglycemia 10/03/17 17:00 10/28/17 16:59 Docusate Sodium (Colace) 100 mg THREE TIMES A DAY ORAL 10/03/17 18:00 10/29/17 12:59 10/06/17 11:57 Heparin Sodium (Porcine) (Heparin 5000 units/ml) 5,000 units EVERY 12 HOURS SUBQ 10/03/17 21:00 10/29/17 08:59 10/06/17 08:37 Hydralazine HCl (Apresoline) 100 mg Q8H ORAL 10/04/17 22:00 11/03/17 21:59 10/06/17 13:04 Insulin Aspart (NovoLOG) BEFORE MEALS AND HS SUBQ 10/03/17 21:00 10/29/17 06:29 10/06/17 11:59 Lansoprazole (Prevacid) 30 mg BID ORAL 10/03/17 18:00 10/29/17 17:59 10/06/17 08:28 Minoxidil (Loniten) 2.5 mg Q4H PRN ORAL bp over 160 syst 10/04/17 14:57 11/03/17 14:56 10/06/17 09:51 Morphine Sulfate (Morphine Sulfate) 4 mg Q4H PRN IVP For Pain 10/03/17 17:00 10/09/17 16:59 10/06/17 11:27 Nitroglycerin (Ntg) 0.4 mg Q5M PRN SL Prn Chest Pain 10/03/17 16:45 10/28/17 23:44 Nitroglycerin (Ntg) 1 patch Q24H TDERMAL 10/04/17 16:00 10/30/17 15:59 10/05/17 16:40 Ondansetron HCl (Zofran) 4 mg Q6H PRN IVP Nausea & Vomiting 10/03/17 17:00 10/28/17 16:59 Piperacillin Sod/ Tazobactam Sod 3.375 gm/Sodium Chloride 110 ml @ 27.5 mls/hr EVERY 8 HOURS IVPB 10/03/17 22:00 10/08/17 21:59 10/06/17 13:03 Polyethylene Glycol (Miralax) 17 gm DAILYPRN PRN ORAL Constipation 10/03/17 17:00 10/28/17 16:59 Promethazine HCl/ Codeine (Phenergan with Codeine) 5 ml Q4H PRN ORAL For Cough 10/03/17 17:00 10/29/17 16:59 Tamsulosin HCl (Flomax) 0.4 mg BID ORAL 10/03/17 18:00 10/29/17 17:59 10/06/17 08:27 Theophylline (Mark-Dur) 100 mg EVERY 12 HOURS ORAL 10/03/17 21:00 10/29/17 20:59 10/06/17 08:27 Allergies: Coded Allergies: No Known Allergies (Unverified , 09/28/17) ROS Limited/Unobtainable: No Constitutional: Reports: no symptoms HEENT: Reports: no symptoms Cardiovascular: Reports: no symptoms Respiratory: Reports: no symptoms Gastrointestinal/Abdominal: Reports: no symptoms Genitourinary: Reports: no symptoms Neurologic/Psychiatric: Reports: no symptoms Subjective 71 YO M admitted with left leg pain. Now cellulitis left leg and right pleural effusion. Cover for Int Jaspreet-Dr Moore. Await thoracentesis. S/P debridement of left leg on Sat10/02/17. Objective Last Vital Signs Date Time Temp Pulse Resp B/P (MAP) Pulse Ox O2 Delivery O2 Flow Rate FiO2 10/06/17 14:46 159/77 10/06/17 14:30 98.4 22 95 Nasal Cannula 2.0 98.4 10/06/17 12:00 72 10/06/17 09:42 28 Laboratory Tests Test 10/05/17 16:00 10/06/17 10:28 White Blood Count 10.2 K/UL (4.8-10.8) 9.1 K/UL (4.8-10.8) Red Blood Count 4.09 M/UL (4.70-6.10) L 3.94 M/UL (4.70-6.10) L Hemoglobin 11.7 G/DL (14.2-18.0) L 11.1 G/DL (14.2-18.0) L Hematocrit 36.6 % (42.0-52.0) L 35.4 % (42.0-52.0) L Mean Corpuscular Volume 89 FL (80-99) 90 FL (80-99) Mean Corpuscular Hemoglobin 28.6 PG (27.0-31.0) 28.1 PG (27.0-31.0) Mean Corpuscular Hemoglobin Concent 31.9 G/DL (32.0-36.0) L 31.2 G/DL (32.0-36.0) L Red Cell Distribution Width 14.8 % (11.6-14.8) 14.2 % (11.6-14.8) Platelet Count 175 K/UL (150-450) 213 K/UL (150-450) Mean Platelet Volume 9.3 FL (6.5-10.1) 8.3 FL (6.5-10.1) Neutrophils (%) (Auto) 78.4 % (45.0-75.0) H 78.2 % (45.0-75.0) H Lymphocytes (%) (Auto) 8.4 % (20.0-45.0) L 6.4 % (20.0-45.0) L Monocytes (%) (Auto) 9.0 % (1.0-10.0) 12.3 % (1.0-10.0) H Eosinophils (%) (Auto) 2.2 % (0.0-3.0) 1.8 % (0.0-3.0) Basophils (%) (Auto) 1.9 % (0.0-2.0) 1.3 % (0.0-2.0) Sodium Level 136 MMOL/L (136-145) 137 MMOL/L (136-145) Potassium Level 4.4 MMOL/L (3.5-5.1) 4.7 MMOL/L (3.5-5.1) Chloride Level 104 MMOL/L (98-107) 104 MMOL/L (98-107) Carbon Dioxide Level 30 MMOL/L (21-32) 31 MMOL/L (21-32) Anion Gap 3 mmol/L (5-15) L 2 mmol/L (5-15) L Blood Urea Nitrogen 22 mg/dL (7-18) H 21 mg/dL (7-18) H Creatinine 1.4 MG/DL (0.55-1.30) H 1.4 MG/DL (0.55-1.30) H Estimat Glomerular Filtration Rate mL/min (>60) mL/min (>60) Glucose Level 189 MG/DL (74-106) H 167 MG/DL (74-106) H Calcium Level 8.0 MG/DL (8.5-10.1) L 8.0 MG/DL (8.5-10.1) L Intake and Output 10/05/17 10/06/17 19:00 07:00 Intake Total 165.0 ml 267.5 ml Output Total 50 ml 550 ml Balance 115.0 ml -282.5 ml Intake Oral 240 ml IV Total 165.0 ml 27.5 ml Output Urine Total 550 ml Drainage Total 50 ml Objective General Appearance: WD/WN, no apparent distress, alert EENT: PERRL/EOMI, normal ENT inspection, TMs normal Neck: non-tender, normal alignment, supple, normal inspection Cardiovascular: normal peripheral pulses, normal rate, regular rhythm, no gallop/murmur, no JVD Respiratory/Chest: decreased breath sounds, crackles/rales, rhonchi - bilaterally, expiratory wheezing Abdomen: normal bowel sounds, non tender, soft, no organomegaly, no mass Extremities: normal range of motion, non-tender 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 Await thoracentesis (2) Ascites (3) Cellulitis of left leg Assessment & Plan: see surgery and ID note. Continue zosyn. S/P Debridement in OR 10/02/17-see surgery note. (4) Renal failure Assessment & Plan: See nephrology note. (5) Diabetes mellitus type II, uncontrolled Assessment & Plan: Cont novolog sliding scale. (6) Obesities, morbid (7) Malignant hypertension Assessment & Plan: Continue norvasc and clonidine (8) CHF exacerbation Assessment & Plan: See cardiology note. (9) Leukocytosis Assessment & Plan: Sepsis; continue zosyn per ID (10) Sepsis Assessment & Plan: Klebsiella Oxytoca. Continue zosyn per ID Status: stable Adilson Stephen MD Oct 06, 2017 15:49
--- NOTE | 2017-10-06 15:57 | Nephrology Progress Note ---
Assessment/Plan Problem List: (1) Malignant hypertension (2) Cocaine abuse (3) CKD (chronic kidney disease) (4) CHF exacerbation Assessment Diabetic Nephropathy Cr stable Gangrene of lower extremity CHF exacerbation Malignant hypertension Cocaine abuse Obesity (BMI 30.0-34.9) ACS (acute coronary syndrome) Plan debridement 10/02 Adjust BP meds- add norvasc asa and nitro PRNs for BP 2D echo Left ventricular ejection fraction to be slightly reduced - estimated 45 % monitor renal parameters Subjective ROS Limited/Unobtainable: No Constitutional: Reports: malaise Objective Objective Last 24 Hour Vital Signs Date Time Temp Pulse Resp B/P (MAP) Pulse Ox O2 Delivery O2 Flow Rate FiO2 10/06/17 14:46 159/77 10/06/17 14:30 98.4 22 177/77 95 Nasal Cannula 2.0 98.4 10/06/17 13:04 163/80 10/06/17 13:04 163/80 10/06/17 12:00 99.5 72 22 163/80 96 Nasal Cannula 2.0 99.5 10/06/17 09:51 178/81 10/06/17 09:47 98.4 74 22 178/81 97 Nasal Cannula 2.0 98.4 10/06/17 09:42 Nasal Cannula 2.0 28 10/06/17 09:41 95 Nasal Cannula 2.0 28 10/06/17 08:28 74 176/82 10/06/17 08:00 97.0 74 20 176/82 97 Nasal Cannula 2.0 97.0 10/06/17 05:56 184/80 10/06/17 05:56 184/80 10/06/17 05:49 98.4 72 19 184/80 97 Nasal Cannula 2.0 98.4 10/06/17 00:10 98.2 70 19 148/70 97 Nasal Cannula 2.0 98.2 10/05/17 21:38 153/84 10/05/17 21:31 153/84 10/05/17 20:13 99.0 18 161/72 95 Nasal Cannula 2.0 99.0 10/05/17 19:02 Nasal Cannula 2.0 28 10/05/17 19:02 96 Nasal Cannula 2.0 28 10/05/17 16:40 118/70 10/05/17 16:01 Nasal Cannula 1.5 10/05/17 16:00 97.6 68 19 118/70 99 97.6 Intake and Output 10/05/17 10/06/17 19:00 07:00 Intake Total 165.0 ml 267.5 ml Output Total 50 ml 550 ml Balance 115.0 ml -282.5 ml Intake Oral 240 ml IV Total 165.0 ml 27.5 ml Output Urine Total 550 ml Drainage Total 50 ml Laboratory Tests 10/05/17 16:00: White Blood Count 10.2, Red Blood Count 4.09L, Hemoglobin 11.7L, Hematocrit 36.6L, Mean Corpuscular Volume 89, Mean Corpuscular Hemoglobin 28.6, Mean Corpuscular Hemoglobin Concent 31.9L, Red Cell Distribution Width 14.8, Platelet Count 175, Mean Platelet Volume 9.3, Neutrophils (%) (Auto) 78.4H, Lymphocytes (%) (Auto) 8.4L, Monocytes (%) (Auto) 9.0, Eosinophils (%) (Auto) 2.2, Basophils (%) (Auto) 1.9, Sodium Level 136, Potassium Level 4.4, Chloride Level 104, Carbon Dioxide Level 30, Anion Gap 3L, Blood Urea Nitrogen 22H, Creatinine 1.4H, Estimat Glomerular Filtration Rate , Glucose Level 189H, Calcium Level 8.0L 10/06/17 10:28: White Blood Count 9.1, Red Blood Count 3.94L, Hemoglobin 11.1L, Hematocrit 35.4L , Mean Corpuscular Volume 90, Mean Corpuscular Hemoglobin 28.1, Mean Corpuscular Hemoglobin Concent 31.2L, Red Cell Distribution Width 14.2, Platelet Count 213, Mean Platelet Volume 8.3, Neutrophils (%) (Auto) 78.2H, Lymphocytes (%) (Auto) 6.4L, Monocytes (%) (Auto) 12.3H, Eosinophils (%) (Auto) 1.8, Basophils (%) (Auto) 1.3, Sodium Level 137, Potassium Level 4.7, Chloride Level 104, Carbon Dioxide Level 31, Anion Gap 2L, Blood Urea Nitrogen 21H, Creatinine 1.4H, Estimat Glomerular Filtration Rate , Glucose Level 167H, Calcium Level 8.0L Height (Feet): 6 Height (Inches): 4.00 Weight (Pounds): 332 General Appearance: no apparent distress Objective PE not changed OMER YOU Oct 06, 2017 15:57
[2017-10-06] MEDS: Nitroglycerin Patch 0.4mg TDERMAL SCH (16:43)
--- NOTE | 2017-10-06 19:13 | Cardiology Progress Note ---
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 (11) Edema 1) Blood pressure control: Clonidine, hydralazine, nitro patch - 2) Echocardiogram reviewed - heart failure preserved ejection fraction ACC stage C NYHA class II 3) lasix to reduce lower extremity edema and filling pressures 4) serial troponin and BNP - not clinically impressive for ACS 5) Ensure medication compliance 6) Discussed cocaine and THC cessation 7) Serial CXR to monitor right effusion 8) Wound care 9) Continue antibiotics, WBC elevated 10) For thoracentesis 11) Wound vac management per surgery - next change out Saturday Subjective Cardiovascular: Reports: no symptoms Respiratory: Reports: no symptoms Gastrointestinal/Abdominal: Reports: no symptoms Genitourinary: Reports: no symptoms Subjective No acute events, wound vac in place, improvement in Leg edema, thoracentesis pending, vitals stable, no complaints, BP improved Objective Last 24 Hour Vital Signs Date Time Temp Pulse Resp B/P (MAP) Pulse Ox O2 Delivery O2 Flow Rate FiO2 10/06/17 16:43 145/73 10/06/17 16:00 98.1 76 20 145/73 94 Nasal Cannula 2.0 98.1 10/06/17 14:46 159/77 10/06/17 14:30 98.4 22 177/77 95 Nasal Cannula 2.0 98.4 10/06/17 13:04 163/80 10/06/17 13:04 163/80 10/06/17 12:00 99.5 72 22 163/80 96 Nasal Cannula 2.0 99.5 10/06/17 09:51 178/81 10/06/17 09:47 98.4 74 22 178/81 97 Nasal Cannula 2.0 98.4 10/06/17 09:42 Nasal Cannula 2.0 28 10/06/17 09:41 95 Nasal Cannula 2.0 28 10/06/17 08:28 74 176/82 10/06/17 08:00 97.0 74 20 176/82 97 Nasal Cannula 2.0 97.0 10/06/17 05:56 184/80 10/06/17 05:56 184/80 10/06/17 05:49 98.4 72 19 184/80 97 Nasal Cannula 2.0 98.4 10/06/17 00:10 98.2 70 19 148/70 97 Nasal Cannula 2.0 98.2 10/05/17 21:38 153/84 10/05/17 21:31 153/84 10/05/17 20:13 99.0 18 161/72 95 Nasal Cannula 2.0 99.0 General Appearance: no apparent distress EENT: PERRL/EOMI Neck: non-tender Cardiovascular: normal peripheral pulses Respiratory/Chest: chest wall non-tender Abdomen: normal bowel sounds Extremities: normal range of motion, severe edema Neurologic: no motor/sensory deficits Intake and Output 10/05/17 10/06/17 19:00 07:00 Intake Total 165.0 ml 267.5 ml Output Total 50 ml 550 ml Balance 115.0 ml -282.5 ml Intake Oral 240 ml IV Total 165.0 ml 27.5 ml Output Urine Total 550 ml Drainage Total 50 ml Laboratory Tests Test 10/06/17 10:28 White Blood Count 9.1 K/UL (4.8-10.8) Red Blood Count 3.94 M/UL (4.70-6.10) L Hemoglobin 11.1 G/DL (14.2-18.0) L Hematocrit 35.4 % (42.0-52.0) L Mean Corpuscular Volume 90 FL (80-99) Mean Corpuscular Hemoglobin 28.1 PG (27.0-31.0) Mean Corpuscular Hemoglobin Concent 31.2 G/DL (32.0-36.0) L Red Cell Distribution Width 14.2 % (11.6-14.8) Platelet Count 213 K/UL (150-450) Mean Platelet Volume 8.3 FL (6.5-10.1) Neutrophils (%) (Auto) 78.2 % (45.0-75.0) H Lymphocytes (%) (Auto) 6.4 % (20.0-45.0) L Monocytes (%) (Auto) 12.3 % (1.0-10.0) H Eosinophils (%) (Auto) 1.8 % (0.0-3.0) Basophils (%) (Auto) 1.3 % (0.0-2.0) Sodium Level 137 MMOL/L (136-145) Potassium Level 4.7 MMOL/L (3.5-5.1) Chloride Level 104 MMOL/L (98-107) Carbon Dioxide Level 31 MMOL/L (21-32) Anion Gap 2 mmol/L (5-15) L Blood Urea Nitrogen 21 mg/dL (7-18) H Creatinine 1.4 MG/DL (0.55-1.30) H Estimat Glomerular Filtration Rate mL/min (>60) Glucose Level 167 MG/DL (74-106) H Calcium Level 8.0 MG/DL (8.5-10.1) L Kranthi Herrera M.D. Oct 06, 2017 19:13
[2017-10-07] VITALS: BP 150/70
[2017-10-07 04:00] VITALS: BP 146/70
[2017-10-07] MEDS: Piperacillin/Tazobactam 3.375 GM in NS 110 ML IVPB SCH ×3 (05:02→21:35)
[2017-10-07] MEDS: HydrALAZINE 50mg tab ORAL SCH ×3 (05:07→21:35)
[2017-10-07] MEDS: cloNIDine 0.2mg Tab ORAL SCH ×3 (05:41→21:36)
[2017-10-07] MEDS: NovoLOG Insulin Flexpen SUBQ SCH ×4 (05:43→20:42)
[2017-10-07 07:55] LABS: BASOPHILS % (AUTO) 1.2 % (0.0-2.0); EOSINOPHILS % (AUTO) 1.7 % (0.0-3.0); HEMATOCRIT 38.3 % (42.0-52.0); HEMOGLOBIN 11.7 G/DL (14.2-18.0); LYMPHOCYTES % (AUTO) 13.4 % (20.0-45.0); MEAN CORPUSCULAR VOLUME 89 FL (80-99); MONOCYTES % (AUTO) 12.8 % (1.0-10.0); NEUTROPHILS % (AUTO) 70.9 % (45.0-75.0); PLATELET COUNT 252 K/UL (150-450); RED BLOOD COUNT 4.28 M/UL (4.70-6.10); RED CELL DISTRIBUTION WIDTH 14.7 % (11.6-14.8); WHITE BLOOD COUNT 8.2 K/UL (4.8-10.8)
[2017-10-07 08:00] VITALS: BP 144/70
[2017-10-07 08:51] LABS: ALBUMIN 1.8 G/DL (3.4-5.0); ALBUMIN/GLOBULIN RATIO 0.3 (1.0-2.7); ALKALINE PHOSPHATASE 63 U/L (46-116); ANION GAP 4 mmol/L (5-15); ASPARTATE AMINO TRANSFERASE 13 U/L (15-37); BLOOD UREA NITROGEN 19 mg/dL (7-18); CALCIUM 8.5 MG/DL (8.5-10.1); CARBON DIOXIDE 31 MMOL/L (21-32); CHLORIDE 103 MMOL/L (98-107); CREATININE 1.5 MG/DL (0.55-1.30); PHOSPHORUS 2.7 MG/DL (2.5-4.9); SODIUM 138 MMOL/L (136-145)
[2017-10-07] MEDS: Heparin 5000 units/ml inj SUBQ SCH ×2 (09:00→21:00)
[2017-10-07] MEDS: Theophylline ER 100mg ORAL SCH ×2 (09:09→20:39)
[2017-10-07] MEDS: Tamsulosin 0.4mg cap ORAL SCH ×2 (09:09→16:48)
[2017-10-07] MEDS: Docusate 100mg cap ORAL SCH ×3 (09:09→16:49)
[2017-10-07] MEDS: Aspirin Baby 81mg ORAL SCH (09:09)
[2017-10-07 09:11] LABS: ALANINE AMINOTRANSFERASE < 6 U/L (12-78)
[2017-10-07] MEDS: Morphine Sulfate 4mg/ml Inj IVP PRN ×2 (10:39→17:27)
[2017-10-07 10:46] LABS: INR 1.2 (0.9-1.1)
[2017-10-07 12:00] VITALS: BP 150/84
--- NOTE | 2017-10-07 12:27 | Cardiology Progress Note ---
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 (11) Edema 1) Blood pressure control: Clonidine, hydralazine, nitro patch - 2) Echocardiogram reviewed - heart failure preserved ejection fraction ACC stage C NYHA class II 3) lasix to reduce lower extremity edema and filling pressures 4) serial troponin and BNP - not clinically impressive for ACS 5) Ensure medication compliance 6) Discussed cocaine and THC cessation 7) Serial CXR to monitor right effusion 8) Wound care 9) Continue antibiotics, WBC elevated 10) For thoracentesis 11) Wound vac management per surgery - next change out Saturday Subjective Cardiovascular: Reports: no symptoms Respiratory: Reports: no symptoms Gastrointestinal/Abdominal: Reports: no symptoms Genitourinary: Reports: no symptoms Subjective No acute events, wound vac in place, improvement in Leg edema, thoracentesis pending, vitals stable, no complaints, BP improved Objective Last 24 Hour Vital Signs Date Time Temp Pulse Resp B/P (MAP) Pulse Ox O2 Delivery O2 Flow Rate FiO2 10/07/17 09:09 77 149/75 10/07/17 08:36 95 Nasal Cannula 2.0 28 10/07/17 08:36 Nasal Cannula 2.0 28 10/07/17 08:00 98.2 81 19 144/70 97 98.2 10/07/17 05:41 149/75 10/07/17 05:07 158/93 10/07/17 04:00 98.1 77 17 146/70 95 Nasal Cannula 2.0 98.1 10/07/17 00:15 98.1 10/07/17 00:00 98.0 72 18 150/70 99 Nasal Cannula 2.0 98.0 10/06/17 23:45 98.1 10/06/17 21:45 149/62 10/06/17 21:11 150/69 10/06/17 20:00 98.2 76 18 140/73 95 Nasal Cannula 2.0 98.2 10/06/17 20:00 Nasal Cannula 2.0 28 10/06/17 20:00 96 Nasal Cannula 2.0 28 10/06/17 16:43 145/73 10/06/17 16:00 98.1 76 20 145/73 94 Nasal Cannula 2.0 98.1 10/06/17 14:46 159/77 10/06/17 14:30 98.4 22 177/77 95 Nasal Cannula 2.0 98.4 10/06/17 13:04 163/80 10/06/17 13:04 163/80 General Appearance: no apparent distress EENT: PERRL/EOMI Neck: non-tender Rhythm: NSR Cardiovascular: normal peripheral pulses Respiratory/Chest: chest wall non-tender Abdomen: normal bowel sounds Extremities: moderate edema 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, 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 x 3 Intake and Output 10/06/17 10/07/17 19:00 07:00 Intake Total 912.5 ml 400 ml Output Total 100 ml 325 ml Balance 812.5 ml 75 ml Intake Oral 720 ml 400 ml IV Total 192.5 ml Output Urine Total 325 ml Drainage Total 100 ml Laboratory Tests Test 10/07/17 06:15 10/07/17 10:01 White Blood Count 8.2 K/UL (4.8-10.8) Red Blood Count 4.28 M/UL (4.70-6.10) L Hemoglobin 11.7 G/DL (14.2-18.0) L Hematocrit 38.3 % (42.0-52.0) L Mean Corpuscular Volume 89 FL (80-99) Mean Corpuscular Hemoglobin 27.4 PG (27.0-31.0) Mean Corpuscular Hemoglobin Concent 30.7 G/DL (32.0-36.0) L Red Cell Distribution Width 14.7 % (11.6-14.8) Platelet Count 252 K/UL (150-450) Mean Platelet Volume 8.4 FL (6.5-10.1) Neutrophils (%) (Auto) 70.9 % (45.0-75.0) Lymphocytes (%) (Auto) 13.4 % (20.0-45.0) L Monocytes (%) (Auto) 12.8 % (1.0-10.0) H Eosinophils (%) (Auto) 1.7 % (0.0-3.0) Basophils (%) (Auto) 1.2 % (0.0-2.0) Erythrocyte Sedimentation Rate 69 MM/HR (0-20) H Sodium Level 138 MMOL/L (136-145) Potassium Level 5.0 MMOL/L (3.5-5.1) Chloride Level 103 MMOL/L (98-107) Carbon Dioxide Level 31 MMOL/L (21-32) Anion Gap 4 mmol/L (5-15) L Blood Urea Nitrogen 19 mg/dL (7-18) H Creatinine 1.5 MG/DL (0.55-1.30) H Estimat Glomerular Filtration Rate mL/min (>60) Glucose Level 157 MG/DL (74-106) H Calcium Level 8.5 MG/DL (8.5-10.1) Phosphorus Level 2.7 MG/DL (2.5-4.9) Magnesium Level 1.9 MG/DL (1.8-2.4) Total Bilirubin 1.0 MG/DL (0.2-1.0) Aspartate Amino Transf (AST/SGOT) 13 U/L (15-37) L Alanine Aminotransferase (ALT/SGPT) < 6 U/L (12-78) L Alkaline Phosphatase 63 U/L (46-116) C-Reactive Protein, Quantitative 11.9 mg/dL (0.00-0.90) H Total Protein 7.7 G/DL (6.4-8.2) Albumin 1.8 G/DL (3.4-5.0) L Globulin 5.9 g/dL Albumin/Globulin Ratio 0.3 (1.0-2.7) L Prothrombin Time 12.1 SEC (9.30-11.50) H Prothromb Time International Ratio 1.2 (0.9-1.1) H Activated Partial Thromboplast Time 23 SEC (23-33) Kranthi Herrera M.D. Oct 07, 2017 12:27
--- NOTE | 2017-10-07 12:30 | Internal Med Progress Note ---
Subjective Date of Service: Oct 07, 2017 Physician Name Adilson Stephen Attending Physician Hal Moore MD Current Medications Medications (Trade) Dose Ordered Sig/Lito Route PRN Reason Start Time Stop Time Status Last Admin Dose Admin Acetaminophen (Tylenol) 650 mg Q4H PRN ORAL fever (temp>100.5F) 10/03/17 19:45 10/28/17 23:44 Amlodipine Besylate (Norvasc) 10 mg DAILY ORAL 10/05/17 09:00 11/04/17 08:59 10/07/17 09:09 Aspirin (ASA) 162 mg DAILY ORAL 10/04/17 09:00 10/30/17 15:44 10/07/17 09:09 Clonidine HCl (Catapres tab) 0.2 mg EVERY 8 HOURS ORAL 10/04/17 22:00 11/01/17 21:59 10/07/17 05:41 Dextrose (Dextrose 50%) STAT PRN IV Hypoglycemia 10/03/17 17:00 10/28/17 16:59 Docusate Sodium (Colace) 100 mg THREE TIMES A DAY ORAL 10/03/17 18:00 10/29/17 12:59 10/07/17 09:09 Heparin Sodium (Porcine) (Heparin 5000 units/ml) 5,000 units EVERY 12 HOURS SUBQ 10/03/17 21:00 10/29/17 08:59 10/06/17 08:37 Hydralazine HCl (Apresoline) 100 mg Q8H ORAL 10/04/17 22:00 11/03/17 21:59 10/07/17 05:07 Insulin Aspart (NovoLOG) BEFORE MEALS AND HS SUBQ 10/03/17 21:00 10/29/17 06:29 10/07/17 05:43 Lansoprazole (Prevacid) 30 mg BID ORAL 10/03/17 18:00 10/29/17 17:59 10/07/17 09:09 Minoxidil (Loniten) 2.5 mg Q4H PRN ORAL bp over 160 syst 10/04/17 14:57 11/03/17 14:56 10/06/17 09:51 Morphine Sulfate (Morphine Sulfate) 4 mg Q4H PRN IVP For Pain 10/03/17 17:00 10/09/17 16:59 10/07/17 10:39 Nitroglycerin (Ntg) 0.4 mg Q5M PRN SL Prn Chest Pain 10/03/17 16:45 10/28/17 23:44 Nitroglycerin (Ntg) 1 patch Q24H TDERMAL 10/04/17 16:00 10/30/17 15:59 10/06/17 16:43 Ondansetron HCl (Zofran) 4 mg Q6H PRN IVP Nausea & Vomiting 10/03/17 17:00 10/28/17 16:59 Piperacillin Sod/ Tazobactam Sod 3.375 gm/Sodium Chloride 110 ml @ 27.5 mls/hr EVERY 8 HOURS IVPB 10/03/17 22:00 10/08/17 21:59 10/07/17 05:02 Polyethylene Glycol (Miralax) 17 gm DAILYPRN PRN ORAL Constipation 10/03/17 17:00 10/28/17 16:59 Promethazine HCl/ Codeine (Phenergan with Codeine) 5 ml Q4H PRN ORAL For Cough 10/03/17 17:00 10/29/17 16:59 Tamsulosin HCl (Flomax) 0.4 mg BID ORAL 10/03/17 18:00 10/29/17 17:59 10/07/17 09:09 Theophylline (Mark-Dur) 100 mg EVERY 12 HOURS ORAL 10/03/17 21:00 10/29/17 20:59 10/07/17 09:09 Allergies: Coded Allergies: No Known Allergies (Unverified , 09/28/17) ROS Limited/Unobtainable: No Constitutional: Reports: no symptoms HEENT: Reports: no symptoms Cardiovascular: Reports: no symptoms Respiratory: Reports: no symptoms Gastrointestinal/Abdominal: Reports: no symptoms Genitourinary: Reports: no symptoms Neurologic/Psychiatric: Reports: no symptoms Subjective 71 YO M admitted with left leg pain. Now cellulitis left leg and right pleural effusion. Cover for Int Jaspreet-Dr Moore. Await thoracentesis. S/P debridement of left leg on Sat10/02/17. Objective Last Vital Signs Date Time Temp Pulse Resp B/P (MAP) Pulse Ox O2 Delivery O2 Flow Rate FiO2 10/07/17 09:09 77 149/75 10/07/17 08:36 95 Nasal Cannula 2.0 28 10/07/17 08:00 98.2 19 98.2 Laboratory Tests Test 10/07/17 06:15 10/07/17 10:01 White Blood Count 8.2 K/UL (4.8-10.8) Red Blood Count 4.28 M/UL (4.70-6.10) L Hemoglobin 11.7 G/DL (14.2-18.0) L Hematocrit 38.3 % (42.0-52.0) L Mean Corpuscular Volume 89 FL (80-99) Mean Corpuscular Hemoglobin 27.4 PG (27.0-31.0) Mean Corpuscular Hemoglobin Concent 30.7 G/DL (32.0-36.0) L Red Cell Distribution Width 14.7 % (11.6-14.8) Platelet Count 252 K/UL (150-450) Mean Platelet Volume 8.4 FL (6.5-10.1) Neutrophils (%) (Auto) 70.9 % (45.0-75.0) Lymphocytes (%) (Auto) 13.4 % (20.0-45.0) L Monocytes (%) (Auto) 12.8 % (1.0-10.0) H Eosinophils (%) (Auto) 1.7 % (0.0-3.0) Basophils (%) (Auto) 1.2 % (0.0-2.0) Erythrocyte Sedimentation Rate 69 MM/HR (0-20) H Sodium Level 138 MMOL/L (136-145) Potassium Level 5.0 MMOL/L (3.5-5.1) Chloride Level 103 MMOL/L (98-107) Carbon Dioxide Level 31 MMOL/L (21-32) Anion Gap 4 mmol/L (5-15) L Blood Urea Nitrogen 19 mg/dL (7-18) H Creatinine 1.5 MG/DL (0.55-1.30) H Estimat Glomerular Filtration Rate mL/min (>60) Glucose Level 157 MG/DL (74-106) H Calcium Level 8.5 MG/DL (8.5-10.1) Phosphorus Level 2.7 MG/DL (2.5-4.9) Magnesium Level 1.9 MG/DL (1.8-2.4) Total Bilirubin 1.0 MG/DL (0.2-1.0) Aspartate Amino Transf (AST/SGOT) 13 U/L (15-37) L Alanine Aminotransferase (ALT/SGPT) < 6 U/L (12-78) L Alkaline Phosphatase 63 U/L (46-116) C-Reactive Protein, Quantitative 11.9 mg/dL (0.00-0.90) H Total Protein 7.7 G/DL (6.4-8.2) Albumin 1.8 G/DL (3.4-5.0) L Globulin 5.9 g/dL Albumin/Globulin Ratio 0.3 (1.0-2.7) L Prothrombin Time 12.1 SEC (9.30-11.50) H Prothromb Time International Ratio 1.2 (0.9-1.1) H Activated Partial Thromboplast Time 23 SEC (23-33) Intake and Output 10/06/17 10/07/17 19:00 07:00 Intake Total 912.5 ml 400 ml Output Total 100 ml 325 ml Balance 812.5 ml 75 ml Intake Oral 720 ml 400 ml IV Total 192.5 ml Output Urine Total 325 ml Drainage Total 100 ml Objective General Appearance: WD/WN, no apparent distress, alert EENT: PERRL/EOMI, normal ENT inspection, TMs normal Neck: non-tender, normal alignment, supple, normal inspection Cardiovascular: normal peripheral pulses, normal rate, regular rhythm, no gallop/murmur, no JVD Respiratory/Chest: decreased breath sounds, crackles/rales, rhonchi - bilaterally, expiratory wheezing Abdomen: normal bowel sounds, non tender, soft, no organomegaly, no mass Extremities: normal range of motion, non-tender 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 Await thoracentesis (2) Ascites (3) Cellulitis of left leg Assessment & Plan: see surgery and ID note. Continue zosyn. S/P Debridement in OR 10/02/17-Wound vac D/C. (4) Renal failure Assessment & Plan: See nephrology note. (5) Diabetes mellitus type II, uncontrolled Assessment & Plan: Cont novolog sliding scale. (6) Obesities, morbid (7) Malignant hypertension Assessment & Plan: Continue norvasc and clonidine (8) CHF exacerbation Assessment & Plan: See cardiology note. (9) Leukocytosis Assessment & Plan: Sepsis; continue zosyn per ID (10) Sepsis Assessment & Plan: Klebsiella Oxytoca. Continue zosyn per ID Status: progressing Assessment/Plan Discharge plan: [facility] acute rehab for wound care Adilson Stephen MD Oct 07, 2017 12:30
--- NOTE | 2017-10-07 12:30 | Infectious Diseases Prog Note ---
Assessment/Plan Assessment/Plan Assessment: SEpsis (SP) 2ry to L wound infection, Gram neg bacteremia -09/28 Bcx 05/09 K. oxytoca (R amp, otherwise S); 09/30 Neg x2 L anterior leg chronic wound and surrounding cellulitis -s/p I+D 10/02 and wound vac placement -OR findings: large area of necrosis and gangrene on the anterior mid leg; measured to be 23 cm x 14 cm x approximately 2 cm deep. The area was excised until fresh bleeding tissue could be identified. It was down deep in the medial lateral aspect to the fascia and to the periosteum on the tibia as well. The underlying subcutaneous tissue with edema, there were some pockets of fluid. Fascia and muscle viable. -OR cx PsA (maldonado S), K. pna (R amp, otherwise S) -CT L tibia/fibula: Cellulitis and ulceration in the pretibial aspect of the left lower extremity. The presence of gas likely associated with the presence of a large ulceration in this location. Gas-forming organism is the obvious concern and not excludable. No drainable abscess identified. No obvious intramuscular fascial thickening or fluid accumulation. -xray tibia/fibula: There is gas in the soft tissues. This can be traumatic , iatrogenic, or infectious. No acute fracture or suspicious osseous erosions. ; gas likely from incision made in ED- tissue seemed viable upon superificial exploration per ED physician and surgeon. -wound cx: K. pneumonia (R amp, otherwise S), E. fecalis (maldonado S); 2nd wound cx : K. pna (R amp, otherwise S) #1 and #2 PsA (maldonado S), E. fecalis (maldonado S) K, oxytoca bacteremia- 2ry to above -Abd US: Ascites. Right pleural effusion. Left kidney not identified. Access to the area is limited. It is uncertain whether this is technical or whether there is an absent or small left kidney. Gallbladder contracted but otherwise grossly unremarkable.Otherwise negative within the limits noted above. Fever, resolved Leukocytosis; resolved -u/a wbc 10-15, nit neg, leuk +1 Hypertensive urgency,SP TK, improving Dm2 w/ nephropathy CHF Obesity HTN marihuana and cocaine use non compliance Plan: -Continue Zosyn #4 (abx d#02/16) to simplify abx coverage for PsA, Klebsiella and enterococcus of leg wound infection -will treat for 2 weeks; upon discharge, can be transitioned to PO Cipro and Augmentin (renally dose) -10/02 SP IV Vanco #5, CEfepime #5, Flagyl #5 -Monitor CBC/BMP, temperatures -wound care/wound vac -Gen Sx f/u Thank you for this consultation. Will continue to follow along with you. Discussed with RN Subjective Allergies: Coded Allergies: No Known Allergies (Unverified , 09/28/17) Subjective afebrile no leukocytosis repeat Bcx Neg Objective Vital Signs Last 24 Hour Vital Signs Date Time Temp Pulse Resp B/P (MAP) Pulse Ox O2 Delivery O2 Flow Rate FiO2 10/07/17 09:09 77 149/75 10/07/17 08:36 95 Nasal Cannula 2.0 28 10/07/17 08:36 Nasal Cannula 2.0 28 10/07/17 08:00 98.2 81 19 144/70 97 98.2 10/07/17 05:41 149/75 10/07/17 05:07 158/93 10/07/17 04:00 98.1 77 17 146/70 95 Nasal Cannula 2.0 98.1 10/07/17 00:15 98.1 10/07/17 00:00 98.0 72 18 150/70 99 Nasal Cannula 2.0 98.0 10/06/17 23:45 98.1 10/06/17 21:45 149/62 10/06/17 21:11 150/69 10/06/17 20:00 98.2 76 18 140/73 95 Nasal Cannula 2.0 98.2 10/06/17 20:00 Nasal Cannula 2.0 28 10/06/17 20:00 96 Nasal Cannula 2.0 28 10/06/17 16:43 145/73 10/06/17 16:00 98.1 76 20 145/73 94 Nasal Cannula 2.0 98.1 10/06/17 14:46 159/77 10/06/17 14:30 98.4 22 177/77 95 Nasal Cannula 2.0 98.4 10/06/17 13:04 163/80 10/06/17 13:04 163/80 Height (Feet): 6 Height (Inches): 4.00 Weight (Pounds): 333 Objective General Appearance: no apparent distress, alert Lines, tubes and drains: peripheral HEENT: normocephalic, mucous membranes moist Neck: supple Respiratory/Chest: lungs clear, normal breath sounds, no respiratory distress, no accessory muscle use Cardiovascular/Chest: normal rate Abdomen: normal bowel sounds, non tender, soft, no organomegaly, no mass Extremities: L leg wrapped and wound vac in place Neurologic: alert, oriented x 3, responsive Laboratory Tests Test 10/07/17 06:15 10/07/17 10:01 White Blood Count 8.2 K/UL (4.8-10.8) Red Blood Count 4.28 M/UL (4.70-6.10) L Hemoglobin 11.7 G/DL (14.2-18.0) L Hematocrit 38.3 % (42.0-52.0) L Mean Corpuscular Volume 89 FL (80-99) Mean Corpuscular Hemoglobin 27.4 PG (27.0-31.0) Mean Corpuscular Hemoglobin Concent 30.7 G/DL (32.0-36.0) L Red Cell Distribution Width 14.7 % (11.6-14.8) Platelet Count 252 K/UL (150-450) Mean Platelet Volume 8.4 FL (6.5-10.1) Neutrophils (%) (Auto) 70.9 % (45.0-75.0) Lymphocytes (%) (Auto) 13.4 % (20.0-45.0) L Monocytes (%) (Auto) 12.8 % (1.0-10.0) H Eosinophils (%) (Auto) 1.7 % (0.0-3.0) Basophils (%) (Auto) 1.2 % (0.0-2.0) Erythrocyte Sedimentation Rate 69 MM/HR (0-20) H Sodium Level 138 MMOL/L (136-145) Potassium Level 5.0 MMOL/L (3.5-5.1) Chloride Level 103 MMOL/L (98-107) Carbon Dioxide Level 31 MMOL/L (21-32) Anion Gap 4 mmol/L (5-15) L Blood Urea Nitrogen 19 mg/dL (7-18) H Creatinine 1.5 MG/DL (0.55-1.30) H Estimat Glomerular Filtration Rate mL/min (>60) Glucose Level 157 MG/DL (74-106) H Calcium Level 8.5 MG/DL (8.5-10.1) Phosphorus Level 2.7 MG/DL (2.5-4.9) Magnesium Level 1.9 MG/DL (1.8-2.4) Total Bilirubin 1.0 MG/DL (0.2-1.0) Aspartate Amino Transf (AST/SGOT) 13 U/L (15-37) L Alanine Aminotransferase (ALT/SGPT) < 6 U/L (12-78) L Alkaline Phosphatase 63 U/L (46-116) C-Reactive Protein, Quantitative 11.9 mg/dL (0.00-0.90) H Total Protein 7.7 G/DL (6.4-8.2) Albumin 1.8 G/DL (3.4-5.0) L Globulin 5.9 g/dL Albumin/Globulin Ratio 0.3 (1.0-2.7) L Prothrombin Time 12.1 SEC (9.30-11.50) H Prothromb Time International Ratio 1.2 (0.9-1.1) H Activated Partial Thromboplast Time 23 SEC (23-33) Current Medications Medications (Trade) Dose Ordered Sig/Lito Route PRN Reason Start Time Stop Time Status Last Admin Dose Admin Acetaminophen (Tylenol) 650 mg Q4H PRN ORAL fever (temp>100.5F) 10/03/17 19:45 10/28/17 23:44 Amlodipine Besylate (Norvasc) 10 mg DAILY ORAL 10/05/17 09:00 11/04/17 08:59 10/07/17 09:09 Aspirin (ASA) 162 mg DAILY ORAL 10/04/17 09:00 10/30/17 15:44 10/07/17 09:09 Clonidine HCl (Catapres tab) 0.2 mg EVERY 8 HOURS ORAL 10/04/17 22:00 11/01/17 21:59 10/07/17 05:41 Dextrose (Dextrose 50%) STAT PRN IV Hypoglycemia 10/03/17 17:00 10/28/17 16:59 Docusate Sodium (Colace) 100 mg THREE TIMES A DAY ORAL 10/03/17 18:00 10/29/17 12:59 10/07/17 09:09 Heparin Sodium (Porcine) (Heparin 5000 units/ml) 5,000 units EVERY 12 HOURS SUBQ 10/03/17 21:00 10/29/17 08:59 10/06/17 08:37 Hydralazine HCl (Apresoline) 100 mg Q8H ORAL 10/04/17 22:00 11/03/17 21:59 10/07/17 05:07 Insulin Aspart (NovoLOG) BEFORE MEALS AND HS SUBQ 10/03/17 21:00 10/29/17 06:29 10/07/17 12:22 Lansoprazole (Prevacid) 30 mg BID ORAL 10/03/17 18:00 10/29/17 17:59 10/07/17 09:09 Minoxidil (Loniten) 2.5 mg Q4H PRN ORAL bp over 160 syst 10/04/17 14:57 11/03/17 14:56 10/06/17 09:51 Morphine Sulfate (Morphine Sulfate) 4 mg Q4H PRN IVP For Pain 10/03/17 17:00 10/09/17 16:59 10/07/17 10:39 Nitroglycerin (Ntg) 0.4 mg Q5M PRN SL Prn Chest Pain 10/03/17 16:45 10/28/17 23:44 Nitroglycerin (Ntg) 1 patch Q24H TDERMAL 10/04/17 16:00 10/30/17 15:59 10/06/17 16:43 Ondansetron HCl (Zofran) 4 mg Q6H PRN IVP Nausea & Vomiting 10/03/17 17:00 10/28/17 16:59 Piperacillin Sod/ Tazobactam Sod 3.375 gm/Sodium Chloride 110 ml @ 27.5 mls/hr EVERY 8 HOURS IVPB 10/03/17 22:00 10/08/17 21:59 10/07/17 05:02 Polyethylene Glycol (Miralax) 17 gm DAILYPRN PRN ORAL Constipation 10/03/17 17:00 10/28/17 16:59 Promethazine HCl/ Codeine (Phenergan with Codeine) 5 ml Q4H PRN ORAL For Cough 10/03/17 17:00 10/29/17 16:59 Tamsulosin HCl (Flomax) 0.4 mg BID ORAL 10/03/17 18:00 10/29/17 17:59 10/07/17 09:09 Theophylline (Mark-Dur) 100 mg EVERY 12 HOURS ORAL 10/03/17 21:00 10/29/17 20:59 10/07/17 09:09 Consuelo Baeza M.D. Oct 07, 2017 12:30
[2017-10-07] MEDS ORDERED: Lidocaine 1% MPF 10mg/ml 5ml INJ ONE (13:15)
--- NOTE | 2017-10-07 15:32 | General Progress Note ---
Progress Note Progress Note Surgery: doing well. improving. wound vac removed today. -dry dressing changes for 2-3 days. skin around wound with mild edema and epidermal breakdown from VAC. will place dry dressings for a few days to allow skin to breath then place VAC back on. Mannie Macedo Oct 07, 2017 15:32
--- NOTE | 2017-10-07 15:40 | Pulmonology Progress Note ---
Assessment/Plan Problems: (1) Gram-negative bacteremia (2) Pleural effusion (3) Cardiomegaly (4) Cellulitis (5) Hypoalbuminemia (6) ATN (acute tubular necrosis) (7) Diabetes mellitus (8) Obesity (BMI 30.0-34.9) (9) Noncompliance (10) Anasarca (11) Cocaine abuse Assessment/Plan improving on Zosyn s/p debridement afebrile GNB, Klebsiella on abx, cefepime all consults reviewed Echo: EF 45% f/u electrolytes check cultures wound care Subjective ROS Limited/Unobtainable: No Constitutional: Reports: no symptoms HEENT: Repors: no symptoms Respiratory: Reports: no symptoms Allergies: Coded Allergies: No Known Allergies (Unverified , 09/28/17) Objective Last 24 Hour Vital Signs Date Time Temp Pulse Resp B/P (MAP) Pulse Ox O2 Delivery O2 Flow Rate FiO2 10/07/17 14:26 150/84 10/07/17 14:26 150/84 10/07/17 12:00 97.9 83 20 150/84 97 97.9 10/07/17 09:09 77 149/75 10/07/17 08:36 95 Nasal Cannula 2.0 28 10/07/17 08:36 Nasal Cannula 2.0 28 10/07/17 08:00 98.2 81 19 144/70 97 98.2 10/07/17 05:41 149/75 10/07/17 05:07 158/93 10/07/17 04:00 98.1 77 17 146/70 95 Nasal Cannula 2.0 98.1 10/07/17 00:15 98.1 10/07/17 00:00 98.0 72 18 150/70 99 Nasal Cannula 2.0 98.0 10/06/17 23:45 98.1 10/06/17 21:45 149/62 10/06/17 21:11 150/69 10/06/17 20:00 98.2 76 18 140/73 95 Nasal Cannula 2.0 98.2 10/06/17 20:00 Nasal Cannula 2.0 28 10/06/17 20:00 96 Nasal Cannula 2.0 28 10/06/17 16:43 145/73 10/06/17 16:00 98.1 76 20 145/73 94 Nasal Cannula 2.0 98.1 Intake and Output 10/06/17 10/07/17 19:00 07:00 Intake Total 912.5 ml 400 ml Output Total 100 ml 325 ml Balance 812.5 ml 75 ml Intake Oral 720 ml 400 ml IV Total 192.5 ml Output Urine Total 325 ml Drainage Total 100 ml Objective General Appearance: WD/WN, no apparent distress, lethargic Lines, tubes and drains: peripheral HEENT: normocephalic, atraumatic, anicteric, mucous membranes moist Neck: non-tender, normal alignment, supple Respiratory/Chest: chest wall non-tender, lungs clear, normal breath sounds, no respiratory distress Breasts: no masses Cardiovascular/Chest: normal peripheral pulses, normal rate, regular rhythm, regularly irregular Abdomen: normal bowel sounds, non tender, soft, no organomegaly, no mass Genitourinary/Rectal: normal genital exam Extremities: normal range of motion, non-tender, normal inspection, no calf tenderness, normal capillary refill Skin Exam: normal pigmentation 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 Physical Exam Narrative General Appearance: WD/WN HEENT: normocephalic, atraumatic Respiratory/Chest: chest wall non-tender, lungs clear Breasts: no masses Cardiovascular: normal peripheral pulses, normal rate Abdomen: normal bowel sounds, soft, non tender Genitourinary: normal external genitalia Extremities: no cyanosis, wound vac in place Laboratory Tests 10/07/17 06:15: White Blood Count 8.2, Red Blood Count 4.28L, Hemoglobin 11.7L, Hematocrit 38.3L , Mean Corpuscular Volume 89, Mean Corpuscular Hemoglobin 27.4, Mean Corpuscular Hemoglobin Concent 30.7L, Red Cell Distribution Width 14.7, Platelet Count 252, Mean Platelet Volume 8.4, Neutrophils (%) (Auto) 70.9, Lymphocytes (%) (Auto) 13.4L, Monocytes (%) (Auto) 12.8H, Eosinophils (%) (Auto ) 1.7, Basophils (%) (Auto) 1.2, Erythrocyte Sedimentation Rate 69H, Sodium Level 138, Potassium Level 5.0, Chloride Level 103, Carbon Dioxide Level 31, Anion Gap 4L, Blood Urea Nitrogen 19H, Creatinine 1.5H, Estimat Glomerular Filtration Rate , Glucose Level 157H, Calcium Level 8.5, Phosphorus Level 2.7, Magnesium Level 1.9, Total Bilirubin 1.0, Aspartate Amino Transf (AST/SGOT) 13L , Alanine Aminotransferase (ALT/SGPT) < 6L, Alkaline Phosphatase 63, C-Reactive Protein, Quantitative 11.9H, Total Protein 7.7, Albumin 1.8L, Globulin 5.9, Albumin/Globulin Ratio 0.3L 10/07/17 10:01: Prothrombin Time 12.1H, Prothromb Time International Ratio 1.2H, Activated Partial Thromboplast Time 23 Current Medications Medications (Trade) Dose Ordered Sig/Lito Route PRN Reason Start Time Stop Time Status Last Admin Dose Admin Acetaminophen (Tylenol) 650 mg Q4H PRN ORAL fever (temp>100.5F) 10/03/17 19:45 10/28/17 23:44 Amlodipine Besylate (Norvasc) 10 mg DAILY ORAL 10/05/17 09:00 11/04/17 08:59 10/07/17 09:09 Aspirin (ASA) 162 mg DAILY ORAL 10/04/17 09:00 10/30/17 15:44 10/07/17 09:09 Clonidine HCl (Catapres tab) 0.2 mg EVERY 8 HOURS ORAL 10/04/17 22:00 11/01/17 21:59 10/07/17 14:26 Dextrose (Dextrose 50%) 25 ml STAT PRN IV Hypoglycemia 10/07/17 14:30 11/06/17 14:29 Dextrose (Dextrose 50%) 50 ml STAT PRN IV Hypoglycemia 10/07/17 14:30 11/06/17 14:29 Docusate Sodium (Colace) 100 mg THREE TIMES A DAY ORAL 10/03/17 18:00 10/29/17 12:59 10/07/17 09:09 Heparin Sodium (Porcine) (Heparin 5000 units/ml) 5,000 units EVERY 12 HOURS SUBQ 10/03/17 21:00 10/29/17 08:59 10/06/17 08:37 Hydralazine HCl (Apresoline) 100 mg Q8H ORAL 10/04/17 22:00 11/03/17 21:59 10/07/17 14:26 Insulin Aspart (NovoLOG) BEFORE MEALS AND HS SUBQ 10/03/17 21:00 10/29/17 06:29 10/07/17 12:22 Lansoprazole (Prevacid) 30 mg BID ORAL 10/03/17 18:00 10/29/17 17:59 10/07/17 09:09 Minoxidil (Loniten) 2.5 mg Q4H PRN ORAL bp over 160 syst 10/04/17 14:57 11/03/17 14:56 10/06/17 09:51 Morphine Sulfate (Morphine Sulfate) 4 mg Q4H PRN IVP For Pain 10/03/17 17:00 10/09/17 16:59 10/07/17 10:39 Nitroglycerin (Ntg) 0.4 mg Q5M PRN SL Prn Chest Pain 10/03/17 16:45 10/28/17 23:44 Nitroglycerin (Ntg) 1 patch Q24H TDERMAL 10/04/17 16:00 10/30/17 15:59 10/06/17 16:43 Ondansetron HCl (Zofran) 4 mg Q6H PRN IVP Nausea & Vomiting 10/03/17 17:00 10/28/17 16:59 Piperacillin Sod/ Tazobactam Sod 3.375 gm/Sodium Chloride 110 ml @ 27.5 mls/hr EVERY 8 HOURS IVPB 10/03/17 22:00 10/12/17 21:59 10/07/17 05:02 Polyethylene Glycol (Miralax) 17 gm DAILYPRN PRN ORAL Constipation 10/03/17 17:00 10/28/17 16:59 Promethazine HCl/ Codeine (Phenergan with Codeine) 5 ml Q4H PRN ORAL For Cough 10/03/17 17:00 10/29/17 16:59 Tamsulosin HCl (Flomax) 0.4 mg BID ORAL 10/03/17 18:00 10/29/17 17:59 10/07/17 09:09 Theophylline (Mark-Dur) 100 mg EVERY 12 HOURS ORAL 10/03/17 21:00 10/29/17 20:59 10/07/17 09:09 Hoang Gipson MD Oct 07, 2017 15:40
[2017-10-07 16:00] VITALS: BP 153/77
[2017-10-07] MEDS: Nitroglycerin Patch 0.4mg TDERMAL SCH (16:48)
--- NOTE | 2017-10-07 16:48 | General Progress Note ---
Assessment/Plan Assessment/Plan cocaine abuse depression lexapro 10mg qam provided ro/st Subjective Date patient seen: Oct 07, 2017 Neurologic/Psychiatric: Reports: anxiety, depressed, emotional problems Allergies: Coded Allergies: No Known Allergies (Unverified , 09/28/17) Subjective the pt doing better Objective Last 24 Hour Vital Signs Date Time Temp Pulse Resp B/P (MAP) Pulse Ox O2 Delivery O2 Flow Rate FiO2 10/07/17 16:00 98.2 77 18 153/77 95 98.2 10/07/17 14:26 150/84 10/07/17 14:26 150/84 10/07/17 12:00 97.9 83 20 150/84 97 97.9 10/07/17 09:09 77 149/75 10/07/17 08:36 95 Nasal Cannula 2.0 28 10/07/17 08:36 Nasal Cannula 2.0 28 10/07/17 08:00 98.2 81 19 144/70 97 98.2 10/07/17 05:41 149/75 10/07/17 05:07 158/93 10/07/17 04:00 98.1 77 17 146/70 95 Nasal Cannula 2.0 98.1 10/07/17 00:15 98.1 10/07/17 00:00 98.0 72 18 150/70 99 Nasal Cannula 2.0 98.0 10/06/17 23:45 98.1 10/06/17 21:45 149/62 10/06/17 21:11 150/69 10/06/17 20:00 98.2 76 18 140/73 95 Nasal Cannula 2.0 98.2 10/06/17 20:00 Nasal Cannula 2.0 28 10/06/17 20:00 96 Nasal Cannula 2.0 28 Intake and Output 10/06/17 10/07/17 19:00 07:00 Intake Total 912.5 ml 400 ml Output Total 100 ml 325 ml Balance 812.5 ml 75 ml Intake Oral 720 ml 400 ml IV Total 192.5 ml Output Urine Total 325 ml Drainage Total 100 ml Laboratory Tests 10/07/17 06:15: White Blood Count 8.2, Red Blood Count 4.28L, Hemoglobin 11.7L, Hematocrit 38.3L , Mean Corpuscular Volume 89, Mean Corpuscular Hemoglobin 27.4, Mean Corpuscular Hemoglobin Concent 30.7L, Red Cell Distribution Width 14.7, Platelet Count 252, Mean Platelet Volume 8.4, Neutrophils (%) (Auto) 70.9, Lymphocytes (%) (Auto) 13.4L, Monocytes (%) (Auto) 12.8H, Eosinophils (%) (Auto ) 1.7, Basophils (%) (Auto) 1.2, Erythrocyte Sedimentation Rate 69H, Sodium Level 138, Potassium Level 5.0, Chloride Level 103, Carbon Dioxide Level 31, Anion Gap 4L, Blood Urea Nitrogen 19H, Creatinine 1.5H, Estimat Glomerular Filtration Rate , Glucose Level 157H, Calcium Level 8.5, Phosphorus Level 2.7, Magnesium Level 1.9, Total Bilirubin 1.0, Aspartate Amino Transf (AST/SGOT) 13L , Alanine Aminotransferase (ALT/SGPT) < 6L, Alkaline Phosphatase 63, C-Reactive Protein, Quantitative 11.9H, Total Protein 7.7, Albumin 1.8L, Globulin 5.9, Albumin/Globulin Ratio 0.3L 10/07/17 10:01: Prothrombin Time 12.1H, Prothromb Time International Ratio 1.2H, Activated Partial Thromboplast Time 23 Height (Feet): 6 Height (Inches): 4.00 Weight (Pounds): 333 General Appearance: no apparent distress, alert Neurologic: oriented x 3, responsive, depressed affect Nadiya Currie M.D. Oct 07, 2017 16:48
--- NOTE | 2017-10-07 17:10 | Nephrology Progress Note ---
Assessment/Plan Problem List: (1) Malignant hypertension (2) Cocaine abuse (3) CKD (chronic kidney disease) (4) CHF exacerbation Assessment Diabetic Nephropathy Cr stable Gangrene of lower extremity CHF exacerbation Malignant hypertension Cocaine abuse Obesity (BMI 30.0-34.9) ACS (acute coronary syndrome) Plan debridement 10/02 Adjust BP meds- add norvasc asa and nitro PRNs for BP 2D echo Left ventricular ejection fraction to be slightly reduced - estimated 45 % monitor renal parameters Subjective ROS Limited/Unobtainable: No Constitutional: Reports: malaise Objective Objective Last 24 Hour Vital Signs Date Time Temp Pulse Resp B/P (MAP) Pulse Ox O2 Delivery O2 Flow Rate FiO2 10/07/17 16:48 153/77 10/07/17 16:00 98.2 77 18 153/77 95 98.2 10/07/17 14:26 150/84 10/07/17 14:26 150/84 10/07/17 12:00 97.9 83 20 150/84 97 97.9 10/07/17 09:09 77 149/75 10/07/17 08:36 95 Nasal Cannula 2.0 28 10/07/17 08:36 Nasal Cannula 2.0 28 10/07/17 08:00 98.2 81 19 144/70 97 98.2 10/07/17 05:41 149/75 10/07/17 05:07 158/93 10/07/17 04:00 98.1 77 17 146/70 95 Nasal Cannula 2.0 98.1 10/07/17 00:15 98.1 10/07/17 00:00 98.0 72 18 150/70 99 Nasal Cannula 2.0 98.0 10/06/17 23:45 98.1 10/06/17 21:45 149/62 10/06/17 21:11 150/69 10/06/17 20:00 98.2 76 18 140/73 95 Nasal Cannula 2.0 98.2 10/06/17 20:00 Nasal Cannula 2.0 28 10/06/17 20:00 96 Nasal Cannula 2.0 28 Intake and Output 10/06/17 10/07/17 19:00 07:00 Intake Total 912.5 ml 400 ml Output Total 100 ml 325 ml Balance 812.5 ml 75 ml Intake Oral 720 ml 400 ml IV Total 192.5 ml Output Urine Total 325 ml Drainage Total 100 ml Laboratory Tests 10/07/17 06:15: White Blood Count 8.2, Red Blood Count 4.28L, Hemoglobin 11.7L, Hematocrit 38.3L , Mean Corpuscular Volume 89, Mean Corpuscular Hemoglobin 27.4, Mean Corpuscular Hemoglobin Concent 30.7L, Red Cell Distribution Width 14.7, Platelet Count 252, Mean Platelet Volume 8.4, Neutrophils (%) (Auto) 70.9, Lymphocytes (%) (Auto) 13.4L, Monocytes (%) (Auto) 12.8H, Eosinophils (%) (Auto ) 1.7, Basophils (%) (Auto) 1.2, Erythrocyte Sedimentation Rate 69H, Sodium Level 138, Potassium Level 5.0, Chloride Level 103, Carbon Dioxide Level 31, Anion Gap 4L, Blood Urea Nitrogen 19H, Creatinine 1.5H, Estimat Glomerular Filtration Rate , Glucose Level 157H, Calcium Level 8.5, Phosphorus Level 2.7, Magnesium Level 1.9, Total Bilirubin 1.0, Aspartate Amino Transf (AST/SGOT) 13L , Alanine Aminotransferase (ALT/SGPT) < 6L, Alkaline Phosphatase 63, C-Reactive Protein, Quantitative 11.9H, Total Protein 7.7, Albumin 1.8L, Globulin 5.9, Albumin/Globulin Ratio 0.3L 10/07/17 10:01: Prothrombin Time 12.1H, Prothromb Time International Ratio 1.2H, Activated Partial Thromboplast Time 23 Height (Feet): 6 Height (Inches): 4.00 Weight (Pounds): 333 General Appearance: no apparent distress Objective PE not changed OMER YOU Oct 07, 2017 17:10
[2017-10-07 20:25] VITALS: BP 151/80
[2017-10-08] VITALS (7 sets, daily range): BP systolic 139–164; BP diastolic 67–86
[2017-10-08] MEDS: Morphine Sulfate 4mg/ml Inj IVP PRN (00:13)
[2017-10-08] MEDS: HydrALAZINE 50mg tab ORAL SCH ×3 (05:45→21:46)
[2017-10-08] MEDS: Piperacillin/Tazobactam 3.375 GM in NS 110 ML IVPB SCH ×3 (05:45→21:46)
[2017-10-08] MEDS: cloNIDine 0.2mg Tab ORAL SCH ×3 (05:46→21:47)
[2017-10-08] MEDS: NovoLOG Insulin Flexpen SUBQ SCH ×4 (05:50→21:41)
[2017-10-08 06:55] LABS: ANION GAP 5 mmol/L (5-15); BLOOD UREA NITROGEN 18 mg/dL (7-18); CALCIUM 8.2 MG/DL (8.5-10.1); CARBON DIOXIDE 30 MMOL/L (21-32); CHLORIDE 104 MMOL/L (98-107); CREATININE 1.4 MG/DL (0.55-1.30); POTASSIUM 4.4 MMOL/L (3.5-5.1); SODIUM 138 MMOL/L (136-145)
[2017-10-08 07:05] LABS: BASOPHILS % (AUTO) 1.4 % (0.0-2.0); EOSINOPHILS % (AUTO) 1.3 % (0.0-3.0); HEMATOCRIT 33.4 % (42.0-52.0); HEMOGLOBIN 10.8 G/DL (14.2-18.0); MEAN CORPUSCULAR VOLUME 88 FL (80-99); MONOCYTES % (AUTO) 13.5 % (1.0-10.0); NEUTROPHILS % (AUTO) 71.7 % (45.0-75.0); PLATELET COUNT 215 K/UL (150-450); WHITE BLOOD COUNT 8.4 K/UL (4.8-10.8)
[2017-10-08] MEDS: Docusate 100mg cap ORAL SCH ×3 (08:33→17:11)
[2017-10-08] MEDS: Aspirin Baby 81mg ORAL SCH ×2 (08:33→08:35)
[2017-10-08] MEDS: Tamsulosin 0.4mg cap ORAL SCH ×2 (08:33→17:11)
[2017-10-08] MEDS: Theophylline ER 100mg ORAL SCH ×2 (08:33→21:41)
[2017-10-08] MEDS: Heparin 5000 units/ml inj SUBQ SCH ×2 (08:34→21:00)
--- NOTE | 2017-10-08 10:24 | Infectious Diseases Prog Note ---
Assessment/Plan Assessment/Plan Assessment: SEpsis (SP) 2ry to L wound infection, Gram neg bacteremia -09/28 Bcx 05/09 K. oxytoca (R amp, otherwise S); 09/30 Neg x2 L anterior leg chronic wound and surrounding cellulitis; improving -s/p I+D 10/02 and wound vac placement -OR findings: large area of necrosis and gangrene on the anterior mid leg; measured to be 23 cm x 14 cm x approximately 2 cm deep. The area was excised until fresh bleeding tissue could be identified. It was down deep in the medial lateral aspect to the fascia and to the periosteum on the tibia as well. The underlying subcutaneous tissue with edema, there were some pockets of fluid. Fascia and muscle viable. -OR cx PsA (maldonado S), K. pna (R amp, otherwise S) -CT L tibia/fibula: Cellulitis and ulceration in the pretibial aspect of the left lower extremity. The presence of gas likely associated with the presence of a large ulceration in this location. Gas-forming organism is the obvious concern and not excludable. No drainable abscess identified. No obvious intramuscular fascial thickening or fluid accumulation. -xray tibia/fibula: There is gas in the soft tissues. This can be traumatic , iatrogenic, or infectious. No acute fracture or suspicious osseous erosions. ; gas likely from incision made in ED- tissue seemed viable upon superificial exploration per ED physician and surgeon. -wound cx: K. pneumonia (R amp, otherwise S), E. fecalis (maldonado S); 2nd wound cx : K. pna (R amp, otherwise S) #1 and #2 PsA (maldonado S), E. fecalis (malodnado S) K, oxytoca bacteremia- 2ry to above -Abd US: Ascites. Right pleural effusion. Left kidney not identified. Access to the area is limited. It is uncertain whether this is technical or whether there is an absent or small left kidney. Gallbladder contracted but otherwise grossly unremarkable.Otherwise negative within the limits noted above. Fever, resolved Leukocytosis; resolved -u/a wbc 10-15, nit neg, leuk +1 Hypertensive urgency,SP TK, improving Dm2 w/ nephropathy CHF Obesity HTN marihuana and cocaine use non compliance Plan: -Continue Zosyn #5 (abx d#03/19) to simplify abx coverage for PsA, Klebsiella and enterococcus of leg wound infection -will treat for 2 weeks; upon discharge, can be transitioned to PO Cipro and Augmentin (renally dose) -10/02 SP IV Vanco #5, CEfepime #5, Flagyl #5 -Monitor CBC/BMP, temperatures -wound care/wound vac -Gen Sx f/u Thank you for this consultation. Will continue to follow along with you. Discussed with RN Subjective Allergies: Coded Allergies: No Known Allergies (Unverified , 09/28/17) Subjective afebrile no leukocytosis wound improving Objective Vital Signs Last 24 Hour Vital Signs Date Time Temp Pulse Resp B/P (MAP) Pulse Ox O2 Delivery O2 Flow Rate FiO2 10/08/17 08:34 78 151/67 10/08/17 08:10 97.9 78 20 151/67 95 97.9 10/08/17 05:46 144/79 10/08/17 05:45 144/79 10/08/17 04:36 98.2 62 19 140/74 97 98.2 10/08/17 04:36 Nasal Cannula 2.0 10/08/17 00:41 99.5 67 19 141/71 94 99.5 10/08/17 00:41 Nasal Cannula 2.0 10/07/17 21:36 149/82 10/07/17 21:35 149/82 10/07/17 20:25 98.0 71 19 151/80 96 98.0 10/07/17 20:25 Nasal Cannula 2.0 10/07/17 19:24 96 Nasal Cannula 2.0 28 10/07/17 19:24 Nasal Cannula 2.0 28 10/07/17 16:48 153/77 10/07/17 16:00 98.2 77 18 153/77 95 98.2 10/07/17 14:26 150/84 10/07/17 14:26 150/84 10/07/17 12:00 97.9 83 20 150/84 97 97.9 Height (Feet): 6 Height (Inches): 4.00 Weight (Pounds): 337 Objective General Appearance: no apparent distress, alert Lines, tubes and drains: peripheral HEENT: normocephalic, mucous membranes moist Neck: supple Respiratory/Chest: lungs clear, normal breath sounds, no respiratory distress, no accessory muscle use Cardiovascular/Chest: normal rate Abdomen: normal bowel sounds, non tender, soft, no organomegaly, no mass Extremities: L leg wrapped and wound vac in place Neurologic: alert, oriented x 3, responsive Laboratory Tests Test 10/08/17 05:50 White Blood Count 8.4 K/UL (4.8-10.8) Red Blood Count 3.80 M/UL (4.70-6.10) L Hemoglobin 10.8 G/DL (14.2-18.0) L Hematocrit 33.4 % (42.0-52.0) L Mean Corpuscular Volume 88 FL (80-99) Mean Corpuscular Hemoglobin 28.3 PG (27.0-31.0) Mean Corpuscular Hemoglobin Concent 32.3 G/DL (32.0-36.0) Red Cell Distribution Width 14.0 % (11.6-14.8) Platelet Count 215 K/UL (150-450) Mean Platelet Volume 7.8 FL (6.5-10.1) Neutrophils (%) (Auto) 71.7 % (45.0-75.0) Lymphocytes (%) (Auto) 12.0 % (20.0-45.0) L Monocytes (%) (Auto) 13.5 % (1.0-10.0) H Eosinophils (%) (Auto) 1.3 % (0.0-3.0) Basophils (%) (Auto) 1.4 % (0.0-2.0) Sodium Level 138 MMOL/L (136-145) Potassium Level 4.4 MMOL/L (3.5-5.1) Chloride Level 104 MMOL/L (98-107) Carbon Dioxide Level 30 MMOL/L (21-32) Anion Gap 5 mmol/L (5-15) Blood Urea Nitrogen 18 mg/dL (7-18) Creatinine 1.4 MG/DL (0.55-1.30) H Estimat Glomerular Filtration Rate mL/min (>60) Glucose Level 161 MG/DL (74-106) H Calcium Level 8.2 MG/DL (8.5-10.1) L Current Medications Medications (Trade) Dose Ordered Sig/Lito Route PRN Reason Start Time Stop Time Status Last Admin Dose Admin Acetaminophen (Tylenol) 650 mg Q4H PRN ORAL fever (temp>100.5F) 10/03/17 19:45 10/28/17 23:44 Amlodipine Besylate (Norvasc) 10 mg DAILY ORAL 10/05/17 09:00 11/04/17 08:59 10/08/17 08:34 Aspirin (ASA) 162 mg DAILY ORAL 10/04/17 09:00 10/30/17 15:44 10/07/17 09:09 Clonidine HCl (Catapres tab) 0.2 mg EVERY 8 HOURS ORAL 10/04/17 22:00 11/01/17 21:59 10/08/17 05:46 Dextrose (Dextrose 50%) 25 ml STAT PRN IV Hypoglycemia 10/07/17 14:30 11/06/17 14:29 Dextrose (Dextrose 50%) 50 ml STAT PRN IV Hypoglycemia 10/07/17 14:30 11/06/17 14:29 Docusate Sodium (Colace) 100 mg THREE TIMES A DAY ORAL 10/03/17 18:00 10/29/17 12:59 10/08/17 08:33 Heparin Sodium (Porcine) (Heparin 5000 units/ml) 5,000 units EVERY 12 HOURS SUBQ 10/03/17 21:00 10/29/17 08:59 10/06/17 08:37 Hydralazine HCl (Apresoline) 100 mg Q8H ORAL 10/04/17 22:00 11/03/17 21:59 10/08/17 05:45 Insulin Aspart (NovoLOG) BEFORE MEALS AND HS SUBQ 10/03/17 21:00 10/29/17 06:29 10/08/17 05:50 Lansoprazole (Prevacid) 30 mg BID ORAL 10/03/17 18:00 10/29/17 17:59 10/08/17 08:34 Minoxidil (Loniten) 2.5 mg Q4H PRN ORAL bp over 160 syst 10/04/17 14:57 11/03/17 14:56 10/06/17 09:51 Morphine Sulfate (Morphine Sulfate) 4 mg Q4H PRN IVP For Pain 10/03/17 17:00 10/09/17 16:59 10/08/17 00:13 Nitroglycerin (Ntg) 0.4 mg Q5M PRN SL Prn Chest Pain 10/03/17 16:45 10/28/17 23:44 Nitroglycerin (Ntg) 1 patch Q24H TDERMAL 10/04/17 16:00 10/30/17 15:59 10/07/17 16:48 Ondansetron HCl (Zofran) 4 mg Q6H PRN IVP Nausea & Vomiting 10/03/17 17:00 10/28/17 16:59 Piperacillin Sod/ Tazobactam Sod 3.375 gm/Sodium Chloride 110 ml @ 27.5 mls/hr EVERY 8 HOURS IVPB 10/03/17 22:00 10/12/17 21:59 10/08/17 05:45 Polyethylene Glycol (Miralax) 17 gm DAILYPRN PRN ORAL Constipation 10/03/17 17:00 10/28/17 16:59 Promethazine HCl/ Codeine (Phenergan with Codeine) 5 ml Q4H PRN ORAL For Cough 10/03/17 17:00 10/29/17 16:59 Tamsulosin HCl (Flomax) 0.4 mg BID ORAL 10/03/17 18:00 10/29/17 17:59 10/08/17 08:33 Theophylline (Mark-Dur) 100 mg EVERY 12 HOURS ORAL 10/03/17 21:00 10/29/17 20:59 10/08/17 08:33 Consuelo Baeza M.D. Oct 08, 2017 10:24
--- NOTE | 2017-10-08 12:24 | Diagnostic Imaging Report ---
Indication: Shortness of breath Technique: One view of the chest Comparison: 10/03/2017 Findings: Again demonstrated is extensive right greater than left parenchymal consolidation and interstitial congestion. There is probably some pleural fluid on the right. The heart is enlarged. Findings are unchanged Impression: Unchanged, over one day, findings as above.
--- NOTE | 2017-10-08 13:27 | Nephrology Progress Note ---
Assessment/Plan Problem List: (1) Malignant hypertension (2) Cocaine abuse (3) CKD (chronic kidney disease) (4) CHF exacerbation Assessment Diabetic Nephropathy Cr stable and lower Gangrene of lower extremity CHF exacerbation Malignant hypertension Cocaine abuse Obesity (BMI 30.0-34.9) ACS (acute coronary syndrome) Plan debridement 10/02 Adjust BP meds- add norvasc asa and nitro PRNs for BP 2D echo Left ventricular ejection fraction to be slightly reduced - estimated 45 % monitor renal parameters Subjective ROS Limited/Unobtainable: No Constitutional: Reports: malaise Objective Objective Last 24 Hour Vital Signs Date Time Temp Pulse Resp B/P (MAP) Pulse Ox O2 Delivery O2 Flow Rate FiO2 10/08/17 11:38 98.6 70 20 154/86 98 98.6 10/08/17 08:34 78 151/67 10/08/17 08:10 97.9 78 20 151/67 95 97.9 10/08/17 05:46 144/79 10/08/17 05:45 144/79 10/08/17 04:36 98.2 62 19 140/74 97 98.2 10/08/17 04:36 Nasal Cannula 2.0 10/08/17 00:41 99.5 67 19 141/71 94 99.5 10/08/17 00:41 Nasal Cannula 2.0 10/07/17 21:36 149/82 10/07/17 21:35 149/82 10/07/17 20:25 98.0 71 19 151/80 96 98.0 10/07/17 20:25 Nasal Cannula 2.0 10/07/17 19:24 96 Nasal Cannula 2.0 28 10/07/17 19:24 Nasal Cannula 2.0 28 10/07/17 16:48 153/77 10/07/17 16:00 98.2 77 18 153/77 95 98.2 10/07/17 14:26 150/84 10/07/17 14:26 150/84 Intake and Output 10/07/17 10/08/17 19:00 07:00 Intake Total 750 ml 410.0 ml Output Total 700 ml Balance 750 ml -290.0 ml Intake Oral 750 ml 300 ml IV Total 110.0 ml Output Urine Total 700 ml # Voids 2 Laboratory Tests 10/08/17 05:50: White Blood Count 8.4, Red Blood Count 3.80L, Hemoglobin 10.8L, Hematocrit 33.4L , Mean Corpuscular Volume 88, Mean Corpuscular Hemoglobin 28.3, Mean Corpuscular Hemoglobin Concent 32.3, Red Cell Distribution Width 14.0, Platelet Count 215, Mean Platelet Volume 7.8, Neutrophils (%) (Auto) 71.7, Lymphocytes (% ) (Auto) 12.0L, Monocytes (%) (Auto) 13.5H, Eosinophils (%) (Auto) 1.3, Basophils (%) (Auto) 1.4, Sodium Level 138, Potassium Level 4.4, Chloride Level 104, Carbon Dioxide Level 30, Anion Gap 5, Blood Urea Nitrogen 18, Creatinine 1.4H, Estimat Glomerular Filtration Rate , Glucose Level 161H, Calcium Level 8.2L Height (Feet): 6 Height (Inches): 4.00 Weight (Pounds): 337 General Appearance: no apparent distress Respiratory/Chest: decreased breath sounds Abdomen: soft Objective PE not changed OMER YOU Oct 08, 2017 13:27
--- NOTE | 2017-10-08 14:13 | Diagnostic Imaging Report ---
Indication: Right pleural effusion Technique: Grayscale images of the right chest in anticipation of thoracentesis Comparison: none Findings: There is a small or moderate right pleural effusion demonstrated. Impression: Small or moderate right pleural effusion Note that per technologist, patient could not be positioned for thoracentesis, so procedure could not be performed
--- NOTE | 2017-10-08 14:59 | General Progress Note ---
Assessment/Plan Assessment/Plan cocaine abuse depression lexapro 10mg qam provided ro/st Subjective Date patient seen: Oct 08, 2017 Neurologic/Psychiatric: Reports: anxiety, depressed, emotional problems Allergies: Coded Allergies: No Known Allergies (Unverified , 09/28/17) Subjective the pt is the same poor insight into his cocaine use Objective Last 24 Hour Vital Signs Date Time Temp Pulse Resp B/P (MAP) Pulse Ox O2 Delivery O2 Flow Rate FiO2 10/08/17 13:27 154/86 10/08/17 13:27 154/86 10/08/17 11:38 98.6 70 20 154/86 98 98.6 10/08/17 08:34 78 151/67 10/08/17 08:10 97.9 78 20 151/67 95 97.9 10/08/17 05:46 144/79 10/08/17 05:45 144/79 10/08/17 04:36 98.2 62 19 140/74 97 98.2 10/08/17 04:36 Nasal Cannula 2.0 10/08/17 00:41 99.5 67 19 141/71 94 99.5 10/08/17 00:41 Nasal Cannula 2.0 10/07/17 21:36 149/82 10/07/17 21:35 149/82 10/07/17 20:25 98.0 71 19 151/80 96 98.0 10/07/17 20:25 Nasal Cannula 2.0 10/07/17 19:24 96 Nasal Cannula 2.0 28 10/07/17 19:24 Nasal Cannula 2.0 28 10/07/17 16:48 153/77 10/07/17 16:00 98.2 77 18 153/77 95 98.2 Intake and Output 10/07/17 10/08/17 19:00 07:00 Intake Total 750 ml 410.0 ml Output Total 700 ml Balance 750 ml -290.0 ml Intake Oral 750 ml 300 ml IV Total 110.0 ml Output Urine Total 700 ml # Voids 2 Laboratory Tests 10/08/17 05:50: White Blood Count 8.4, Red Blood Count 3.80L, Hemoglobin 10.8L, Hematocrit 33.4L , Mean Corpuscular Volume 88, Mean Corpuscular Hemoglobin 28.3, Mean Corpuscular Hemoglobin Concent 32.3, Red Cell Distribution Width 14.0, Platelet Count 215, Mean Platelet Volume 7.8, Neutrophils (%) (Auto) 71.7, Lymphocytes (% ) (Auto) 12.0L, Monocytes (%) (Auto) 13.5H, Eosinophils (%) (Auto) 1.3, Basophils (%) (Auto) 1.4, Sodium Level 138, Potassium Level 4.4, Chloride Level 104, Carbon Dioxide Level 30, Anion Gap 5, Blood Urea Nitrogen 18, Creatinine 1.4H, Estimat Glomerular Filtration Rate , Glucose Level 161H, Calcium Level 8.2L Height (Feet): 6 Height (Inches): 4.00 Weight (Pounds): 337 General Appearance: no apparent distress, alert Neurologic: oriented x 3, responsive, depressed affect Nadiya Currie M.D. Oct 08, 2017 14:59
--- NOTE | 2017-10-08 15:38 | Pulmonology Progress Note ---
Assessment/Plan Problems: (1) Gram-negative bacteremia (2) Pleural effusion (3) Cardiomegaly (4) Cellulitis (5) Hypoalbuminemia (6) ATN (acute tubular necrosis) (7) Diabetes mellitus (8) Obesity (BMI 30.0-34.9) (9) Noncompliance (10) Anasarca (11) Cocaine abuse Assessment/Plan cxr reviewed, increasing infiltrate and/or effusion. no dyspnea s/p debridement afebrile GNB, Klebsiella on abx, cefepime all consults reviewed Echo: EF 45% check cultures wound care optimize cardiac meds Subjective ROS Limited/Unobtainable: No Constitutional: Reports: no symptoms HEENT: Repors: no symptoms Allergies: Coded Allergies: No Known Allergies (Unverified , 09/28/17) Objective Last 24 Hour Vital Signs Date Time Temp Pulse Resp B/P (MAP) Pulse Ox O2 Delivery O2 Flow Rate FiO2 10/08/17 13:27 154/86 10/08/17 13:27 154/86 10/08/17 11:38 98.6 70 20 154/86 98 98.6 10/08/17 08:34 78 151/67 10/08/17 08:10 97.9 78 20 151/67 95 97.9 10/08/17 05:46 144/79 10/08/17 05:45 144/79 10/08/17 04:36 98.2 62 19 140/74 97 98.2 10/08/17 04:36 Nasal Cannula 2.0 10/08/17 00:41 99.5 67 19 141/71 94 99.5 10/08/17 00:41 Nasal Cannula 2.0 10/07/17 21:36 149/82 10/07/17 21:35 149/82 10/07/17 20:25 98.0 71 19 151/80 96 98.0 10/07/17 20:25 Nasal Cannula 2.0 10/07/17 19:24 96 Nasal Cannula 2.0 28 10/07/17 19:24 Nasal Cannula 2.0 28 10/07/17 16:48 153/77 10/07/17 16:00 98.2 77 18 153/77 95 98.2 Intake and Output 10/07/17 10/08/17 19:00 07:00 Intake Total 750 ml 410.0 ml Output Total 700 ml Balance 750 ml -290.0 ml Intake Oral 750 ml 300 ml IV Total 110.0 ml Output Urine Total 700 ml # Voids 2 Objective General Appearance: WD/WN, no apparent distress, lethargic Lines, tubes and drains: peripheral HEENT: normocephalic, atraumatic, anicteric, mucous membranes moist Neck: non-tender, normal alignment, supple Respiratory/Chest: chest wall non-tender, lungs clear, normal breath sounds, no respiratory distress Breasts: no masses Cardiovascular/Chest: normal peripheral pulses, normal rate, regular rhythm, regularly irregular Abdomen: normal bowel sounds, non tender, soft, no organomegaly, no mass Genitourinary/Rectal: normal genital exam Extremities: normal range of motion, non-tender, normal inspection, no calf tenderness, normal capillary refill Skin Exam: normal pigmentation 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 Physical Exam Narrative General Appearance: WD/WN HEENT: normocephalic, atraumatic Respiratory/Chest: chest wall non-tender, lungs clear Breasts: no masses Cardiovascular: normal peripheral pulses, normal rate Abdomen: normal bowel sounds, soft, non tender Genitourinary: normal external genitalia Extremities: no cyanosis, wound vac in place Laboratory Tests 10/08/17 05:50: White Blood Count 8.4, Red Blood Count 3.80L, Hemoglobin 10.8L, Hematocrit 33.4L , Mean Corpuscular Volume 88, Mean Corpuscular Hemoglobin 28.3, Mean Corpuscular Hemoglobin Concent 32.3, Red Cell Distribution Width 14.0, Platelet Count 215, Mean Platelet Volume 7.8, Neutrophils (%) (Auto) 71.7, Lymphocytes (% ) (Auto) 12.0L, Monocytes (%) (Auto) 13.5H, Eosinophils (%) (Auto) 1.3, Basophils (%) (Auto) 1.4, Sodium Level 138, Potassium Level 4.4, Chloride Level 104, Carbon Dioxide Level 30, Anion Gap 5, Blood Urea Nitrogen 18, Creatinine 1.4H, Estimat Glomerular Filtration Rate , Glucose Level 161H, Calcium Level 8.2L Current Medications Medications (Trade) Dose Ordered Sig/Lito Route PRN Reason Start Time Stop Time Status Last Admin Dose Admin Acetaminophen (Tylenol) 650 mg Q4H PRN ORAL fever (temp>100.5F) 10/03/17 19:45 10/28/17 23:44 Amlodipine Besylate (Norvasc) 10 mg DAILY ORAL 10/05/17 09:00 11/04/17 08:59 10/08/17 08:34 Aspirin (ASA) 162 mg DAILY ORAL 10/04/17 09:00 10/30/17 15:44 10/07/17 09:09 Clonidine HCl (Catapres tab) 0.2 mg EVERY 8 HOURS ORAL 10/04/17 22:00 11/01/17 21:59 10/08/17 13:27 Dextrose (Dextrose 50%) 25 ml STAT PRN IV Hypoglycemia 10/07/17 14:30 11/06/17 14:29 Dextrose (Dextrose 50%) 50 ml STAT PRN IV Hypoglycemia 10/07/17 14:30 11/06/17 14:29 Docusate Sodium (Colace) 100 mg THREE TIMES A DAY ORAL 10/03/17 18:00 10/29/17 12:59 10/08/17 13:27 Heparin Sodium (Porcine) (Heparin 5000 units/ml) 5,000 units EVERY 12 HOURS SUBQ 10/03/17 21:00 10/29/17 08:59 10/06/17 08:37 Hydralazine HCl (Apresoline) 100 mg Q8H ORAL 10/04/17 22:00 11/03/17 21:59 10/08/17 13:27 Insulin Aspart (NovoLOG) BEFORE MEALS AND HS SUBQ 10/03/17 21:00 10/29/17 06:29 10/08/17 11:56 Lansoprazole (Prevacid) 30 mg BID ORAL 10/03/17 18:00 10/29/17 17:59 10/08/17 08:34 Minoxidil (Loniten) 2.5 mg Q4H PRN ORAL bp over 160 syst 10/04/17 14:57 11/03/17 14:56 10/06/17 09:51 Morphine Sulfate (Morphine Sulfate) 4 mg Q4H PRN IVP For Pain 10/03/17 17:00 10/09/17 16:59 10/08/17 00:13 Nitroglycerin (Ntg) 0.4 mg Q5M PRN SL Prn Chest Pain 10/03/17 16:45 10/28/17 23:44 Nitroglycerin (Ntg) 1 patch Q24H TDERMAL 10/04/17 16:00 10/30/17 15:59 10/07/17 16:48 Ondansetron HCl (Zofran) 4 mg Q6H PRN IVP Nausea & Vomiting 10/03/17 17:00 10/28/17 16:59 Piperacillin Sod/ Tazobactam Sod 3.375 gm/Sodium Chloride 110 ml @ 27.5 mls/hr EVERY 8 HOURS IVPB 10/03/17 22:00 10/12/17 21:59 10/08/17 14:51 Polyethylene Glycol (Miralax) 17 gm DAILYPRN PRN ORAL Constipation 10/03/17 17:00 10/28/17 16:59 Promethazine HCl/ Codeine (Phenergan with Codeine) 5 ml Q4H PRN ORAL For Cough 10/03/17 17:00 10/29/17 16:59 Tamsulosin HCl (Flomax) 0.4 mg BID ORAL 10/03/17 18:00 10/29/17 17:59 10/08/17 08:33 Theophylline (Mark-Dur) 100 mg EVERY 12 HOURS ORAL 10/03/17 21:00 10/29/17 20:59 10/08/17 08:33 Hoang Gipson MD Oct 08, 2017 15:38
--- NOTE | 2017-10-08 16:56 | Internal Med Progress Note ---
Subjective Date of Service: Oct 08, 2017 Physician Name Adilson Stephen Attending Physician Hal Moore MD Current Medications Medications (Trade) Dose Ordered Sig/Lito Route PRN Reason Start Time Stop Time Status Last Admin Dose Admin Acetaminophen (Tylenol) 650 mg Q4H PRN ORAL fever (temp>100.5F) 10/03/17 19:45 10/28/17 23:44 Amlodipine Besylate (Norvasc) 10 mg DAILY ORAL 10/05/17 09:00 11/04/17 08:59 10/08/17 08:34 Aspirin (ASA) 162 mg DAILY ORAL 10/04/17 09:00 10/30/17 15:44 10/07/17 09:09 Clonidine HCl (Catapres tab) 0.2 mg EVERY 8 HOURS ORAL 10/04/17 22:00 11/01/17 21:59 10/08/17 13:27 Dextrose (Dextrose 50%) 25 ml STAT PRN IV Hypoglycemia 10/07/17 14:30 11/06/17 14:29 Dextrose (Dextrose 50%) 50 ml STAT PRN IV Hypoglycemia 10/07/17 14:30 11/06/17 14:29 Docusate Sodium (Colace) 100 mg THREE TIMES A DAY ORAL 10/03/17 18:00 10/29/17 12:59 10/08/17 13:27 Heparin Sodium (Porcine) (Heparin 5000 units/ml) 5,000 units EVERY 12 HOURS SUBQ 10/03/17 21:00 10/29/17 08:59 10/06/17 08:37 Hydralazine HCl (Apresoline) 100 mg Q8H ORAL 10/04/17 22:00 11/03/17 21:59 10/08/17 13:27 Insulin Aspart (NovoLOG) BEFORE MEALS AND HS SUBQ 10/03/17 21:00 10/29/17 06:29 10/08/17 11:56 Lansoprazole (Prevacid) 30 mg BID ORAL 10/03/17 18:00 10/29/17 17:59 10/08/17 08:34 Minoxidil (Loniten) 2.5 mg Q4H PRN ORAL bp over 160 syst 10/04/17 14:57 11/03/17 14:56 10/06/17 09:51 Morphine Sulfate (Morphine Sulfate) 4 mg Q4H PRN IVP For Pain 10/03/17 17:00 10/09/17 16:59 10/08/17 00:13 Nitroglycerin (Ntg) 0.4 mg Q5M PRN SL Prn Chest Pain 10/03/17 16:45 10/28/17 23:44 Nitroglycerin (Ntg) 1 patch Q24H TDERMAL 10/04/17 16:00 10/30/17 15:59 10/07/17 16:48 Ondansetron HCl (Zofran) 4 mg Q6H PRN IVP Nausea & Vomiting 10/03/17 17:00 10/28/17 16:59 Piperacillin Sod/ Tazobactam Sod 3.375 gm/Sodium Chloride 110 ml @ 27.5 mls/hr EVERY 8 HOURS IVPB 10/03/17 22:00 10/12/17 21:59 10/08/17 14:51 Polyethylene Glycol (Miralax) 17 gm DAILYPRN PRN ORAL Constipation 10/03/17 17:00 10/28/17 16:59 Promethazine HCl/ Codeine (Phenergan with Codeine) 5 ml Q4H PRN ORAL For Cough 10/03/17 17:00 10/29/17 16:59 Tamsulosin HCl (Flomax) 0.4 mg BID ORAL 10/03/17 18:00 10/29/17 17:59 10/08/17 08:33 Theophylline (Mark-Dur) 100 mg EVERY 12 HOURS ORAL 10/03/17 21:00 10/29/17 20:59 10/08/17 08:33 Allergies: Coded Allergies: No Known Allergies (Unverified , 09/28/17) ROS Limited/Unobtainable: No Constitutional: Reports: no symptoms HEENT: Reports: no symptoms Cardiovascular: Reports: no symptoms Respiratory: Reports: no symptoms Gastrointestinal/Abdominal: Reports: no symptoms Genitourinary: Reports: no symptoms Neurologic/Psychiatric: Reports: no symptoms Subjective 71 YO M admitted with left leg pain. Now cellulitis left leg and right pleural effusion. Cover for Int Jaspreet-Dr Moore. Await thoracentesis. S/P debridement of left leg on Sat10/02/17. Objective Last Vital Signs Date Time Temp Pulse Resp B/P (MAP) Pulse Ox O2 Delivery O2 Flow Rate FiO2 10/08/17 15:50 99.0 71 20 139/82 99 99.0 10/08/17 04:36 Nasal Cannula 2.0 10/07/17 19:24 28 Laboratory Tests Test 10/08/17 05:50 White Blood Count 8.4 K/UL (4.8-10.8) Red Blood Count 3.80 M/UL (4.70-6.10) L Hemoglobin 10.8 G/DL (14.2-18.0) L Hematocrit 33.4 % (42.0-52.0) L Mean Corpuscular Volume 88 FL (80-99) Mean Corpuscular Hemoglobin 28.3 PG (27.0-31.0) Mean Corpuscular Hemoglobin Concent 32.3 G/DL (32.0-36.0) Red Cell Distribution Width 14.0 % (11.6-14.8) Platelet Count 215 K/UL (150-450) Mean Platelet Volume 7.8 FL (6.5-10.1) Neutrophils (%) (Auto) 71.7 % (45.0-75.0) Lymphocytes (%) (Auto) 12.0 % (20.0-45.0) L Monocytes (%) (Auto) 13.5 % (1.0-10.0) H Eosinophils (%) (Auto) 1.3 % (0.0-3.0) Basophils (%) (Auto) 1.4 % (0.0-2.0) Sodium Level 138 MMOL/L (136-145) Potassium Level 4.4 MMOL/L (3.5-5.1) Chloride Level 104 MMOL/L (98-107) Carbon Dioxide Level 30 MMOL/L (21-32) Anion Gap 5 mmol/L (5-15) Blood Urea Nitrogen 18 mg/dL (7-18) Creatinine 1.4 MG/DL (0.55-1.30) H Estimat Glomerular Filtration Rate mL/min (>60) Glucose Level 161 MG/DL (74-106) H Calcium Level 8.2 MG/DL (8.5-10.1) L Intake and Output 10/07/17 10/08/17 19:00 07:00 Intake Total 750 ml 410.0 ml Output Total 700 ml Balance 750 ml -290.0 ml Intake Oral 750 ml 300 ml IV Total 110.0 ml Output Urine Total 700 ml # Voids 2 Objective General Appearance: WD/WN, no apparent distress, alert EENT: PERRL/EOMI, normal ENT inspection, TMs normal Neck: non-tender, normal alignment, supple, normal inspection Cardiovascular: normal peripheral pulses, normal rate, regular rhythm, no gallop/murmur, no JVD Respiratory/Chest: decreased breath sounds, crackles/rales, rhonchi - bilaterally, expiratory wheezing Abdomen: normal bowel sounds, non tender, soft, no organomegaly, no mass Extremities: normal range of motion, non-tender 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 Await thoracentesis (2) Ascites (3) Cellulitis of left leg Assessment & Plan: see surgery and ID note. Continue zosyn. S/P Debridement in OR 10/02/17-Wound vac D/C-reapply in 2-3 days per surgery. (4) Renal failure Assessment & Plan: See nephrology note. (5) Diabetes mellitus type II, uncontrolled Assessment & Plan: Cont novolog sliding scale. (6) Obesities, morbid (7) Malignant hypertension Assessment & Plan: Continue norvasc and clonidine (8) CHF exacerbation Assessment & Plan: See cardiology note. (9) Leukocytosis Assessment & Plan: Sepsis; continue zosyn per ID (10) Sepsis Assessment & Plan: Klebsiella Oxytoca. Continue zosyn per ID Status: progressing Assessment/Plan Discharge plan: [place] acute [facility]hab for wound care Adilson Stephen MD Oct 08, 2017 16:56
--- NOTE | 2017-10-08 17:06 | General Progress Note ---
Progress Note Progress Note surgery: no acute events. doing well. wound improving -d/c planning -will need wound care until ready for graft Mannie Macedo Oct 08, 2017 17:06
[2017-10-08] MEDS: Nitroglycerin Patch 0.4mg TDERMAL SCH (17:10)
--- NOTE | 2017-10-08 17:50 | Cardiology Progress Note ---
Assessment/Plan Status: stable Assessment/Plan (1) Malignant hypertension (2) Anasarca (3) Cocaine abuse (4) ACS (acute coronary syndrome) (5) CKD (chronic kidney disease) (6) CHF exacerbation (7) Noncompliance (8) Hyperglycemia due to type 2 diabetes mellitus (9) Obesity (BMI 30.0-34.9) (10) Gangrene of lower extremity (11) Edema 1) Blood pressure control: Clonidine, hydralazine, nitro patch - 2) Echocardiogram reviewed - heart failure preserved ejection fraction ACC stage C NYHA class II 3) lasix to reduce lower extremity edema and filling pressures 4) serial troponin and BNP - not clinically impressive for ACS 5) Ensure medication compliance 6) Discussed cocaine and THC cessation 7) Serial CXR to monitor right effusion 8) Wound care 9) Continue antibiotics, WBC elevated 10) For thoracentesis 11) Wound vac management per surgery - next change out Saturday Subjective Cardiovascular: Reports: no symptoms Respiratory: Reports: no symptoms Gastrointestinal/Abdominal: Reports: no symptoms Genitourinary: Reports: no symptoms Subjective No acute events, wound vac in place, improvement in Leg edema, thoracentesis pending, vitals stable, no complaints, BP improved Objective Last 24 Hour Vital Signs Date Time Temp Pulse Resp B/P (MAP) Pulse Ox O2 Delivery O2 Flow Rate FiO2 10/08/17 17:10 139/82 10/08/17 16:00 Nasal Cannula 2.0 10/08/17 15:50 99.0 71 20 139/82 99 99.0 10/08/17 13:27 154/86 10/08/17 13:27 154/86 10/08/17 12:00 Nasal Cannula 2.0 10/08/17 11:38 98.6 70 20 154/86 98 98.6 10/08/17 08:34 78 151/67 10/08/17 08:15 Nasal Cannula 2.0 10/08/17 08:10 97.9 78 20 151/67 95 97.9 10/08/17 05:46 144/79 10/08/17 05:45 144/79 10/08/17 04:36 98.2 62 19 140/74 97 98.2 10/08/17 04:36 Nasal Cannula 2.0 10/08/17 00:41 99.5 67 19 141/71 94 99.5 10/08/17 00:41 Nasal Cannula 2.0 10/07/17 21:36 149/82 10/07/17 21:35 149/82 10/07/17 20:25 98.0 71 19 151/80 96 98.0 10/07/17 20:25 Nasal Cannula 2.0 10/07/17 19:24 96 Nasal Cannula 2.0 28 10/07/17 19:24 Nasal Cannula 2.0 28 General Appearance: no apparent distress EENT: PERRL/EOMI Neck: non-tender Rhythm: NSR Cardiovascular: normal peripheral pulses Respiratory/Chest: chest wall non-tender Abdomen: normal bowel sounds Extremities: normal range of motion Intake and Output 10/07/17 10/08/17 19:00 07:00 Intake Total 750 ml 410.0 ml Output Total 700 ml Balance 750 ml -290.0 ml Intake Oral 750 ml 300 ml IV Total 110.0 ml Output Urine Total 700 ml # Voids 2 Laboratory Tests Test 10/08/17 05:50 White Blood Count 8.4 K/UL (4.8-10.8) Red Blood Count 3.80 M/UL (4.70-6.10) L Hemoglobin 10.8 G/DL (14.2-18.0) L Hematocrit 33.4 % (42.0-52.0) L Mean Corpuscular Volume 88 FL (80-99) Mean Corpuscular Hemoglobin 28.3 PG (27.0-31.0) Mean Corpuscular Hemoglobin Concent 32.3 G/DL (32.0-36.0) Red Cell Distribution Width 14.0 % (11.6-14.8) Platelet Count 215 K/UL (150-450) Mean Platelet Volume 7.8 FL (6.5-10.1) Neutrophils (%) (Auto) 71.7 % (45.0-75.0) Lymphocytes (%) (Auto) 12.0 % (20.0-45.0) L Monocytes (%) (Auto) 13.5 % (1.0-10.0) H Eosinophils (%) (Auto) 1.3 % (0.0-3.0) Basophils (%) (Auto) 1.4 % (0.0-2.0) Sodium Level 138 MMOL/L (136-145) Potassium Level 4.4 MMOL/L (3.5-5.1) Chloride Level 104 MMOL/L (98-107) Carbon Dioxide Level 30 MMOL/L (21-32) Anion Gap 5 mmol/L (5-15) Blood Urea Nitrogen 18 mg/dL (7-18) Creatinine 1.4 MG/DL (0.55-1.30) H Estimat Glomerular Filtration Rate mL/min (>60) Glucose Level 161 MG/DL (74-106) H Calcium Level 8.2 MG/DL (8.5-10.1) Kranthi Ivy M.D. Oct 08, 2017 17:50
[2017-10-09] VITALS (8 sets, daily range): BP systolic 154–166; BP diastolic 67–78
[2017-10-09] MEDS: Morphine Sulfate 4mg/ml Inj IVP PRN ×2 (02:46→13:39)
[2017-10-09] MEDS: Piperacillin/Tazobactam 3.375 GM in NS 110 ML IVPB SCH ×2 (06:45→13:43)
[2017-10-09] MEDS: cloNIDine 0.2mg Tab ORAL SCH (06:45)
[2017-10-09] MEDS: HydrALAZINE 50mg tab ORAL SCH ×3 (06:46→21:42)
[2017-10-09] MEDS: NovoLOG Insulin Flexpen SUBQ SCH ×4 (07:09→21:50)
[2017-10-09] MEDS: Minoxidil 2.5mg tab ORAL PRN (08:35)
[2017-10-09] MEDS: Tamsulosin 0.4mg cap ORAL SCH ×2 (08:36→17:02)
[2017-10-09] MEDS: Aspirin Baby 81mg ORAL SCH (08:36)
[2017-10-09] MEDS: Docusate 100mg cap ORAL SCH ×3 (08:36→17:01)
[2017-10-09] MEDS: Theophylline ER 100mg ORAL SCH ×2 (08:37→21:41)
[2017-10-09] MEDS: Heparin 5000 units/ml inj SUBQ SCH ×2 (08:47→21:46)
--- NOTE | 2017-10-09 11:24 | Internal Med Progress Note ---
Subjective Date of Service: Oct 09, 2017 Physician Name Adilson Stephen Attending Physician Hal Moore MD Current Medications Medications (Trade) Dose Ordered Sig/Lito Route PRN Reason Start Time Stop Time Status Last Admin Dose Admin Acetaminophen (Tylenol) 650 mg Q4H PRN ORAL fever (temp>100.5F) 10/03/17 19:45 10/28/17 23:44 Amlodipine Besylate (Norvasc) 10 mg DAILY ORAL 10/05/17 09:00 11/04/17 08:59 10/09/17 08:36 Aspirin (ASA) 162 mg DAILY ORAL 10/04/17 09:00 10/30/17 15:44 10/09/17 08:36 Clonidine HCl (Catapres tab) 0.2 mg EVERY 8 HOURS ORAL 10/04/17 22:00 11/01/17 21:59 10/09/17 06:45 Dextrose (Dextrose 50%) 25 ml STAT PRN IV Hypoglycemia 10/07/17 14:30 11/06/17 14:29 Dextrose (Dextrose 50%) 50 ml STAT PRN IV Hypoglycemia 10/07/17 14:30 11/06/17 14:29 Docusate Sodium (Colace) 100 mg THREE TIMES A DAY ORAL 10/03/17 18:00 10/29/17 12:59 10/09/17 08:36 Heparin Sodium (Porcine) (Heparin 5000 units/ml) 5,000 units EVERY 12 HOURS SUBQ 10/03/17 21:00 10/29/17 08:59 10/09/17 08:47 Hydralazine HCl (Apresoline) 100 mg Q8H ORAL 10/04/17 22:00 11/03/17 21:59 10/09/17 06:46 Insulin Aspart (NovoLOG) BEFORE MEALS AND HS SUBQ 10/03/17 21:00 10/29/17 06:29 10/09/17 07:09 Lansoprazole (Prevacid) 30 mg BID ORAL 10/03/17 18:00 10/29/17 17:59 10/09/17 08:36 Minoxidil (Loniten) 2.5 mg Q4H PRN ORAL bp over 160 syst 10/04/17 14:57 11/03/17 14:56 10/09/17 08:35 Morphine Sulfate (Morphine Sulfate) 4 mg Q4H PRN IVP For Pain 10/03/17 17:00 10/09/17 16:59 10/09/17 02:46 Nitroglycerin (Ntg) 0.4 mg Q5M PRN SL Prn Chest Pain 10/03/17 16:45 10/28/17 23:44 Nitroglycerin (Ntg) 1 patch Q24H TDERMAL 10/04/17 16:00 10/30/17 15:59 10/08/17 17:10 Ondansetron HCl (Zofran) 4 mg Q6H PRN IVP Nausea & Vomiting 10/03/17 17:00 10/28/17 16:59 Piperacillin Sod/ Tazobactam Sod 3.375 gm/Sodium Chloride 110 ml @ 27.5 mls/hr EVERY 8 HOURS IVPB 10/03/17 22:00 10/12/17 21:59 10/09/17 06:45 Polyethylene Glycol (Miralax) 17 gm DAILYPRN PRN ORAL Constipation 10/03/17 17:00 10/28/17 16:59 Promethazine HCl/ Codeine (Phenergan with Codeine) 5 ml Q4H PRN ORAL For Cough 10/03/17 17:00 10/29/17 16:59 Tamsulosin HCl (Flomax) 0.4 mg BID ORAL 10/03/17 18:00 10/29/17 17:59 10/09/17 08:36 Theophylline (Mark-Dur) 100 mg EVERY 12 HOURS ORAL 10/03/17 21:00 10/29/17 20:59 10/09/17 08:37 Allergies: Coded Allergies: No Known Allergies (Unverified , 09/28/17) ROS Limited/Unobtainable: No Constitutional: Reports: no symptoms HEENT: Reports: no symptoms Cardiovascular: Reports: no symptoms Respiratory: Reports: no symptoms Gastrointestinal/Abdominal: Reports: no symptoms Genitourinary: Reports: no symptoms Neurologic/Psychiatric: Reports: no symptoms Subjective 71 YO M admitted with left leg pain. Now cellulitis left leg and right pleural effusion. Cover for Int Jaspreet-Dr Moore. Await thoracentesis. S/P debridement of left leg on 10/02/17. Objective Last Vital Signs Date Time Temp Pulse Resp B/P (MAP) Pulse Ox O2 Delivery O2 Flow Rate FiO2 10/09/17 08:36 71 160/69 10/09/17 08:00 98.6 21 94 98.6 10/08/17 20:32 Nasal Cannula 2.0 28 Microbiology Date/Time Source Procedure Growth Status 10/08/17 08:45 Body Fluid Gram Stain Pending Resulted 10/08/17 08:45 Wound Culture - Preliminary Gram Negative Bacillus 1 Resulted Intake and Output 10/08/17 10/09/17 19:00 07:00 Intake Total 940 ml 780 ml Output Total 600 ml 800 ml Balance 340 ml -20 ml Intake Oral 940 ml 780 ml Output Urine Total 600 ml 800 ml # Voids 3 Objective General Appearance: WD/WN, no apparent distress, alert EENT: PERRL/EOMI, normal ENT inspection, TMs normal Neck: non-tender, normal alignment, supple, normal inspection Cardiovascular: normal peripheral pulses, normal rate, regular rhythm, no gallop/murmur, no JVD Respiratory/Chest: decreased breath sounds, crackles/rales, rhonchi - bilaterally, expiratory wheezing Abdomen: normal bowel sounds, non tender, soft, no organomegaly, no mass Extremities: normal range of motion, non-tender Neurologic: programmer engineering and scientific II-XII grossly normal, no motor/sensory deficits Skin: normal pigmentation, warm/dry Assessment/Plan Problem List: (1) Pleural effusion, right Assessment & Plan: See pulmonary note. Await thoracentesis (2) Ascites (3) Cellulitis of left leg Assessment & Plan: see surgery and ID note. Continue zosyn-day #12/. S/P Debridement in OR 10/02/17-Wound vac D/C-reapply in 2-3 days per surgery. (4) Renal failure Assessment & Plan: See nephrology note. (5) Diabetes mellitus type II, uncontrolled Assessment & Plan: Cont novolog sliding scale. (6) Obesities, morbid (7) Malignant hypertension Assessment & Plan: Continue norvasc and clonidine (8) CHF exacerbation Assessment & Plan: See cardiology note. (9) Leukocytosis Assessment & Plan: Sepsis; continue zosyn per ID (10) Sepsis Assessment & Plan: Klebsiella Oxytoca. Continue zosyn day #12/14 per ID Status: stable Assessment/Plan Discharge plan: [facility] for wound care Adilson Stephen MD Oct 09, 2017 11:24
--- NOTE | 2017-10-09 12:20 | Nephrology Progress Note ---
Assessment/Plan Problem List: (1) Malignant hypertension (2) Cocaine abuse (3) CKD (chronic kidney disease) (4) CHF exacerbation Assessment Diabetic Nephropathy Cr stable and lower Gangrene of lower extremity CHF exacerbation Malignant hypertension Cocaine abuse Obesity (BMI 30.0-34.9) ACS (acute coronary syndrome) Plan debridement 10/02 Adjust BP meds- add norvasc asa and nitro PRNs for BP 2D echo Left ventricular ejection fraction to be slightly reduced - estimated 45 % monitor renal parameters Subjective ROS Limited/Unobtainable: No Constitutional: Reports: malaise Objective Objective Last 24 Hour Vital Signs Date Time Temp Pulse Resp B/P (MAP) Pulse Ox O2 Delivery O2 Flow Rate FiO2 10/09/17 08:36 71 160/69 10/09/17 08:35 160/69 10/09/17 08:00 98.6 71 21 160/69 94 98.6 10/09/17 06:46 162/78 10/09/17 06:45 162/78 10/09/17 04:45 98.6 68 17 162/78 95 98.6 10/09/17 03:16 98.6 10/09/17 02:46 98.4 10/09/17 00:00 98.4 66 19 155/75 96 98.4 10/08/17 21:47 170/78 10/08/17 21:46 170/78 10/08/17 20:45 156/75 10/08/17 20:32 97 Nasal Cannula 2.0 28 10/08/17 20:32 98.6 72 19 164/77 97 98.6 10/08/17 20:32 Nasal Cannula 2.0 28 10/08/17 17:10 139/82 10/08/17 16:00 Nasal Cannula 2.0 10/08/17 15:50 99.0 71 20 139/82 99 99.0 10/08/17 13:27 154/86 10/08/17 13:27 154/86 Intake and Output 10/08/17 10/09/17 19:00 07:00 Intake Total 940 ml 780 ml Output Total 600 ml 800 ml Balance 340 ml -20 ml Intake Oral 940 ml 780 ml Output Urine Total 600 ml 800 ml # Voids 3 Height (Feet): 6 Height (Inches): 4.00 Weight (Pounds): 116 General Appearance: no apparent distress Objective PE not changed OMER YOU Oct 09, 2017 12:20
--- NOTE | 2017-10-09 12:24 | General Progress Note ---
Assessment/Plan Status: stable, progressing Assessment/Plan cocaine abuse depression lexapro 10mg qam provided ro/st Subjective Date patient seen: Oct 09, 2017 Neurologic/Psychiatric: Reports: anxiety, depressed, emotional problems Allergies: Coded Allergies: No Known Allergies (Unverified , 09/28/17) Subjective the pt is the same stated that he wont use. however poor insight into his cocaine use Objective Last 24 Hour Vital Signs Date Time Temp Pulse Resp B/P (MAP) Pulse Ox O2 Delivery O2 Flow Rate FiO2 10/09/17 08:36 71 160/69 10/09/17 08:35 160/69 10/09/17 08:00 98.6 71 21 160/69 94 98.6 10/09/17 06:46 162/78 10/09/17 06:45 162/78 10/09/17 04:45 98.6 68 17 162/78 95 98.6 10/09/17 03:16 98.6 10/09/17 02:46 98.4 10/09/17 00:00 98.4 66 19 155/75 96 98.4 10/08/17 21:47 170/78 10/08/17 21:46 170/78 10/08/17 20:45 156/75 10/08/17 20:32 97 Nasal Cannula 2.0 28 10/08/17 20:32 98.6 72 19 164/77 97 98.6 10/08/17 20:32 Nasal Cannula 2.0 28 10/08/17 17:10 139/82 10/08/17 16:00 Nasal Cannula 2.0 10/08/17 15:50 99.0 71 20 139/82 99 99.0 10/08/17 13:27 154/86 10/08/17 13:27 154/86 Intake and Output 10/08/17 10/09/17 19:00 07:00 Intake Total 940 ml 780 ml Output Total 600 ml 800 ml Balance 340 ml -20 ml Intake Oral 940 ml 780 ml Output Urine Total 600 ml 800 ml # Voids 3 Height (Feet): 6 Height (Inches): 4.00 Weight (Pounds): 116 General Appearance: no apparent distress, alert Neurologic: oriented x 3, responsive, depressed affect Nadiya Currie M.D. Oct 09, 2017 12:24
--- NOTE | 2017-10-09 12:30 | Cardiology Progress Note ---
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 (11) Edema 1) Blood pressure control: Clonidine, hydralazine, nitro patch - 2) Echocardiogram reviewed - heart failure preserved ejection fraction ACC stage C NYHA class II 3) lasix to reduce lower extremity edema and filling pressures 4) serial troponin and BNP - not clinically impressive for ACS 5) Ensure medication compliance 6) Discussed cocaine and THC cessation 7) Serial CXR to monitor right effusion 8) Wound care 9) Continue antibiotics, WBC elevated 10) For thoracentesis 11) Wound vac management per surgery - Subjective Cardiovascular: Reports: no symptoms Respiratory: Reports: no symptoms Gastrointestinal/Abdominal: Reports: no symptoms Genitourinary: Reports: no symptoms Subjective No acute events, wound vac in place, improvement in Leg edema, thoracentesis pending, vitals stable, no complaints, BP improved Objective Last 24 Hour Vital Signs Date Time Temp Pulse Resp B/P (MAP) Pulse Ox O2 Delivery O2 Flow Rate FiO2 10/09/17 08:36 71 160/69 10/09/17 08:35 160/69 10/09/17 08:00 98.6 71 21 160/69 94 98.6 10/09/17 06:46 162/78 10/09/17 06:45 162/78 10/09/17 04:45 98.6 68 17 162/78 95 98.6 10/09/17 03:16 98.6 10/09/17 02:46 98.4 10/09/17 00:00 98.4 66 19 155/75 96 98.4 10/08/17 21:47 170/78 10/08/17 21:46 170/78 10/08/17 20:45 156/75 10/08/17 20:32 97 Nasal Cannula 2.0 10/08/17 20:32 98.6 72 19 164/77 97 98.6 10/08/17 20:32 Nasal Cannula 2.0 10/08/17 17:10 139/82 10/08/17 16:00 Nasal Cannula 2.0 10/08/17 15:50 99.0 71 20 139/82 99 99.0 10/08/17 13:27 154/86 10/08/17 13:27 154/86 General Appearance: no apparent distress EENT: PERRL/EOMI Neck: non-tender Rhythm: NSR Cardiovascular: normal peripheral pulses Respiratory/Chest: chest wall non-tender Abdomen: normal bowel sounds Extremities: normal range of motion Neurologic: global implementation manager II-XII grossly normal Intake and Output 10/08/17 10/09/17 19:00 07:00 Intake Total 940 ml 780 ml Output Total 600 ml 800 ml Balance 340 ml -20 ml Intake Oral 940 ml 780 ml Output Urine Total 600 ml 800 ml # Voids 3 Microbiology Date/Time Source Procedure Growth Status 10/08/17 08:45 Body Fluid Gram Stain Pending Resulted 10/08/17 08:45 Wound Culture - Preliminary Gram Negative Bacillus 1 Resulted Kranthi Herrera M.D. Oct 09, 2017 12:30
--- NOTE | 2017-10-09 14:28 | Pulmonology Progress Note ---
Assessment/Plan Problems: (1) Gram-negative bacteremia (2) Pleural effusion (3) Cardiomegaly (4) Cellulitis (5) Hypoalbuminemia (6) ATN (acute tubular necrosis) (7) Diabetes mellitus (8) Obesity (BMI 30.0-34.9) (9) Noncompliance (10) Anasarca (11) Cocaine abuse Assessment/Plan doing better s/p debridement afebrile GNB, Klebsiella on abx, cefepime all consults reviewed Echo: EF 45% check cultures wound care optimize cardiac meds Subjective ROS Limited/Unobtainable: No HEENT: Repors: no symptoms Allergies: Coded Allergies: No Known Allergies (Unverified , 09/28/17) Objective Last 24 Hour Vital Signs Date Time Temp Pulse Resp B/P (MAP) Pulse Ox O2 Delivery O2 Flow Rate FiO2 10/09/17 13:39 161/75 10/09/17 13:39 161/75 10/09/17 12:00 98.6 66 18 161/75 96 98.6 10/09/17 08:36 71 160/69 10/09/17 08:35 160/69 10/09/17 08:00 98.6 71 21 160/69 94 98.6 10/09/17 06:46 162/78 10/09/17 06:45 162/78 10/09/17 04:45 98.6 68 17 162/78 95 98.6 10/09/17 03:16 98.6 10/09/17 02:46 98.4 10/09/17 00:00 98.4 66 19 155/75 96 98.4 10/08/17 21:47 170/78 10/08/17 21:46 170/78 10/08/17 20:45 156/75 10/08/17 20:32 97 Nasal Cannula 2.0 28 10/08/17 20:32 98.6 72 19 164/77 97 98.6 10/08/17 20:32 Nasal Cannula 2.0 28 10/08/17 17:10 139/82 10/08/17 16:00 Nasal Cannula 2.0 10/08/17 15:50 99.0 71 20 139/82 99 99.0 Intake and Output 10/08/17 10/09/17 19:00 07:00 Intake Total 940 ml 780 ml Output Total 600 ml 800 ml Balance 340 ml -20 ml Intake Oral 940 ml 780 ml Output Urine Total 600 ml 800 ml # Voids 3 Objective General Appearance: WD/WN, no apparent distress, lethargic Lines, tubes and drains: peripheral HEENT: normocephalic, atraumatic, anicteric, mucous membranes moist Neck: non-tender, normal alignment, supple Respiratory/Chest: chest wall non-tender, lungs clear, normal breath sounds, no respiratory distress Breasts: no masses Cardiovascular/Chest: normal peripheral pulses, normal rate, regular rhythm, regularly irregular Abdomen: normal bowel sounds, non tender, soft, no organomegaly, no mass Genitourinary/Rectal: normal genital exam Extremities: normal range of motion, non-tender, normal inspection, no calf tenderness, normal capillary refill Skin Exam: normal pigmentation Neurologic: line o scribe operator II-XII grossly normal Physical Exam Narrative General Appearance: WD/WN HEENT: normocephalic, atraumatic Respiratory/Chest: chest wall non-tender, lungs clear Breasts: no masses Cardiovascular: normal peripheral pulses, normal rate Abdomen: normal bowel sounds, soft, non tender Genitourinary: normal external genitalia Extremities: no cyanosis, wound vac in place Microbiology Date/Time Source Procedure Growth Status 10/08/17 08:45 Body Fluid Gram Stain - Final Resulted 10/08/17 08:45 Wound Culture - Preliminary Gram Negative Bacillus 1 Resulted Current Medications Medications (Trade) Dose Ordered Sig/Lito Route PRN Reason Start Time Stop Time Status Last Admin Dose Admin Acetaminophen (Tylenol) 650 mg Q4H PRN ORAL fever (temp>100.5F) 10/03/17 19:45 10/28/17 23:44 Amlodipine Besylate (Norvasc) 10 mg DAILY ORAL 10/05/17 09:00 11/04/17 08:59 10/09/17 08:36 Aspirin (ASA) 162 mg DAILY ORAL 10/04/17 09:00 10/30/17 15:44 10/09/17 08:36 Clonidine HCl (Catapres Tab) 0.3 mg EVERY 8 HOURS ORAL 10/09/17 14:00 11/08/17 13:59 10/09/17 13:39 Dextrose (Dextrose 50%) 25 ml STAT PRN IV Hypoglycemia 10/07/17 14:30 11/06/17 14:29 Dextrose (Dextrose 50%) 50 ml STAT PRN IV Hypoglycemia 10/07/17 14:30 11/06/17 14:29 Docusate Sodium (Colace) 100 mg THREE TIMES A DAY ORAL 10/03/17 18:00 10/29/17 12:59 10/09/17 12:01 Heparin Sodium (Porcine) (Heparin 5000 units/ml) 5,000 units EVERY 12 HOURS SUBQ 10/03/17 21:00 10/29/17 08:59 10/09/17 08:47 Hydralazine HCl (Apresoline) 100 mg Q8H ORAL 10/04/17 22:00 11/03/17 21:59 10/09/17 13:39 Insulin Aspart (NovoLOG) BEFORE MEALS AND HS SUBQ 10/03/17 21:00 10/29/17 06:29 10/09/17 12:10 Lansoprazole (Prevacid) 30 mg BID ORAL 10/03/17 18:00 10/29/17 17:59 10/09/17 08:36 Minoxidil (Loniten) 2.5 mg Q4H PRN ORAL bp over 160 syst 10/04/17 14:57 11/03/17 14:56 10/09/17 08:35 Morphine Sulfate (Morphine Sulfate) 4 mg Q4H PRN IVP For Pain 10/03/17 17:00 10/09/17 16:59 10/09/17 13:39 Nitroglycerin (Ntg) 0.4 mg Q5M PRN SL Prn Chest Pain 10/03/17 16:45 10/28/17 23:44 Nitroglycerin (Ntg) 1 patch Q24H TDERMAL 10/04/17 16:00 10/30/17 15:59 10/08/17 17:10 Ondansetron HCl (Zofran) 4 mg Q6H PRN IVP Nausea & Vomiting 10/03/17 17:00 10/28/17 16:59 Piperacillin Sod/ Tazobactam Sod 3.375 gm/Sodium Chloride 110 ml @ 27.5 mls/hr EVERY 8 HOURS IVPB 10/03/17 22:00 10/12/17 21:59 10/09/17 13:43 Polyethylene Glycol (Miralax) 17 gm DAILYPRN PRN ORAL Constipation 10/03/17 17:00 10/28/17 16:59 Promethazine HCl/ Codeine (Phenergan with Codeine) 5 ml Q4H PRN ORAL For Cough 10/03/17 17:00 10/29/17 16:59 Tamsulosin HCl (Flomax) 0.4 mg BID ORAL 10/03/17 18:00 10/29/17 17:59 10/09/17 08:36 Theophylline (Mark-Dur) 100 mg EVERY 12 HOURS ORAL 10/03/17 21:00 10/29/17 20:59 10/09/17 08:37 Hoang Gipson MD Oct 09, 2017 14:28
--- NOTE | 2017-10-09 14:59 | Infectious Diseases Prog Note ---
Assessment/Plan Assessment/Plan Assessment: SEpsis (SP) 2ry to L wound infection, Gram neg bacteremia -09/28 Bcx 05/09 K. oxytoca (R amp, otherwise S); 09/30 Neg x2 L anterior leg chronic wound and surrounding cellulitis; improving -s/p I+D 10/02 and wound vac placement -OR findings: large area of necrosis and gangrene on the anterior mid leg; measured to be 23 cm x 14 cm x approximately 2 cm deep. The area was excised until fresh bleeding tissue could be identified. It was down deep in the medial lateral aspect to the fascia and to the periosteum on the tibia as well. The underlying subcutaneous tissue with edema, there were some pockets of fluid. Fascia and muscle viable. -OR cx PsA (maldonado S), K. pna (R amp, otherwise S) -CT L tibia/fibula: Cellulitis and ulceration in the pretibial aspect of the left lower extremity. The presence of gas likely associated with the presence of a large ulceration in this location. Gas-forming organism is the obvious concern and not excludable. No drainable abscess identified. No obvious intramuscular fascial thickening or fluid accumulation. -xray tibia/fibula: There is gas in the soft tissues. This can be traumatic , iatrogenic, or infectious. No acute fracture or suspicious osseous erosions. ; gas likely from incision made in ED- tissue seemed viable upon superificial exploration per ED physician and surgeon. -wound cx: K. pneumonia (R amp, otherwise S), E. fecalis (maldonado S); 2nd wound cx : K. pna (R amp, otherwise S) #1 and #2 PsA (maldonado S), E. fecalis (maldonado S) K, oxytoca bacteremia- 2ry to above -Abd US: Ascites. Right pleural effusion. Left kidney not identified. Access to the area is limited. It is uncertain whether this is technical or whether there is an absent or small left kidney. Gallbladder contracted but otherwise grossly unremarkable.Otherwise negative within the limits noted above. Fever, resolved Leukocytosis; resolved -u/a wbc 10-15, nit neg, leuk +1 Hypertensive urgency,SP TK, improving Dm2 w/ nephropathy CHF Obesity HTN marihuana and cocaine use non compliance Plan: -Switch Zosyn #6 (abx d#04/18) to PO Cipro 500mg bid and Augmetnin 500/125mg bid for PsA, Klebsiella and enterococcus of leg wound infection/abscess -ok to discharge on this regimen -EKG to monitor Qtc as he is on another Qt prolonging drug -10/02 SP IV Vanco #5, CEfepime #5, Flagyl #5 -Monitor CBC/BMP, temperatures -wound care/wound vac -Gen Sx f/u Thank you for this consultation. Will continue to follow along with you. Discussed with RN and Dr Macedo. Subjective Allergies: Coded Allergies: No Known Allergies (Unverified , 09/28/17) Subjective afebrile no leukocytosis wound improving Objective Vital Signs Last 24 Hour Vital Signs Date Time Temp Pulse Resp B/P (MAP) Pulse Ox O2 Delivery O2 Flow Rate FiO2 10/09/17 13:39 161/75 10/09/17 13:39 161/75 10/09/17 12:00 98.6 66 18 161/75 96 98.6 10/09/17 08:36 71 160/69 10/09/17 08:35 160/69 10/09/17 08:00 98.6 71 21 160/69 94 98.6 10/09/17 06:46 162/78 10/09/17 06:45 162/78 10/09/17 04:45 98.6 68 17 162/78 95 98.6 10/09/17 03:16 98.6 10/09/17 02:46 98.4 10/09/17 00:00 98.4 66 19 155/75 96 98.4 10/08/17 21:47 170/78 10/08/17 21:46 170/78 10/08/17 20:45 156/75 10/08/17 20:32 97 Nasal Cannula 2.0 28 10/08/17 20:32 98.6 72 19 164/77 97 98.6 10/08/17 20:32 Nasal Cannula 2.0 28 10/08/17 17:10 139/82 10/08/17 16:00 Nasal Cannula 2.0 10/08/17 15:50 99.0 71 20 139/82 99 99.0 Height (Feet): 6 Height (Inches): 4.00 Weight (Pounds): 116 Objective General Appearance: no apparent distress, alert Lines, tubes and drains: peripheral HEENT: normocephalic, mucous membranes moist Neck: supple Respiratory/Chest: lungs clear, normal breath sounds, no respiratory distress, no accessory muscle use Cardiovascular/Chest: normal rate Abdomen: normal bowel sounds, non tender, soft, no organomegaly, no mass Extremities: L leg wrapped and wound vac in place Neurologic: alert, oriented x 3, responsive Microbiology Date/Time Source Procedure Growth Status 10/08/17 08:45 Body Fluid Gram Stain - Final Resulted 10/08/17 08:45 Wound Culture - Preliminary Gram Negative Bacillus 1 Resulted Current Medications Medications (Trade) Dose Ordered Sig/Lito Route PRN Reason Start Time Stop Time Status Last Admin Dose Admin Acetaminophen (Tylenol) 650 mg Q4H PRN ORAL fever (temp>100.5F) 10/03/17 19:45 10/28/17 23:44 Amlodipine Besylate (Norvasc) 10 mg DAILY ORAL 10/05/17 09:00 11/04/17 08:59 10/09/17 08:36 Aspirin (ASA) 162 mg DAILY ORAL 10/04/17 09:00 10/30/17 15:44 10/09/17 08:36 Clonidine HCl (Catapres Tab) 0.3 mg EVERY 8 HOURS ORAL 10/09/17 14:00 11/08/17 13:59 10/09/17 13:39 Dextrose (Dextrose 50%) 25 ml STAT PRN IV Hypoglycemia 10/07/17 14:30 11/06/17 14:29 Dextrose (Dextrose 50%) 50 ml STAT PRN IV Hypoglycemia 10/07/17 14:30 11/06/17 14:29 Docusate Sodium (Colace) 100 mg THREE TIMES A DAY ORAL 10/03/17 18:00 10/29/17 12:59 10/09/17 12:01 Heparin Sodium (Porcine) (Heparin 5000 units/ml) 5,000 units EVERY 12 HOURS SUBQ 10/03/17 21:00 10/29/17 08:59 10/09/17 08:47 Hydralazine HCl (Apresoline) 100 mg Q8H ORAL 10/04/17 22:00 11/03/17 21:59 10/09/17 13:39 Insulin Aspart (NovoLOG) BEFORE MEALS AND HS SUBQ 10/03/17 21:00 10/29/17 06:29 10/09/17 12:10 Lansoprazole (Prevacid) 30 mg BID ORAL 10/03/17 18:00 10/29/17 17:59 10/09/17 08:36 Minoxidil (Loniten) 2.5 mg Q4H PRN ORAL bp over 160 syst 10/04/17 14:57 11/03/17 14:56 10/09/17 08:35 Morphine Sulfate (Morphine Sulfate) 4 mg Q4H PRN IVP For Pain 10/03/17 17:00 10/09/17 16:59 10/09/17 13:39 Nitroglycerin (Ntg) 0.4 mg Q5M PRN SL Prn Chest Pain 10/03/17 16:45 10/28/17 23:44 Nitroglycerin (Ntg) 1 patch Q24H TDERMAL 10/04/17 16:00 10/30/17 15:59 10/08/17 17:10 Ondansetron HCl (Zofran) 4 mg Q6H PRN IVP Nausea & Vomiting 10/03/17 17:00 10/28/17 16:59 Piperacillin Sod/ Tazobactam Sod 3.375 gm/Sodium Chloride 110 ml @ 27.5 mls/hr EVERY 8 HOURS IVPB 10/03/17 22:00 10/12/17 21:59 10/09/17 13:43 Polyethylene Glycol (Miralax) 17 gm DAILYPRN PRN ORAL Constipation 10/03/17 17:00 10/28/17 16:59 Promethazine HCl/ Codeine (Phenergan with Codeine) 5 ml Q4H PRN ORAL For Cough 10/03/17 17:00 10/29/17 16:59 Tamsulosin HCl (Flomax) 0.4 mg BID ORAL 10/03/17 18:00 10/29/17 17:59 10/09/17 08:36 Theophylline (Mark-Dur) 100 mg EVERY 12 HOURS ORAL 10/03/17 21:00 10/29/17 20:59 10/09/17 08:37 Consuelo Baeza M.D. Oct 09, 2017 14:59
[2017-10-09] MEDS: Nitroglycerin Patch 0.4mg TDERMAL SCH (17:02)
[2017-10-09] MEDS: Ciprofloxacin 500mg tab ORAL SCH (21:41)
[2017-10-10] MEDS: Minoxidil 2.5mg tab ORAL PRN (01:57)
[2017-10-10 04:50] VITALS: BP 154/72
[2017-10-10] MEDS: HydrALAZINE 50mg tab ORAL SCH ×2 (05:25→14:49)
[2017-10-10] MEDS: NovoLOG Insulin Flexpen SUBQ SCH ×3 (05:59→17:10)
[2017-10-10 08:00] VITALS: BP 155/71
[2017-10-10 08:27] LABS: BASOPHILS % (AUTO) 0.9 % (0.0-2.0); EOSINOPHILS % (AUTO) 0.7 % (0.0-3.0); HEMATOCRIT 33.5 % (42.0-52.0); LYMPHOCYTES % (AUTO) 7.3 % (20.0-45.0); MEAN CORPUSCULAR VOLUME 88 FL (80-99); MONOCYTES % (AUTO) 8.1 % (1.0-10.0); PLATELET COUNT 267 K/UL (150-450); RED BLOOD COUNT 3.79 M/UL (4.70-6.10); RED CELL DISTRIBUTION WIDTH 14.3 % (11.6-14.8)
[2017-10-10 08:38] LABS: ANION GAP 3 mmol/L (5-15); BLOOD UREA NITROGEN 18 mg/dL (7-18); CARBON DIOXIDE 30 MMOL/L (21-32); CHLORIDE 104 MMOL/L (98-107); CREATININE 1.4 MG/DL (0.55-1.30); POTASSIUM 4.3 MMOL/L (3.5-5.1); SODIUM 137 MMOL/L (136-145)
[2017-10-10] MEDS ORDERED: Morphine Sulfate 4mg/ml Inj IVP PRN (08:45)
[2017-10-10] MEDS: Tamsulosin 0.4mg cap ORAL SCH (09:57)
[2017-10-10] MEDS: Theophylline ER 100mg ORAL SCH (09:57)
[2017-10-10] MEDS: Aspirin Baby 81mg ORAL SCH (09:57)
[2017-10-10] MEDS: Docusate 100mg cap ORAL SCH ×2 (09:57→12:37)
[2017-10-10] MEDS: Ciprofloxacin 500mg tab ORAL SCH (09:58)
[2017-10-10] MEDS: Heparin 5000 units/ml inj SUBQ SCH (10:03)
--- NOTE | 2017-10-10 10:04 | Cardiology Progress Note ---
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 (11) Edema 1) Blood pressure control: Clonidine, hydralazine, nitro patch - doses adjusted and increased for better control 2) Echocardiogram reviewed - heart failure preserved ejection fraction ACC stage C NYHA class II 3) Lasix to reduce lower extremity edema and filling pressures 4) serial troponin and BNP - not clinically impressive for ACS 5) Ensure medication compliance 6) Discussed cocaine and THC cessation 7) Serial CXR to monitor right effusion 8) Wound care 9) Continue antibiotics, WBC elevated 10) For thoracentesis 11) Wound vac management per surgery 12) Ok to discharge from cardiology standpoint Subjective Cardiovascular: Reports: no symptoms Respiratory: Reports: no symptoms Gastrointestinal/Abdominal: Reports: no symptoms Genitourinary: Reports: no symptoms Subjective No acute events, wound vac in place, improvement in Leg edema, thoracentesis pending, vitals stable, no complaints, BP improved Objective Last 24 Hour Vital Signs Date Time Temp Pulse Resp B/P (MAP) Pulse Ox O2 Delivery O2 Flow Rate FiO2 10/10/17 08:00 98.1 70 21 155/71 96 98.1 10/10/17 05:26 154/72 10/10/17 05:25 154/72 10/10/17 04:50 97.5 77 20 154/72 97 Room Air 97.5 10/10/17 01:57 166/67 10/09/17 23:29 99.5 70 18 166/67 97 99.5 10/09/17 21:42 157/78 10/09/17 21:41 157/78 10/09/17 20:29 Room Air 10/09/17 20:29 97 Room Air 10/09/17 20:00 99.5 68 18 157/78 100 99.5 10/09/17 17:02 154/76 10/09/17 16:00 98.1 66 19 154/76 97 98.1 10/09/17 13:39 161/75 10/09/17 13:39 161/75 10/09/17 12:00 98.6 66 18 161/75 96 98.6 General Appearance: no apparent distress EENT: PERRL/EOMI Neck: non-tender Rhythm: SB Cardiovascular: normal peripheral pulses Respiratory/Chest: chest wall non-tender Abdomen: normal bowel sounds Extremities: normal range of motion, non-tender Intake and Output 10/09/17 10/10/17 19:00 07:00 Intake Total 427.5 ml 200 ml Output Total 300 ml Balance 427.5 ml -100 ml Intake Oral 400 ml 200 ml IV Total 27.5 ml Output Urine Total 300 ml Drainage Total 0 ml # Voids 2 Laboratory Tests Test 10/10/17 07:28 White Blood Count 10.0 K/UL (4.8-10.8) Red Blood Count 3.79 M/UL (4.70-6.10) L Hemoglobin 11.0 G/DL (14.2-18.0) L Hematocrit 33.5 % (42.0-52.0) L Mean Corpuscular Volume 88 FL (80-99) Mean Corpuscular Hemoglobin 29.1 PG (27.0-31.0) Mean Corpuscular Hemoglobin Concent 33.0 G/DL (32.0-36.0) Red Cell Distribution Width 14.3 % (11.6-14.8) Platelet Count 267 K/UL (150-450) Mean Platelet Volume 7.7 FL (6.5-10.1) Neutrophils (%) (Auto) 83.0 % (45.0-75.0) H Lymphocytes (%) (Auto) 7.3 % (20.0-45.0) L Monocytes (%) (Auto) 8.1 % (1.0-10.0) Eosinophils (%) (Auto) 0.7 % (0.0-3.0) Basophils (%) (Auto) 0.9 % (0.0-2.0) Sodium Level 137 MMOL/L (136-145) Potassium Level 4.3 MMOL/L (3.5-5.1) Chloride Level 104 MMOL/L (98-107) Carbon Dioxide Level 30 MMOL/L (21-32) Anion Gap 3 mmol/L (5-15) L Blood Urea Nitrogen 18 mg/dL (7-18) Creatinine 1.4 MG/DL (0.55-1.30) H Estimat Glomerular Filtration Rate mL/min (>60) Glucose Level 158 MG/DL (74-106) H Calcium Level 8.0 MG/DL (8.5-10.1) L Microbiology Date/Time Source Procedure Growth Status 10/08/17 08:45 Body Fluid Gram Stain - Final Resulted 10/08/17 08:45 Wound Culture - Preliminary Gram Negative Bacillus 1 Resulted Kranthi Herrera M.D. Oct 10, 2017 10:04
--- NOTE | 2017-10-10 11:32 | General Progress Note ---
Assessment/Plan Status: stable, progressing Assessment/Plan cocaine abuse depression lexapro 10mg qam provided ro/st Subjective Date patient seen: Oct 10, 2017 Neurologic/Psychiatric: Reports: anxiety Allergies: Coded Allergies: No Known Allergies (Unverified , 09/28/17) Subjective the pt is doing better today pain is controlled.c/o anxiety Objective Last 24 Hour Vital Signs Date Time Temp Pulse Resp B/P (MAP) Pulse Ox O2 Delivery O2 Flow Rate FiO2 10/10/17 09:58 70 155/71 10/10/17 08:00 98.1 70 21 155/71 96 98.1 10/10/17 05:26 154/72 10/10/17 05:25 154/72 10/10/17 04:50 97.5 77 20 154/72 97 Room Air 97.5 10/10/17 01:57 166/67 10/09/17 23:29 99.5 70 18 166/67 97 99.5 10/09/17 21:42 157/78 10/09/17 21:41 157/78 10/09/17 20:29 Room Air 10/09/17 20:29 97 Room Air 10/09/17 20:00 99.5 68 18 157/78 100 99.5 10/09/17 17:02 154/76 10/09/17 16:00 98.1 66 19 154/76 97 98.1 10/09/17 13:39 161/75 10/09/17 13:39 161/75 10/09/17 12:00 98.6 66 18 161/75 96 98.6 Intake and Output 10/09/17 10/10/17 19:00 07:00 Intake Total 427.5 ml 200 ml Output Total 300 ml Balance 427.5 ml -100 ml Intake Oral 400 ml 200 ml IV Total 27.5 ml Output Urine Total 300 ml Drainage Total 0 ml # Voids 2 Laboratory Tests 10/10/17 07:28: White Blood Count 10.0, Red Blood Count 3.79L, Hemoglobin 11.0L, Hematocrit 33.5L, Mean Corpuscular Volume 88, Mean Corpuscular Hemoglobin 29.1, Mean Corpuscular Hemoglobin Concent 33.0, Red Cell Distribution Width 14.3, Platelet Count 267, Mean Platelet Volume 7.7, Neutrophils (%) (Auto) 83.0H, Lymphocytes ( %) (Auto) 7.3L, Monocytes (%) (Auto) 8.1, Eosinophils (%) (Auto) 0.7, Basophils (%) (Auto) 0.9, Sodium Level 137, Potassium Level 4.3, Chloride Level 104, Carbon Dioxide Level 30, Anion Gap 3L, Blood Urea Nitrogen 18, Creatinine 1.4H, Estimat Glomerular Filtration Rate , Glucose Level 158H, Calcium Level 8.0L Height (Feet): 6 Height (Inches): 4.00 Weight (Pounds): 331 General Appearance: WD/WN, no apparent distress, alert Neurologic: oriented x 3, responsive, normal mood/affect Nadiya Currie M.D. Oct 10, 2017 11:32
[2017-10-10 12:00] VITALS: BP 161/63
--- NOTE | 2017-10-10 12:12 | Pulmonology Progress Note ---
Assessment/Plan Problems: (1) Gram-negative bacteremia (2) Pleural effusion (3) Cardiomegaly (4) Cellulitis (5) Hypoalbuminemia (6) ATN (acute tubular necrosis) (7) Diabetes mellitus (8) Obesity (BMI 30.0-34.9) (9) Noncompliance (10) Anasarca (11) Cocaine abuse Assessment/Plan doing better s/p debridement afebrile GNB, Klebsiella on abx, cefepime all consults reviewed Echo: EF 45% check cultures wound care d/w surgeon Subjective ROS Limited/Unobtainable: No Constitutional: Reports: no symptoms HEENT: Repors: no symptoms Respiratory: Reports: no symptoms Allergies: Coded Allergies: No Known Allergies (Unverified , 09/28/17) Objective Last 24 Hour Vital Signs Date Time Temp Pulse Resp B/P (MAP) Pulse Ox O2 Delivery O2 Flow Rate FiO2 10/10/17 09:58 70 155/71 10/10/17 08:00 98.1 70 21 155/71 96 98.1 10/10/17 05:26 154/72 10/10/17 05:25 154/72 10/10/17 04:50 97.5 77 20 154/72 97 Room Air 97.5 10/10/17 01:57 166/67 10/09/17 23:29 99.5 70 18 166/67 97 99.5 10/09/17 21:42 157/78 10/09/17 21:41 157/78 10/09/17 20:29 Room Air 10/09/17 20:29 97 Room Air 10/09/17 20:00 99.5 68 18 157/78 100 99.5 10/09/17 17:02 154/76 10/09/17 16:00 98.1 66 19 154/76 97 98.1 10/09/17 13:39 161/75 10/09/17 13:39 161/75 Intake and Output 10/09/17 10/10/17 19:00 07:00 Intake Total 427.5 ml 200 ml Output Total 300 ml Balance 427.5 ml -100 ml Intake Oral 400 ml 200 ml IV Total 27.5 ml Output Urine Total 300 ml Drainage Total 0 ml # Voids 2 Objective General Appearance: WD/WN, no apparent distress, lethargic Lines, tubes and drains: peripheral HEENT: normocephalic, atraumatic, anicteric, mucous membranes moist Neck: non-tender, normal alignment, supple Respiratory/Chest: chest wall non-tender, lungs clear, normal breath sounds, no respiratory distress Breasts: no masses Cardiovascular/Chest: normal peripheral pulses, normal rate, regular rhythm, regularly irregular Abdomen: normal bowel sounds, non tender, soft, no organomegaly, no mass Genitourinary/Rectal: normal genital exam Extremities: normal range of motion, non-tender, normal inspection, no calf tenderness, normal capillary refill Skin Exam: normal pigmentation Neurologic: a p supervisor II-XII grossly normal Physical Exam Narrative General Appearance: WD/WN HEENT: normocephalic, atraumatic Respiratory/Chest: chest wall non-tender, lungs clear Breasts: no masses Cardiovascular: normal peripheral pulses, normal rate Abdomen: normal bowel sounds, soft, non tender Genitourinary: normal external genitalia Extremities: no cyanosis, wound vac in place Microbiology Date/Time Source Procedure Growth Status 10/08/17 08:45 Body Fluid Gram Stain - Final Resulted 10/08/17 08:45 Wound Culture - Preliminary Pseudomonas Aeruginosa Staphylococcus Sp Coag Neg Resulted Laboratory Tests 10/10/17 07:28: White Blood Count 10.0, Red Blood Count 3.79L, Hemoglobin 11.0L, Hematocrit 33.5L, Mean Corpuscular Volume 88, Mean Corpuscular Hemoglobin 29.1, Mean Corpuscular Hemoglobin Concent 33.0, Red Cell Distribution Width 14.3, Platelet Count 267, Mean Platelet Volume 7.7, Neutrophils (%) (Auto) 83.0H, Lymphocytes ( %) (Auto) 7.3L, Monocytes (%) (Auto) 8.1, Eosinophils (%) (Auto) 0.7, Basophils (%) (Auto) 0.9, Sodium Level 137, Potassium Level 4.3, Chloride Level 104, Carbon Dioxide Level 30, Anion Gap 3L, Blood Urea Nitrogen 18, Creatinine 1.4H, Estimat Glomerular Filtration Rate , Glucose Level 158H, Calcium Level 8.0L Current Medications Medications (Trade) Dose Ordered Sig/Lito Route PRN Reason Start Time Stop Time Status Last Admin Dose Admin Acetaminophen (Tylenol) 650 mg Q4H PRN ORAL fever (temp>100.5F) 10/03/17 19:45 10/28/17 23:44 Amlodipine Besylate (Norvasc) 10 mg DAILY ORAL 10/05/17 09:00 11/04/17 08:59 10/10/17 09:58 Amoxicillin/ Clavulanate Potassium (Augmentin) 500 mg EVERY 12 HOURS ORAL 10/09/17 21:00 10/16/17 20:59 10/10/17 10:07 Aspirin (ASA) 162 mg DAILY ORAL 10/04/17 09:00 10/30/17 15:44 10/10/17 09:57 Ciprofloxacin (Cipro 500mg tab) 500 mg EVERY 12 HOURS ORAL 10/09/17 21:00 10/16/17 20:59 10/10/17 09:58 Clonidine HCl (Catapres Tab) 0.3 mg EVERY 8 HOURS ORAL 10/09/17 14:00 11/08/17 13:59 10/10/17 05:26 Dextrose (Dextrose 50%) 25 ml STAT PRN IV Hypoglycemia 10/07/17 14:30 11/06/17 14:29 Dextrose (Dextrose 50%) 50 ml STAT PRN IV Hypoglycemia 10/07/17 14:30 11/06/17 14:29 Docusate Sodium (Colace) 100 mg THREE TIMES A DAY ORAL 10/03/17 18:00 10/29/17 12:59 10/10/17 09:57 Heparin Sodium (Porcine) (Heparin 5000 units/ml) 5,000 units EVERY 12 HOURS SUBQ 10/03/17 21:00 10/29/17 08:59 10/10/17 10:03 Hydralazine HCl (Apresoline) 100 mg Q8H ORAL 10/04/17 22:00 11/03/17 21:59 10/10/17 05:25 Insulin Aspart (NovoLOG) BEFORE MEALS AND HS SUBQ 10/03/17 21:00 10/29/17 06:29 10/10/17 05:59 Lansoprazole (Prevacid) 30 mg BID ORAL 10/03/17 18:00 10/29/17 17:59 10/10/17 09:58 Minoxidil (Loniten) 2.5 mg Q4H PRN ORAL bp over 160 syst 10/04/17 14:57 11/03/17 14:56 10/10/17 01:57 Morphine Sulfate (Morphine Sulfate) 4 mg Q4H PRN IVP For Pain 10/10/17 08:45 10/17/17 08:44 Nitroglycerin (Ntg) 0.4 mg Q5M PRN SL Prn Chest Pain 10/03/17 16:45 10/28/17 23:44 Nitroglycerin (Ntg) 1 patch Q24H TDERMAL 10/04/17 16:00 10/30/17 15:59 10/09/17 17:02 Ondansetron HCl (Zofran) 4 mg Q6H PRN IVP Nausea & Vomiting 10/03/17 17:00 10/28/17 16:59 Polyethylene Glycol (Miralax) 17 gm DAILYPRN PRN ORAL Constipation 10/03/17 17:00 10/28/17 16:59 Promethazine HCl/ Codeine (Phenergan with Codeine) 5 ml Q4H PRN ORAL For Cough 10/03/17 17:00 10/29/17 16:59 Tamsulosin HCl (Flomax) 0.4 mg BID ORAL 10/03/17 18:00 10/29/17 17:59 10/10/17 09:57 Theophylline (Mark-Dur) 100 mg EVERY 12 HOURS ORAL 10/03/17 21:00 10/29/17 20:59 10/10/17 09:57 Hoang Gipson MD Oct 10, 2017 12:12
--- NOTE | 2017-10-10 14:08 | General Surgery Progress Note ---
General Surgery-Progress Note Subjective Procedure Performed excisional debridement of left lower extremity Symptoms: improved, tolerating diet, passing flatus, BM Additional Comments no acute events. comfortable. Objective Last 24 Hour Vital Signs Date Time Temp Pulse Resp B/P (MAP) Pulse Ox O2 Delivery O2 Flow Rate FiO2 10/10/17 12:00 98.1 76 20 161/63 95 98.1 10/10/17 09:58 70 155/71 10/10/17 08:00 98.1 70 21 155/71 96 98.1 10/10/17 05:26 154/72 10/10/17 05:25 154/72 10/10/17 04:50 97.5 77 20 154/72 97 Room Air 97.5 10/10/17 01:57 166/67 10/09/17 23:29 99.5 70 18 166/67 97 99.5 10/09/17 21:42 157/78 10/09/17 21:41 157/78 10/09/17 20:29 Room Air 10/09/17 20:29 97 Room Air 10/09/17 20:00 99.5 68 18 157/78 100 99.5 10/09/17 17:02 154/76 10/09/17 16:00 98.1 66 19 154/76 97 98.1 I&O Intake and Output 10/09/17 10/10/17 19:00 07:00 Intake Total 427.5 ml 200 ml Output Total 300 ml Balance 427.5 ml -100 ml Intake Oral 400 ml 200 ml IV Total 27.5 ml Output Urine Total 300 ml Drainage Total 0 ml # Voids 2 Wound: clean, other Drains: wound vac Cardiovascular: RSR Respiratory: clear Abdomen: soft, flat, non-tender, present bowel sounds Extremities: edema, tenderness, no cyanosis Laboratory Tests Test 10/10/17 07:28 White Blood Count 10.0 K/UL (4.8-10.8) Red Blood Count 3.79 M/UL (4.70-6.10) L Hemoglobin 11.0 G/DL (14.2-18.0) L Hematocrit 33.5 % (42.0-52.0) L Mean Corpuscular Volume 88 FL (80-99) Mean Corpuscular Hemoglobin 29.1 PG (27.0-31.0) Mean Corpuscular Hemoglobin Concent 33.0 G/DL (32.0-36.0) Red Cell Distribution Width 14.3 % (11.6-14.8) Platelet Count 267 K/UL (150-450) Mean Platelet Volume 7.7 FL (6.5-10.1) Neutrophils (%) (Auto) 83.0 % (45.0-75.0) H Lymphocytes (%) (Auto) 7.3 % (20.0-45.0) L Monocytes (%) (Auto) 8.1 % (1.0-10.0) Eosinophils (%) (Auto) 0.7 % (0.0-3.0) Basophils (%) (Auto) 0.9 % (0.0-2.0) Sodium Level 137 MMOL/L (136-145) Potassium Level 4.3 MMOL/L (3.5-5.1) Chloride Level 104 MMOL/L (98-107) Carbon Dioxide Level 30 MMOL/L (21-32) Anion Gap 3 mmol/L (5-15) L Blood Urea Nitrogen 18 mg/dL (7-18) Creatinine 1.4 MG/DL (0.55-1.30) H Estimat Glomerular Filtration Rate mL/min (>60) Glucose Level 158 MG/DL (74-106) H Calcium Level 8.0 MG/DL (8.5-10.1) L Plan Problems: (1) Gangrene of lower extremity Assessment & Plan: 71M left lower extremity cellulitis/wound which is chronic after injury a "few months ago". has been managing wound on his own since but has been worsening. now has cellulitis around left and edema from foot to thigh. large area of skin loss on anterior mid leg. small incision noted and underlying tissue with edema but does bleed and potentially viable. areas of skin loss with bleeding once manipulated but some areas without. s/p excisional debridement with washout and wound vac placement wound VAC placed again yesterday. wound doing well. -keep lower extremity elevated -IV Abx -Wound VAC -okay to d/c from surgical standpoint wound VAC change q3 days. if VAC cannot be used, okay to do gauze packing and dressings TID. thank you for this consultation. will follow with you Mannie Macedo Oct 10, 2017 14:08
[2017-10-10] MEDS ORDERED: COLACE100 MG ORAL (14:36)
[2017-10-10] MEDS ORDERED: PREVACID30 M2 ORAL (14:36)
[2017-10-10] MEDS ORDERED: CATAPRES0.3 MG ORAL (14:44)
[2017-10-10] MEDS ORDERED: TAMSULOSIN HCL0.4 MG ORAL (14:47)
[2017-10-10] MEDS ORDERED: NITROGLYCERIN1 EAC2 TD (14:50)
[2017-10-10] MEDS ORDERED: AUGMENTIN 500-1 EACH ORAL (14:56)
[2017-10-10] MEDS ORDERED: CIPRO500 MG/51 PO (14:57)
[2017-10-10] MEDS ORDERED: APRESOLINE100 MG ORAL (14:58)
[2017-10-10] MEDS ORDERED: THEOPHYLLINE A100 MG ORAL (15:00)
[2017-10-10] MEDS ORDERED: NOVOLOG100 UNITS1 (15:01)
[2017-10-10] MEDS ORDERED: NORVASC10 MG ORAL (15:08)
[2017-10-10] MEDS ORDERED: NORCO1 E1 ORAL (15:32)
[2017-10-10] MEDS ORDERED: ZOFRAN4 M1 ORAL (15:33)
--- NOTE | 2017-10-10 15:34 | Nephrology Progress Note ---
Assessment/Plan Problem List: (1) Malignant hypertension (2) Cocaine abuse (3) CKD (chronic kidney disease) (4) CHF exacerbation Assessment Diabetic Nephropathy Cr stable and lower Gangrene of lower extremity CHF exacerbation Malignant hypertension Cocaine abuse Obesity (BMI 30.0-34.9) ACS (acute coronary syndrome) Plan debridement 10/02 Adjust BP meds- add norvasc asa and nitro PRNs for BP 2D echo Left ventricular ejection fraction to be slightly reduced - estimated 45 % monitor renal parameters Subjective ROS Limited/Unobtainable: No Constitutional: Reports: malaise Objective Objective Last 24 Hour Vital Signs Date Time Temp Pulse Resp B/P (MAP) Pulse Ox O2 Delivery O2 Flow Rate FiO2 10/10/17 14:49 161/63 10/10/17 14:49 161/63 10/10/17 12:00 98.1 76 20 161/63 95 98.1 10/10/17 09:58 70 155/71 10/10/17 08:00 98.1 70 21 155/71 96 98.1 10/10/17 05:26 154/72 10/10/17 05:25 154/72 10/10/17 04:50 97.5 77 20 154/72 97 Room Air 97.5 10/10/17 01:57 166/67 10/09/17 23:29 99.5 70 18 166/67 97 99.5 10/09/17 21:42 157/78 10/09/17 21:41 157/78 10/09/17 20:29 Room Air 10/09/17 20:29 97 Room Air 10/09/17 20:00 99.5 68 18 157/78 100 99.5 10/09/17 17:02 154/76 10/09/17 16:00 98.1 66 19 154/76 97 98.1 Intake and Output 10/09/17 10/10/17 19:00 07:00 Intake Total 427.5 ml 200 ml Output Total 300 ml Balance 427.5 ml -100 ml Intake Oral 400 ml 200 ml IV Total 27.5 ml Output Urine Total 300 ml Drainage Total 0 ml # Voids 2 Laboratory Tests 10/10/17 07:28: White Blood Count 10.0, Red Blood Count 3.79L, Hemoglobin 11.0L, Hematocrit 33.5L, Mean Corpuscular Volume 88, Mean Corpuscular Hemoglobin 29.1, Mean Corpuscular Hemoglobin Concent 33.0, Red Cell Distribution Width 14.3, Platelet Count 267, Mean Platelet Volume 7.7, Neutrophils (%) (Auto) 83.0H, Lymphocytes ( %) (Auto) 7.3L, Monocytes (%) (Auto) 8.1, Eosinophils (%) (Auto) 0.7, Basophils (%) (Auto) 0.9, Sodium Level 137, Potassium Level 4.3, Chloride Level 104, Carbon Dioxide Level 30, Anion Gap 3L, Blood Urea Nitrogen 18, Creatinine 1.4H, Estimat Glomerular Filtration Rate , Glucose Level 158H, Calcium Level 8.0L Height (Feet): 6 Height (Inches): 4.00 Weight (Pounds): 331 General Appearance: no apparent distress Objective PE not changed OMER YOU Oct 10, 2017 15:34
[2017-10-10 16:00] VITALS: BP 153/73
--- NOTE | 2017-10-10 16:18 | Internal Med Progress Note ---
Subjective Date of Service: Oct 10, 2017 Physician Name Adilson Stephen Attending Physician Hal Mooer MD Current Medications Medications (Trade) Dose Ordered Sig/Lito Route PRN Reason Start Time Stop Time Status Last Admin Dose Admin Acetaminophen (Tylenol) 650 mg Q4H PRN ORAL fever (temp>100.5F) 10/03/17 19:45 10/28/17 23:44 Amlodipine Besylate (Norvasc) 10 mg DAILY ORAL 10/05/17 09:00 11/04/17 08:59 10/10/17 09:58 Amoxicillin/ Clavulanate Potassium (Augmentin) 500 mg EVERY 12 HOURS ORAL 10/09/17 21:00 10/16/17 20:59 10/10/17 10:07 Aspirin (ASA) 162 mg DAILY ORAL 10/04/17 09:00 10/30/17 15:44 10/10/17 09:57 Ciprofloxacin (Cipro 500mg tab) 500 mg EVERY 12 HOURS ORAL 10/09/17 21:00 10/16/17 20:59 10/10/17 09:58 Clonidine HCl (Catapres Tab) 0.3 mg EVERY 8 HOURS ORAL 10/09/17 14:00 11/08/17 13:59 10/10/17 14:49 Dextrose (Dextrose 50%) 25 ml STAT PRN IV Hypoglycemia 10/07/17 14:30 11/06/17 14:29 Dextrose (Dextrose 50%) 50 ml STAT PRN IV Hypoglycemia 10/07/17 14:30 11/06/17 14:29 Docusate Sodium (Colace) 100 mg THREE TIMES A DAY ORAL 10/03/17 18:00 10/29/17 12:59 10/10/17 12:37 Heparin Sodium (Porcine) (Heparin 5000 units/ml) 5,000 units EVERY 12 HOURS SUBQ 10/03/17 21:00 10/29/17 08:59 10/10/17 10:03 Hydralazine HCl (Apresoline) 100 mg Q8H ORAL 10/04/17 22:00 11/03/17 21:59 10/10/17 14:49 Insulin Aspart (NovoLOG) BEFORE MEALS AND HS SUBQ 10/03/17 21:00 10/29/17 06:29 10/10/17 12:23 Lansoprazole (Prevacid) 30 mg BID ORAL 10/03/17 18:00 10/29/17 17:59 10/10/17 09:58 Minoxidil (Loniten) 2.5 mg Q4H PRN ORAL bp over 160 syst 10/04/17 14:57 11/03/17 14:56 10/10/17 01:57 Morphine Sulfate (Morphine Sulfate) 4 mg Q4H PRN IVP For Pain 10/10/17 08:45 10/17/17 08:44 10/10/17 12:37 Nitroglycerin (Ntg) 0.4 mg Q5M PRN SL Prn Chest Pain 10/03/17 16:45 10/28/17 23:44 Nitroglycerin (Ntg) 1 patch Q24H TDERMAL 10/04/17 16:00 10/30/17 15:59 10/09/17 17:02 Ondansetron HCl (Zofran) 4 mg Q6H PRN IVP Nausea & Vomiting 10/03/17 17:00 10/28/17 16:59 Polyethylene Glycol (Miralax) 17 gm DAILYPRN PRN ORAL Constipation 10/03/17 17:00 10/28/17 16:59 Promethazine HCl/ Codeine (Phenergan with Codeine) 5 ml Q4H PRN ORAL For Cough 10/03/17 17:00 10/29/17 16:59 Tamsulosin HCl (Flomax) 0.4 mg BID ORAL 10/03/17 18:00 10/29/17 17:59 10/10/17 09:57 Theophylline (Mark-Dur) 100 mg EVERY 12 HOURS ORAL 10/03/17 21:00 10/29/17 20:59 10/10/17 09:57 Allergies: Coded Allergies: No Known Allergies (Unverified , 09/28/17) ROS Limited/Unobtainable: No Constitutional: Reports: no symptoms HEENT: Reports: no symptoms Cardiovascular: Reports: no symptoms Respiratory: Reports: no symptoms Gastrointestinal/Abdominal: Reports: no symptoms Genitourinary: Reports: no symptoms Neurologic/Psychiatric: Reports: no symptoms Subjective 71 YO M admitted with left leg pain. Now cellulitis left leg and right pleural effusion. Cover for Int Med-Dr Moore. Await thoracentesis. S/P debridement of left leg on Sat10/02/17. Await transfer to [facility] senior care fac Objective Last Vital Signs Date Time Temp Pulse Resp B/P (MAP) Pulse Ox O2 Delivery O2 Flow Rate FiO2 10/10/17 14:49 161/63 10/10/17 12:00 98.1 76 20 95 98.1 10/10/17 04:50 Room Air 10/08/17 20:32 2.0 28 Laboratory Tests Test 10/10/17 07:28 White Blood Count 10.0 K/UL (4.8-10.8) Red Blood Count 3.79 M/UL (4.70-6.10) L Hemoglobin 11.0 G/DL (14.2-18.0) L Hematocrit 33.5 % (42.0-52.0) L Mean Corpuscular Volume 88 FL (80-99) Mean Corpuscular Hemoglobin 29.1 PG (27.0-31.0) Mean Corpuscular Hemoglobin Concent 33.0 G/DL (32.0-36.0) Red Cell Distribution Width 14.3 % (11.6-14.8) Platelet Count 267 K/UL (150-450) Mean Platelet Volume 7.7 FL (6.5-10.1) Neutrophils (%) (Auto) 83.0 % (45.0-75.0) H Lymphocytes (%) (Auto) 7.3 % (20.0-45.0) L Monocytes (%) (Auto) 8.1 % (1.0-10.0) Eosinophils (%) (Auto) 0.7 % (0.0-3.0) Basophils (%) (Auto) 0.9 % (0.0-2.0) Sodium Level 137 MMOL/L (136-145) Potassium Level 4.3 MMOL/L (3.5-5.1) Chloride Level 104 MMOL/L (98-107) Carbon Dioxide Level 30 MMOL/L (21-32) Anion Gap 3 mmol/L (5-15) L Blood Urea Nitrogen 18 mg/dL (7-18) Creatinine 1.4 MG/DL (0.55-1.30) H Estimat Glomerular Filtration Rate mL/min (>60) Glucose Level 158 MG/DL (74-106) H Calcium Level 8.0 MG/DL (8.5-10.1) L Microbiology Date/Time Source Procedure Growth Status 10/08/17 08:45 Body Fluid Gram Stain - Final Resulted 10/08/17 08:45 Wound Culture - Preliminary Pseudomonas Aeruginosa Staphylococcus Sp Coag Neg Resulted Intake and Output 10/09/17 10/10/17 19:00 07:00 Intake Total 427.5 ml 200 ml Output Total 300 ml Balance 427.5 ml -100 ml Intake Oral 400 ml 200 ml IV Total 27.5 ml Output Urine Total 300 ml Drainage Total 0 ml # Voids 2 Objective General Appearance: WD/WN, no apparent distress, alert EENT: PERRL/EOMI, normal ENT inspection, TMs normal Neck: non-tender, normal alignment, supple, normal inspection Cardiovascular: normal peripheral pulses, normal rate, regular rhythm, no gallop/murmur, no JVD Respiratory/Chest: decreased breath sounds, crackles/rales, rhonchi - bilaterally, expiratory wheezing Abdomen: normal bowel sounds, non tender, soft, no organomegaly, no mass Extremities: normal range of motion, non-tender Neurologic: replenishment analyst II-XII grossly normal, no motor/sensory deficits Skin: normal pigmentation, warm/dry Assessment/Plan Problem List: (1) Pleural effusion, right Assessment & Plan: See pulmonary note. Await thoracentesis (2) Ascites (3) Cellulitis of left leg Assessment & Plan: see surgery and ID note. Continue zosyn-day #12. S/P Debridement in OR 10/02/17-Wound vac D/C-reapply in 2-3 days per surgery. (4) Renal failure Assessment & Plan: See nephrology note. (5) Diabetes mellitus type II, uncontrolled Assessment & Plan: Cont novolog sliding scale. (6) Obesities, morbid (7) Malignant hypertension Assessment & Plan: Continue norvasc and clonidine (8) CHF exacerbation Assessment & Plan: See cardiology note. (9) Leukocytosis Assessment & Plan: Sepsis; continue zosyn per ID (10) Sepsis Assessment & Plan: Klebsiella Oxytoca. Continue zosyn day #12/ per ID Assessment/Plan Discharge plan: [facility] today with oral augmentin and cipro Adilson Stephen MD Oct 10, 2017 16:18
--- NOTE | 2017-10-10 16:34 | Infectious Diseases Prog Note ---
Assessment/Plan Assessment/Plan Assessment: SEpsis (SP) 2ry to L wound infection, Gram neg bacteremia -09/28 Bcx 05/09 K. oxytoca (R amp, otherwise S); 09/30 Neg x2 L anterior leg chronic wound and surrounding cellulitis; improving -s/p I+D 10/02 and wound vac placement -OR findings: large area of necrosis and gangrene on the anterior mid leg; measured to be 23 cm x 14 cm x approximately 2 cm deep. The area was excised until fresh bleeding tissue could be identified. It was down deep in the medial lateral aspect to the fascia and to the periosteum on the tibia as well. The underlying subcutaneous tissue with edema, there were some pockets of fluid. Fascia and muscle viable. -OR cx PsA (maldonado S), K. pna (R amp, otherwise S) -CT L tibia/fibula: Cellulitis and ulceration in the pretibial aspect of the left lower extremity. The presence of gas likely associated with the presence of a large ulceration in this location. Gas-forming organism is the obvious concern and not excludable. No drainable abscess identified. No obvious intramuscular fascial thickening or fluid accumulation. -xray tibia/fibula: There is gas in the soft tissues. This can be traumatic , iatrogenic, or infectious. No acute fracture or suspicious osseous erosions. ; gas likely from incision made in ED- tissue seemed viable upon superificial exploration per ED physician and surgeon. -wound cx: K. pneumonia (R amp, otherwise S), E. fecalis (maldonado S); 2nd wound cx : K. pna (R amp, otherwise S) #1 and #2 PsA (maldonado S), E. fecalis (maldonado S) K, oxytoca bacteremia- 2ry to above -Abd US: Ascites. Right pleural effusion. Left kidney not identified. Access to the area is limited. It is uncertain whether this is technical or whether there is an absent or small left kidney. Gallbladder contracted but otherwise grossly unremarkable.Otherwise negative within the limits noted above. Fever, resolved Leukocytosis; resolved -u/a wbc 10-15, nit neg, leuk +1 Hypertensive urgency,SP TK, improving Dm2 w/ nephropathy CHF Obesity HTN marihuana and cocaine use non compliance Plan: -Continue PO Cipro 500mg bid and Augmentin 500/125mg bid abx d#13/14 for PsA, Klebsiella and enterococcus of leg wound infection/abscess -ok to discharge on this regimen -EKG to monitor Qtc as he is on another Qt prolonging drug -10/09 SP Zosyn #6 -10/02 SP IV Vanco #5, CEfepime #5, Flagyl #5 -Monitor CBC/BMP, temperatures -wound care/wound vac -Gen Sx f/u Thank you for this consultation. Will continue to follow along with you. Discussed with RN and Dr Macedo. Subjective Allergies: Coded Allergies: No Known Allergies (Unverified , 09/28/17) Subjective afebrile no leukocytosis wound improving discharge planning Objective Vital Signs Last 24 Hour Vital Signs Date Time Temp Pulse Resp B/P (MAP) Pulse Ox O2 Delivery O2 Flow Rate FiO2 10/10/17 16:00 97.9 69 19 153/73 94 97.9 10/10/17 14:49 161/63 10/10/17 14:49 161/63 10/10/17 12:00 98.1 76 20 161/63 95 98.1 10/10/17 09:58 70 155/71 10/10/17 08:00 98.1 70 21 155/71 96 98.1 10/10/17 05:26 154/72 10/10/17 05:25 154/72 10/10/17 04:50 97.5 77 20 154/72 97 Room Air 97.5 10/10/17 01:57 166/67 10/09/17 23:29 99.5 70 18 166/67 97 99.5 10/09/17 21:42 157/78 10/09/17 21:41 157/78 10/09/17 20:29 Room Air 10/09/17 20:29 97 Room Air 10/09/17 20:00 99.5 68 18 157/78 100 99.5 10/09/17 17:02 154/76 Height (Feet): 6 Height (Inches): 4.00 Weight (Pounds): 331 Objective General Appearance: no apparent distress, alert Lines, tubes and drains: peripheral HEENT: normocephalic, mucous membranes moist Neck: supple Respiratory/Chest: lungs clear, normal breath sounds, no respiratory distress, no accessory muscle use Cardiovascular/Chest: normal rate Abdomen: normal bowel sounds, non tender, soft, no organomegaly, no mass Extremities: L leg wrapped and wound vac in place Neurologic: alert, oriented x 3, responsive Microbiology Date/Time Source Procedure Growth Status 10/08/17 08:45 Body Fluid Gram Stain - Final Resulted 10/08/17 08:45 Wound Culture - Preliminary Pseudomonas Aeruginosa Staphylococcus Sp Coag Neg Resulted Laboratory Tests Test 10/10/17 07:28 White Blood Count 10.0 K/UL (4.8-10.8) Red Blood Count 3.79 M/UL (4.70-6.10) L Hemoglobin 11.0 G/DL (14.2-18.0) L Hematocrit 33.5 % (42.0-52.0) L Mean Corpuscular Volume 88 FL (80-99) Mean Corpuscular Hemoglobin 29.1 PG (27.0-31.0) Mean Corpuscular Hemoglobin Concent 33.0 G/DL (32.0-36.0) Red Cell Distribution Width 14.3 % (11.6-14.8) Platelet Count 267 K/UL (150-450) Mean Platelet Volume 7.7 FL (6.5-10.1) Neutrophils (%) (Auto) 83.0 % (45.0-75.0) H Lymphocytes (%) (Auto) 7.3 % (20.0-45.0) L Monocytes (%) (Auto) 8.1 % (1.0-10.0) Eosinophils (%) (Auto) 0.7 % (0.0-3.0) Basophils (%) (Auto) 0.9 % (0.0-2.0) Sodium Level 137 MMOL/L (136-145) Potassium Level 4.3 MMOL/L (3.5-5.1) Chloride Level 104 MMOL/L (98-107) Carbon Dioxide Level 30 MMOL/L (21-32) Anion Gap 3 mmol/L (5-15) L Blood Urea Nitrogen 18 mg/dL (7-18) Creatinine 1.4 MG/DL (0.55-1.30) H Estimat Glomerular Filtration Rate mL/min (>60) Glucose Level 158 MG/DL (74-106) H Calcium Level 8.0 MG/DL (8.5-10.1) L Current Medications Medications (Trade) Dose Ordered Sig/Lito Route PRN Reason Start Time Stop Time Status Last Admin Dose Admin Acetaminophen (Tylenol) 650 mg Q4H PRN ORAL fever (temp>100.5F) 10/03/17 19:45 10/28/17 23:44 Amlodipine Besylate (Norvasc) 10 mg DAILY ORAL 10/05/17 09:00 11/04/17 08:59 10/10/17 09:58 Amoxicillin/ Clavulanate Potassium (Augmentin) 500 mg EVERY 12 HOURS ORAL 10/09/17 21:00 10/16/17 20:59 10/10/17 10:07 Aspirin (ASA) 162 mg DAILY ORAL 10/04/17 09:00 10/30/17 15:44 10/10/17 09:57 Ciprofloxacin (Cipro 500mg tab) 500 mg EVERY 12 HOURS ORAL 10/09/17 21:00 10/16/17 20:59 10/10/17 09:58 Clonidine HCl (Catapres Tab) 0.3 mg EVERY 8 HOURS ORAL 10/09/17 14:00 11/08/17 13:59 10/10/17 14:49 Dextrose (Dextrose 50%) 25 ml STAT PRN IV Hypoglycemia 10/07/17 14:30 11/06/17 14:29 Dextrose (Dextrose 50%) 50 ml STAT PRN IV Hypoglycemia 10/07/17 14:30 11/06/17 14:29 Docusate Sodium (Colace) 100 mg THREE TIMES A DAY ORAL 10/03/17 18:00 10/29/17 12:59 10/10/17 12:37 Heparin Sodium (Porcine) (Heparin 5000 units/ml) 5,000 units EVERY 12 HOURS SUBQ 10/03/17 21:00 10/29/17 08:59 10/10/17 10:03 Hydralazine HCl (Apresoline) 100 mg Q8H ORAL 10/04/17 22:00 11/03/17 21:59 10/10/17 14:49 Insulin Aspart (NovoLOG) BEFORE MEALS AND HS SUBQ 10/03/17 21:00 10/29/17 06:29 10/10/17 12:23 Lansoprazole (Prevacid) 30 mg BID ORAL 10/03/17 18:00 10/29/17 17:59 10/10/17 09:58 Minoxidil (Loniten) 2.5 mg Q4H PRN ORAL bp over 160 syst 10/04/17 14:57 11/03/17 14:56 10/10/17 01:57 Morphine Sulfate (Morphine Sulfate) 4 mg Q4H PRN IVP For Pain 10/10/17 08:45 10/17/17 08:44 10/10/17 12:37 Nitroglycerin (Ntg) 0.4 mg Q5M PRN SL Prn Chest Pain 10/03/17 16:45 10/28/17 23:44 Nitroglycerin (Ntg) 1 patch Q24H TDERMAL 10/04/17 16:00 10/30/17 15:59 10/09/17 17:02 Ondansetron HCl (Zofran) 4 mg Q6H PRN IVP Nausea & Vomiting 10/03/17 17:00 10/28/17 16:59 Polyethylene Glycol (Miralax) 17 gm DAILYPRN PRN ORAL Constipation 10/03/17 17:00 10/28/17 16:59 Promethazine HCl/ Codeine (Phenergan with Codeine) 5 ml Q4H PRN ORAL For Cough 10/03/17 17:00 10/29/17 16:59 Tamsulosin HCl (Flomax) 0.4 mg BID ORAL 10/03/17 18:00 10/29/17 17:59 10/10/17 09:57 Theophylline (Mark-Dur) 100 mg EVERY 12 HOURS ORAL 10/03/17 21:00 10/29/17 20:59 10/10/17 09:57 Consuelo Baeza M.D. Oct 10, 2017 16:34
--- NOTE | 2017-10-11 12:16 | Discharge Summary ---
Discharge Summary Discharge Summary _ DATE OF ADMISSION: 09/28/2017 DATE OF DISCHARGE: 10/10/2017 CONSULTANTS: Dr. Consuelo Gipson [facility] HOSPITAL COURSE: Patient is a 71-year-old male, with history of diabetes and hypertension, however, is not on any medication for years, presented with chief complaint of left leg pain and swelling for the last 2 weeks. He was also noted draining coming out from the legs. He was also swollen. He denied fever, chills, denied nausea or vomiting. On evaluation at ED, he had uncontrolled hypertension, blood pressure was 231/ 134. He was noted to have gangrene on the lower extremity secondary to a diabetic ulcer. He was given Lasix and was started on IV antibiotics. Chest x- ray showed right pleural effusion with adjacent consolidation. EKG was in normal sinus rhythm with nonspecific ST changes. X-ray of the left tibia fibula showed gas in the soft tissues, there was no acute fracture noted. Surgical evaluation was done. Patient had been managing wound on his own but had been worsening. Now has cellulitis around the left and edema from foot to thigh. There was a large area of skin loss on anterior mid leg. He was given wound care. He was seen by infectious disease specialist. He was given IV vancomycin and cefepime, Flagyl was added for anaerobic coverage. He was depressed and with low energy. He admits to smoking marijuana mixed with cocaine. He was seen by psychiatrist and was diagnosed with depression and drug abuse. He was given Lexapro 10 mg daily. He came in with elevated creatinine 1.7, BUN was 18. Patient possibly has diabetic nephropathy. Hemoglobin A1c was 8.8. Blood pressure medications were adjusted. He was given Norvasc, hydralazine and clonidine. He had an echocardiogram done that showed ejection fraction 45%. BNP was elevated. He had worsening leukocytosis. CT of the left leg showed cellulitis and ulceration in the pretibial aspect of the left lower extremity. Presence of gas -like associated with presence of a large ulceration in the location. Patient will need excisional debridement of wound due to concerning persistent gas underlying the tissues. Unable to perform bedside excision given size of the wound. On 10/02/2017, he underwent excisional debridement of the left lower extremity wound measuring 23 cm x 14 cm x 2 cm. He had a wound VAC placed. Initial blood culture with growth of Klebsiella. Repeat blood culture did not isolate any growth. Left leg wound culture from OR grew Pseudomonas and Klebsiella. IV vancomycin was discontinued. Cefepime and Flagyl was simplified and switch to Zosyn for pseudomonas, Klebsiella and enterococcus coverage. Antibiotic was later transitioned to by mouth ciprofloxacin and Augmentin. Leukocytosis improved, he was afebrile. He was eventually discharged back to correction. FINAL DIAGNOSES: Sepsis secondary to left wound infection and gram-negative bacteremia Left anterior leg wound with cellulitis, status post I and D and placement of wound VAC Klebsiella bacteremia Right pleural effusion Morbid obesity Malignant hypertension/hypertensive urgency Diabetes mellitus type 2, out of control with diabetic nephropathy Acute kidney injury Drug abuse CK D CHF exacerbation with preserved ejection fraction ACC stage C, NYHA class II Depression Anasarca Noncompliance DISPOSITION: Patient was transferred to [facility]. DISCHARGE MEDICATIONS: Refer to Discharge Medication List. Continue Augmentin and ciprofloxacin. I have been assigned to dictate discharge summary on this account, and I was not involved in the patient's management. Tosin Umanzor NP Oct 11, 2017 12:16
--- NOTE | 2017-10-11 12:34 | Cardiology Report ---
APPROVED REPORT EKG Measurement Heart [id number] HI [id number] Sinus rhythm with premature atrial complexes Rightward axis Low voltage QRS T wave abnormality, consider inferolateral ischemia Prolonged QT Abnormal ECG
== END 2017-10-10 17:30 | DRG 853 ==
LOC: EDBD 21:26 → EMR 21:46 → 2E 22:35 → EDBEDREQ 09-29 00:01 → 4W 10-03 16:26
DX: A41.9 Sepsis, unspecified organism (principal); N17.0 Acute kidney failure with tubular necrosis; E11.52 Type 2 diabetes mellitus with diabetic peripheral angiopathy with gangrene; I96 Gangrene, not elsewhere classified; L03.116 Cellulitis of left lower limb; I13.0 Hypertensive heart and chronic kidney disease with heart failure and stage 1 through stage 4 chronic kidney disease, or unspecified chronic kidney disease; J90 Pleural effusion, not elsewhere classified; R18.8 Other ascites; E11.622 Type 2 diabetes mellitus with other skin ulcer; E11.65 Type 2 diabetes mellitus with hyperglycemia; E11.21 Type 2 diabetes mellitus with diabetic nephropathy; F14.10 Cocaine abuse, uncomplicated; F12.10 Cannabis abuse, uncomplicated; E11.22 Type 2 diabetes mellitus with diabetic chronic kidney disease; N18.9 Chronic kidney disease, unspecified; I50.9 Heart failure, unspecified; Z91.14 Patient's other noncompliance with medication regimen; Z91.11 Patient's noncompliance with dietary regimen; I51.7 Cardiomegaly; E88.09 Other disorders of plasma-protein metabolism, not elsewhere classified; F32.9 Major depressive disorder, single episode, unspecified; I16.0 Hypertensive urgency
CPT/HCPCS: 36415; 71045; 76604; 76700; 80048; 80053; 80061; 80202; 80307; 81003; 82140; 82248; 82378; 82550; 82553; 82607; 82728; 82746; 82962; 82977; 83036; 83540; 83550; 83605; 83615; 83735; 83880; 84100; 84443; 84484; 84550; 85007; 85025; 85044; 85060; 85610; 85651; 85730; 86140; 87040; 87070; 87075; 87181; 87205; 93005; 93306; 93970; 94003; 94150; 94760; 99291; J1815; J2405; J2765